=== PATIENT | female | born 1930 ===

== ENCOUNTER 2017-01-16 19:46 | Inpatient (IN) | payer MEDICARE, MEDICAID ==
[2017-01-16 19:54] VITALS: BMI 27.4
[2017-01-16] MEDS ORDERED: Albuterol-Ipratrop 3 mg / 0.5 (3 ml) UD IH STA (20:04)
--- NOTE | 2017-01-16 20:12 | ED PDOC ---
Arrival/HPI - General Chief Complaint: Shortness Of Breath Time Seen by Provider: 01/16/17 19:48 Historian: Patient - Critical Care Critical Care Minutes: 30 minutes - History of Present Illness Narrative History of Present Illness (Text): 01/16/17 20:08 A 86 year old female, whose past medical history includes CAD, renal insufficiency, CHF, hypertension, dementia, presents to the emergency department complaining of shortness of breath for past couple of days. Patient also experiences dyspnea on exertion and orthopnea. Has no history of fever, chills, cough, chest pain, nausea, vomiting, diarrhea, or any other complaints. PMD: Dr. Otero Time/Duration: > week (couple days) Symptom Onset: Sudden Symptom Course: Unchanged Past Medical History - Provider Review Nursing Documentation Reviewed: Yes - Infectious Disease Hx of Infectious Diseases: None - Tetanus Immunization Tetanus Immunization: Unknown - Cardiac Hx Cardiac Disorders: Yes (CAD) Hx Hypertension: Yes - Pulmonary Hx Respiratory Disorders: No - Neurological Hx Neurological Disorder: Yes Hx Paralysis: No - HEENT Hx HEENT Disorder: No - Renal Hx Renal Disorder: No - Endocrine/Metabolic Hx Endocrine Disorders: No - Hematological/Oncological Hx Blood Disorders: Yes Hx Blood Transfusions: Yes Hx Blood Transfusion Reaction: No - Integumentary Hx Dermatological Disorder: No - Musculoskeletal/Rheumatological Hx Musculoskeletal Disorders: No - Gastrointestinal Hx Gastrointestinal Disorders: Yes (Gastritis) - Genitourinary/Gynecological Hx Genitourinary Disorders: No - Psychiatric Hx Psychophysiologic Disorder: No Hx Emotional Abuse: No Hx Physical Abuse: No Hx Substance Use: No - Past Surgical History Past Surgical History: Non-Contributing - Surgical History Hx Cardiac Catheterization: Yes (february) - Anesthesia Hx Anesthesia Reactions: No Hx Malignant Hyperthermia: No - Suicidal Assessment Feels Threatened In Home Enviroment: No Family/Social History - Physician Review Nursing Documentation Reviewed: Yes Family/Social History: No Known Family HX Smoking Status: Never Smoked Hx Alcohol Use: No Hx Substance Use: No Hx Substance Use Treatment: No Allergies/Home Meds Allergies/Adverse Reactions: Allergies No Known Allergies Allergy (Verified 01/16/17 19:53) Home Medications: Home Meds Medication Instructions Recorded Confirmed Omeprazole 20 mg PO BID 04/18/16 01/16/17 Aspirin [Adult Low Dose Aspirin EC] 81 mg PO DAILY 04/29/16 01/16/17 Acetaminophen [Acetaminophen Extra 1,000 mg PO BID 01/16/17 01/16/17 Strength] Furosemide [Lasix] 40 mg PO DAILY 01/16/17 01/16/17 Losartan/Hydrochlorothiazide 1 tab PO DAILY 01/16/17 01/16/17 [Losartan-Hctz 50-12.5 mg Tab] Review of Systems - Physician Review All systems were reviewed & negative as marked: Yes - Review of Systems Constitutional: absent: Fevers Respiratory: SOB. absent: Cough Cardiovascular: CASTILLO, Orthopnea. absent: Chest Pain Gastrointestinal: absent: Diarrhea, Nausea, Vomiting Physical Exam Vital Signs Reviewed: Yes Vital Signs Temp Pulse Resp BP Pulse Ox 01/16/17 22:51 67 22 125/54 L 95 01/16/17 22:33 77 24 152/57 H 96 01/16/17 21:54 143/75 01/16/17 21:51 74 22 143/75 99 01/16/17 21:40 97.9 F 01/16/17 20:34 94 F L 01/16/17 20:07 62 16 159/63 H 100 01/16/17 20:05 26 H 100 Blood Pressure: Normal Pulse: Regular Respiratory Rate: Normal Appearance: Positive for: Well-Appearing, Non-Toxic, Comfortable Pain Distress: None Mental Status: Positive for: Alert and Oriented X 3 - Systems Exam Head: Present: Atraumatic, Normocephalic Pupils: Present: PERRL Extroacular Muscles: Present: EOMI Conjunctiva: Present: Normal Mouth: Present: Moist Mucous Membranes Neck: Present: Normal Range of Motion Respiratory/Chest: Present: Rales (rales at base of lungs) Cardiovascular: Present: Regular Rate and Rhythm, Normal S1, S2. No: Murmurs Abdomen: Present: Normal Bowel Sounds. No: Tenderness, Distention, Peritoneal Signs Back: Present: Normal Inspection Upper Extremity: Present: Normal Inspection. No: Cyanosis, Edema Lower Extremity: Present: Edema (+1 edema) Neurological: Present: GCS=15, CN II-XII Intact, Speech Normal Skin: Present: Warm, Dry, Normal Color. No: Rashes Psychiatric: Present: Alert, Oriented x 3, Normal Insight, Normal Concentration Medical Decision Making ED Course and Treatment: 01/16/17 20:11 Impression: 86 year old female with shortness of breath. Physical exam shows rales at base of lungs; +1 edema to lower extremity. Plan: -- EKG -- Chest X-ray -- Labs -- Duoneb -- Reassess and disposition Prior Visits: Notes and results from previous visits were reviewed. Patient was last seen in the emergency department on 06/15/2016 for AMS. Patient was admitted. Progress Notes: EKG: Ordered, reviewed, and independently interpreted the EKG. Rate : 66 BPM Rhythm : NSR Interpretation : Non-IDCD, nonspecific T-wave changes. Comparison : No previous EKG for comparison. Chest X-ray: Dictator : Peter Cesar MD Report Date : 01/16/2017 22:10:00 IMPRESSION: 1. Findings compatible with [id number]-komodhsh pulmonary edema. 2. Bibasilar atelectasis and/or pneumonia. 3. Incidental/non-acute findings are described above. 01/17/17 00:45 Case was d/w .Accepts to her service.Consult /. 01/17/17 00:59 Pt. with transient period of some worsening sob,relieved post nebulizer.Pt. also feels better when placed on 100% NR.Case was d/w payroll auditor who will assess pt. prior to final disposition. - Lab Interpretations Microbiology Results: Microbiology Results 01/16/17 20:20 Blood Blood Culture - Preliminary NO GROWTH AFTER 24 HOURS 01/16/17 20:05 Blood Blood Culture - Preliminary NO GROWTH AFTER 24 HOURS Lab Results: 01/16/17 20:05 01/16/17 20:05 Lab Results 01/17/17 00:05: pO2 99 H, VBG pH 7.34, VBG pCO2 49.0, VBG HCO3 26.4, VBG Total CO2 27.9, VBG O2 Sat (Calc) 98.1 H, VBG Base Excess 0.0, VBG Potassium 3.7, Glucose 123 H, Lactate 1.3, FiO2 21.0, Sodium 143.0, Chloride 111.0 H, Venous Blood Potassium 3.7 01/16/17 22:50: pCO2 40, pO2 66.0 L, HCO3 25.4, ABG pH 7.41, ABG Total CO2 26.6 , ABG O2 Saturation 94.8 L, ABG O2 Content 12.5 L, ABG Base Excess 0.7, ABG Hemoglobin 9.6 L, ABG Carboxyhemoglobin 1.6 H, POC ABG HHb (Measured) 5.1 H, ABG Methemoglobin 1.0, ABG O2 Capacity 13.2 L, Hgb O2 Saturation 92.2 L, FiO2 40.0 01/16/17 20:38: pO2 33, VBG pH 7.34, VBG pCO2 52.0, VBG HCO3 28.1 H, VBG Total CO2 29.7 H, VBG O2 Sat (Calc) 61.4, VBG Base Excess 1.4, VBG Potassium 4.4, Glucose 129 H, Lactate 2.1, FiO2 21.0, Sodium 142.0, Chloride 110.0 H, Venous Blood Potassium 4.4 01/16/17 20:05: WBC 4.0 L D, RBC 3.51, Hgb 9.8 L, Hct 29.8 L, MCV 84.9, MCH 27.9 , MCHC 32.9, RDW 18.9 H, Plt Count 182, MPV 11.2 H 01/16/17 20:05: Sodium 144, Potassium 4.3, Chloride 105, Carbon Dioxide 26, Anion Gap 17, BUN 23 H, Creatinine 1.0, Est GFR ( Amer) > 60, Est GFR ( Non-Af Amer) 53, Random Glucose 123 H, Calcium 10.3, Total Bilirubin 0.9, AST 43 H, ALT 48, Alkaline Phosphatase 158 H, Lactate Dehydrogenase 437, Total Creatine Kinase 41, Troponin I < 0.01, NT-Pro-B Natriuret Pep 1430 H, Total Protein 8.1, Albumin 4.2, Globulin 3.9, Albumin/Globulin Ratio 1.1 01/16/17 20:05: PT 10.7, INR 0.99, APTT 28.6 - RAD Interpretation Radiology Orders: 01/16/17 20:04 CHEST PORTABLE [RAD] Stat - Medication Orders Current Medication Orders: Acetaminophen (Tylenol 325mg Tab) 650 mg PO Q6H PRN PRN Reason: Fever >100.4 F Albuterol/Ipratropium (Duoneb 3 Mg/0.5 Mg (3 Ml) Ud) 3 ml IH Q4H PRN PRN Reason: Shortness of Breath Albuterol/Ipratropium (Duoneb 3 Mg/0.5 Mg (3 Ml) Ud) 3 ml IH [id number] [facility] Last Admin: 01/17/17 20:06 Dose: 3 ml Albuterol/Ipratropium (Duoneb 3 Mg/0.5 Mg (3 Ml) Ud) 3 ml IH Q2H PRN PRN Reason: Shortness of Breath Aspirin (Ecotrin) 81 mg PO DAILY [facility] Last Admin: 01/17/17 12:36 Dose: 81 mg Furosemide (Lasix) 40 mg IVP DAILY [facility] Last Admin: 01/17/17 10:53 Dose: 40 mg MAR Blood Pressure Document 01/17/17 10:53 NAILA (Rec: 01/17/17 10:53 NAILA [place] [id number]) Blood Pressure Blood Pressure (100/60-150/90) 122/70 IVP Administration Document 01/17/17 10:53 NAILA (Rec: 01/17/17 10:53 NAILA [place] [id number]) Charges for Administration # of IVP Administrations 1 Guaifenesin/Dextromethorphan (Robitussin Dm) 10 ml PO Q8H PRN PRN Reason: Cough Azithromycin (Zithromax 500mg In Ns) 500 mg in 250 mls @ 167 mls/hr IVPB DAILY [facility] PRN Reason: Protocol Ceftriaxone Sodium (Rocephin 1 Gram Ivpb) 1 gm in 100 mls @ 100 mls/hr IVPB DAILY [facility] PRN Reason: Protocol Methylprednisolone (Solu-Medrol) 30 mg IV Q12 [facility] Last Admin: 01/17/17 21:20 Dose: 30 mg eMAR Start Stop Document 01/17/17 21:20 KOPPS (Rec: 01/17/17 21:20 KOPPS [place] [id number]) Intravenous Solution Start Date 01/17/17 Start Time 21:20 End Date 01/17/17 End time 21:21 Total Infusion Time 1 Ondansetron HCl (Zofran Inj) 4 mg IVP Q6H PRN PRN Reason: Nausea/Vomiting Pantoprazole Sodium (Protonix Inj) 40 mg IVP DAILY [facility] Last Admin: 01/17/17 12:36 Dose: 40 mg IVP Administration Document 01/17/17 12:36 ANNEL (Rec: 01/17/17 12:36 ANENL [place] [id number]) Charges for Administration # of IVP Administrations 1 Discontinued Medications Acetaminophen (Tylenol 325mg Tab) 975 mg PO BID [facility] Last Admin: 01/17/17 12:36 Dose: 975 mg Comments: slight discomfort MAR Pain/Vitals Document 01/17/17 12:36 ANNEL (Rec: 01/17/17 12:36 ANNEL [id number]) Pain Reassessment Is This A Pain ReAssessment? Yes Sleep Is patient sleeping during reassessment? No Presence of Pain Presence of Pain No Albuterol/Ipratropium (Duoneb 3 Mg/0.5 Mg (3 Ml) Ud) 3 ml IH ONCE STA Stop: 01/16/17 20:05 Last Admin: 01/16/17 20:22 Dose: 3 ml Albuterol/Ipratropium (Duoneb 3 Mg/0.5 Mg (3 Ml) Ud) 3 ml IH ONCE STA Stop: 01/17/17 00:04 Last Admin: 01/17/17 00:18 Dose: 3 ml Furosemide (Lasix) 60 mg IVP ONCE ONE Stop: 01/16/17 21:37 Last Admin: 01/16/17 21:54 Dose: 60 mg MAR Blood Pressure Document 01/16/17 21:54 RD (Rec: 01/16/17 21:54 RD [id number]) Blood Pressure Blood Pressure (100/60-150/90) 143/75 IVP Administration Document 01/16/17 21:54 RD (Rec: 01/16/17 21:54 RD [id number]) Charges for Administration # of IVP Administrations 1 Furosemide (Lasix) 40 mg IVP DAILY [facility] Last Admin: 01/17/17 12:21 Dose: Ceftriaxone Sodium (Rocephin 1 Gram Ivpb) 1 gm in 100 mls @ 200 mls/hr IV ONCE STA PRN Reason: Protocol Stop: 01/16/17 22:06 Last Admin: 01/16/17 21:54 Dose: 200 mls/hr eMAR Start Stop Document 01/16/17 21:54 RD (Rec: 01/16/17 21:54 RD [id number]) Intravenous Solution Start Date 01/16/17 Start Time 21:54 End Date 01/16/17 End time 23:24 Total Infusion Time 90 Azithromycin (Zithromax 500mg In Ns) 500 mg in 250 mls @ 166.667 mls/hr IV STAT STA PRN Reason: Protocol Stop: 01/16/17 23:06 Last Admin: 01/16/17 22:44 Dose: 166.667 mls/hr eMAR Start Stop Document 01/16/17 22:44 RD (Rec: 01/16/17 22:44 RD [id number]) Intravenous Solution Start Date 01/16/17 Start Time 22:44 End Date 01/17/17 End time 00:14 Total Infusion Time 90 Methylprednisolone (Solu-Medrol) 40 mg IVP ONCE ONE Stop: 01/17/17 00:28 Last Admin: 01/17/17 00:37 Dose: 40 mg IVP Administration Document 01/17/17 00:37 RD (Rec: 01/17/17 00:37 RD [id number]) Charges for Administration # of IVP Administrations 1 - Scribe Statement The provider has reviewed the documentation as recorded by the Camden Ríos Provider Scribe Attestation: All medical record entries made by the Camden were at my direction and personally dictated by me. I have reviewed the chart and agree that the record accurately reflects my personal performance of the history, physical exam, medical decision making, and the department course for this patient. I have also personally directed, reviewed, and agree with the discharge instructions and disposition. Disposition/Present on Arrival - Present on Arrival Any Indicators Present on Arrival: No History of DVT/PE: No History of Uncontrolled Diabetes: No Urinary Catheter: No History of Decub. Ulcer: No History Surgical Site Infection Following: None - Disposition Have Diagnosis and Disposition been Completed?: Yes Diagnosis: CHF (congestive heart failure), Pneumonia Disposition: HOSPITALIZED Disposition Time: 00:03 Patient Plan: Admission Patient Problems: Current Active Problems Problem Status Onset CHF (congestive heart failure) Acute Pneumonia Acute Condition: STABLE
[2017-01-16 20:35] LABS: HEMATOCRIT 29.8 % (36.0-48.0); MEAN CELL VOLUME 84.9 fl (80.0-105.0); MEAN CORPUSCULAR HEMOGLOBIN 27.9 pg (25.0-35.0); MEAN CORPUSCULAR HGB CONC 32.9 g/dl (31.0-37.0); MEAN PLATELET VOLUME 11.2 fl (7.0-11.0); RED CELL DISTRIBUTION WIDTH 18.9 % (11.5-14.5)
[2017-01-16 20:42] LABS: ALB/GLOB RATIO 1.1 (1.1-1.8); ALKALINE PHOSPHATASE 158 U/L (38-126); ALT/SGPT 48 U/L (7-56); AST/SGOT 43 U/L (14-36); BILIRUBIN,TOTAL 0.9 mg/dL (0.2-1.3); BLOOD UREA NITROGEN 23 mg/dL (7-21); CALCIUM 10.3 mg/dL (8.4-10.5); CARBON DIOXIDE 26 mmol/L (21-33); CHLORIDE 105 mmol/L (98-107); GFR AFRICAN-AMERICAN > 60; GLUCOSE,RANDOM 123 mg/dL (70-110); POTASSIUM 4.3 mmol/L (3.6-5.0); SODIUM 144 mmol/L (132-148); TOTAL PROTEIN 8.1 g/dL (5.8-8.3)
[2017-01-16 20:43] LABS: INR 0.99 (0.93-1.08); PARTIAL THROMBOPLASTIN TIME 28.6 Seconds (23.7-30.8)
[2017-01-16 20:44] LABS: VENOUS BLOOD GAS BASE EXCESS 1.4 mmol/L (0.0-2.0); VENOUS BLOOD PH 7.34 (7.32-7.43)
[2017-01-16 20:55] LABS: TROPONIN I < 0.01 ng/mL
[2017-01-16] MEDS ORDERED: cefTRIAXone 1 gm 1 GM/100 ML BAG IV STA (21:37)
[2017-01-16] MEDS ORDERED: Azithromycin 500MG/NS 250ml 500 MG/250 ML BAG IV STA (21:37)
--- NOTE | 2017-01-16 22:11 | RAD ---
EXAM: XR Chest, 1 View CLINICAL HISTORY: 86 years old, female; Signs and symptoms; Shortness of breath; Additional info: SOB TECHNIQUE: Frontal view of the chest. COMPARISON: DX - CHEST PORTABLE 06/22/2016 2:23:07 PM FINDINGS: Limitations: Radiographic technique - mild. Lungs: Diffuse hazy interstitial opacities. Increased density within lung bases. Pleural space: Moderate bilateral pleural effusions, RIGHT greater than LEFT. No pneumothorax. Heart: Moderate cardiomegaly. Mediastinum: Prominence of central pulmonary vasculature. Bones/joints: No acute fracture. Tubes, lines and devices: Leads overlying chest. IMPRESSION: 1. Findings compatible with [id number]-lraaerjc pulmonary edema. 2. Bibasilar atelectasis and/or pneumonia. 3. Incidental/non-acute findings are described above.
[2017-01-16 22:53] LABS: ARTERIAL BLOOD GAS HCO3 25.4 mmol/L (21-28); ARTERIAL BLOOD GAS O2 CAPACITY 13.2 mL/dl (16-24); ARTERIAL BLOOD GAS O2 CONTENT 12.5 ML/dl (15-23); ARTERIAL BLOOD GAS PH 7.41 (7.35-7.45); ARTERIAL BLOOD HGB O2 SAT 92.2 % (95.0-98.0); CARBOXYHEMOGLOBIN 1.6 % (0.5-1.5); HHB 5.1 % (0-5)
[2017-01-17] MEDS ORDERED: Albuterol-Ipratrop 3 mg / 0.5 (3 ml) UD IH STA (00:03)
[2017-01-17 00:24] LABS: VENOUS BLOOD PH 7.34 (7.32-7.43)
[2017-01-17] MEDS ORDERED: MethylPREDNISolone 40 mg Vial IVP ONE (00:27)
[2017-01-17] MEDS ORDERED: Albuterol-Ipratrop 3 mg / 0.5 (3 ml) UD IH PRN ×2 (01:02→11:25)
[2017-01-17] MEDS ORDERED: Iohexol 350 MG/100 ML VIAL ONE (01:32)
--- NOTE | 2017-01-17 03:02 | CT ---
EXAM: CT Angiography Chest With Intravenous Contrast CLINICAL HISTORY: 86 years old, female; Signs and symptoms; Shortness of breath; Additional info: Shortness of breath, rle swelling, R/O pe TECHNIQUE: Axial computed tomographic angiography images of the chest with intravenous contrast using pulmonary embolism protocol. All CT scans at this facility use one or more dose reduction techniques, viz.: automated exposure control; ma/kV adjustment per patient size (including targeted exams where dose is matched to indication; i.e. head); or iterative reconstruction technique. MIP reconstructed images were created and reviewed. Coronal and sagittal reformatted images were created and reviewed. CONTRAST: 100 mL of omni 350 administered intravenously. COMPARISON: DX - CHEST PORTABLE 01/16/2017 8:40:30 PM FINDINGS: Limitations: Motion artifact - moderate. Pulmonary arteries: No definite pulmonary embolism. Aorta: Moderate atherosclerotic disease. No aneurysm. Lungs: Peripheral consolidation with associated volume loss within RIGHT middle, RIGHT lower, LEFT lower lobes. Patchy groundglass and air space opacities throughout lungs, most pronounced LEFT upper lobe. Mild interlobular septal thickening. Pleural space: Moderate RIGHT pleural effusion. [id number] LEFT pleural effusion. No pneumothorax. Heart: Mild cardiomegaly. No significant pericardial effusion. Bones/joints: Degenerative changes of spine. No acute fracture. Soft tissues: Unremarkable. Lymph nodes: No pathologically enlarged lymph nodes. Gallbladder and bile ducts: Calcified gallstones. Kidneys and ureters: Few renal cysts. Moderate to severe pelvocaliectasis of LEFT kidney. Few subcentimeter hyperdense lesions within LEFT kidney, likely hemorrhagic/proteinaceous cysts. Stomach and bowel: Scattered diverticula. Ventral hernia containing loop of bowel, incompletely imaged. IMPRESSION: 1. No definite CT evidence of pulmonary embolism. 2. Probable interstitial edema. 3. Patchy groundglass and airspace opacities. DDX: Pulmonary edema, pneumonia. 4. Bilateral pleural effusions with bibasilar atelectasis. Superimposed pneumonia not excluded. 5. Incidental/non-acute findings are described above.
--- NOTE | 2017-01-17 03:52 | CP.PCM.CON ---
<Loki Hernandez - Last Filed: 01/17/17 03:38> History of Present Illness - History of Present Illness History of Present Illness: ICU Consult Note for Dr. Jones CC: Shortness of breath improved with non-rebreather 100% O2 and nebulizers This is a bengali-speaking 86 yo F with PMH of CAD, renal insufficiency, CHF, hypertension, and dementia who presents to [facility] with complaint of shortness of breath progressively worsening x2-3 days. As per patient, the shortness of breath was mild, has progressed to the point that she felt the need to come to the hospital, and is present constantly, even at rest. She denies any inciting incident with the initial onset several days prior. Denies hx of smoking, sick contacts, hx of DVT/PE, chest pain, pain with respiration, syncope/near-syncope , nausea/emesis, diarrhea/constipation, or focal weakness. Admits to difficultly breathing, but is improved with use of the non-rebreather mask. All other ROS in 12-point system review were negative. In the ED, CXR was obtained which was suspicious for PNA and mild-mod pulm edema. PMH: as above PSH: Cardiac cath FHx: denies SHx: denies tobacco/alcohol/illicits PMD: Dr. Otero Review of Systems - Review of Systems All systems: reviewed and no additional remarkable complaints except (as per HPI ) Past Patient History - Infectious Disease Hx of Infectious Diseases: None - Tetanus Immunizations Tetanus Immunization: Unknown - Past Medical History & Family History Past Medical History?: Yes - Past Social History Smoking Status: Never Smoked - CARDIAC Hx Cardiac Disorders: Yes (CAD) Hx Hypertension: Yes - PULMONARY Hx Respiratory Disorders: No - NEUROLOGICAL Hx Neurological Disorder: Yes Hx Paralysis: No - HEENT Hx HEENT Problems: No - RENAL Hx Chronic Kidney Disease: No - ENDOCRINE/METABOLIC Hx Endocrine Disorders: No - HEMATOLOGICAL/ONCOLOGICAL Hx Blood Disorders: Yes Hx Blood Transfusions: Yes Hx Blood Transfusion Reaction: No - INTEGUMENTARY Hx Dermatological Problems: No - MUSCULOSKELETAL/RHEUMATOLOGICAL Hx Musculoskeletal Disorders: No - GASTROINTESTINAL Hx Gastrointestinal Disorders: Yes (Gastritis) - GENITOURINARY/GYNECOLOGICAL Hx Genitourinary Disorders: No - PSYCHIATRIC Hx Psychophysiologic Disorder: No Hx Emotional Abuse: No Hx Physical Abuse: No Hx Substance Use: No - SURGICAL HISTORY Hx Cardiac Catheterization: Yes (february) - ANESTHESIA Hx Anesthesia Reactions: No Hx Malignant Hyperthermia: No Meds Allergies/Adverse Reactions: Allergies Allergy/AdvReac Type Severity Reaction Status Date / Time No Known Allergies Allergy Verified 01/16/17 19:53 - Medications Medications: Current Medications Albuterol/Ipratropium (Duoneb 3 Mg/0.5 Mg (3 Ml) Ud) 3 ml IH Q4H PRN PRN Reason: Shortness of Breath Physical Exam - Constitutional Appears: Non-toxic, No Acute Distress - Head Exam Head Exam: ATRAUMATIC, NORMAL INSPECTION, NORMOCEPHALIC - Eye Exam Eye Exam: EOMI, Normal appearance. absent: Conjunctival injection, Scleral icterus Pupil Exam: absent: Irregular, Unequal - ENT Exam ENT Exam: Mucous Membranes Moist Additional comments: wearing Non-rebreather mask - Neck Exam Neck exam: Positive for: Full Rom. Negative for: Lymphadenopathy, Thyromegaly - Respiratory Exam Respiratory Exam: Decreased Breath Sounds (moderately decreased breath sounds in all [place]), Rales (faint bibasilar rales), NORMAL BREATHING PATTERN (short of breath with exertion in bed, but no ty tachypnea or cyanosis). absent: Accessory Muscle Use, Chest Wall Tenderness, Clear to Auscultation Bilateral, Rhonchi, Wheezes - Cardiovascular Exam Cardiovascular Exam: REGULAR RHYTHM, RRR, +S1, +S2. absent: Bradycardia, Tachycardia, Irregular Rhythm, JVD, +S4 - GI/Abdominal Exam GI & Abdominal Exam: Normal Bowel Sounds, Soft. absent: Diminished Bowel Sounds , Firm, Hyperactive Bowel Sounds, Hypoactive Bowel Sounds, Rigid, Tenderness - Extremities Exam Extremities exam: Positive for: full ROM, pedal edema (+2-3 pitting edema in the RLE from foot to knee, LLE without pitting edema), tenderness (mild tenderness to palpation at R calf), pedal pulses present (+2 radials bilaterally , +1 dorsalis pedis bilaterally). Negative for: calf tenderness, normal inspection - Neurological Exam Neurological exam: Alert, CN II-XII Intact, Oriented x3 - Psychiatric Exam Psychiatric exam: Anxious, Normal Affect - Skin Skin Exam: Dry, Intact, Normal Color, Warm Results - Vital Signs Recent Vital Signs: Last Vital Signs Temp 97.9 F 01/16/17 21:40 Pulse 67 01/16/17 22:51 Resp 20 01/17/17 03:00 BP 125/54 L 01/16/17 22:51 Pulse Ox 95 01/16/17 22:51 - Labs Result Diagrams: 01/16/17 20:05 01/16/17 20:05 Assessment & Plan - Assessment and Plan (Free Text) Assessment: This is a bengali-speaking 86 yo F with PMH of CAD, renal insufficiency, CHF, hypertension, and dementia who presents to [facility] with complaint of shortness of breath progressively worsening x2-3 days. Her CXR in the ED was suggestive for likely PNA with mild-moderate pleural effusions. Given asymmetrically swollen RLE as compared to LLE, and persistence of SOB, will obtain LE Duplex and CTA chest to rule out DVT and PE. Plan: At this time, patient does not require ICU level of care. Patient would most benefit from an admission to the telemetry floor, oxygenation support with a high-flow nasal canula, and IV antibiotics and diuretics for suspected PNA with mild-moderate pleural effusions. Her ABG is notable for normal range pCO2 and improved oxygenation, so she does not appear to be at risk for pending respiratory failure. CTA was negative for PE, pending LE duplex to rule out DVT. If the patient experiences an acute change in condition, please feel free to reconsult us. Thank you for this interesting consult. Patient seen, reviewed, and discussed with attending, Dr. Jones. <Jacinto oJnes - Last Filed: 01/17/17 06:17> Meds - Medications Medications: Current Medications Albuterol/Ipratropium (Duoneb 3 Mg/0.5 Mg (3 Ml) Ud) 3 ml IH Q4H PRN PRN Reason: Shortness of Breath Results - Vital Signs Recent Vital Signs: Last Vital Signs Temp 98.5 F 01/17/17 03:43 Pulse 66 01/17/17 03:43 Resp 20 01/17/17 03:43 BP 126/54 L 01/17/17 03:43 Pulse Ox 95 01/16/17 22:51 - Labs Result Diagrams: 01/16/17 20:05 01/16/17 20:05 Attending/Attestation - Attestation I have personally seen and examined this patient.: Yes I have fully participated in the care of the patient.: Yes I have reviewed all pertinent clinical information: Yes Notes (Text): 01/17/17 06:15 I agree with the above mentioned note and exam by the resident with the addition of the followin86 y/o female presented to the ED and found to be in mild hypoxemic respiratory failure. ED nursing staff noted patient to be tachypnic when off of nasal cannula so she was placed on a 100% NRM with improvement of her oxygenation. CTA chest was done and ruled out PE; likely secondary to acute decompensated heart failure with an elevated bnp. She will benefit from diuresis and afterload reduction; consider obtaining a cardiology evaluation.
[2017-01-17 12:04] LABS: CHOLESTEROL 191 mg/dL (130-200)
[2017-01-17 12:18] LABS: TROPONIN I < 0.01 ng/mL
--- NOTE | 2017-01-17 12:22 | HP ---
HISTORY OF PRESENT ILLNESS: The patient is an 86 years old known to me from multiple previous admission. She was seen in office week and a half ago for general checkup. She did not have any significant complain at that point, but according to daughter, she has been getting weaker and weaker and getting increasingly short of breath and she had extreme shortness of breath last night. Denies any fever or chills; compliant of decreased appetite, some epigastric discomfort, suprapubic discomfort, but no fever or chills at home either and no history of hemoptysis, no hematemesis. She does admit to having black stool, but she is not sure why. She did not have any episode of runny or stuffy nose or upper respiratory discomfort. Because of her increasing shortness of breath, she came to emergency room. No chest pain, has epigastric and suprapubic discomfort. PAST MEDICAL HISTORY: Significant for: 1. CA colon, status post partial colectomy. 2. History of hypertension. 3. Renal insufficiency. 4. Hyperlipidemia. 5. Coronary artery disease. 6. Mild dementia. SURGICAL HISTORY: Significant for partial colectomy. SOCIAL HISTORY: She is single, lives with her daughter. Denies smoking or drinking or alcohol use. ALLERGIES: THERE IS NO KNOWN DRUG ALLERGY. MEDICATIONS AT HOME: She takes aspirin 81 daily, omeprazole 20 mg twice a day, losartan 50/12.5 daily, Lasix 40 daily. REVIEW OF SYSTEMS: Significant for shortness of breath, but she states she feel better now; complaint of generalized weakness; complaint of decreased appetite. PHYSICAL EXAMINATION: GENERAL: She is lying in bed, seems to be comfortable. VITAL SIGNS: She is afebrile, pulse 62, respiration 20 and blood pressure 122/70. LUNGS: Bilateral fair airflow. Few soft crackles at bases. HEART: S1 and S2 audible. ABDOMEN: Soft. Slight epigastric discomfort. NEUROLOGIC: She is awake and alert; communicative. Bilateral leg no edema. LABORATORY DATA: WBC is 4.0, hemoglobin 9.8, hematocrit 29.8, and platelet of 182. PT 10.7, INR 0.99, Chemistry; sodium 144, potassium 4.3, chloride 105, CO2 of 26, BUN 23, creatinine 1.0, blood sugar of 123, calcium 10.3, AST 43, ALT 48, alk phos is 158. BNP is 1430. She had CT scan of the chest done that shows no definite CT evidence of pulmonary embolism, probably interstitial edema, patchy ground glass and air space opacity consistent with pulmonary edema, bilateral pleural effusion with bibasilar atelectasis. ASSESSMENT: 1. Pulmonary edema. 2. Pleural effusion. 3. Pneumonia. 4. Gastritis. 5. History of coronary artery disease. PLAN: We will start the patient on IV antibiotic. I will give her small dose of steroid. Continue on diuretics. Start her on PPI. I will request for echocardiogram and we will reevaluate the patient. Rk Otero MD
[2017-01-17] MEDS: Albuterol-Ipratrop 3 mg / 0.5 (3 ml) UD IH SCH ×2 (13:43→20:06)
--- NOTE | 2017-01-17 15:42 | US ---
HISTORY: Leg pain and swelling. Evaluate for DVT PHYSICIAN(S): Duane Loo MD. TECHNIQUE: Duplex sonography and color-flow Doppler with graded compression were used to evaluate the deep venous systems of both lower extremities. FINDINGS: The visualized deep venous systems of both lower extremities are sonographically normal and compressible. Normal wave forms and augmentation are seen. There is no sonographic evidence for deep venous thrombosis in the visualized segments of both lower extremities. IMPRESSION: No sonographic evidence for deep venous thrombosis in the visualized segments of both lower extremities.
[2017-01-17] MEDS: MethylPREDNISolone 40 mg Vial IV SCH (21:20)
[2017-01-17] MEDS ORDERED: guaiFENesin DM 200 mg-20 mg/10 ml UD PO PRN (21:52)
[2017-01-18] MEDS: Albuterol-Ipratrop 3 mg / 0.5 (3 ml) UD IH SCH ×4 (01:35→20:09)
[2017-01-18 06:42] LABS: MAGNESIUM 1.6 mg/dL (1.7-2.2); PHOSPHOROUS 4.8 mg/dL (2.5-4.5)
[2017-01-18 06:57] LABS: FREE T4 1.53 ng/dL (0.78-2.19)
[2017-01-18 07:11] LABS: THYROID STIMULATING HORMONE 0.46 mIU/mL (0.46-4.68)
[2017-01-18 07:54] LABS: GRAN # 7.55 (1.4-6.5); GRAN % 92.5 % (50.0-68.0); HEMATOCRIT 24.1 % (36.0-48.0); LYMPH # 0.5 (1.2-3.4); LYMPH % 5.5 % (22.0-35.0); MEAN CELL VOLUME 84.3 fl (80.0-105.0); MEAN CORPUSCULAR HEMOGLOBIN 27.6 pg (25.0-35.0); MEAN CORPUSCULAR HGB CONC 32.8 g/dl (31.0-37.0); MONO # 0.2 (0.1-0.6); PLATELET COUNT 140 10^3/uL (120.0-450.0); RED CELL DISTRIBUTION WIDTH 18.8 % (11.5-14.5); WHITE BLOOD COUNT 8.2 10^3/ul (4.5-11.0)
--- NOTE | 2017-01-18 08:22 | CARD ---
APPROVED REPORT EKG Measurement Heart [id number] CO [id number] [id number] <Conclusion> Normal sinus rhythm with 1st degree AVB. Nonspecific intraventricular conduction delay LAD PRWP STTW changes c/w ischemia No change
[2017-01-18 09:13] LABS: NEUTROPHIL 93 % (50.0-70.0); PLATELET ESTIMATE NORMAL (NORMAL)
[2017-01-18] MEDS: MethylPREDNISolone 40 mg Vial IV SCH ×2 (09:32→21:38)
[2017-01-18] MEDS: cefTRIAXone 1 gm 1 GM/100 ML BAG IVPB SCH (09:33)
[2017-01-18] MEDS ORDERED: cefTRIAXone 1 gm 100 ML IVPB SCH (10:00)
[2017-01-18] MEDS ORDERED: Azithromycin 500MG/NS 250ml 250 ML IVPB SCH (10:00)
[2017-01-18 10:27] LABS: HEMATOCRIT 24.2 % (36.0-48.0)
[2017-01-18] MEDS: Azithromycin 500MG/NS 250ml 500 MG/250 ML BAG IVPB SCH (11:45)
[2017-01-19] MEDS: Albuterol-Ipratrop 3 mg / 0.5 (3 ml) UD IH SCH ×4 (02:40→22:21)
[2017-01-19] MEDS: Pantoprazole 40 mg EC Tab PO SCH (06:00)
--- NOTE | 2017-01-19 08:33 | CONS ---
HISTORY OF PRESENT ILLNESS: Ms. Downs is an 86-year-old female admitted to the hospital with progressive weakness as per the daughter. She denies any fever, chills, or rigors. She has gastritis, emphysematous type. GI following. She has complaints of abdominal pain on admission, pain has resolved. She has history of colon cancer status post resection. She has leukopenia and severe anemia on admission. She also has history of coronary artery disease and congestive cardiac failure. Denies any problems today. Abdominal pain resolved. She is accepting orally. Hemoglobin declined to 7.8 gram/dL. PAST MEDICAL HISTORY: 1. Colon cancer status post partial colectomy. 2. Hypertension. 3. Renal insufficiency. 4. Hyperlipidemia. 5. Coronary artery disease. 6. Dementia. PAST SURGICAL HISTORY: Colectomy. SOCIAL HISTORY: Single, lives with the daughter. PERSONAL HISTORY: Denies any smoking. No history of alcohol abuse. ALLERGIES: NO KNOWN DRUG ALLERGIES. HOME MEDICATIONS: Omeprazole 20 mg daily, aspirin 81 mg daily, losartan 50 12.5 mg daily, Lasix 40 mg IV daily. REVIEW OF SYSTEMS: As per HPI, positive for shortness of breath, fatigue, and weakness. Rest of 12-point review of systems reviewed negative. PHYSICAL EXAMINATION: GENERAL: Comfortable in bed, in no acute distress. VITAL SIGNS: Temperature 98.7, heart rate 80 per minute, blood pressure 130/80. HEENT: Pallor positive. NECK: No lymphadenopathy. CHEST: Air entry present and equal bilateral. No added sounds. CARDIOVASCULAR: S1 and S2 normal. No murmur and no gallop. ABDOMEN: Soft and nontender. No hepatosplenomegaly. EXTREMITIES: No edema. SLASHER: Alert and oriented x3. Communicator. Bilateral leg, no edema. SPINE: Nontender. SKIN: No petechia and no rash. LABORATORY DATA: White count 4, improved to 8.2, hemoglobin 7.8, hematocrit 24.2, platelet count 140. Sodium 144, potassium 4.3, BUN 23, creatinine 1, bilirubin 0.9. AST 43, ALT 48, alkaline phosphatase 151. BNP 1430. Magnesium 1.6. CURRENT MEDICATIONS: DuoNeb p.r.n., aspirin 81 mg daily, Zithromax, ceftriaxone, Lasix 40 mg daily, Solu-Medrol 30 mg q.12h., Zofran q.6h., Protonix 40 mg daily. ASSESSMENT AND PLAN: 1. Severe anemia. Anemia of multifactorial. Workup, iron studies, B12, folate with the a.m. labs. A 1 unit of PRBC ordered for today. Lasix 20 mg IV before the transfusion. 2. Leukopenia. White count 4000 on admission, recovered now to 8000. We will continue to follow. 3. Gastritis, GI following. She is on IV Protonix. She had multiple EGDs in the past. 4. Colon cancer status post resection, colectomy. No evidence of recurrence. 5. Severe anemia and blood loss, she need further evaluation for recurrence of colon cancer. 6. Coronary artery disease and congestive heart failure. Treatment as per primary team. 7. Chronic obstructive pulmonary disease. She is currently on Solu-Medrol and bronchodilators. 8. Internal condition improved. Request by the daughter at beside. Discussed with Dr. Kang. Mirtha Malagon MD
[2017-01-19 09:35] LABS: GRAN # 7.25 (1.4-6.5); GRAN % 89.6 % (50.0-68.0); LYMPH # 0.6 (1.2-3.4); LYMPH % 7.7 % (22.0-35.0); MEAN CELL VOLUME 84.7 fl (80.0-105.0); MEAN CORPUSCULAR HEMOGLOBIN 27.7 pg (25.0-35.0); MEAN CORPUSCULAR HGB CONC 32.7 g/dl (31.0-37.0); MEAN PLATELET VOLUME 12.4 fl (7.0-11.0); MONO # 0.2 (0.1-0.6); MONO % 2.7 % (1.0-6.0); RED CELL DISTRIBUTION WIDTH 18.1 % (11.5-14.5); WHITE BLOOD COUNT 8.1 10^3/ul (4.5-11.0)
[2017-01-19] MEDS: MethylPREDNISolone 40 mg Vial IV SCH (10:20)
[2017-01-19] MEDS: cefTRIAXone 1 gm 1 GM/100 ML BAG IVPB SCH (10:20)
[2017-01-19] MEDS: Azithromycin 500MG/NS 250ml 500 MG/250 ML BAG IVPB SCH (11:50)
[2017-01-19] MEDS ORDERED: Magnesium Sulfate 1 gm in D5W 1 GM/100 ML BAG IV ONE (12:34)
--- NOTE | 2017-01-19 13:00 | PN ---
SUBJECTIVE: The patient is 86 years old, seen and examined, sitting in chair, states she feels little better, less shortness of breath, complained of increased frequency of urination and suprapubic discomfort, complained of generalized weakness. PHYSICAL EXAMINATION: VITAL SIGNS: She is afebrile, pulse 70, respiration 19 and blood pressure 120/61. LUNGS: Bilateral fair airflow, decreased at bases. HEART: S1 and S2 audible. ABDOMEN: Soft, nontender. No rebound. No guarding. NEUROLOGICALLY: The patient is awake and alert; communicative. EXTREMITIES: Bilateral leg no edema. LABORATORY EXAM: Her WBC is 8.1, hemoglobin 9.8, hematocrit 30, platelets of 163. Chemistries: Sodium 144, potassium 4.3, chloride 105, CO2 of 26, BUN 23, creatinine 1.0, blood sugar of 123. Magnesium 1.6. Phosphorus 4.8. CT scan of the chest shows bilateral pleural effusion. ASSESSMENT: 1. History of carcinoma of colon, status post hemicolectomy. 2. Interstitial pulmonary edema. 3. Bilateral pleural effusion with bibasilar atelectasis. 4. Acute on chronic anemia, status post blood transfusion. 5. History of gastritis. 6. Dysuria, rule out urinary tract infection. PLAN: I will send urine for culture. Start her on Pyridium. Discussed with Dr. Kang. Plan is for endoscopy tomorrow. The patient is hemodynamically stable. I will discontinue her telemetry and cut down her steroids. Continue Rocephin and Zithromax. She is currently on PPI. Follow up her CBC and CMP in a.m. Rk Otero MD
[2017-01-19 14:03] LABS: URINE APPEARANCE CLEAR (CLEAR); URINE BILIRUBIN NEGATIVE (NEGATIVE); URINE BLOOD NEGATIVE (NEGATIVE); URINE COLOR YELLOW (YELLOW); URINE GLUCOSE (UA) NEGATIVE (NEGATIVE); URINE KETONE NEGATIVE (NEGATIVE); URINE LEUKOCYTE ESTERASE NEGATIVE Leu/uL (NEGATIVE); URINE PROTEIN NEGATIVE mg/dL (<30 mg/dL); URINE UROBILINOGEN 0.2 E.U./dL (<1 E.U./dL)
--- NOTE | 2017-01-19 21:09 | CON ---
REASON FOR CONSULTATION: Cardiac evaluation with history of coronary artery disease, admitted with possible pneumonia. BRIEF CLINICAL HISTORY: This is an 86-year-old female with past medical history significant for hypertension, GI bleed, hyperlipidemia, coronary artery disease status post multiple stents in the past admitted with shortness of breath, possibly pneumonia, now complaining of nose bleed. Denies any chest pain. Denies any shortness of breath now. PAST MEDICAL HISTORY: Significant for coronary artery disease status post multiple stents, history of Mobitz type 2 block, Holter was done and suggested that it does not need pacemaker on last admission. History of GI bleed, history of DVT, history of PE. PREVIOUS CARDIAC WORKUP: The patient had a stress test on 02/28/2014 which was negative, ejection fraction 55%. The patient's echocardiogram on 02/17/2014, was negative, ejection fraction 45%, mild to moderate mitral regurgitation and mild to moderate tricuspid regurgitation. Also, carotid ultrasound shows 60% to 79% right ICA and 49% left ICA stenosis where MRA showed 55% right ICA and 30% left ICA. No medical treatment recommended. History of coronary artery disease, history of multiple stents in the past. The patient had a repeat echocardiography done on 06/20/2016 that showed ejection fraction 55% to 60%, moderate aortic regurgitation, mild aortic stenosis, moderate mitral regurgitation, mild to moderate tricuspid regurgitation, no pericardial effusion, no vegetation noted, history of CAD, history of stent in the past. current medications: The patient is taking at home aspirin, omeprazole, losartan and furosemide. REVIEW OF SYSTEMS: As per HPI. PHYSICAL EXAMINATION VITAL SIGNS: Temperature afebrile, heart rate 70 and blood pressure 120/61.. HEENT: PERRLA. Extraocular muscles intact.. NECK: Supple. No carotid bruit. No thyromegaly. CHEST: Clear to auscultation. HEART: S1 and S2 regular. ABDOMEN: Soft. EXTREMITIES: Clubbing and cyanosis negative. LABORATORY DATA: Blood workup as follows: WBC 8.1, hemoglobin 9.8, hematocrit 30.0 and platelet count 163. Chemistry shows sodium 144, potassium 4.0, chloride 105, carbon dioxide 26, anion gap of 17, BUN 23 and creatinine 1.0. Troponin 0.01, negative. TSH 0.46. Total triglyceride 57, cholesterol 191, LDL 100, HDL 53. Chest x-ray shows bibasilar atelectasis and/or pneumonia. CAT scan of the chest was done suggested probable pneumonia versus pulmonary edema. IMPRESSION: Mild decompensated congestive heart failure, pneumonia, coronary artery disease, mitral regurgitation, tricuspid regurgitation, aortic regurgitation, mild aortic stenosis, history of deep venous thrombosis, history of pulmonary embolism, history of gastrointestinal bleed, history of arrhythmia in the past, has not needed any pacemaker by Holter.. RECOMMENDATION: We will get echo to assess LV function. Continue gentle diuretics. Repeat chest x-ray PA and lateral. We will follow with you. Thank you doctor for providing the opportunity to take care of the patient. Heather Ac MD
[2017-01-20] MEDS: Albuterol-Ipratrop 3 mg / 0.5 (3 ml) UD IH SCH ×4 (02:50→19:45)
[2017-01-20] MEDS: Pantoprazole 40 mg EC Tab PO SCH (06:02)
[2017-01-20 06:50] LABS: GRAN # 6.89 (1.4-6.5); HEMATOCRIT 32.8 % (36.0-48.0); LYMPH # 1.3 (1.2-3.4); LYMPH % 14.6 % (22.0-35.0); MEAN CELL VOLUME 85.4 fl (80.0-105.0); MEAN CORPUSCULAR HEMOGLOBIN 28.1 pg (25.0-35.0); MEAN CORPUSCULAR HGB CONC 32.9 g/dl (31.0-37.0); MONO # 0.7 (0.1-0.6); MONO % 7.4 % (1.0-6.0); PLATELET COUNT 179 10^3/uL (120.0-450.0); RED CELL DISTRIBUTION WIDTH 18.7 % (11.5-14.5); WHITE BLOOD COUNT 8.8 10^3/ul (4.5-11.0)
[2017-01-20 07:54] LABS: ALB/GLOB RATIO 1.1 (1.1-1.8); BILIRUBIN,TOTAL 0.7 mg/dL (0.2-1.3); CALCIUM 10.4 mg/dL (8.4-10.5); MAGNESIUM 2.2 mg/dL (1.7-2.2); PHOSPHOROUS 3.8 mg/dL (2.5-4.5); POTASSIUM 3.6 mmol/L (3.6-5.0); TOTAL PROTEIN 8.2 g/dL (5.8-8.3)
--- NOTE | 2017-01-20 08:22 | RAD ---
HISTORY: F/U pneumonia and compare COMPARISON: 01/16/2017 TECHNIQUE: Chest PA and lateral FINDINGS: LUNGS: There is a right lower lobe infiltrate. No significant change. PLEURA: Small bilateral pleural effusions CARDIOVASCULAR: Moderate cardiomegaly OSSEOUS STRUCTURES: No significant abnormalities. VISUALIZED UPPER ABDOMEN: Normal. OTHER FINDINGS: None. IMPRESSION: No change in right lower lobe infiltrate
[2017-01-20] MEDS: cefTRIAXone 1 gm 1 GM/100 ML BAG IVPB SCH (10:39)
[2017-01-20] MEDS: MethylPREDNISolone 40 mg Vial IV SCH (10:45)
[2017-01-20] MEDS: Azithromycin 500MG/NS 250ml 500 MG/250 ML BAG IVPB SCH (11:31)
[2017-01-20] MEDS ORDERED: Potassium Chloride 20 mEq ER Tab PO ONE (11:37)
--- NOTE | 2017-01-20 12:54 | PN ---
DATE: 01/20/2017 REASON FOR CONSULTATION: For cardiac evaluation, history of coronary artery disease, admitted with pneumonia and nosebleed. SUBJECTIVE: Denies any chest pain or shortness of breath, but complaining of nosebleed and the patient put the tissue paper, showed me that the patient has been having nosebleed. PHYSICAL EXAMINATION: GENERAL: Lying flat on the bed, not in apparent distress. VITAL SIGNS: Temperature afebrile, heart rate 67, blood pressure 128/62. HEENT: PERRLA. Extraocular muscles intact. NECK: Supple. No carotid bruit or thyromegaly. CHEST: Clear to auscultation. HEART: S1 and S2, regular. ABDOMEN: Soft. EXTREMITIES: Clubbing and cyanosis negative. LABORATORY DATA: Blood workup as follows: WBC 8.8, hemoglobin 10.8, hematocrit 32.8 and platelet count 179. Chemistries showed sodium 147, potassium 3.6, chloride , anion gap of 18, BUN 41, creatinine 1.2. Magnesium 2.2. Phosphorus 3.8. IMPRESSION: An 86-year-old female with past medical history significant for coronary artery disease in the past, admitted with pneumonia, nosebleed. Last echo on 06/20/2016 showed ejection fraction , moderate aortic regurgitation, mild aortic stenosis, moderate mitral regurgitation, [id number] tricuspid regurgitation, history of deep venous thrombosis, history of pulmonary embolism, history of gastrointestinal bleed in the past, history of arrhythmia, multiple Holter done, did not require pacemaker. Right lower lobe pneumonia, mild congestion. RECOMMENDATION: We will get echo to assess LV function. Continue gentle diuretics. Continue aspirin, wide DVT prophylaxis because of the nosebleed. For now continue broad-spectrum antibiotics. Though very trivial bleed, but monitor H and H. We will follow with you. Follow up the lab. Supplement potassium. Repeat the labs in the morning. Thank you Dr. Otero for providing me the opportunity in taking care of the patient. Heather Ac MD
--- NOTE | 2017-01-20 15:05 | CT ---
PROCEDURE: CT Chest without contrast HISTORY: rll pneumonia/pleuraleffusion COMPARISON: CT of the chest 01/17/2017 TECHNIQUE: Contiguous axial images were obtained through the chest without intravenous contrast enhancement. Sagittal and coronal reconstructions were performed. Radiation dose (DLP): 245 mGy-cm. This CT exam was performed using one or more of the following dose reduction techniques: Automated exposure control, adjustment of the mA and/or kV according to patient size, and/or use of iterative reconstruction technique. FINDINGS: LUNGS: There is an increasing infiltrate in the left upper lobe. There is bibasilar consolidation adjacent to moderate size pleural effusions. This finding has shown slight improvement MEDIASTINUM: Unremarkable thoracic aorta. No aneurysm. Normal sized heart. Main pulmonary artery unremarkable. No vascular congestion. No lymphadenopathy. PLEURA: No pleural fluid. No pneumothorax. BONES: No fracture. No destructive lesion. UPPER ABDOMEN: Grossly unremarkable. OTHER FINDINGS: None. IMPRESSION: Increasing left upper lobe infiltrate consistent with pneumonia. There is bibasilar consolidation adjacent to moderate size pleural effusions. This finding has shown slight improvement
--- NOTE | 2017-01-20 16:04 | PN ---
DATE: 01/20/2017 SUBJECTIVE: The patient is an 86 years old who was admitted with increasing shortness of breath. She was found to have pleural effusion, pulmonary edema, and right lower lobe infiltrate. The patient has been on IV antibiotic. She has been on diuretic. Echocardiogram was done yesterday that is pending. The patient feels short of breath when walking. X-ray showed persistent right lower lobe pneumonia. She had CT angiogram done on 01/17/2017 that was negative for pulmonary embolism. PHYSICAL EXAMINATION: GENERAL: On examination today, she seems to be comfortable. Appetite is not that great. Mild shortness of breath when walking. VITAL SIGNS: She is afebrile, pulse 67, respirations 20, and blood pressure . LUNGS: Bilateral fair airflow. She has a few soft crackles at bases, right more than the left. HEART: S1 and S2 audible. ABDOMEN: Soft and nontender. No rebound. No guarding. NEUROLOGIC: She is awake and alert, able to communicate. LABORATORY DATA: WBC is 8.8, hemoglobin 10.8, hematocrit 32.8, and platelets 176. Chemistry: Sodium 147, potassium 3.6, chloride 101, CO2 of 32, BUN 31, creatinine 1.2, and blood sugar of . Her x-ray shows persistent right lower lobe pneumonia. ASSESSMENT: 1. Shortness of breath, multifactorial including pulmonary edema, pleural effusion, and right lower lobe infiltrate. 2. History of gastritis. 3. Acute on chronic anemia, status post blood transfusion. 4. Mild renal insufficiency. 5. Dysuria, but urine cultures are negative. PLAN: I will repeat CT scan of the chest, add Pyridium. Spoke to the patient and she is willing to have endoscopy done, probably that can be done as outpatient once she recovers from acute episode of pneumonia. Encourage ambulation. Monitor pulse ox while ambulating. If she is not hypoxic, we can discharge her in a.m. The patient was offered to go to TCU, but she rather wants to go home. Rk Otero MD
--- NOTE | 2017-01-20 18:44 | CP.PCM.PN ---
<Teetee Palomares - Last Filed: 01/20/17 18:44> Subjective - Date & Time of Evaluation Date of Evaluation: 01/20/17 Time of Evaluation: 10:20 - Subjective Subjective: Seen and examined at the bedside earlier today, the chart was reviewed. No acute overnight events reported. Patient denies nausea, vomiting or abdominal pain. No reports of overt GI bleed, denies S OB or chest pain. Objective - Vital Signs/Intake and Output Vital Signs (last 24 hours): Temp Pulse Resp BP Pulse Ox 97.4 F L 67 20 128/62 94 L 01/20/17 06:00 01/20/17 06:00 01/20/17 06:00 01/20/17 10:46 01/20/17 06:00 Intake and Output: 01/20/17 01/20/17 06:59 18:59 Intake Total 620 Balance 620 - Medications Medications: Current Medications Acetaminophen (Tylenol 325mg Tab) 650 mg PO Q6H PRN PRN Reason: Fever >100.4 F Albuterol/Ipratropium (Duoneb 3 Mg/0.5 Mg (3 Ml) Ud) 3 ml [facility] [id number] [facility] Last Admin: 01/20/17 13:36 Dose: 3 ml Albuterol/Ipratropium (Duoneb 3 Mg/0.5 Mg (3 Ml) Ud) 3 ml IH Q2H PRN PRN Reason: Shortness of Breath Aspirin (Ecotrin) 81 mg PO DAILY [facility] Last Admin: 01/20/17 10:39 Dose: 81 mg Furosemide (Lasix) 40 mg IVP DAILY [facility] Last Admin: 01/20/17 10:46 Dose: 40 mg Guaifenesin/Dextromethorphan (Robitussin Dm) 10 ml PO Q8H PRN PRN Reason: Cough Last Admin: 01/18/17 01:54 Dose: 10 ml Azithromycin (Zithromax 500mg In Ns) 500 mg in 250 mls @ 167 mls/hr IVPB DAILY [facility] PRN Reason: Protocol Last Admin: 01/20/17 11:31 Dose: 167 mls/hr Ceftriaxone Sodium (Rocephin 1 Gram Ivpb) 1 gm in 100 mls @ 100 mls/hr IVPB DAILY [facility] PRN Reason: Protocol Last Admin: 01/20/17 10:39 Dose: 100 mls/hr Methylprednisolone (Solu-Medrol) 40 mg IV DAILY [facility] Last Admin: 01/20/17 10:45 Dose: 40 mg Ondansetron HCl (Zofran Inj) 4 mg IVP Q6H PRN PRN Reason: Nausea/Vomiting Pantoprazole Sodium (Protonix Ec Tab) 40 mg PO 0600 [facility] Last Admin: 01/20/17 06:02 Dose: 40 mg Phenazopyridine HCl (Pyridium) 100 mg PO BID [facility] Potassium Chloride (K-Dur 20 Meq Er Tab) 20 meq PO BRK [facility] - Labs Labs: 01/20/17 06:30 01/20/17 06:30 PT 10.7 Seconds (9.9-11.8) 01/16/17 20:05 INR 0.99 (0.93-1.08) 01/16/17 20:05 APTT 28.6 Seconds (23.7-30.8) 01/16/17 20:05 - Constitutional Appears: No Acute Distress - Head Exam Head Exam: NORMOCEPHALIC - Eye Exam Eye Exam: Normal appearance. absent: Scleral icterus - ENT Exam ENT Exam: Mucous Membranes Moist - Neck Exam Neck Exam: Normal Inspection - Respiratory Exam Respiratory Exam: Clear to Ausculation Bilateral, NORMAL BREATHING PATTERN. absent: Respiratory Distress - Cardiovascular Exam Cardiovascular Exam: +S1, +S2 - GI/Abdominal Exam GI & Abdominal Exam: Distended, Soft, Normal Bowel Sounds. absent: Guarding, Tenderness, Rebound - Extremities Exam Extremities Exam: Normal Capillary Refill. absent: Calf Tenderness, Pedal Edema - Neurological Exam Neurological Exam: Alert, Awake, Oriented x3 (confused at times), Reflexes Normal - Skin Skin Exam: Dry, Warm Assessment and Plan - Assessment and Plan (Free Text) Assessment: Assessment: History of colon cancer status post hemicolectomy History of emphesematic gastritis Acute on chronic anemia status post blood transfusion Bilateral pleural effusion Pulmonary edema Plan: Continue PPI Continue IV antibioticson Zithromax and ceftriaxone continue heart healthy diet Follow-up CT scan of the chest Monitor H&H On Solu-Medrol Elective outpt EGD when optimal Seen and discussed with Dr. Kang. <Alayna Kang V - Last Filed: 01/20/17 21:56> Objective - Vital Signs/Intake and Output Vital Signs (last 24 hours): Temp Pulse Resp BP Pulse Ox 98.4 F 62 18 124/47 L 96 01/20/17 17:11 01/20/17 17:11 01/20/17 17:11 01/20/17 17:11 01/20/17 17:11 Intake and Output: 01/20/17 01/21/17 18:59 06:59 Intake Total 360 Balance 360 - Medications Medications: Current Medications Acetaminophen (Tylenol 325mg Tab) 650 mg PO Q6H PRN PRN Reason: Fever >100.4 F Albuterol/Ipratropium (Duoneb 3 Mg/0.5 Mg (3 Ml) Ud) 3 ml [facility] [id number] [facility] Last Admin: 01/20/17 19:45 Dose: 3 ml Albuterol/Ipratropium (Duoneb 3 Mg/0.5 Mg (3 Ml) Ud) 3 ml IH Q2H PRN PRN Reason: Shortness of Breath Aspirin (Ecotrin) 81 mg PO DAILY [facility] Last Admin: 01/20/17 10:39 Dose: 81 mg Furosemide (Lasix) 40 mg IVP DAILY [facility] Last Admin: 01/20/17 10:46 Dose: 40 mg Guaifenesin/Dextromethorphan (Robitussin Dm) 10 ml PO Q8H PRN PRN Reason: Cough Last Admin: 01/18/17 01:54 Dose: 10 ml Azithromycin (Zithromax 500mg In Ns) 500 mg in 250 mls @ 167 mls/hr IVPB DAILY [facility] PRN Reason: Protocol Last Admin: 01/20/17 11:31 Dose: 167 mls/hr Ceftriaxone Sodium (Rocephin 1 Gram Ivpb) 1 gm in 100 mls @ 100 mls/hr IVPB DAILY [facility] PRN Reason: Protocol Last Admin: 01/20/17 10:39 Dose: 100 mls/hr Methylprednisolone (Solu-Medrol) 40 mg IV DAILY [facility] Last Admin: 01/20/17 10:45 Dose: 40 mg Ondansetron HCl (Zofran Inj) 4 mg IVP Q6H PRN PRN Reason: Nausea/Vomiting Pantoprazole Sodium (Protonix Ec Tab) 40 mg PO 0600 [facility] Last Admin: 01/20/17 06:02 Dose: 40 mg Phenazopyridine HCl (Pyridium) 100 mg PO BID [facility] Last Admin: 01/20/17 18:25 Dose: 100 mg Potassium Chloride (K-Dur 20 Meq Er Tab) 20 meq PO BRK [facility] - Labs Labs: 01/20/17 06:30 01/20/17 06:30 PT 10.7 Seconds (9.9-11.8) 01/16/17 20:05 INR 0.99 (0.93-1.08) 01/16/17 20:05 APTT 28.6 Seconds (23.7-30.8) 01/16/17 20:05 Attending/Attestation - Attestation I have personally seen and examined this patient.: Yes I have fully participated in the care of the patient.: Yes I have reviewed all pertinent clinical information, including history, physical exam and plan: Yes Notes (Text): This is an addendum to GI progress report dictated by Teetee Palomares APN.The patient was seen and examined earlier. Medical records, lab studies, imagings were reviewed. Last 24 hours events reviewed. Agreed with the above treatment plan as outlined in Teetee Palomares APN's notes the with the addition of the following feels better On examination abdomen soft no tenderness History of emphysematous gastritis, endoscopy revealed a extensive ulceration of the stomach. Etiology is unclear Patient is been doing well since her last discharge. Patient is on steroid in addition. Recent CT showed worsening of the pneumonia basal consolidation Degroot Continue PPI would avoid doing endoscopy at this present time. we will for further optimization of the patient's condition 01/20/17 21:41
[2017-01-21] MEDS: Albuterol-Ipratrop 3 mg / 0.5 (3 ml) UD IH SCH ×5 (01:12→20:21)
[2017-01-21] MEDS: Pantoprazole 40 mg EC Tab PO SCH (05:47)
[2017-01-21 06:40] LABS: GRAN # 4.04 (1.4-6.5); HEMATOCRIT 28.7 % (36.0-48.0); LYMPH # 1.1 (1.2-3.4); LYMPH % 19.9 % (22.0-35.0); MEAN CELL VOLUME 85.2 fl (80.0-105.0); MEAN CORPUSCULAR HEMOGLOBIN 27.9 pg (25.0-35.0); MEAN CORPUSCULAR HGB CONC 32.8 g/dl (31.0-37.0); MONO # 0.5 (0.1-0.6); MONO % 9.1 % (1.0-6.0); PLATELET COUNT 148 10^3/uL (120.0-450.0); RED CELL DISTRIBUTION WIDTH 18.4 % (11.5-14.5); WHITE BLOOD COUNT 5.7 10^3/ul (4.5-11.0)
[2017-01-21 07:27] LABS: ALB/GLOB RATIO 1.1 (1.1-1.8); BILIRUBIN,TOTAL 0.6 mg/dL (0.2-1.3); CALCIUM 9.5 mg/dL (8.4-10.5); POTASSIUM 4.4 mmol/L (3.6-5.0); TOTAL PROTEIN 6.7 g/dL (5.8-8.3)
[2017-01-21] MEDS: MethylPREDNISolone 40 mg Vial IV SCH (09:41)
[2017-01-21] MEDS: cefTRIAXone 1 gm 1 GM/100 ML BAG IVPB SCH (09:42)
[2017-01-21] MEDS: Potassium Chloride 20 mEq ER Tab PO SCH (09:42)
[2017-01-21] MEDS: Azithromycin 500MG/NS 250ml 500 MG/250 ML BAG IVPB SCH (09:44)
--- NOTE | 2017-01-21 10:59 | CP.PCM.PN ---
<Teetee Palomares - Last Filed: 01/21/17 10:58> Subjective - Date & Time of Evaluation Date of Evaluation: 01/21/17 Time of Evaluation: 09:10 - Subjective Subjective: seen and examined at the bedside earlier today, the chart was reviewed. Patient denies nausea, vomiting, or abdominal pain. Report BM yesterday no reports of acute overnight events. Patient had CT scan of the chest and found to have left upper lobe infiltrate distant with pneumonia. Patient denies shortness of breath or chest pain. Objective - Vital Signs/Intake and Output Vital Signs (last 24 hours): Temp Pulse Resp BP Pulse Ox 97.4 F L 65 20 140/60 95 01/21/17 06:00 01/21/17 06:00 01/21/17 06:00 01/21/17 09:40 01/21/17 06:00 Intake and Output: 01/21/17 01/21/17 06:59 18:59 Intake Total 600 Balance 600 - Medications Medications: Current Medications Acetaminophen (Tylenol 325mg Tab) 650 mg PO Q6H PRN PRN Reason: Fever >100.4 F Albuterol/Ipratropium (Duoneb 3 Mg/0.5 Mg (3 Ml) Ud) 3 ml IH [id number] [facility] Last Admin: 01/21/17 07:55 Dose: 3 ml Albuterol/Ipratropium (Duoneb 3 Mg/0.5 Mg (3 Ml) Ud) 3 ml IH Q2H PRN PRN Reason: Shortness of Breath Aspirin (Ecotrin) 81 mg PO DAILY [facility] Last Admin: 01/21/17 09:42 Dose: 81 mg Furosemide (Lasix) 40 mg IVP DAILY [facility] Last Admin: 01/21/17 09:40 Dose: 40 mg Guaifenesin/Dextromethorphan (Robitussin Dm) 10 ml PO Q8H PRN PRN Reason: Cough Last Admin: 01/18/17 01:54 Dose: 10 ml Azithromycin (Zithromax 500mg In Ns) 500 mg in 250 mls @ 167 mls/hr IVPB DAILY [facility] PRN Reason: Protocol Last Admin: 01/21/17 09:44 Dose: 167 mls/hr Ceftriaxone Sodium (Rocephin 1 Gram Ivpb) 1 gm in 100 mls @ 100 mls/hr IVPB DAILY [facility] PRN Reason: Protocol Last Admin: 01/21/17 09:42 Dose: 100 mls/hr Methylprednisolone (Solu-Medrol) 40 mg IV DAILY [facility] Last Admin: 01/21/17 09:41 Dose: 40 mg Ondansetron HCl (Zofran Inj) 4 mg IVP Q6H PRN PRN Reason: Nausea/Vomiting Pantoprazole Sodium (Protonix Ec Tab) 40 mg PO 0600 [facility] Last Admin: 01/21/17 05:47 Dose: 40 mg Phenazopyridine HCl (Pyridium) 100 mg PO BID [facility] Last Admin: 01/21/17 09:42 Dose: 100 mg Potassium Chloride (K-Dur 20 Meq Er Tab) 20 meq PO BRK [facility] Last Admin: 01/21/17 09:42 Dose: 20 meq - Labs Labs: 01/21/17 06:23 01/21/17 06:23 PT 10.7 Seconds (9.9-11.8) 01/16/17 20:05 INR 0.99 (0.93-1.08) 01/16/17 20:05 APTT 28.6 Seconds (23.7-30.8) 01/16/17 20:05 - Constitutional Appears: No Acute Distress - Head Exam Head Exam: NORMOCEPHALIC - Eye Exam Eye Exam: Normal appearance. absent: Scleral icterus - ENT Exam ENT Exam: Mucous Membranes Moist - Neck Exam Neck Exam: Normal Inspection - Respiratory Exam Respiratory Exam: Decreased Breath Sounds, NORMAL BREATHING PATTERN. absent: Rales, Wheezes, Respiratory Distress - Cardiovascular Exam Cardiovascular Exam: +S1, +S2 - GI/Abdominal Exam GI & Abdominal Exam: Soft, Normal Bowel Sounds. absent: Guarding, Tenderness, Rebound - Extremities Exam Extremities Exam: Normal Capillary Refill. absent: Calf Tenderness, Pedal Edema - Neurological Exam Neurological Exam: Alert, Awake, Oriented x3 - Skin Skin Exam: Dry, Warm Assessment and Plan - Assessment and Plan (Free Text) Assessment: Assessment: Pneumonia History of colon cancer status post hemicolectomy History of emphesematic gastritis Acute on chronic anemia status post blood transfusion Plan: Continue PPI Continue IV antibioticson Zithromax and ceftriaxone continue heart healthy diet Monitor H&H On Solu-Medrol Elective outpt EGD when optimal Seen and discussed with Dr. Kang. <Pearl,Kovil V - Last Filed: 01/21/17 21:05> Objective - Vital Signs/Intake and Output Vital Signs (last 24 hours): Temp Pulse Resp BP Pulse Ox 98.4 F 60 18 153/42 H 96 01/21/17 17:22 01/21/17 17:22 01/21/17 17:22 01/21/17 17:22 01/21/17 17:22 - Medications Medications: Current Medications Acetaminophen (Tylenol 325mg Tab) 650 mg PO Q6H PRN PRN Reason: Fever >100.4 F Albuterol/Ipratropium (Duoneb 3 Mg/0.5 Mg (3 Ml) Ud) 3 ml IH [id number] [facility] Last Admin: 01/21/17 20:21 Dose: 3 ml Albuterol/Ipratropium (Duoneb 3 Mg/0.5 Mg (3 Ml) Ud) 3 ml IH Q2H PRN PRN Reason: Shortness of Breath Aspirin (Ecotrin) 81 mg PO DAILY [facility] Last Admin: 01/21/17 09:42 Dose: 81 mg Furosemide (Lasix) 40 mg IVP DAILY [facility] Last Admin: 01/21/17 09:40 Dose: 40 mg Guaifenesin/Dextromethorphan (Robitussin Dm) 10 ml PO Q8H PRN PRN Reason: Cough Last Admin: 01/18/17 01:54 Dose: 10 ml Azithromycin (Zithromax 500mg In Ns) 500 mg in 250 mls @ 167 mls/hr IVPB DAILY [facility] PRN Reason: Protocol Last Admin: 01/21/17 09:44 Dose: 167 mls/hr Cefepime HCl (Maxipime 1gm) 1 gm in 100 mls @ 100 mls/hr IVPB Q12 [facility] PRN Reason: Protocol Methylprednisolone (Solu-Medrol) 30 mg IV DAILY [facility] Ondansetron HCl (Zofran Inj) 4 mg IVP Q6H PRN PRN Reason: Nausea/Vomiting Pantoprazole Sodium (Protonix Ec Tab) 40 mg PO 0600 [facility] Last Admin: 01/21/17 05:47 Dose: 40 mg Phenazopyridine HCl (Pyridium) 100 mg PO BID [facility] Last Admin: 01/21/17 17:48 Dose: 100 mg Potassium Chloride (K-Dur 20 Meq Er Tab) 20 meq PO BRK [facility] Last Admin: 01/21/17 09:42 Dose: 20 meq - Labs Labs: 01/21/17 06:23 01/21/17 06:23 PT 10.7 Seconds (9.9-11.8) 01/16/17 20:05 INR 0.99 (0.93-1.08) 01/16/17 20:05 APTT 28.6 Seconds (23.7-30.8) 01/16/17 20:05 Attending/Attestation - Attestation I have personally seen and examined this patient.: Yes I have fully participated in the care of the patient.: Yes I have reviewed all pertinent clinical information, including history, physical exam and plan: Yes Notes (Text): This is an addendum to GI progress report dictated by Teetee Palomares APN.The patient was seen and examined earlier. Medical records, lab studies, imagings were reviewed. Last 24 hours events reviewed. Agreed with the above treatment plan as outlined in Teetee Palomares APN's notes the with the addition of the following on examination abdomen soft no tenderness Discussed with Dr. Otero at length yesterday CT of the chest was also reviewed. The plan is to avoid M endoscopy evaluation at the present time in view of the pulmonary status Would consider elective endoscopy based on clinical course 01/21/17 21:04 01/21/17 21:05
--- NOTE | 2017-01-21 14:13 | PN ---
DATE: 01/21/2017 LOCATION: The patient is in room 372, bed 2. REASON FOR CONSULTATION AND FOLLOWUP: History of coronary artery disease, admitted with pneumonia and nosebleed. SUBJECTIVE: The patient is sitting in bed at this time without any cardiac symptoms like chest pain, shortness of breath, or palpitation. PHYSICAL EXAMINATION: VITAL SIGNS: Blood pressure 140/60, respirations 20, pulse 65, and temperature 97.4. HEENT: Head is normocephalic. Eyes: Pupils normal. Conjunctivae slightly pale. NECK: JVP low. Carotids are equal. THORAX: AP diameter is normal. LUNGS: No significant rales. CARDIOVASCULAR: S1 and S2. ABDOMEN: Soft and nontender. No organomegaly. EXTREMITIES: No clubbing. No cyanosis. LABORATORY DATA: WBC 5.7, hemoglobin 9.4, hematocrit 28.7, and platelet 148. Sodium 144, potassium 4.4, BUN 45, and creatinine 1.1. Random glucose 108. AST and ALT normal. Total protein and albumin normal. Chest x-ray, 01/19/2017 showed right lower lobe infiltrate. CT scan of chest done on 01/20/2017 showed an increasing left upper lobe infiltrate consistent with pneumonia and there is bibasilar consolidation adjacent to moderate size pleural effusion, this finding has shown slight improvement. DIAGNOSES: Coronary artery disease and pneumonia. Last echo 06/19/2016 which showed normal ejection fraction with 55% to 60%, moderate aortic regurgitation, aortic sclerosis versus mild aortic stenosis, moderate mitral regurgitation, [id number] tricuspid regurgitation with right ventricular systolic pressure 44 mmHg, history of deep venous thrombosis, pulmonary embolism, gastrointestinal bleeding in the past, history of cardiac arrhythmia, multiple Holter did not show any indication for pacemaker, pneumonia, pleural effusion. PLAN: Repeat echo has been already requested. We will follow the echo. In the meantime, we will continue DuoNeb hand nebulizer therapy, aspirin 81 mg daily, Lasix 40 IV daily, Protonix 40 p.o. daily, Rocephin 1 g IV daily, Solu-Medrol 40 mg IV daily, and erythromycin 500 mg IV daily. I will follow up with you. Heather Frank MD
--- NOTE | 2017-01-21 17:56 | CARD ---
APPROVED REPORT EXAM: Two-dimensional and M-mode echocardiogram with Doppler and color Doppler. INDICATION Congestive Heart Failure 2D DIMENSIONS Left Atrium (2D)4.7 (1.6-4.0cm)IVSd1.2 (0.7-1.1cm) LVDd5.7 (3.9-5.9cm)PWd1.3 (0.7-1.1cm) LVDs4.7 (2.5-4.0cm)FS (%) 17.1 % LVEF (%)35.4 (>50%) M-Mode DIMENSIONS Aortic Root2.90 (2.2-3.7cm)Aortic Cusp Exc.0.80 (1.5-2.0cm) Aortic Valve AoV Peak Iektxiaa520.0cm/Lisa Peak GR.16mmHg Mitral Valve MV E Hnjzlrhs188.0cm/sMV A Tlvyalfe698.0cm/sE/A ratio1.3 TDI E/Lateral E'0.0E/Medial E'0.0 Tricuspid Valve TR Peak Aifpxmau109oj/sRAP [id number] Peak Gr.36mmHg [id number] LEFT VENTRICLE The Left Ventricle is borderline dilated. There is mild concentric left ventricular hypertrophy. The systolic function is moderately impaired.EF-35% There is mild to moderate hypokinesis in the mid-anteroseptal wall. Transmitral Doppler flow pattern is Grade II-pseudonormal filling dynamics. No left ventricle thrombus noted on this study. There is no ventricular septal defect visualized. There is no left ventricular aneurysm. There is no mass noted in the left ventricle. RIGHT VENTRICLE The right ventricle is normal size. There is normal right ventricular wall thickness. The right ventricular systolic function is normal. ATRIA The left atrium is mildly dilated. The right atrium size is normal. The interatrial septum is intact with no evidence for an atrial septal defect. AORTIC VALVE The aortic valve is calcified and displays decreased opening. There is moderate aortic regurgitation. Aortic sclerosis Vs Mild There is no aortic valvular vegetation. MITRAL VALVE The mitral valve is thickened but opens well. Mitral regurgitation is moderate. There is no mitral valve stenosis. There is no evidence of mitral valve prolapse. TRICUSPID VALVE The tricuspid valve leaflets are thickened , but open well. There is mild to moderate tricuspid regurgitation.RVSP-46 mmof hg. There is no tricuspid valve stenosis. There is no tricuspid valve prolapse or vegetation. PULMONIC VALVE The pulmonic valve is not well visualized. GREAT VESSELS The aortic root is normal in size. The ascending aorta is normal in size. The pulmonary artery is normal. The IVC is normal in size and collapses >50% with inspiration. PERICARDIAL EFFUSION There is no pleural effusion. There is no pericardial effusion. <Conclusion> The Left Ventricle is borderline dilated. There is mild concentric left ventricular hypertrophy. The systolic function is moderately impaired.EF-35% The Left Ventricle is borderline dilated. There is mild concentric left ventricular hypertrophy. The systolic function is moderately impaired.EF-35% There is moderate aortic regurgitation. Mitral regurgitation is moderate. There is mild to moderate tricuspid regurgitation.RVSP-46 mmof hg. The IVC is normal in size and collapses >50% with inspiration. There is no pericardial effusion.
--- NOTE | 2017-01-21 20:54 | PN ---
SUBJECTIVE: The patient is 86 years old seen and examined, still has shortness of breath, not eating that well. She thinks that her food is being poisoned. She would prefer food from home___019__ or she was willing to eat only the packed food. Otherwise, she is doing better. PHYSICAL EXAMINATION: GENERAL: Sitting in chair, looks pale. VITAL SIGNS: She is afebrile, pulse 60, respiration 18 and blood pressure 153/42. LUNGS: Bilateral soft crackles at bases, left more than the right. HEART: S1 and S2 audible. ABDOMEN: Soft and nontender. No rebound. No guarding. NEUROLOGICALLY: The patient is awake, alert; oriented and is communicative. Does complain of generalized weakness and gets short of breath on walking small distance. LABORATORY DATA: Her WBC is 5.7, hemoglobin 9.4, hematocrit 28.7, platelets of 148. Chemistries: Sodium 144, potassium 4.4, chloride 102, CO2 of 33, BUN 45, creatinine 1.1, blood sugar of 108, procalcitonin is 0.01. She had CT scan of the chest done yesterday that showed increasing left upper lobe infiltrate consistent with pneumonia. There is bibasilar consolidation, moderate size pleural effusion. ASSESSMENT: 1. Exertional dyspnea probably secondary to pulmonary edema that is resolving and also left upper lobe infiltrate. 2. History of gastritis. 3. Anemia. 4. Pulmonary edema. 5. Mild renal insufficiency. 6. Dysuria, but urine cultures are negative. PLAN: Currently, the patient is on Zithromax and Rocephin, I will change it to Maxipime. We will get ID input, although her procalcitonin is negative; however, her CT scan is positive for worsening infiltrate. Request for TCU evaluation. If she is accepted she can be transferred to TCU to complete her course of antibiotics. Rk Otero MD
[2017-01-21] MEDS: Cefepime 1gm in NS 100ml 1 GM/100 ML BAG IVPB SCH (21:24)
[2017-01-22] MEDS: Albuterol-Ipratrop 3 mg / 0.5 (3 ml) UD IH SCH ×2 (01:11→07:31)
[2017-01-22] MEDS: Pantoprazole 40 mg EC Tab PO SCH (05:18)
[2017-01-22 09:15] VITALS: BP 133/47; PULSE 69; RESP 20; TEMP 97.8; O2SAT 98
[2017-01-22] MEDS: Cefepime 1gm in NS 100ml 1 GM/100 ML BAG IVPB SCH (09:33)
[2017-01-22] MEDS: Azithromycin 500MG/NS 250ml 500 MG/250 ML BAG IVPB SCH (09:34)
[2017-01-22] MEDS: Potassium Chloride 20 mEq ER Tab PO SCH (09:35)
[2017-01-22] MEDS ORDERED: MethylPREDNISolone 40 mg Vial IV SCH (10:00)
--- NOTE | 2017-01-22 12:46 | DS ---
HISTORY OF PRESENT ILLNESS: The patient is an 86-year-old seen and examined, sitting in chair, seems to be comfortable, and minimal cough. No fever, no chills, no nausea, no vomiting, and no diarrhea. PHYSICAL EXAMINATION: VITAL SIGNS: She is afebrile, pulse 69, respirations 20, blood pressure 133/47. LUNGS: Bilateral fair air flow. No rhonchi or crackle. HEART: S1 and S2 audible. ABDOMEN: Soft and nontender. No rebound. No guarding. NEUROLOGIC: The patient is awake, alert, and communicative. Ambulatory with minimal assistance. LABORATORY DATA: WBC is 5.7, hemoglobin 9.4, hematocrit 28.7, platelet 148. Chemistry; sodium 144, potassium 4.4, chloride 102, CO2 33, BUN 45, creatinine 1.1, blood sugar of 108. ASSESSMENT: 1. Left upper lobe pneumonia. 2. Pulmonary edema. 3. History of gastritis. 4. Chronic anemia. 5. Mild renal insufficiency. 6. Dysuria, but urinalysis is negative. PLAN: Discussed with Dr. Riggs. The patient's procalcitonin is negative and since she is clinically stable we will make discharge plan. I will give her Levaquin 250 mg daily for five more days and will follow up in office next. Rk Otero MD
--- NOTE | 2017-01-22 13:06 | PN ---
DATE: 01/22/2017 LOCATION: The patient is in room #372, bed #2. REASON FOR CONSULTATION AND FOLLOWUP: History of coronary artery disease, admitted with pneumonia and nosebleed. SUBJECTIVE: The patient denies any chest pain or palpitations. She denies also shortness of breath. The patient is sitting in chair on bedside, comfortably at present. PHYSICAL EXAMINATION VITAL SIGNS: Blood pressure 133/47, respiratory rate 20, pulse 69, and temperature 97.8. HEENT: Head is normocephalic. Eyes: Pupils normal. Conjunctivae slightly pale. NECK: JVP low. Carotids are equal. THORAX: AP diameter is normal. LUNGS: No significant rales. CARDIOVASCULAR: S1 and S2. ABDOMEN: Soft and nontender. No organomegaly. Bowel sounds normal. EXTREMITIES: No clubbing. No cyanosis.. LABORATORY DATA: WBC 5.7, hemoglobin 9.4, hematocrit 28.7, and platelet 148. Sodium 144, potassium 4.4, BUN 45, and creatinine 1.1. AST and ALT normal. CAT scan on 01/20/2017 showed an increasing left upper lobe infiltrate consistent with pneumonia and there is also bibasilar consolidation adjacent to moderate size pleural effusion, this finding has shown slight improvement. DIAGNOSES: Pneumonia, [id number] pleural effusion, echo on 06/19/2016 showed ejection fraction 55% to 60%, moderate aortic regurgitation, aortic sclerosis versus mild aortic stenosis, moderate mitral regurgitation, [id number]-[id number] tricuspid regurgitation, right ventricular systolic pressure 44 mmHg suggestive of mild pulmonary hypertension, history of deep venous thrombosis, pulmonary embolism, gastrointestinal bleeding in the past, history of cardiac arrhythmia, multiple Holter did not show any indication for pacemaker, pneumonia, pleural effusion. The patient has repeat echo on 01/19/2017 showed left ventricle borderline dilated, mild concentric left ventricular hypertrophy, systolic function is moderately impaired with the left ventricular ejection fraction of 35%, moderate aortic regurgitation, moderate mitral regurgitation, [id number]-[id number] tricuspid regurgitation with right ventricular systolic pressure 44 mmHg. PLAN: The patient is on Lasix 40 mg IV daily, we will continue that; potassium 20 mEq p.o. daily; aspirin 81 mg daily; methylprednisolone 30 mg IV daily. Since the patient's LV ejection fraction on echo 01/19/2017 is 37%, we will add Lopressor 25 b.i.d. and also lisinopril 2.5 mg daily to her present therapy. We will follow with you. Heather Frank MD
--- NOTE | 2017-01-22 13:19 | CP.PCM.PN ---
<Teetee Palomares - Last Filed: 01/22/17 13:19> Subjective - Date & Time of Evaluation Date of Evaluation: 01/22/17 Time of Evaluation: 10:10 - Subjective Subjective: S&E this am, chart reviewed, no acute overnight events reported. No SOB, CP, N/ V or abdominal pain. tolerating oral intake. Objective - Vital Signs/Intake and Output Vital Signs (last 24 hours): Temp Pulse Resp BP Pulse Ox 97.8 F 69 20 133/47 L 98 01/22/17 06:00 01/22/17 06:00 01/22/17 06:00 01/22/17 09:34 01/22/17 06:00 Intake and Output: 01/22/17 01/22/17 06:59 18:59 Intake Total 1230 Output Total 3 Balance 1227 - Medications Medications: Current Medications Acetaminophen (Tylenol 325mg Tab) 650 mg PO Q6H PRN PRN Reason: Fever >100.4 F Albuterol/Ipratropium (Duoneb 3 Mg/0.5 Mg (3 Ml) Ud) 3 ml IH [id number] [facility] Last Admin: 01/22/17 07:31 Dose: 3 ml Albuterol/Ipratropium (Duoneb 3 Mg/0.5 Mg (3 Ml) Ud) 3 ml IH Q2H PRN PRN Reason: Shortness of Breath Aspirin (Ecotrin) 81 mg PO DAILY [facility] Last Admin: 01/22/17 09:35 Dose: 81 mg Furosemide (Lasix) 40 mg IVP DAILY [facility] Last Admin: 01/22/17 09:34 Dose: 40 mg Guaifenesin/Dextromethorphan (Robitussin Dm) 10 ml PO Q8H PRN PRN Reason: Cough Last Admin: 01/18/17 01:54 Dose: 10 ml Cefepime HCl (Maxipime 1gm) 1 gm in 100 mls @ 100 mls/hr IVPB Q12 [facility] PRN Reason: Protocol Last Admin: 01/22/17 09:33 Dose: 100 mls/hr Lisinopril (Zestril) 2.5 mg PO DAILY [facility] Methylprednisolone (Solu-Medrol) 30 mg IV DAILY [facility] Last Admin: 01/22/17 09:35 Dose: 30 mg Metoprolol Tartrate (Lopressor) 25 mg PO Q12 [facility] Ondansetron HCl (Zofran Inj) 4 mg IVP Q6H PRN PRN Reason: Nausea/Vomiting Pantoprazole Sodium (Protonix Ec Tab) 40 mg PO 0600 [facility] Last Admin: 01/22/17 05:18 Dose: 40 mg Phenazopyridine HCl (Pyridium) 100 mg PO BID [facility] Last Admin: 01/22/17 09:35 Dose: 100 mg Potassium Chloride (K-Dur 20 Meq Er Tab) 20 meq PO BRK [facility] Last Admin: 01/22/17 09:35 Dose: 20 meq - Labs Labs: 01/21/17 06:23 01/21/17 06:23 PT 10.7 Seconds (9.9-11.8) 01/16/17 20:05 INR 0.99 (0.93-1.08) 01/16/17 20:05 APTT 28.6 Seconds (23.7-30.8) 01/16/17 20:05 - Constitutional Appears: No Acute Distress - Head Exam Head Exam: NORMOCEPHALIC - Eye Exam Eye Exam: Normal appearance. absent: Scleral icterus - ENT Exam ENT Exam: Mucous Membranes Moist - Neck Exam Neck Exam: Normal Inspection - Respiratory Exam Respiratory Exam: Decreased Breath Sounds, NORMAL BREATHING PATTERN. absent: Rales, Wheezes, Respiratory Distress - Cardiovascular Exam Cardiovascular Exam: +S1, +S2 - GI/Abdominal Exam GI & Abdominal Exam: Soft, Normal Bowel Sounds. absent: Guarding, Tenderness, Rebound - Extremities Exam Extremities Exam: Normal Capillary Refill. absent: Calf Tenderness, Pedal Edema - Neurological Exam Neurological Exam: Alert, Awake - Skin Skin Exam: Dry, Warm Assessment and Plan - Assessment and Plan (Free Text) Assessment: ASSESSMENT: Pneumonia History of colon cancer status post hemicolectomy History of emphesematic gastritis Acute on chronic anemia status post blood transfusion Plan: Continue PPI Continue IV antibiotics continue heart healthy diet Monitor H&H On Solu-Medrol Elective outpt EGD when optimal Seen and discussed with Dr. Kang. <Alayna Kang V - Last Filed: 01/22/17 22:43> Objective - Vital Signs/Intake and Output Vital Signs (last 24 hours): Temp Pulse Resp BP Pulse Ox 97.8 F 69 20 133/47 L 98 01/22/17 06:00 01/22/17 06:00 01/22/17 06:00 01/22/17 09:34 01/22/17 06:00 - Labs Labs: 01/21/17 06:23 01/21/17 06:23 PT 10.7 Seconds (9.9-11.8) 01/16/17 20:05 INR 0.99 (0.93-1.08) 01/16/17 20:05 APTT 28.6 Seconds (23.7-30.8) 01/16/17 20:05 Attending/Attestation - Attestation I have personally seen and examined this patient.: Yes I have fully participated in the care of the patient.: Yes I have reviewed all pertinent clinical information, including history, physical exam and plan: Yes Notes (Text): This is an addendum to GI progress report dictated by Teetee Palomares APN.The patient was seen and examined earlier. Medical records, lab studies, imagings were reviewed. Last 24 hours events reviewed. Agreed with the above treatment plan as outlined in Teetee Palomares APN's notes the with the addition of the following On examination abdomen soft, tenderness Clinically improving Pneumonia and antibiotics would avoid anesthesia at the present time Recommend elective endoscopy Discuss with Dr. Otero earlier 01/22/17 22:42
--- NOTE | 2017-01-22 21:29 | CON ---
LOCATION: The patient seen in bed, in no acute distress, nontoxic. CHIEF COMPLAINT: Weakness from several days. HISTORY OF PRESENT ILLNESS: This is an 86-year-old female with a history of small bowel obstruction, acute kidney injury, gastritis, congestive heart failure with 30% ejection fraction, hypertension, cerebrovascular accident, colon cancer, pulmonary hypertension, diabetes, colon resection, cardiac stents and who was admitted with a diagnosis of congestive heart failure and pneumonia. Infectious disease consultation requested. REVIEW OF SYSTEMS: Reveals the patient has no fevers, no chills. There is no shortness of breath or chest pain. No abdominal pain. PAST MEDICAL HISTORY: Significant for hypertension, cerebrovascular accident, colon cancer, pulmonary hypertension, aortic regurgitation, diabetes mellitus, acute kidney injury, and gastritis. PAST SURGICAL HISTORY: Significant for a colon resection, cardiac stents. ALLERGIES: THE PATIENT HAS NO KNOWN ALLERGIES. MEDICATIONS: Noted and reviewed. PHYSICAL EXAMINATION: VITAL SIGNS: Temperature is 98, blood pressure is 130/40, respiratory rate of 20, and heart rate of 69. HEENT: Unremarkable. NECK: Supple. LUNGS: Decreased breath sounds. HEART: Normal S1 and S2. ABDOMEN: Soft and nontender. LABORATORY EXAMINATION: Reveals a white count is 5.7, hemoglobin of 9, platelets of 148. Chemistries reveal a BUN of 45, creatinine of 1.1, procalcitonin is 0.05. Urinalysis is noted. Microbiology is no growth. Blood cultures, no growth. Sputum is normal sputum. ASSESSMENT AND PLAN: This is an 86-year-old female with small bowel obstruction, cticq-uke-tcuc amputation, gastritis, congestive heart failure, hypertension, colon cancer, pulmonary hypertension, aortic regurgitation, diabetes mellitus with a chest x-ray positive left upper lobe bibasilar infiltrate with a normal procalcitonin with negative almaguer cultures; acute systolic congestive heart failure on top of chronic congestive failure with possible community-acquired pneumonia has been treated. Radiologically, he lags behind and I would followup with radiology as an outpatient and complete with p.o. antibiotics as discussed with Dr. Otero. Reynaldo Riggs MD
== END 2017-01-22 13:33 | disposition home or self-care (01) | DRG 291 ==
LOC: ED 19:46 → ERH 01-17 00:23 → 2RNO 01-17 01:26 → 3RSO 01-19 16:02
PROVIDERS: ADMIT Internal Medicine; ATTEND Internal Medicine
PROC: 3E0F7GC Introduction of Other Therapeutic Substance into Respiratory Tract, Via Natural or Artificial Opening (ICD-10-PCS; 2017-01-17)
PROC: 30233N1 Transfusion of Nonautologous Red Blood Cells into Peripheral Vein, Percutaneous Approach (ICD-10-PCS; principal; 2017-01-18)
DX: I11.0 Hypertensive heart disease with heart failure (principal); I50.23 Acute on chronic systolic (congestive) heart failure; J18.9 Pneumonia, unspecified organism; J96.91 Respiratory failure, unspecified with hypoxia; F03.90 Unspecified dementia, unspecified severity, without behavioral disturbance, psychotic disturbance, mood disturbance, and anxiety; E11.9 Type 2 diabetes mellitus without complications; D64.9 Anemia, unspecified; I25.10 Atherosclerotic heart disease of native coronary artery without angina pectoris; E78.5 Hyperlipidemia, unspecified; I65.23 Occlusion and stenosis of bilateral carotid arteries; I27.20 Pulmonary hypertension, unspecified; N28.9 Disorder of kidney and ureter, unspecified; I08.3 Combined rheumatic disorders of mitral, aortic and tricuspid valves; K29.70 Gastritis, unspecified, without bleeding; R30.0 Dysuria; Z85.038 Personal history of other malignant neoplasm of large intestine; Z79.82 Long term (current) use of aspirin; Z86.73 Personal history of transient ischemic attack (TIA), and cerebral infarction without residual deficits; Z86.711 Personal history of pulmonary embolism; Z86.718 Personal history of other venous thrombosis and embolism; Z95.5 Presence of coronary angioplasty implant and graft; Z90.49 Acquired absence of other specified parts of digestive tract

== ENCOUNTER 2017-03-27 11:23 | Inpatient (IN) | payer MEDICARE, MEDICAID ==
--- NOTE | 2017-03-27 11:44 | ED PDOC ---
Arrival/HPI - General Time Seen by Provider: 03/27/17 11:36 Historian: Patient - History of Present Illness Narrative History of Present Illness (Text): 03/27/17 11:30 Fabian Downs is an 86 year old female, whose past medical history include hypertension and colon cancer, who presents to the emergency department for chest discomfort and shortness of breath. Patient also reports feeling pressure in her abdomen since yesterday. Patient denies other complaints. PMD: Dr. Otero Time/Duration: 24 hours Symptom Onset: Sudden Symptom Course: Unchanged Quality: Pressure Past Medical History - Provider Review Nursing Documentation Reviewed: Yes - Infectious Disease Hx of Infectious Diseases: None - Tetanus Immunization Tetanus Immunization: Unknown - Cardiac Hx Cardiac Disorders: Yes (CAD) Hx Hypertension: Yes - Pulmonary Hx Respiratory Disorders: No - Neurological Hx Neurological Disorder: Yes Hx Paralysis: No - HEENT Hx HEENT Disorder: No - Renal Hx Renal Disorder: No - Endocrine/Metabolic Hx Endocrine Disorders: No - Hematological/Oncological Hx Blood Disorders: Yes Hx Blood Transfusions: Yes Hx Blood Transfusion Reaction: No - Integumentary Hx Dermatological Disorder: No - Musculoskeletal/Rheumatological Hx Musculoskeletal Disorders: No - Gastrointestinal Hx Gastrointestinal Disorders: Yes (Gastritis) - Genitourinary/Gynecological Hx Genitourinary Disorders: No - Psychiatric Hx Psychophysiologic Disorder: No Hx Emotional Abuse: No Hx Physical Abuse: No Hx Substance Use: No - Past Surgical History Past Surgical History: Non-Contributing - Surgical History Hx Cardiac Catheterization: Yes (february) - Anesthesia Hx Anesthesia Reactions: No Hx Malignant Hyperthermia: No - Suicidal Assessment Feels Threatened In Home Enviroment: No Family/Social History - Physician Review Nursing Documentation Reviewed: Yes Family/Social History: Unknown Family HX Smoking Status: Never Smoked Hx Alcohol Use: No Hx Substance Use: No Hx Substance Use Treatment: No Allergies/Home Meds Allergies/Adverse Reactions: Allergies No Known Allergies Allergy (Verified 03/27/17 11:47) Home Medications: Home Meds Medication Instructions Recorded Confirmed Omeprazole 20 mg PO DAILY 04/18/16 03/27/17 amLODIPine [Norvasc] 5 mg PO DAILY 03/27/17 03/27/17 Review of Systems - Review of Systems Constitutional: absent: Fevers Eyes: absent: Vision Changes Respiratory: SOB. absent: Cough Cardiovascular: Chest Pain (discomfort ) Gastrointestinal: Abdominal Pain (pressure). absent: Diarrhea, Nausea, Vomiting Genitourinary Female: absent: Dysuria, Frequency Musculoskeletal: absent: Back Pain Skin: absent: Rash Neurological: absent: Headache, Dizziness Endocrine: absent: Polyuria Hemo/Lymphatic: absent: Easy Bleeding Physical Exam Vital Signs Reviewed: Yes Vital Signs Temp Pulse Resp BP Pulse Ox 03/27/17 12:58 91.8 F L 78 27 H 100/59 L 96 03/27/17 12:39 75 27 H 95/57 L 96 03/27/17 12:21 85 21 101/59 L 95 03/27/17 11:46 24 90 L 03/27/17 11:45 90.6 F L 72 24 125/59 L 90 L Temperature: Hypothermic Blood Pressure: Hypotensive Pulse: Regular Respiratory Rate: Apneic Appearance: Positive for: Well-Appearing, Non-Toxic, Uncomfortable Pain Distress: Mild Mental Status: Positive for: Alert and Oriented X 3 - Systems Exam Head: Present: Atraumatic, Normocephalic Pupils: Present: PERRL Extroacular Muscles: Present: EOMI Conjunctiva: Present: Normal Respiratory/Chest: Present: Rales (rales at bases ). No: Clear to Auscultation , Good Air Exchange, Respiratory Distress, Accessory Muscle Use Cardiovascular: Present: Regular Rate and Rhythm, Normal S1, S2. No: Murmurs Abdomen: Present: Tenderness (epigastric tenderness), Normal Bowel Sounds. No: Distention, Peritoneal Signs Neurological: Present: GCS=15, CN II-XII Intact, Speech Normal Skin: Present: Warm, Dry, Normal Color. No: Rashes Psychiatric: Present: Alert, Oriented x 3, Normal Insight, Normal Concentration Medical Decision Making ED Course and Treatment: 03/27/17 Impression: 86 year old female with rales at bases and in mild distress. Plan: -- EKG -- Chest X-ray -- Labs -- Urinalysis -- Progress Notes: 03/27/17 CODE SEPSIS: 12:36 03/27/17 12:40 Chest X-ray: Creator : Shiv Valadez MD COMPARISON: 01/19/2017 FINDINGS: LUNGS: There is a right-sided perihilar infiltrate in bibasilar infiltrates. Findings suspicious for pneumonia. There may be a component of CHF PLEURA: No significant pleural effusion identified, no pneumothorax apparent. CARDIOVASCULAR: Normal. OSSEOUS STRUCTURES: No significant abnormalities. VISUALIZED UPPER ABDOMEN: Normal. OTHER FINDINGS: None. IMPRESSION: There is a right-sided perihilar infiltrate in bibasilar infiltrates. Findings suspicious for pneumonia. There may be a component of CHF 03/27/17 13:22 On re-evaluation because of patient's heart failure, patient will not receive sepsis protocol. IV fluids will be administered to patient. 03/27/17 14:05 Case discussed with ICU doctor who is aware of plan and is currently at bedside with patient. - Lab Interpretations Lab Results: 03/27/17 12:00 03/27/17 12:00 Lab Results 03/27/17 13:37: Urine Color Yellow, Urine Appearance Sl cloudy, Urine pH 5.5, Ur Specific [place] 1.025, Urine Protein 100 H, Urine Glucose (UA) Negative, Urine Ketones Negative, Urine Blood Negative, Urine Nitrate Negative, Urine Bilirubin Negative, Urine Urobilinogen 0.2, Ur Leukocyte Esterase Negative, Urine RBC 0 - 2, Urine WBC Negative, Ur Epithelial Cells 0 - 2, Urine Bacteria Trace, Hyaline Casts 0 - 2 03/27/17 12:28: pO2 64 H, VBG pH 7.41, VBG pCO2 41.0, VBG HCO3 26.0, VBG Total CO2 27.3, VBG O2 Sat (Calc) 94.1 H, VBG Base Excess 1.2, VBG Potassium 3.7, Glucose 171 H, Lactate 3.6 H, FiO2 21.0, Sodium 142.0, Chloride 106.0, Venous Blood Potassium 3.7 03/27/17 12:17: pCO2 34 L, pO2 52.0 L, HCO3 23.6, ABG pH 7.45, ABG Total CO2 24.6, ABG O2 Saturation 91.5 L, ABG Base Excess 0.1, ABG Potassium 3.6, Glucose 165 H, Lactate 3.4 H, FiO2 36.0, Sodium 142.0, Chloride 107.0, Arterial Blood Potassium 3.6 03/27/17 12:00: Sodium 141, Potassium 3.7, Chloride 104, Carbon Dioxide 25, Anion Gap 17, BUN 35 H, Creatinine 1.3 H, Est GFR ( Amer) 47, Est GFR ( Non-Af Amer) 39, Random Glucose 168 H, Calcium 10.4, Phosphorus 3.5, Magnesium 2.2, Total Bilirubin 1.1, AST 39 H, ALT 27, Alkaline Phosphatase 133 H D, Troponin I < 0.01, NT-Pro-B Natriuret Pep 1880 H, Total Protein 7.5, Albumin 3.8 , Globulin 3.7, Albumin/Globulin Ratio 1.0 L 03/27/17 12:00: PT 11.4, INR 1.04, APTT 31.1, D-Dimer, Quantitative 318 H 03/27/17 12:00: WBC 4.2 L D, RBC 2.87 L, Hgb 7.9 L, Hct 25.1 L, MCV 87.5, MCH 27.5, MCHC 31.5, RDW 21.5 H, Plt Count 173, MPV 11.6 H, Gran % 81.3 H, Lymph % ( Auto) 16.1 L, Yates % (Auto) 2.4, Eos % (Auto) 0.0 L, Baso % (Auto) 0.2, Gran # 3.38, Lymph # 0.7 L, Yates # 0.1, Eos # 0.0, Baso # 0.01 I have reviewed the lab results: Yes - RAD Interpretation Radiology Orders: 03/27/17 11:46 CHEST PORTABLE [RAD] Stat Polygraph Technician: Radiologist - EKG Interpretation Interpreted by ED Physician: Yes Type: 12 lead EKG - Medication Orders Current Medication Orders: Azithromycin (Zithromax 500mg In Ns) 500 mg in 250 mls @ 167 mls/hr IVPB STAT STA PRN Reason: Protocol Stop: 03/27/17 14:14 Last Admin: 03/27/17 13:56 Dose: 167 mls/hr eMAR Start Stop Document 03/27/17 13:56 MR (Rec: 03/27/17 13:56 MR [id number]) Intravenous Solution Start Date 03/27/17 Start Time 13:56 End Date 03/27/17 End time 15:26 Total Infusion Time 90 Vancomycin HCl (Vancomycin 1gm) 1 gm in 250 mls @ 167 mls/hr IVPB Q12H JAIME PRN Reason: Protocol Sodium Chloride (Sodium Chloride 0.9%) 1,000 mls @ 666.667 mls/hr IV .Q1H30M STA Stop: 03/27/17 14:41 Last Admin: 03/27/17 13:30 Dose: 666.667 mls/hr eMAR Start Stop Document 03/27/17 13:30 MR (Rec: 03/27/17 13:31 [id number]) Intravenous Solution Start Date 03/27/17 Start Time 12:30 End Date 03/27/17 End time 14:00 Total Infusion Time 90 Sodium Chloride (Sodium Chloride 0.9%) 500 mls @ 0 mls/hr IV .Q0M JAIME PRN Reason: Per Protocol Dobutamine HCl/Dextrose (Dobutamine/Dextrose 5% 500mg/250ml) 500 mg in 250 mls @ 4.423 mls/hr IV .Q24H PRN; Protocol; 2.5 MCG/KG/MIN PRN Reason: TITRATE PER PROTOCOL Discontinued Medications Atropine Sulfate (Atropine) 0.5 mg IVP STAT STA Stop: 03/27/17 12:22 Last Admin: 03/27/17 12:21 Dose: 0.5 mg IVP Administration Document 03/27/17 12:21 MR (Rec: 03/27/17 12:53 [id number]) Charges for Administration # of IVP Administrations 1 Hydrocortisone Sodium Succinate (Solu-Cortef) 100 mg IVP STAT STA Stop: 03/27/17 13:49 Cefepime HCl (Maxipime 2gm) 2 gm in 100 mls @ 100 mls/hr IVPB STAT STA PRN Reason: Protocol Stop: 03/27/17 13:43 Last Admin: 03/27/17 13:27 Dose: 100 mls/hr eMAR Start Stop Document 03/27/17 13:27 MR (Rec: 03/27/17 13:28 [id number]) Intravenous Solution Start Date 03/27/17 Start Time 13:15 End Date 03/27/17 End time 14:15 Total Infusion Time 60 Levothyroxine Sodium (Synthroid) 100 mcg IVP ONCE STA Stop: 03/27/17 13:48 - Scribe Statement The provider has reviewed the documentation as recorded by the Camden Matthews Provider Scribe Attestation: All medical record entries made by the Scribe were at my direction and personally dictated by me. I have reviewed the chart and agree that the record accurately reflects my personal performance of the history, physical exam, medical decision making, and the department course for this patient. I have also personally directed, reviewed, and agree with the discharge instructions and disposition. Disposition/Present on Arrival - Present on Arrival History of DVT/PE: No History of Uncontrolled Diabetes: No Urinary Catheter: No History Surgical Site Infection Following: None - Disposition
[2017-03-27 12:20] LABS: ARTERIAL BLOOD GAS HCO3 23.6 mmol/L (21-28); ARTERIAL BLOOD GAS PH 7.45 (7.35-7.45)
[2017-03-27 12:33] LABS: VENOUS BLOOD GAS BASE EXCESS 1.2 mmol/L (0.0-2.0); VENOUS BLOOD PH 7.41 (7.32-7.43)
[2017-03-27 12:34] LABS: BASO # 0.01 K/mm3 (0.0-2.0); BASO % 0.2 % (0.0-3.0); GRAN # 3.38 (1.4-6.5); GRAN % 81.3 % (50.0-68.0); HEMATOCRIT 25.1 % (36.0-48.0); LYMPH # 0.7 (1.2-3.4); LYMPH % 16.1 % (22.0-35.0); MEAN CELL VOLUME 87.5 fl (80.0-105.0); MEAN CORPUSCULAR HEMOGLOBIN 27.5 pg (25.0-35.0); MEAN CORPUSCULAR HGB CONC 31.5 g/dl (31.0-37.0); MEAN PLATELET VOLUME 11.6 fl (7.0-11.0); MONO # 0.1 (0.1-0.6); MONO % 2.4 % (1.0-6.0); RED CELL DISTRIBUTION WIDTH 21.5 % (11.5-14.5); WHITE BLOOD COUNT 4.2 10^3/ul (4.5-11.0)
--- NOTE | 2017-03-27 12:38 | RAD ---
HISTORY: Sepsis Patient COMPARISON: 01/19/2017 FINDINGS: LUNGS: There is a right-sided perihilar infiltrate in bibasilar infiltrates. Findings suspicious for pneumonia. There may be a component of CHF PLEURA: No significant pleural effusion identified, no pneumothorax apparent. CARDIOVASCULAR: Normal. OSSEOUS STRUCTURES: No significant abnormalities. VISUALIZED UPPER ABDOMEN: Normal. OTHER FINDINGS: None. IMPRESSION: There is a right-sided perihilar infiltrate in bibasilar infiltrates. Findings suspicious for pneumonia. There may be a component of CHF
[2017-03-27] MEDS ORDERED: Cefepime IV 2 gm in NS 2 GM/100 ML BAG IVPB STA (12:44)
[2017-03-27 12:45] LABS: INR 1.04 (0.93-1.08); PARTIAL THROMBOPLASTIN TIME 31.1 Seconds (25.1-36.5)
[2017-03-27] MEDS ORDERED: Azithromycin 500MG/NS 250ml 500 MG/250 ML BAG IVPB STA (12:45)
[2017-03-27 12:49] LABS: ALKALINE PHOSPHATASE 133 U/L (38-126); ALT/SGPT 27 U/L (7-56); AST/SGOT 39 U/L (14-36); BILIRUBIN,TOTAL 1.1 mg/dL (0.2-1.3); BLOOD UREA NITROGEN 35 mg/dL (7-21); CALCIUM 10.4 mg/dL (8.4-10.5); CARBON DIOXIDE 25 mmol/L (21-33); CHLORIDE 104 mmol/L (98-107); GFR AFRICAN-AMERICAN 47; GLUCOSE,RANDOM 168 mg/dL (70-110); MAGNESIUM 2.2 mg/dL (1.7-2.2); PHOSPHOROUS 3.5 mg/dL (2.5-4.5); POTASSIUM 3.7 mmol/L (3.6-5.0); SODIUM 141 mmol/L (132-148); TOTAL PROTEIN 7.5 g/dL (5.8-8.3)
[2017-03-27 13:02] LABS: TROPONIN I < 0.01 ng/mL
[2017-03-27] MEDS ORDERED: Sodium Chloride 0.9% 1,000 ML IV STA ×2 (13:12→14:22)
[2017-03-27] MEDS ORDERED: Sodium Chloride 0.9% 500 ML IV SCH (13:15)
[2017-03-27] MEDS ORDERED: Levothyroxine 100 mcg (0.1 mg) Inj IVP STA (13:47)
[2017-03-27 13:48] LABS: PH,URINE 5.5 (4.7-8.0); URINE APPEARANCE SL CLOUDY (CLEAR); URINE BILIRUBIN NEGATIVE (NEGATIVE); URINE BLOOD NEGATIVE (NEGATIVE); URINE COLOR YELLOW (YELLOW); URINE GLUCOSE (UA) NEGATIVE (NEGATIVE); URINE KETONE NEGATIVE (NEGATIVE); URINE LEUKOCYTE ESTERASE NEGATIVE Leu/uL (NEGATIVE); URINE PROTEIN 100 mg/dL (<30 mg/dL); URINE UROBILINOGEN 0.2 E.U./dL (<1 E.U./dL)
[2017-03-27] MEDS ORDERED: DOBUTamine 500mg/250ml D5W 500 MG/250 ML BAG IV PRN (13:48)
[2017-03-27 14:02] LABS: URINE BACTERIA TRACE (NEG); URINE EPITHELIAL CELLS 0 - 2 /hpf (0-5); URINE RBC 0 - 2 /hpf (0-2); URINE WBC NEGATIVE /hpf (0-6)
[2017-03-27] MEDS: Vancomycin 1gm in NS 250ml 1 GM/250 ML BAG IVPB SCH ×2 (14:40→17:58)
--- NOTE | 2017-03-27 16:15 | CARD ---
APPROVED REPORT EKG Measurement Heart [id number] <Conclusion> Atrial fibrillation with premature ventricular or aberrantly conducted complexes Left ventricular hypertrophy with QRS widening Nonspecific ST and T wave abnormality, probably digitalis effect Prolonged QT Abnormal ECG
[2017-03-27 17:18] LABS: VENOUS BLOOD GAS BASE EXCESS -0.6 mmol/L (0.0-2.0); VENOUS BLOOD PH 7.43 (7.32-7.43)
[2017-03-27 17:49] LABS: T4 12.8 ug/dL (5.5-11.0)
[2017-03-27 17:56] VITALS: BMI 24.3
[2017-03-27] MEDS ORDERED: Pneumococcal 23-Valent Vaccine IM ONE (17:57)
[2017-03-27] MEDS ORDERED: Influenza Vaccine 60 mcg/0.5 mL SYR (4YR UP) IM ONE (17:57)
[2017-03-27] MEDS: Meropenem IV 1 gm in NS 50 ML IVPB SCH (22:44)
[2017-03-28] MEDS: Vancomycin 1gm in NS 250ml 1 GM/250 ML BAG IVPB SCH (00:24)
--- NOTE | 2017-03-28 00:34 | CON ---
DATE: 03/27/2017 CONSULT SERVICE: Cardiology. CONSULTING PHYSICIAN: Dr. Heather Ac. REASON FOR CONSULTATION: Followup hypotension, hypoglycemia, lethargy, AFib, elevated BNP, hypotension. BRIEF CLINICAL HISTORY: This is an 86-year-old female with a past medical history significant hypertension, GI bleed, hyperlipidemia, coronary artery disease status post multiple stents in the past, came in with abdominal pain, 3 daughters at the bedside. Denies any chest pain. Denies any shortness of breath on admission, but complain of the stomach pain feeling very week, lethargic for 2 days. PAST MEDICAL HISTORY: Significant for coronary artery disease status post multiple stents, history of Mobitz type II was done suggest that the patient does not need to pacemaker on previous study, history of GI bleed, history of colon CA status post partial colectomy, history of hypertension, renal insufficiency, history of CAD as above. PAST SURGICAL HISTORY: History significant for partial resection of the colon, history of CA colon. PREVIOUS CARDIAC WORKUP: The patient has stress test on 02/28/2014 with a negative ejection fraction of 55%. The patient had echocardiography done on last admission 01/19/2017, that showed ejection fracture of 35%, moderate mitral regurg, [id number] tricuspid regurgitation, RV systolic pressure of 46%. Previous EKG was reported to be normal sinus. Bilateral carotid Duplex scan shows 60%-79% right ICA stenosis, 49% left ICA stenosis with MRA showed 55% right ICA stenosis, 30% ICA stenosis. Medical treatment recommended. History of coronary artery disease, multiple stents in the past. The patient had a previous echo shows LV function 55% to 60%. History of coronary artery disease, history of multiple stents as mentioned. CURRENT MEDICATIONS: The patient is taking amlodipine, omeprazole. REVIEW OF SYSTEMS: As per HPI. PHYSICAL EXAMINATION: As follows. VITAL SIGNS: Heart rate 100, atrial fibrillation and blood pressure 104/51. HEENT: PERRLA. Intact. NECK: Supple. No carotid bruit or thyromegaly. CHEST: Clear to auscultation. HEART: S1, S2, regular. ABDOMEN: Soft. EXTREMITIES: Clubbing, cyanosis negative. Mild discomfort on palpation in the epigastric region noted. LABORATORY DATA: EKG showed AFib with a rate of 76 per minute. Blood workup shows WBC 4.2, hemoglobin 7.7, hematocrit 25.1, platelet count 173. Chemistries showed sodium 141, potassium 3.7, chloride 104, carbon dioxide 25, anion gap of 17, BUN 35, creatinine 1.3. BNP 1880. Chest x-ray consistent with possible CHF, cannot rule out pneumonia as well. On admission, the patient with hypothermic, bradycardiac, hypoxemic, and hypotension in the ER. IMPRESSION: An 86-year-old female with past medical history significant for coronary artery disease status post multiple stent in the past, history of cancer of colon status post colectomy, diabetes, hypertension, hyperlipidemia, recently discharged, readmitted with complaining of abdominal pain, weak, lethargic, hypothermic and the patient bradycardiac, hypoxemic, and hypotension, 2 liters of fluid was given. Now, the patient is some basal crackles, on oxygen saturation of 6 liters, 80%. History of last echo shows ejection fracture 35% dated 01/19/2017. Ejection fraction 35% [id number] tricuspid regurgitation, rule out sepsis anemia, atrial fibrillation. RECOMMENDATIONS: The patient started on IV Dobutrex. We will give gentle diuretics to increase oxygen saturation. The patient has basal crackles and baseline before the fluid chest x-ray consistent with mild with right lower lobe pneumonia, covered broad-spectrum antibiotic. Continue Dobutrex. Continue DVT prophylaxis. Question of hydration. We will follow with you. Thank you Dr. Otero for providing the opportunity in taking care of your patient, Fabian Downs. We will follow with you. Heather Ac MD
--- NOTE | 2017-03-28 00:37 | CON ---
DATE: ENDOCRINOLOGY CONSULT LOCATION: ICU 128, room #1. HISTORY OF PRESENT ILLNESS: This is an 86-year-old female with progressive shortness of breath and associated precordial chest pain admitted for further cardiac workup and management because of significant underlying coronary artery disease and hypertension as noted. She is being referred now for evaluation of abnormal thyroid function studies. PAST MEDICAL HISTORY: As mentioned above, history of coronary artery disease and hypertensive cardiovascular disease with underlying dyslipidemia, history of prior colon cancer and surgical resection thereof. FAMILY HISTORY: Positive for hypertension and heart disease. SOCIAL HISTORY: The patient has a supportive family. No known substance use. REVIEW OF SYSTEMS: As mentioned above. Admits to generalized body weakness with easy fatigability and tiredness and suboptimal energy level. Also, admits to episodic bouts of dizziness and lightheadedness, worse on the day of admission, admits to precordial chest pain with progressive shortness of breath, initially on exertion and then at rest with paroxysmal nocturnal dyspnea. Her oral intake is very poor and suboptimal with nausea, dyspepsia and habitual constipation. PHYSICAL EXAMINATION: GENERAL: This is an average-built female in no apparent distress. VITAL SIGNS: With a blood pressure of 110/60, pulse of 70 beats per minute regular, temperature initially was 91 and repeat was 96 with pulse of 60 beats per minute, regular, respirations 20, height is 5 feet 3 inches, weight is 136 pounds. HEENT: Head is normocephalic. Eyes anicteric with pink conjunctivae. Funduscopy not possible at this time. Ears, nose and throat otherwise normal. NECK: Supple. Thyroid gland is normal size. No carotid bruits or any cervical adenopathy. CARDIOPULMONARY: Some adynamic precordium. S1, S2 is rapid and regular. LUNGS: Show scattered rhonchi and bibasal rales. ABDOMEN: Flat, soft with positive bowel sounds. EXTREMITIES: No peripheral edema. Pulses are +2 bilaterally. LABORATORY DATA: Chemistry showed a BUN of 35, sodium 141, potassium 3.7, chloride 104, CO2 25, glucose 168 and creatinine 1.3. ProBNP is 1880 with slightly elevated liver transaminases, the total T4 is 12.8 with a TSH of 1.00. ASSESSMENT: This is an 86-year-old female with congestive heart failure and concomitant right-sided pneumonia and presenting here with precordial chest pain and progressive shortness of breath and also has been evaluated to have abnormal thyroid function studies. She remains clinically euthyroid and biochemically has evidence of the so-called euthyroid hyperthyroxinemia. The most likely etiology would be the so called acute sick euthyroid syndrome, although we have to exclude any underlying thyroxine-binding globulin or TBG abnormalities causing a falsely elevated total T4 with a normal TSH level as noted. It is quite unlikely at an advanced age to find TBG abnormalities causing the elevated thyroxine level. She most likely has the so called acute sick euthyroid syndrome, causing a transient elevation of the total T4 level as noted. PLAN OF MANAGEMENT: We will obtain a comprehensive thyroid hormonal profile with a total and free T4 and TSH to be done tomorrow morning. We will also add a thyroid peroxidase antibodies to confirm and/or indicate the presence of underlying thyroid autoimmunity. Hemoglobin A1c will be done to confirm prior glycemic control and baseline serum cortisol level will be obtained. We will hold off oral hypoglycemic therapy and observe her glycemic fluctuations and if hyperglycemic levels supervene because of the intercurrent IV steroids is given, then we will start her on a basal and bolus insulin regimen just for inpatient diabetic management. We will follow with you. Faye Manjarrez MD
--- NOTE | 2017-03-28 01:57 | CON ---
DATE: 03/27/2017 HISTORY: This is an 86-year-old lady with history of hypertension who presented with increment in shortness of breath, some abdominal pain without nausea, vomiting, diarrhea, or constipation, hypothermia and bradycardia. The patient had similar presentation about a month ago when she was admitted to [facility]; however, a thorough workup did not reveal any particular etiology. This time, the patient was presented to [facility] ER with above complaints. She was found to be anemic, borderline hypoxemic, and hypothermic. External warming started in emergency room. The patient received 2 liters of normal saline. Empiric antibiotics were started. Septic workup initiated. Bedside echocardiogram revealed at least moderate left ventricular systolic dysfunction which appears to be worse than 35% ejection fraction. IVC was more than 2 cm without respiratory variations. No fever, no chills, no sweats. No nausea, no vomiting, no diarrhea, no constipation. PAST MEDICAL HISTORY: Hypertension. FAMILY HISTORY: Noncontributory. ALLERGIES: NKDA. SOCIAL HISTORY: No alcohol or illicit drug abuse. No tobacco smoking. MEDICATIONS AT HOME: Norvasc and omeprazole. REVIEW OF SYSTEMS: Review of 12-organ system other than mentioned in history of present illness is negative. PHYSICAL EXAMINATION: VITAL SIGNS: Blood pressure 96/53, heart rate varies between 53 and 63, oxygen saturation on nasal cannula is 90% to 92%. HEENT/NECK: Head and neck atraumatic. LUNGS: Decreased breath sounds bilaterally. HEART: Regular rate and rhythm. S1 and S2 distant. ABDOMEN: Soft, nontender, and nondistended. MUSCULOSKELETAL: 1 to 2+ bilateral pedal and ankle edema. NEURO: The patient moves all extremities spontaneously. SKIN: Moist. PSYCH: Patient somewhat somnolent but easily awakable and responds to verbal stimuli. LABORATORY DATA: WBC 4.2, hemoglobin 7.9, platelet count 173. Sodium 141, potassium 3.7. BUN 35 and creatinine 1.3, up from 1.2. Glucose 168. AST 39, ALT 27, total bilirubin 1.1, alkaline phosphatase 133. ProBNP 1880. Troponin less than 0.01. Albumin 3.8, potassium 3.6. INR 1.04. Lactic acid 3.6. ABG showed pH 7.45, pO2 of 52 on 36% FiO2, and pCO2 of 34. Urine negative for wbc, for leukocyte esterase or urine nitrites. Chest x-ray showed bilateral pleural effusions, right-sided perihilar infiltrate, and bibasilar infiltrates. Bedside echocardiogram revealed it was moderate but possibly more severe left ventricular systolic dysfunction, moderate bilateral pleural effusions, air bronchograms in the right lung. IVC more than 2 cm without change in diameter on inspiration. EKG with nonspecific ST and T changes. ASSESSMENT AND PLAN: This is an 86-year-old lady with constellation of symptoms that put forth differential diagnosis which includes hypothyroidism including myxedema coma, adrenal insufficiency, sepsis, exacerbation of congestive heart failure. At present time, the patient receives 2 liters of normal saline as a fluid resuscitation, external warming started. Septic workup initiated and the patient received broad-spectrum antibiotics. I will order hydrocortisone stress dose as well as Synthroid 100 mcg IV. I will start the patient on dobutamine. We will give a call to cardiology service to follow up on that. Previous workup during previous admissions did not reveal neither adrenal insufficiency nor signs of hypothyroidism. I will discuss that with primary medical doctor. TSH, T4, and T3 were ordered. Infectious disease service will be contacted as well. Procalcitonin and lactic acid level will be trended. The patient will be admitted to intensive care unit. As per daughter's request and patient confirmation, patient is DNI. Detailed explanation of risk, benefits and definition of what it means were provided to the patient and the patient's daughter at bedside in the presence of registered nurse. We will continue to target euvolemia, euglycemia, normothermia, and oxygen saturation more than 90%. We will continue with deep venous thrombosis and gastrointestinal prophylaxis. ccm time 40 min Everette Abraham MD JERRELL
--- NOTE | 2017-03-28 03:22 | HP ---
HISTORY OF PRESENT ILLNESS: The patient is an 86-year-old known to me from multiple previous admissions who brought to emergency room because of not feeling well. She was short of breath, difficulty breathing, cough, and congestion. According to the family member whose daughter was to care for the patient. She said that she was having some chest discomfort along with shortness of breath going on for few days. She also epigastric discomfort since yesterday. Complain of increasing weakness and numbness. PAST MEDICAL HISTORY: 1. Significant for hypertension, history of gastritis, and history of CA colon, status post partial resection. 2. Renal insufficiency. 3. Chronic anemia. 4. Coronary artery disease. ALLERGIES: SHE IS NOT ALLERGIC TO ANY MEDICATIONS. MEDICATIONS AT HOME: She is on aspirin 81 daily, omeprazole 20 mg , losartan 50 mg daily, and Lasix 40 mg as needed. Amlodipine 5 mg daily. PAST SURGICAL HISTORY: Significant for partial colectomy. SOCIAL HISTORY: She is single and lives with her daughter. History of smoking, drinking, and alcohol use. REVIEW OF SYSTEMS: Generalized weakness, cough, congestion, shortness of breath, and increasing weakness. PHYSICAL EXAMINATION: VITAL SIGNS: The patient is hypothermic with temperature of 91.8 rectally, pulse 78, respirations 18, and blood pressure 100/59. LUNGS: Bilateral fair airflow. Decreased breath sounds at bases. HEART: S1 and S2 audible. ABDOMEN: Soft and nontender. No rebound. No guarding. NEUROLOGIC: The patient is awake, alert and oriented. Able to communicate. LABORATORY DATA: WBC is 4.2, hemoglobin 7.9, hematocrit 25, and platelet 173. PT 11.4. INR 1.04. Chemistry: Sodium 141, potassium 3.7, chloride 104, CO2 of 25, BUN 35, creatinine 1.3, blood sugar of 168, and alk phos 133. BNP 1880. Urinalysis is unremarkable. X-ray of chest shows right-sided perihilar infiltrate and bibasilar infiltrate and slight component of congestive heart failure. ASSESSMENT: 1. Sepsis and hypothermia. 2. Right lower lobe infiltrate. 3. Congestive heart failure. 4. Gastritis. 5. History of colon cancer, status post partial colectomy. PLAN: Currently, the patient is on dobutamine. She was given dose of Lasix and cefepime. Currently, she is on meropenem and give her Protonix. She is on levothyroxine 100 mcg daily. She is on vancomycin 1 g q.12 hours and Zithromax. We will follow up her CBC and CMP in a.m. Rk Otero MD
[2017-03-28 06:02] LABS: BASO # 0.01 K/mm3 (0.0-2.0); BASO % 0.2 % (0.0-3.0); GRAN # 4.13 (1.4-6.5); GRAN % 73.4 % (50.0-68.0); LYMPH % 17.3 % (22.0-35.0); MEAN CELL VOLUME 87.8 fl (80.0-105.0); MEAN CORPUSCULAR HEMOGLOBIN 27.6 pg (25.0-35.0); MEAN CORPUSCULAR HGB CONC 31.5 g/dl (31.0-37.0); MEAN PLATELET VOLUME 11.6 fl (7.0-11.0); MONO # 0.5 (0.1-0.6); MONO % 9.1 % (1.0-6.0); RED CELL DISTRIBUTION WIDTH 21.7 % (11.5-14.5); WHITE BLOOD COUNT 5.6 10^3/ul (4.5-11.0)
[2017-03-28 06:09] LABS: HEMATOCRIT 21.6 % (36.0-48.0)
[2017-03-28 06:11] LABS: CALCIUM 9.7 mg/dL (8.4-10.5); MAGNESIUM 1.9 mg/dL (1.7-2.2); PHOSPHOROUS 4.9 mg/dL (2.5-4.5); POTASSIUM 3.2 mmol/L (3.6-5.0); TOTAL PROTEIN 6.2 g/dL (5.8-8.3)
[2017-03-28 06:51] LABS: FREE T4 1.89 ng/dL (0.78-2.19); T4 12.9 ug/dL (5.5-11.0)
[2017-03-28 07:04] LABS: THYROID STIMULATING HORMONE 0.55 mIU/mL (0.46-4.68)
[2017-03-28] MEDS ORDERED: Potassium Chloride 20 mEq/15 ml LIQ UD PO STA (09:11)
[2017-03-28] MEDS: Meropenem IV 1 gm in NS 50 ML IVPB SCH ×2 (09:38→22:03)
--- NOTE | 2017-03-28 10:59 | RAD ---
HISTORY: SOB COMPARISON: No prior. FINDINGS: LUNGS: Pulmonary vascular congestive changes with bilateral lower lobe alveolar-type infiltrates and bilateral effusions. PLEURA: No significant pleural effusion identified, no pneumothorax apparent. CARDIOVASCULAR: Heart size is somewhat difficult to assess due to partial silhouetting though the heart does appear enlarged OSSEOUS STRUCTURES: No significant abnormalities. VISUALIZED UPPER ABDOMEN: Normal. OTHER FINDINGS: None. IMPRESSION: Pulmonary vascular congestive changes with bilateral lower lobe alveolar-type infiltrates and bilateral effusions. The
--- NOTE | 2017-03-28 11:20 | CP.PCM.PN ---
Subjective - Date & Time of Evaluation Date of Evaluation: 03/28/17 Time of Evaluation: 08:30 - Subjective Subjective: Pt seen and examined, was receiving 1u prbc, developed worsening SOB, given Lasix 40mg IV x 2, and placed on BIPAP, with improvement in SOB. Objective - Vital Signs/Intake and Output Vital Signs (last 24 hours): Temp Pulse Resp BP Pulse Ox 97.6 F 71 20 116/64 92 L 03/28/17 09:00 03/28/17 09:29 03/28/17 09:29 03/28/17 10:13 03/28/17 09:29 Intake and Output: 03/28/17 03/28/17 06:59 18:59 Intake Total 360 0 Output Total 1650 Balance -1290 0 - Medications Medications: Current Medications Furosemide (Lasix) 40 mg IV ONCE ONE Stop: 03/28/17 12:01 Heparin Sodium (Porcine) (Heparin) 5,000 units SC 0800,2000 JAIME PRN Reason: Protocol Last Admin: 03/28/17 08:00 Dose: 5,000 units Hydrocortisone Sodium Succinate (Solu-Cortef) 50 mg IVP Q6H JAIME Last Admin: 03/28/17 08:09 Dose: 50 mg Sodium Chloride (Sodium Chloride 0.9%) 500 mls @ 0 mls/hr IV .Q0M JAIME PRN Reason: Per Protocol Dobutamine HCl/Dextrose (Dobutamine/Dextrose 5% 500mg/250ml) 500 mg in 250 mls @ 4.423 mls/hr IV .Q24H PRN; Protocol; 2.5 MCG/KG/MIN PRN Reason: TITRATE PER PROTOCOL Last Admin: 03/27/17 14:39 Dose: 2.5 mcg/kg/min, 4.423 mls/hr Meropenem (Merrem Iv 1 Gm Premix) 50 mls @ 100 mls/hr IVPB Q12 JAIME PRN Reason: Protocol Last Admin: 03/28/17 09:38 Dose: 100 mls/hr Doxycycline Hyclate 100 mg/ (Sodium Chloride) 100 mls @ 100 mls/hr IVPB Q12 JAIME PRN Reason: Protocol Last Admin: 03/28/17 10:36 Dose: 100 mls/hr Pantoprazole Sodium (Protonix Inj) 40 mg IVP DAILY JAIME Last Admin: 03/28/17 09:36 Dose: 40 mg Potassium Chloride (Potassium Chloride Oral Soln) 40 meq PO ONCE ONE Stop: 03/28/17 12:01 - Labs Labs: 03/28/17 05:30 03/28/17 05:30 PT 11.4 SECONDS (9.4-12.5) 03/27/17 12:00 INR 1.04 (0.93-1.08) 03/27/17 12:00 APTT 31.1 Seconds (25.1-36.5) 03/27/17 12:00 - Constitutional Appears: Well, Non-toxic, No Acute Distress - Head Exam Head Exam: NORMAL INSPECTION - Eye Exam Eye Exam: Normal appearance - ENT Exam ENT Exam: Mucous Membranes Moist - Respiratory Exam Respiratory Exam: NORMAL BREATHING PATTERN Additional comments: bibasilar crackles, decreased breath sounds at bases - Cardiovascular Exam Cardiovascular Exam: REGULAR RHYTHM, +S1, +S2 - GI/Abdominal Exam GI & Abdominal Exam: Soft, Normal Bowel Sounds - Extremities Exam Extremities Exam: Pedal Edema - Neurological Exam Neurological Exam: Alert, Awake, Oriented x3 Assessment and Plan - Assessment and Plan (Free Text) Assessment: 86yo female a.w anemia, SOB, PNA PNA Acute Systolic CHF decompesanted Anemia rule out T.A.C.O. Sick Euthyroid syndrome - currently afebrile, HD stable, comfortable on BIPAP 12/5/60%, given Lasix 40mg IV x 2, with good UOP - likely developed transufsion related volume overload, given EF 35% - Dobutamine 5mcg/kg/min - on antibiotics for PNA Recommend: - cont with BIPAP as needed, 12/5/60%, titrate down FiO2 - Antibiotics, broad spectrum - IV Steroids SolueCortef - repeat HH - transfuse 1u PRBC - Lasix IV - Duoneb PRN - follow up cardiology - check iron studies, FOBT - PPI drip - clear liquid diet - DVT ppx, SCDs - DC HSQ - monitor in MICU critical care time 40 minutes
[2017-03-28] MEDS ORDERED: Potassium Chloride 20 mEq/15 ml LIQ UD PO ONE ×2 (12:00→17:45)
[2017-03-28] MEDS ORDERED: DOBUTamine 500mg/250ml D5W 500 MG/250 ML BAG IV PRN (12:33)
--- NOTE | 2017-03-28 14:02 | PN ---
DATE: 03/28/2017 ENDOCRINE FOLLOWUP NOTE LOCATION: ICU 128, room 1. SUBJECTIVE: This is an 86-year-old female with recent admission for congestive heart failure and concomitant pneumonitis, currently being followed closely for hemodynamic management and is also being referred for evaluation of abnormal thyroid function studies. She remains clinically euthyroid at this time and the repeat thyroid studies today showed a T4 or thyroxine level of 12.9 mcg/dL with a free T4 of 1.89. Her TSH is 0.55. The latest chemistry showed a BUN of 51, sodium 146, potassium 3.2, chloride 110, CO2 of 24, glucose 112 and creatinine 1.3. ASSESSMENT: The patient remains clinically euthyroid and biochemically has evidence of the so-called acute sick euthyroid syndrome, which is very common in acute physical stress at this time. Although quite remote is a possibility of the so-called euthyroid hyperthyroxinemia, which is related to elevated thyroxine binding globulin levels. The patient remains biochemically and clinically euthyroid otherwise. The thyroid antibodies have been sent out, which will confirm and/or indicate the presence of underlying thyroid autoimmunity. No indication at this time for any kind of thyroid pharmacotherapy. We will follow and advise accordingly. Faye Manjarrez MD cc:
--- NOTE | 2017-03-28 14:14 | PN ---
DATE: 03/28/2017 REASON FOR CONSULTATION AND FOLLOWUP: Hypotension, hypoglycemia, lethargic, atrial fibrillation with rapid ventricular rate, elevated brain natriuretic peptide, and now the patient is converted to normal sinus. SUBJECTIVE: The patient is lying in the bed. She denies any chest pain, shortness of breath, or any palpitations. PHYSICAL EXAMINATION: As follows: VITAL SIGNS: Temperature is afebrile, heart rate is 82, and blood pressure is 113/49. HEENT: PERRLA intact. NECK: Supple. No carotid bruits or thyromegaly. CHEST: Clear to auscultation. HEART: S1 and S2 regular. ABDOMEN: Soft. EXTREMITIES: Clubbing and cyanosis negative. LABORATORY DATA: WBC of 5.6, hemoglobin of 6.8, hematocrit of 21.6, and platelets of 144. Chemistry shows sodium of 140, potassium of 3.2, chloride of 110, carbon dioxide of 24, anion gap of 15, BUN of 30, and creatinine of 1.3. IMPRESSION: Shortness of breath, hypoglycemia, hypotension, shock, anemia, rule out gastrointestinal bleed, weak, lethargic, history of coronary artery disease, status post multiple stent, history of colon cancer status post resection and cardiomyopathy. Recent echocardiography dated 01/19/2017, ejection fraction of 35%, moderate mitral regurgitation, mild to moderate tricuspid regurgitation, and systolic pressure of 46 mmHg. RECOMMENDATIONS: We will give 2 units of packed RBC's, supplement electrolytes, potassium, low dose beta-david to prevent going back into atrial fibrillation. We will follow. Continue broad spectrum antibiotic. We will follow with you. We will discontinue Dobutrex, if the patient goes into atrial fibrillation for now leave it and continue p.r.n. Lasix. We will give post transfusion Lasix. We will follow with you. We will give 40 of Lasix in between 2 packed RBC's. We will give 40 mEq of KCl Elixir now and 40 of KCl at 1:00 p.m. Follow up labs in the morning. Thank you Dr. Otero for providing us the opportunity in taking care of the patient, Fabian Downs. Heather Ac MD
--- NOTE | 2017-03-28 17:24 | CT ---
PROCEDURE: CT HEAD WITHOUT CONTRAST. HISTORY: visual impairment COMPARISON: Comparison made with CT scan brain dated 06/15/2016. TECHNIQUE: Axial computed tomography images were obtained through the head/brain without intravenous contrast. Radiation dose: Total exam DLP = 1550.02 mGy-cm. This CT exam was performed using one or more of the following dose reduction techniques: Automated exposure control, adjustment of the mA and/or kV according to patient size, and/or use of iterative reconstruction technique. FINDINGS: HEMORRHAGE: No acute parenchymal, subarachnoid or extra-axial hemorrhage. BRAIN: Suspect minor chronic periventricular white matter ischemic. There may also be a few tiny chronic lacunar type infarcts. No evidence of large acute infarct identified. Small amount of fat seen within the right parasagittal posterior aspect of the interhemispheric fissure unchanged. No obvious parenchymal nor extra-axial masses or collections. Mild generalized volume loss with more localized bifrontal cortical atrophic changes at the vertex. Minor vascular calcifications both carotid siphons and vertebral arteries. . VENTRICLES: No obstructive hydrocephalus. . CALVARIUM: No acute calvarial fractures. PARANASAL SINUSES: U minimal mucosal thickening seen within a few ethmoid air cells. MASTOID AIR CELLS: Unremarkable as visualized. No inflammatory changes. OTHER FINDINGS: Changes of bilateral cataract surgery again noted. IMPRESSION: No acute intracranial hemorrhage. Suspect minor chronic periventricular white matter ischemic changes with a few scattered chronic. Tiny lacunar type infarcts. Mild generalized volume loss.
--- NOTE | 2017-03-28 21:22 | CT ---
EXAM: CT Abdomen and Pelvis Without Intravenous Contrast EXAM DATE/TIME: 03/28/2017 7:30 PM CLINICAL HISTORY: 86 years old, female; Signs and symptoms; Other: Anemia TECHNIQUE: Axial computed tomography images of the abdomen and pelvis without intravenous contrast. All CT scans at this facility use one or more dose reduction techniques, viz.: automated exposure control; ma/kV adjustment per patient size (including targeted exams where dose is matched to indication; i.e. head); or iterative reconstruction technique. Coronal and sagittal reformatted images were created and reviewed. COMPARISON: Prior CT abdomen and pelvis of 2016-06-15 FINDINGS: LIMITATIONS: Mild streak/motion artifact. LOWER THORAX: Moderate to large bilateral pleural effusions, a new finding. Bilateral pulmonary consolidation, a new finding, greater on the right, mainly groundglass consolidation. This is suspicious for mild alveolar pulmonary edema, less likely bilateral pneumonia. Heart appears mildly enlarged. Coronary artery calcification. ABDOMEN: LIVER: No acute abnormality of the liver identified. GALLBLADDER AND BILE DUCTS: Tiny gallstones. No CT evidence of acute cholecystitis. PANCREAS: No CT evidence of acute pancreatitis. SPLEEN: No acute abnormality of the spleen identified. ADRENALS: No acute abnormality of the adrenal glands identified. KIDNEYS AND URETERS: Left hydronephrosis, moderate to severe in degree, similar in appearance to the prior exam. No evidence of left hydroureter. No causative obstructing stones seen. Findings could be due to a chronic left UPJ obstruction. Multiple small hyperdense lesions in the left kidney. These could represent hyperdense cysts, but cannot entirely rule out solid lesions. Recommend further evaluation with renal ultrasound or renal protocol CT or MRI, on a nonemergent basis. STOMACH AND BOWEL: Extensive colonic diverticulosis, without evidence of acute diverticulitis. Patient appears to be post ileocecal resection. There is an enterocolic anastomosis in the right lower quadrant. Otherwise, no significant abnormality of the bowel is identified. No evidence of bowel obstruction. APPENDIX: Appendix has been surgically removed. PELVIS: BLADDER: Catheter noted within the bladder lumen. REPRODUCTIVE:No acute abnormality of the reproductive organs is seen. No acute abnormality of the uterus identified. No evidence of large adnexal masses. ABDOMEN and PELVIS: INTRAPERITONEAL SPACE: Small amount of free fluid in the cul-de-sac, an abnormal finding in a postmenopausal patient. No evidence of free air. BONES/JOINTS: No acute fractures or other acute bony abnormality noted. SOFT TISSUES: Multiple ventral hernias, in the anterior abdominal wall, containing loops of colon. No evidence of associated bowel obstruction. No CT findings to suggest hernia incarceration, although clinical exam is more sensitive for detection of hernia incarceration. VASCULATURE: No evidence of abdominal aortic aneurysm. No evidence of periaortic hemorrhage. LYMPH NODES: No evidence of diffuse lymphadenopathy. TUBES, LINES AND DEVICES: Rectal tube is in place. IMPRESSION: - Moderate to large bilateral pleural effusions and bilateral pulmonary consolidation, new findings compared to a prior CT. The pulmonary consolidation is suspicious for mild alveolar pulmonary edema (versus bilateral pneumonia). Recommend clinical correlation. - Small amount of pelvic free fluid. - Otherwise, no evidence of significant acute process. - Moderate to severe left hydronephrosis, without hydroureter, stable from a prior exam, may be secondary to a chronic left UPJ obstruction. - Incidental indeterminate hyperdense renal lesions. See above. - See above for remaining findings.
--- NOTE | 2017-03-28 23:25 | PN ---
DATE: SUBJECTIVE: The patient is an 86-year-old, seen and examined, lying in bed, on BiPAP. She was given blood transfusions, went into respiratory distress, she was given 80 mg of Lasix with significant improvement. PHYSICAL EXAMINATION: GENERAL: She is awake and alert. VITAL SIGNS: She is afebrile, pulse 76, respiration 22, blood pressure 116/42, and pulse ox 93%. LUNGS: Bilateral few expiratory rhonchi. HEART: S1 and S2 audible. ABDOMEN: Soft and nontender. No rebound. No guarding. NEUROLOGICALLY: She is awake and alert. Able to follow simple commands. EXTREMITIES: Bilateral leg, no edema. LABORATORY EXAM: WBC is 5.6, hemoglobin 6.8, hematocrit 21.6, platelets 144. Chemistries: Sodium 146, potassium 3.2, chloride 110, CO2 of 24, BUN 31, creatinine 1.3, and blood sugar of 144. AST 69, ALT 63, and alkaline phosphatase 160. Thyroxine is 12.8. TSH is 1.00. CT scan of the head shows no acute intracranial hemorrhages except for minor chronic periventricular white matter disease. ASSESSMENT: 1. Right perihilar and basilar infiltrate. 2. Status post hypothermia. 3. Anemia. 4. Status post blood transfusion. 5. Fluid overload. 6. Hypoxia. PLAN: Currently, the patient is on dobutamine. She is on doxycycline. She was given Maxipime currently. She is on meropenem. Potassium is being supplemented. I will follow up her CBC and CMP in a.m. We will get stool for Hemoccult. Request for Dr. Kang to put her on Protonix. I will get CBC and CMP in a.m. Rk Otero MD
[2017-03-29 05:43] LABS: CALCIUM 10.2 mg/dL (8.4-10.5); POTASSIUM 3.3 mmol/L (3.6-5.0)
[2017-03-29 05:58] LABS: GRAN # 5.33 (1.4-6.5); HEMATOCRIT 25.5 % (36.0-48.0); LYMPH # 0.6 (1.2-3.4); LYMPH % 9.1 % (22.0-35.0); MEAN CORPUSCULAR HGB CONC 32.2 g/dl (31.0-37.0); MEAN PLATELET VOLUME 12.1 fl (7.0-11.0); MONO # 0.2 (0.1-0.6); MONO % 3.9 % (1.0-6.0); RED CELL DISTRIBUTION WIDTH 20.2 % (11.5-14.5); WHITE BLOOD COUNT 6.1 10^3/ul (4.5-11.0)
--- NOTE | 2017-03-29 07:17 | CP.PCM.CON ---
History of Present Illness - History of Present Illness History of Present Illness: 86 year old female with PMH of hypertension, cerebrovascular accident, pulmonary hypertension, aortic regurgitation, diabetes, coronary artery disease with chronic CHF with LVEF 30%, history of colon cancer, history of partial small-bowel obstruction with emphysematous gastritis [place] [facility] [place] shortness of breath and chest discomfort. She also has dyspnea on exertion but denies fever or chills, no headache or dizziness, no abdominal pain , no diarrhea, no dysuria, has dry cough, no nausea or vomiting. In the ED, CXR was done which showed bilateral lower lobe infiltrates and right perihilar infiltrate. Infectious diseases consult is requested to further evaluate and manage. Review of Systems - Review of Systems All systems: reviewed and no additional remarkable complaints except (as per HPI ) Past Patient History - Infectious Disease Hx of Infectious Diseases: None - Tetanus Immunizations Tetanus Immunization: Unknown - Past Medical History & Family History Past Medical History?: Yes - Past Social History Smoking Status: Never Smoked - CARDIAC Hx Cardiac Disorders: Yes (CAD) Hx Hypertension: Yes - PULMONARY Hx Respiratory Disorders: No - NEUROLOGICAL Hx Neurological Disorder: Yes Hx Paralysis: No - HEENT Hx HEENT Problems: No - RENAL Hx Chronic Kidney Disease: No - ENDOCRINE/METABOLIC Hx Endocrine Disorders: No - HEMATOLOGICAL/ONCOLOGICAL Hx Blood Disorders: Yes Hx Blood Transfusions: Yes Hx Blood Transfusion Reaction: No - INTEGUMENTARY Hx Dermatological Problems: No - MUSCULOSKELETAL/RHEUMATOLOGICAL Hx Musculoskeletal Disorders: No - GASTROINTESTINAL Hx Gastrointestinal Disorders: Yes (Gastritis) - GENITOURINARY/GYNECOLOGICAL Hx Genitourinary Disorders: No - PSYCHIATRIC Hx Psychophysiologic Disorder: No Hx Emotional Abuse: No Hx Physical Abuse: No Hx Substance Use: No - SURGICAL HISTORY Hx Cardiac Catheterization: Yes (february) - ANESTHESIA Hx Anesthesia Reactions: No Hx Malignant Hyperthermia: No Meds Allergies/Adverse Reactions: Allergies Allergy/AdvReac Type Severity Reaction Status Date / Time No Known Allergies Allergy Verified 03/27/17 16:35 - Medications Medications: Current Medications Heparin Sodium (Porcine) (Heparin) 5,000 units SC Q12H JAIME PRN Reason: Protocol Hydrocortisone Sodium Succinate (Solu-Cortef) 50 mg IVP Q6H JAIME Vancomycin HCl (Vancomycin 1gm) 1 gm in 250 mls @ 167 mls/hr IVPB Q12H JAIME PRN Reason: Protocol Sodium Chloride (Sodium Chloride 0.9%) 500 mls @ 0 mls/hr IV .Q0M JAIME PRN Reason: Per Protocol Dobutamine HCl/Dextrose (Dobutamine/Dextrose 5% 500mg/250ml) 500 mg in 250 mls @ 4.423 mls/hr IV .Q24H PRN; Protocol; 2.5 MCG/KG/MIN PRN Reason: TITRATE PER PROTOCOL Last Admin: 03/27/17 14:39 Dose: 2.5 mcg/kg/min, 4.423 mls/hr Meropenem (Merrem Iv 1 Gm Premix) 50 mls @ 100 mls/hr IVPB Q12 JAIME PRN Reason: Protocol Pantoprazole Sodium (Protonix Inj) 40 mg IVP DAILY JAIME Physical Exam - Constitutional Appears: Chronically Ill Additional comments: on biPAP - Head Exam Head Exam: NORMAL INSPECTION - ENT Exam ENT Exam: Mucous Membranes Moist - Neck Exam Neck exam: Negative for: Lymphadenopathy, Meningismus - Respiratory Exam Respiratory Exam: Decreased Breath Sounds, Rales (scattered) - Cardiovascular Exam Cardiovascular Exam: +S1, +S2 - GI/Abdominal Exam GI & Abdominal Exam: Soft. absent: Tenderness Results - Vital Signs Recent Vital Signs: Last Vital Signs Temp 93.0 F L 03/27/17 14:24 Pulse 83 03/27/17 14:39 Resp 27 H 03/27/17 14:39 BP 104/51 L 03/27/17 14:39 Pulse Ox 94 L 03/27/17 14:39 - Labs Result Diagrams: 03/28/17 05:30 03/28/17 05:30 Assessment & Plan - Assessment and Plan (Free Text) Plan: Assessment consider severe sepsis with acute renal failure due to bilateral lower lobe healthcare-associated pneumonia history of sepsis secondary to healthcare-associated pneumonia history of left sided hydronephrosis with UPJ obstruction history of small-bowel obstruction and acute kidney injury with emphysematous gastritis congestive heart failure with LVEF 30% acute on chronic renal failure hypertension cerebrovascular accident pulmonary hypertension aortic regurgitation diabetes coronary artery disease colon cancer Plan gave a dose of IV Vancomycin and started meropenem and Doxycycline pending blood , urine cx, urine Legionella Ag, blood and sputum cx, PCT will monitor clinically overall prognosis is poor
[2017-03-29] MEDS ORDERED: Potassium Chloride 40 mEq/30 ml LIQ UD PO ONE (08:31)
--- NOTE | 2017-03-29 09:00 | CP.PCM.PN ---
Subjective - Date & Time of Evaluation Date of Evaluation: 03/29/17 Time of Evaluation: 08:00 - Subjective Subjective: Pt seen and examined, remains off BIPAP since this morning, reports to be doing well, denies fever, chills, cough, CP, SOB, blurry vision. Objective - Vital Signs/Intake and Output Vital Signs (last 24 hours): Temp Pulse Resp BP Pulse Ox 97.3 F L 91 H 23 125/49 L 98 03/29/17 04:10 03/29/17 06:00 03/28/17 11:00 03/29/17 04:00 03/29/17 04:10 Intake and Output: 03/29/17 03/29/17 06:59 18:59 Intake Total 265 Output Total 2600 Balance -2335 - Medications Medications: Current Medications Heparin Sodium (Porcine) (Heparin) 5,000 units SC 0800,1999 [facility] PRN Reason: Protocol Last Admin: 03/28/17 08:00 Dose: 5,000 units Hydrocortisone Sodium Succinate (Solu-Cortef) 50 mg IVP Q6H [facility] Last Admin: 03/29/17 06:37 Dose: 50 mg Sodium Chloride (Sodium Chloride 0.9%) 500 mls @ 0 mls/hr IV .Q0M [facility] PRN Reason: Per Protocol Meropenem (Merrem Iv 1 Gm Premix) 50 mls @ 100 mls/hr IVPB Q12 [facility] PRN Reason: Protocol Last Admin: 03/28/17 22:03 Dose: 100 mls/hr Doxycycline Hyclate 100 mg/ (Sodium Chloride) 100 mls @ 100 mls/hr IVPB Q12 [facility] PRN Reason: Protocol Last Admin: 03/28/17 21:59 Dose: 100 mls/hr Dobutamine HCl/Dextrose (Dobutamine/Dextrose 5% 500mg/250ml) 500 mg in 250 mls @ 8.845 mls/hr IV .Q24H PRN; Protocol; 5 MCG/KG/MIN PRN Reason: TITRATE PER PROTOCOL Last Admin: 03/29/17 03:29 Dose: 5 mcg/kg/min, 8.845 mls/hr Pantoprazole Sodium (Protonix Inj) 40 mg IVP DAILY [facility] Last Admin: 03/28/17 09:36 Dose: 40 mg - Labs Labs: 03/29/17 05:10 03/29/17 05:10 PT 11.4 SECONDS (9.4-12.5) 03/27/17 12:00 INR 1.04 (0.93-1.08) 03/27/17 12:00 APTT 31.1 Seconds (25.1-36.5) 03/27/17 12:00 - Constitutional Appears: Well, Non-toxic, No Acute Distress - Head Exam Head Exam: NORMAL INSPECTION - ENT Exam ENT Exam: Mucous Membranes Moist - Respiratory Exam Respiratory Exam: Clear to Ausculation Bilateral, NORMAL BREATHING PATTERN - Cardiovascular Exam Cardiovascular Exam: REGULAR RHYTHM, +S1, +S2 - GI/Abdominal Exam GI & Abdominal Exam: Soft, Normal Bowel Sounds - Extremities Exam Extremities Exam: Full ROM, Normal Inspection - Neurological Exam Neurological Exam: Alert, Awake, Oriented x3 Neuro motor strength exam: Left Upper Extremity: 5, Right Upper Extremity: 5, Left Lower Extremity: 5, Right Lower Extremity: 5 Assessment and Plan - Assessment and Plan (Free Text) Assessment: 86yo female a.w anemia, SOB, PNA PNA Acute Systolic CHF decompesanted Anemia Sick Euthyroid syndrome - currently afebrile, HD stable, comfortable on 2LNC, sat 96% - denies visual field impairment - given Lasix 80mg IV x 2 yesterday, with good UOP, net negative Recommend: - supp o2 as needed, BIPAP PRN - Antibiotics, broad spectrum, follow up ID - IV Steroids SolueCortef, taper to 50mg IV q8hr, follow up endocrine - titrate down Dobutamine - switch to PO Lasix - Duoneb PRN - follow up cardiology - check iron studies, FOBT - DVT ppx, SCDs - monitor HH - if stable throughout the day, can be transferred to telemetry
[2017-03-29] MEDS: Meropenem IV 1 gm in NS 50 ML IVPB SCH ×2 (09:36→21:37)
--- NOTE | 2017-03-29 10:41 | RAD ---
HISTORY: f/u; CHF COMPARISON: Comparison chest 03/28/2017. FINDINGS: LUNGS: Pulmonary vascular congestive changes with bilateral alveolar-type infiltrates and bilateral effusions. Concomitant pneumonia not excluded. PLEURA: As above. No pneumothorax apparent. CARDIOVASCULAR: Cardiomegaly. OSSEOUS STRUCTURES: No significant abnormalities. VISUALIZED UPPER ABDOMEN: Normal. OTHER FINDINGS: None. IMPRESSION: Pulmonary vascular congestive changes with bilateral alveolar-type infiltrates and bilateral effusions. Concomitant pneumonia not excluded.
--- NOTE | 2017-03-29 10:42 | CP.PCM.PN ---
Subjective - Date & Time of Evaluation Date of Evaluation: 03/29/17 Time of Evaluation: 10:00 - Subjective Subjective: Comfortable on a chair, no fevers overnight, not in distress. Objective - Vital Signs/Intake and Output Vital Signs (last 24 hours): Temp Pulse Resp BP Pulse Ox 97.3 F L 83 23 125/49 L 98 03/29/17 04:10 03/29/17 04:10 03/28/17 11:00 03/29/17 04:00 03/29/17 04:10 - Medications Medications: Current Medications Heparin Sodium (Porcine) (Heparin) 5,000 units SC 0800,1999 [facility] PRN Reason: Protocol Last Admin: 03/28/17 08:00 Dose: 5,000 units Hydrocortisone Sodium Succinate (Solu-Cortef) 50 mg IVP Q6H [facility] Last Admin: 03/29/17 06:37 Dose: 50 mg Sodium Chloride (Sodium Chloride 0.9%) 500 mls @ 0 mls/hr IV .Q0M [facility] PRN Reason: Per Protocol Meropenem (Merrem Iv 1 Gm Premix) 50 mls @ 100 mls/hr IVPB Q12 [facility] PRN Reason: Protocol Last Admin: 03/28/17 22:03 Dose: 100 mls/hr Doxycycline Hyclate 100 mg/ (Sodium Chloride) 100 mls @ 100 mls/hr IVPB Q12 [facility] PRN Reason: Protocol Last Admin: 03/28/17 21:59 Dose: 100 mls/hr Dobutamine HCl/Dextrose (Dobutamine/Dextrose 5% 500mg/250ml) 500 mg in 250 mls @ 8.845 mls/hr IV .Q24H PRN; Protocol; 5 MCG/KG/MIN PRN Reason: TITRATE PER PROTOCOL Last Admin: 03/29/17 03:29 Dose: 5 mcg/kg/min, 8.845 mls/hr Pantoprazole Sodium (Protonix Inj) 40 mg IVP DAILY [facility] Last Admin: 03/28/17 09:36 Dose: 40 mg - Labs Labs: 03/29/17 05:10 03/29/17 05:10 PT 11.4 SECONDS (9.4-12.5) 03/27/17 12:00 INR 1.04 (0.93-1.08) 03/27/17 12:00 APTT 31.1 Seconds (25.1-36.5) 03/27/17 12:00 - Constitutional Appears: Non-toxic, Chronically Ill - Head Exam Head Exam: NORMAL INSPECTION - ENT Exam ENT Exam: Mucous Membranes Moist - Neck Exam Neck Exam: absent: Lymphadenopathy, Meningismus - Respiratory Exam Respiratory Exam: Decreased Breath Sounds - Cardiovascular Exam Cardiovascular Exam: +S1, +S2 - GI/Abdominal Exam GI & Abdominal Exam: Soft. absent: Tenderness Assessment and Plan - Assessment and Plan (Free Text) Plan: Assessment systemic inflammatory response syndrome, consider due acute pulmonary edema R/O severe sepsis with acute renal failure due to bilateral lower lobe healthcare- associated pneumonia history of sepsis secondary to healthcare-associated pneumonia history of left sided hydronephrosis with UPJ obstruction history of small-bowel obstruction and acute kidney injury with emphysematous gastritis congestive heart failure with LVEF 30% acute on chronic renal failure hypertension cerebrovascular accident pulmonary hypertension aortic regurgitation diabetes coronary artery disease colon cancer Plan gave a dose of IV Vancomycin and continue meropenem and Doxycycline day 2 for now; blood, urine cx are negative, follow up urine Legionella Ag; PCT is <0.05 - reviewed CT A/P which showed chronic UPJ obstruction - if cultures continue to be negative, will d/c Merrem will continue to monitor clinically overall prognosis is poor
--- NOTE | 2017-03-29 11:55 | PN ---
DATE: 03/29/2017 REASON FOR CONSULTATION AND FOLLOWUP: Hypotension, hypoglycemia, lethargic, atrial fibrillation with rapid ventricular rate, elevated BNP, and now the patient converted to normal sinus. SUBJECTIVE: The patient denies any chest pain, shortness of breath or any palpitations. On Dobutrex 5 mcg. Even at the last night noted, the patient got short of breath, given the Lasix and Dobutrex increased to 5 mcg and the patient is stable OBJECTIVE: GENERAL: Not in apparent distress. VITAL SIGNS: As follows; temperature afebrile, heart rate 91, and blood pressure 125/49. HEENT: PERRLA. Extraocular muscles intact. NECK: Supple. No carotid bruits or thyromegaly. CHEST: Clear to auscultation. HEART: S1 and S2 regular. ABDOMEN: Soft. EXTREMITIES: Clubbing and cyanosis negative. LABORATORY DATA: Blood workup as follows. WBC 6.1, hemoglobin 8.2, hematocrit 25.5, and platelet count 155. Chemistry shows sodium 145, potassium 3.3, chloride 105, carbon dioxide of 31, anion gap of 14, BUN of 33, and creatinine of 1.6. INR is 1.01. IMPRESSION: Severe anemia, status post 2 units of packed RBC transfused yesterday; acute kidney injury possibly secondary to Lasix, shortness of breath with hypoglycemia, hypotension, shock, anemia, rule out gastrointestinal bleed; weak, lethargic, history of coronary artery disease status post multiple stents, history of colon cancer status post chronic resection, cardiomyopathy, recent echo shows dilated cardiomyopathy with ejection fraction of 35% dated 01/19/2017, moderate mitral regurgitation, [id number] tricuspid regurgitation, and right ventricular systolic pressure of 46 mmHg, history of coronary artery disease, history of multiple stents, ischemic cardiomyopathy, no evidence of acute myocardial infarction, so far troponin remains negative. RECOMMENDATIONS: We will start p.o. Lasix to keep negative balance. Continue 5 mcg of Dobutrex, we will change to 2. Continue DVT prophylaxis and supplement potassium aggressively. We will keep the unit for 24 hours. If bed needed, she can be transferred out later in the evening. Discussed with . We will follow with you. We will hold ZULY inhibitors now, once renal function improves, we will put back on ZULY inhibitors. For now, we will put low dose of Coreg. Thank you Dr. Otero for providing us the opportunity in taking care of the patient, Fabian Downs. Repeat the blood workup in the morning. Hypothyroidism, on supplement thyroxine. Heather Ac MD
--- NOTE | 2017-03-29 13:11 | PN ---
DATE: ENDO FOLLOWUP NOTE LOCATION: ICU 128, room 1. SUBJECTIVE: This is an 86-year-old female who is presenting here with congestive heart failure and acute pneumonitis and is now being followed closely for hemodynamic and cardiac management and is also being followed closely for metabolic evaluation and workup. She remains clinically euthyroid, but biochemically has evidence of the so-called euthyroid, hyperthyroxinemia. The latest thyroid studies showed T4 of 12.9 with free T4 of 1.89, and TSH of 0.55 as noted. Her latest chemistries showed BUN of 33, sodium 147, potassium of 3.3, chloride 105, CO2 31, glucose 128, and creatinine 1.6. So at this time, we will continue the present medical management as given. No indication at this time for any kind of thyroid pharmacotherapy as the patient is actually clinically euthyroid and her biochemical indices are indicative of the so-called acute sick euthyroid syndrome. We would highly doubt the remote possibility of a thyroxine binding globulin abnormality or a TBG abnormality causing the falsely elevated total T4 level as noted. We will obtain serial chemistries and supplement accordingly as needed. We will follow. Faye Manjarrez MD
--- NOTE | 2017-03-30 03:41 | CON ---
DATE: 03/29/2017 REASON FOR CONSULTATION: Anemia and history of gastric ulcer. HISTORY OF PRESENT ILLNESS: This 86-year-old patient with past medical history of emphysematous gastritis with history of extensive gastric ulceration, large ventral hernia, presented to the emergency room with shortness of breath,not feeling well, cough, and congestion. The patient was found to be septic, hypothermic, and was found to have right lower lobe pneumonia and congestive heart failure. This patient has history of colon cancer, had a colectomy done in the past. The patient did have an endoscopy done on 04/29/2016, for extensively ulceration and the patient was also advised to take pureed diet, which is noncompliant, she does not want to tolerate the pureed diet. She was advised at that time to take soft diet and maintained her longer term PPI. The patient refused to have an endoscopy and followup stent. The patient on admission, her hemoglobin on admission 7.9, it dropped down to 6.8. No obvious bleeding per rectum. No vomiting blood. No melena. PAST MEDICAL HISTORY: Her other past medical history is significant for hypothermia, significant coronary artery disease. Other past medical history significant for CVA, aortic stenosis, pulmonary hypertension, and dyslipidemia. PAST SURGICAL HISTORY: Significant for partial colectomy and angioplasty. FAMILY HISTORY: Noncontributory. SOCIAL HISTORY: Denies smoking or alcohol. ALLERGIES: NO KNOWN DRUG ALLERGIES. REVIEW OF SYSTEM: Positive as above. All other systems are reviewed. PHYSICAL EXAMINATION GENERAL: The patient is lying on the bed, not in acute distress. VITAL SIGNS: Pulse is 92, blood pressure is 124/57, O2 saturation is 93%, and temperature is now improved to 96.4. HEENT: Atraumatic. Anicteric. NECK: Supple. HEART: S1 and S2 heard. LUNGS: Bilateral air entry slightly reduced at the bases. ABDOMEN: Soft. LABORATORY DATA: Hemoglobin was 6.8 yesterday and now it is 8.2, status post transfusion. WBC is 6.1; platelets are 155. Chemistries: Creatinine is 1.6, BUN is 33, and alkaline phosphatase is 160. DIAGNOSTIC DATA: The patient did have a CT scan of the abdomen and pelvis done, which was reviewed. They have showed bilateral pleural effusion and bilateral pulmonary consolidation and small pelvic fluid. [id number]-dy-odnusw left hydronephrosis without hydroureter suggestive of left UPJ obstruction. IMPRESSION: This 86-year-old patient was admitted with sepsis, pneumonia, history of chronic obstructive pulmonary disease, congestive heart failure, pulmonary hypertension, and found to have anemia with a drop in blood count. The patient has a history of emphysematous gastritis improved with the conservative management, followup endoscopy showed extensive ulceration. The patient did not follow through with the endoscopies. The patient has history of colon cancer, status post colon resection, no recent colonoscopy, family declined and the patient was on comfort measure, the patient improved. RECOMMENDATIONS: 1. We would recommend at this point close followup of the hemoglobin and hematocrit. 2. CAT scan did not show any emphysematous gastritis . The patient has ventral hernia reducible. 3. Will continue the antibiotics and continue the Protonix. Will continue to closely follow up her blood count, hemoglobin, hematocrit and suggest further management based on the clinical course. 4. The patient was recommended to take pureed diet in view of this extensive ulceration and possible gastroparesis. Also the patient is very noncompliant with pureed diet and that I would recommend the diet to be changed to soft diet. Thank you very much. Alayna Kang MD
[2017-03-30 05:47] LABS: GRAN # 11.97 (1.4-6.5); GRAN % 89.1 % (50.0-68.0); HEMATOCRIT 28.7 % (36.0-48.0); LYMPH # 0.7 (1.2-3.4); LYMPH % 5.4 % (22.0-35.0); MEAN CELL VOLUME 88.3 fl (80.0-105.0); MEAN CORPUSCULAR HEMOGLOBIN 27.7 pg (25.0-35.0); MEAN CORPUSCULAR HGB CONC 31.4 g/dl (31.0-37.0); MONO # 0.7 (0.1-0.6); MONO % 5.5 % (1.0-6.0); PLATELET COUNT 169 10^3/uL (120.0-450.0); RED CELL DISTRIBUTION WIDTH 20.3 % (11.5-14.5); WHITE BLOOD COUNT 13.4 10^3/ul (4.5-11.0)
[2017-03-30 07:07] LABS: CALCIUM 10.3 mg/dL (8.4-10.5); POTASSIUM 3.4 mmol/L (3.6-5.0)
[2017-03-30] MEDS ORDERED: Potassium Chloride 20 mEq ER Tab PO ONE ×2 (08:33→17:00)
--- NOTE | 2017-03-30 09:16 | PN ---
DATE: 03/29/2017 SUBJECTIVE: The patient is an 86-year-old, seen and examined, sitting in chair, seems to be very comfortable. No nausea or vomiting, no diarrhea. She is off of BiPAP, eating well. PHYSICAL EXAMINATION: VITAL SIGNS: She is afebrile, pulse 82, respirations 18, and blood pressure 132/59. LUNGS: Bilateral good airflow. No rhonchi or crackle. HEART: S1 and S2 audible. ABDOMEN: Soft and nontender. No rebound. No guarding. NEUROLOGIC: The patient is awake, alert, and oriented. Able to communicate. LABORATORY DATA: WBC 6.1, hemoglobin 8.2, hematocrit 25, and platelets of 155. Chemistry; sodium 147, potassium 3.3, chloride 105, CO2 31, BUN 33, creatinine 1.6, and blood sugar of 128. Her blood cultures and urine cultures are negative. Her CT scan of the abdomen and pelvis, x-ray of chest, pulmonary vascular congestion with bilateral alveolar type infiltrate. PLAN: We will supplement potassium, continue her on current antibiotic, continue nebulizer treatment. She should be stable enough to be transferred to telemetry by tomorrow. Rk Otero MD
[2017-03-30] MEDS: Meropenem IV 1 gm in NS 50 ML IVPB SCH (09:35)
--- NOTE | 2017-03-30 10:16 | CP.PCM.PN ---
Subjective - Date & Time of Evaluation Date of Evaluation: 03/30/17 Time of Evaluation: 09:40 - Subjective Subjective: Patient was noted to be agitated, no fevers overnight, a little better now that the patient was changed to a room with a window. Objective - Vital Signs/Intake and Output Vital Signs (last 24 hours): Temp Pulse Resp BP Pulse Ox 97.5 F L 77 23 136/62 93 L 03/30/17 04:00 03/30/17 04:30 03/28/17 11:00 03/30/17 04:00 03/30/17 04:30 - Medications Medications: Current Medications Carvedilol (Coreg) 3.125 mg PO BID [facility] Last Admin: 03/29/17 18:37 Dose: 3.125 mg Furosemide (Lasix) 40 mg PO DAILY [facility] Last Admin: 03/29/17 11:36 Dose: 40 mg Heparin Sodium (Porcine) (Heparin) 5,000 units SC 0800,2000 [facility] PRN Reason: Protocol Last Admin: 03/28/17 08:00 Dose: 5,000 units Hydrocortisone Sodium Succinate (Solu-Cortef) 50 mg IVP Q6H [facility] Last Admin: 03/30/17 06:25 Dose: 50 mg Sodium Chloride (Sodium Chloride 0.9%) 500 mls @ 0 mls/hr IV .Q0M [facility] PRN Reason: Per Protocol Meropenem (Merrem Iv 1 Gm Premix) 50 mls @ 100 mls/hr IVPB Q12 [facility] PRN Reason: Protocol Last Admin: 03/29/17 21:37 Dose: 100 mls/hr Doxycycline Hyclate 100 mg/ (Sodium Chloride) 100 mls @ 100 mls/hr IVPB Q12 [facility] PRN Reason: Protocol Last Admin: 03/29/17 21:39 Dose: 100 mls/hr Dobutamine HCl/Dextrose (Dobutamine/Dextrose 5% 500mg/250ml) 500 mg in 250 mls @ 8.845 mls/hr IV .Q24H PRN; Protocol; 5 MCG/KG/MIN PRN Reason: TITRATE PER PROTOCOL Last Admin: 03/29/17 03:29 Dose: 5 mcg/kg/min, 8.845 mls/hr Pantoprazole Sodium (Protonix Inj) 40 mg IVP DAILY [facility] Last Admin: 03/29/17 09:37 Dose: 40 mg - Labs Labs: 03/30/17 05:10 03/29/17 05:10 PT 11.4 SECONDS (9.4-12.5) 03/27/17 12:00 INR 1.04 (0.93-1.08) 03/27/17 12:00 APTT 31.1 Seconds (25.1-36.5) 03/27/17 12:00 - Constitutional Appears: Chronically Ill - Head Exam Head Exam: NORMAL INSPECTION - ENT Exam ENT Exam: Mucous Membranes Moist - Neck Exam Neck Exam: absent: Meningismus - Respiratory Exam Respiratory Exam: Decreased Breath Sounds - Cardiovascular Exam Cardiovascular Exam: +S1, +S2 - GI/Abdominal Exam GI & Abdominal Exam: Soft. absent: Tenderness Assessment and Plan - Assessment and Plan (Free Text) Plan: Assessment systemic inflammatory response syndrome, consider due acute pulmonary edema R/O severe sepsis with acute renal failure due to bilateral lower lobe healthcare- associated pneumonia history of sepsis secondary to healthcare-associated pneumonia history of left sided hydronephrosis with UPJ obstruction history of small-bowel obstruction and acute kidney injury with emphysematous gastritis congestive heart failure with LVEF 30% acute on chronic renal failure hypertension cerebrovascular accident pulmonary hypertension aortic regurgitation diabetes coronary artery disease colon cancer Plan on meropenem and Doxycycline day 3 blood, urine cx are negative, urine Legionella Ag is negative; PCT is <0.05 - reviewed CT A/P which showed chronic UPJ obstruction -will d/c Merrem and continue Doxycycline will continue to monitor clinically overall prognosis is poor
--- NOTE | 2017-03-30 12:23 | RAD ---
HISTORY: decreased SaO2 COMPARISON: 03/29/2017 FINDINGS: LUNGS: Increasing bilateral infiltrates are seen with more focal consolidation in the left apex and mid left upper lobe. Findings could represent pulmonary edema or pneumonia. PLEURA: No significant pleural effusion identified, no pneumothorax apparent. CARDIOVASCULAR: Moderate cardiomegaly OSSEOUS STRUCTURES: No significant abnormalities. VISUALIZED UPPER ABDOMEN: Normal. OTHER FINDINGS: None. IMPRESSION: Increasing bilateral infiltrates are seen with more focal consolidation in the left apex and mid left upper lobe. Findings could represent pulmonary edema or pneumonia.
--- NOTE | 2017-03-30 18:06 | PN ---
DATE: ENDOCRINOLOGY FOLLOWUP NOTE In ICU 128, room 2. SUBJECTIVE: This is an 86-year-old female presenting here with sudden onset of progressive shortness of breath and evaluated to be in congestive heart failure with supervening hypotension and hypoxemia and also a brief bout of bradycardia and hypothermia as mentioned and is now being followed closely for hemodynamic monitoring in the ICU as noted. Her latest chemistry showed a BUN of 40, sodium 146, potassium 3.4, chloride 102, CO2 of 33, glucose 116 and creatinine 1.4. The repeat thyroid study showed a T4 of 12.9 mcg/dL with a free T4 of 1.89 and a TSH of 0.55. So at this time, we are actually dealing with the so called acute sick euthyroid syndrome with no need for any kind of thyroid pharmacotherapy. We will obtain serial thyroid studies and expect improvement biochemically as her clinical condition improves thereof. We will follow. Faye Manjarrez MD
--- NOTE | 2017-03-30 18:52 | PN ---
DATE: 03/30/2017 REASON FOR CONSULTATION AND FOLLOWUP: Hypotension, hypoglycemia, atrial fibrillation with rapid ventricular rate, elevated BNP, now the patient converted to normal sinus. SUBJECTIVE: Denies any chest pain, shortness of breath, or any palpitation. On Dobutrex, still some confused. PHYSICAL EXAMINATION: As follows; VITAL SIGNS: Temperature afebrile, heart rate 77, and blood pressure 137/76. HEENT: PERRLA intact. NECK: Supple. No carotid bruits or thyromegaly. CHEST: Clear to auscultation. HEART: S1 and S2 regular. ABDOMEN: Soft. EXTREMITIES: Clubbing and cyanosis negative. LABORATORY DATA: Blood workup as follows. WBC 13.4, hemoglobin 9, hematocrit 28.7, and platelet count 169. Chemistry shows sodium 136, potassium 3.4, chloride 102, carbon dioxide of 33, anion gap of 14, BUN of 40, and creatinine of 1.4. IMPRESSION: Severe anemia, status post packed red blood cells transfusion; acute kidney injury, possibly secondary to Lasix; shortness of breath; hypoglycemia; hypotension; shock; anemia, rule out gastrointestinal bleed; weak, lethargic; history of coronary artery disease; history of multiple stents; history of colon cancer, status post colonic resection; cardiomyopathy, last echocardiogram shows ejection fraction of 35% dated 01/19/2017, moderate mitral regurgitation, [id number] tricuspid regurgitation, right ventricular systolic pressure of 48; history of coronary artery disease as mentioned, history of multiple stents, ischemic cardiomyopathy, no evidence of acute ischemia or myocardial infarction this admission. RECOMMENDATIONS: Wean off Dobutrex, gentle diuretics p.o., supplement potassium as needed. Okay to transfer to telemetry. We will repeat lab in the morning. Chest x-ray consistent with rule out pneumonia. A repeat chest x-ray today showed more focal consolidation in the upper lobe. Findings will be pulmonary edema or pneumonia. We will follow and give 20 mg of Lasix at 4 p.m. with 40 of K-Dur. Thank you Dr. Otero for providing us the opportunity in taking care of the patient, Fbaian Downs. We will follow with you. Heather Ac MD
--- NOTE | 2017-03-30 23:10 | PN ---
DATE: SUBJECTIVE: The patient is an 86-year-old female, seen and examined, sitting in chair. She complained of loss of appetite. No desire to eat. No epigastric pain. No nausea or vomiting. PHYSICAL EXAMINATION: VITAL SIGNS: She is afebrile, pulse is 76, respirations are 16, and blood pressure is 140/55. LUNGS: Bilateral fair airflow. No rhonchi or crackle. HEART: S1 and S2 audible. ABDOMEN: Soft and nontender. No rebound. No guarding. NEUROLOGIC: The patient is awake, alert, and oriented. Able to communicate. Ambulatory. LABORATORY DATA: WBC of 13.4, hemoglobin of 9.0, hematocrit of 28.7, and platelets of 169. Chemistries: Sodium of 146, potassium of 3.4, chloride of 102, CO2 of 33, BUN of 40, creatinine of 1.4, and blood sugar of 116. ASSESSMENT AND PLAN: 1. Hypothermia. 2. Right lower lobe pneumonia. 3. Hypotension, now she is stable. 4. Gastritis. 5. Loss of appetite with weight loss. PLAN: Currently, the patient is on carvedilol. She is on doxycycline. She is on deep vein thrombosis prophylaxis. Potassium has been supplemented. She is on Protonix. I will start her on cyproheptadine and cut down her hydrocortisone from q. 8 hours. to q. 12 hours. Rk Otero MD
--- NOTE | 2017-03-31 00:25 | PN ---
DATE: 03/30/2017 SUBJECTIVE: This patient was seen and evaluated today. The patient has slightly reduced p.o. intake. PHYSICAL EXAMINATION: VITAL SIGNS: Afebrile. Temperature is 95.2 now, pulse 76, blood pressure 170/75, O2 saturation 95%, respirations 18. HEENT: Atraumatic, anicteric. NECK: Supple. HEART: S1 and S2 heard. LUNGS: Bilateral air entry present. ABDOMEN: Soft. LABORATORY DATA: Hemoglobin 9.0, hematocrit 28.7, WBC 13.4, platelets 169. Chemistries; potassium 3.4, sodium 146, creatinine 1.4 and BUN 5. IMPRESSION: This 86-year-old patient admitted with shortness of breath, weakness, found to have sepsis, pneumonia, hypothermia, the patient also found to have acute kidney injury, congestive heart failure. This patient has anemia, drop in blood count, status post transfusion of hemoglobin, stable now. History of emphysematous gastritis, improved with conservative management, had an excessive esophageal ulcerations. Refused any followup endoscopies in view of the multiple comorbidities. RECOMMENDATIONS: 1. Continue the antibiotics as per ID. The patient still has episodes of the hypothermia, etiology is unclear. 2. The patient's thyroid profiles reviewed. Endocrinology note appreciated. Sick euthyroid syndrome. 3. The patient has history of colon cancer, status post colon resection in the past. We would recommend one followup of the hemoglobin and, hematocrit. Continue the PPI prophylaxis. We would recommend the patient with a soft diet. The patient refused pureed diet. We will continue to closely followup care and suggest further management based on the clinical course. Alayna Kang MD
[2017-03-31 05:59] LABS: EOS % 0.1 % (1.5-5.0); GRAN # 7.12 (1.4-6.5); GRAN % 78.2 % (50.0-68.0); HEMATOCRIT 28.2 % (36.0-48.0); LYMPH # 1.3 (1.2-3.4); LYMPH % 14.3 % (22.0-35.0); MEAN CELL VOLUME 87.9 fl (80.0-105.0); MEAN CORPUSCULAR HGB CONC 31.9 g/dl (31.0-37.0); MEAN PLATELET VOLUME 12.1 fl (7.0-11.0); MONO # 0.7 (0.1-0.6); MONO % 7.4 % (1.0-6.0); RED CELL DISTRIBUTION WIDTH 19.9 % (11.5-14.5); WHITE BLOOD COUNT 9.1 10^3/ul (4.5-11.0)
[2017-03-31 06:36] LABS: FREE T4 2.04 ng/dL (0.78-2.19); T4 13.6 ug/dL (5.5-11.0)
[2017-03-31 06:49] LABS: THYROID STIMULATING HORMONE 1.27 mIU/mL (0.46-4.68)
[2017-03-31 06:59] LABS: CALCIUM 10.2 mg/dL (8.4-10.5); POTASSIUM 3.2 mmol/L (3.6-5.0)
[2017-03-31] MEDS ORDERED: Potassium Chloride 20 mEq ER Tab PO ONE (10:31)
--- NOTE | 2017-03-31 11:02 | CP.PCM.PN ---
<Teetee Palomares - Last Filed: 03/31/17 11:03> Subjective - Date & Time of Evaluation Date of Evaluation: 03/31/17 Time of Evaluation: 09:55 - Subjective Subjective: Seen and examined at the bedside earlier this morning, the chart was reviewed. No acute overnight events reported. Patient is awake and alert, denies shortness of breath chest pain or abdominal pain. No reports of overt GI bleed. Objective - Vital Signs/Intake and Output Vital Signs (last 24 hours): Temp Pulse Resp BP Pulse Ox 96.4 F L 74 92 H 112/50 L 99 03/31/17 04:00 03/31/17 10:11 03/31/17 05:08 03/31/17 10:11 03/30/17 21:40 Intake and Output: 03/31/17 03/31/17 06:59 18:59 Intake Total 80 Output Total 600 Balance -520 - Medications Medications: Current Medications Carvedilol (Coreg) 3.125 mg PO BID [facility] Last Admin: 03/31/17 10:11 Dose: 3.125 mg Cyproheptadine HCl (Periactin) 4 mg PO BID [facility] Last Admin: 03/31/17 10:02 Dose: 4 mg Doxycycline Hyclate (Doryx) 100 mg PO Q12 [facility] PRN Reason: Protocol Last Admin: 03/31/17 10:11 Dose: 100 mg Furosemide (Lasix) 40 mg PO DAILY [facility] Last Admin: 03/31/17 10:02 Dose: 40 mg Heparin Sodium (Porcine) (Heparin) 5,000 units SC 0800,2000 [facility] PRN Reason: Protocol Last Admin: 03/28/17 08:00 Dose: 5,000 units Hydrocortisone Sodium Succinate (Solu-Cortef) 50 mg IVP Q12H [facility] Last Admin: 03/31/17 10:07 Dose: 50 mg Sodium Chloride (Sodium Chloride 0.9%) 500 mls @ 0 mls/hr IV .Q0M [facility] PRN Reason: Per Protocol Lisinopril (Zestril) 2.5 mg PO DAILY [facility] Pantoprazole Sodium (Protonix Inj) 40 mg IVP DAILY [facility] Last Admin: 03/31/17 10:03 Dose: 40 mg - Labs Labs: 03/31/17 05:00 03/31/17 05:00 PT 11.4 SECONDS (9.4-12.5) 03/27/17 12:00 INR 1.04 (0.93-1.08) 03/27/17 12:00 APTT 31.1 Seconds (25.1-36.5) 03/27/17 12:00 - Constitutional Appears: No Acute Distress - Head Exam Head Exam: NORMOCEPHALIC - Eye Exam Eye Exam: Normal appearance. absent: Scleral icterus - ENT Exam ENT Exam: Mucous Membranes Moist - Respiratory Exam Respiratory Exam: Decreased Breath Sounds, NORMAL BREATHING PATTERN. absent: Respiratory Distress - Cardiovascular Exam Cardiovascular Exam: +S1, +S2 - GI/Abdominal Exam GI & Abdominal Exam: Soft, Hernia (nontender), Normal Bowel Sounds. absent: Guarding, Tenderness, Rebound - Extremities Exam Extremities Exam: absent: Calf Tenderness - Neurological Exam Neurological Exam: Alert, Awake, Oriented x3 (at confused) - Skin Skin Exam: Dry, Warm Assessment and Plan - Assessment and Plan (Free Text) Assessment: Assessment: Hypothermia Right lower lobe pneumonia Status post hypotension emphysematous gastritis Anemia, status postblood transfusion Plan: Continue puree diet Continue Periactin Continue PPI On Solu-Cortef On oral antibiotics Heparin is on hold Seen and discussed with Dr. Mejia. <Alayna Kang V - Last Filed: 03/31/17 20:00> Objective - Vital Signs/Intake and Output Vital Signs (last 24 hours): Temp Pulse Resp BP Pulse Ox 96.4 F L 47 L 92 H 112/50 L 99 03/31/17 04:00 03/31/17 18:00 03/31/17 05:08 03/31/17 10:11 03/30/17 21:40 Intake and Output: 03/31/17 04/01/17 18:59 06:59 Intake Total 300 Output Total 350 Balance -50 - Medications Medications: Current Medications Carvedilol (Coreg) 3.125 mg PO BID [facility] Last Admin: 03/31/17 18:39 Dose: 3.125 mg Cyproheptadine HCl (Periactin) 4 mg PO BID [facility] Last Admin: 03/31/17 18:39 Dose: 4 mg Doxycycline Hyclate (Doryx) 100 mg PO Q12 [facility] PRN Reason: Protocol Last Admin: 03/31/17 10:11 Dose: 100 mg Furosemide (Lasix) 40 mg PO DAILY [facility] Last Admin: 12/12/17 10:02 Dose: 40 mg Heparin Sodium (Porcine) (Heparin) 5,000 units SC 0800,1999 [facility] PRN Reason: Protocol Last Admin: 03/28/17 08:00 Dose: 5,000 units Hydrocortisone Sodium Succinate (Solu-Cortef) 50 mg IVP DAILY [facility] Sodium Chloride (Sodium Chloride 0.9%) 500 mls @ 0 mls/hr IV .Q0M [facility] PRN Reason: Per Protocol Lisinopril (Zestril) 2.5 mg PO DAILY [facility] Last Admin: 03/31/17 18:39 Dose: 2.5 mg Pantoprazole Sodium (Protonix Ec Tab) 40 mg PO DAILY [facility] - Labs Labs: 03/31/17 05:00 03/31/17 05:00 PT 11.4 SECONDS (9.4-12.5) 03/27/17 12:00 INR 1.04 (0.93-1.08) 03/27/17 12:00 APTT 31.1 Seconds (25.1-36.5) 03/27/17 12:00 Attending/Attestation - Attestation I have personally seen and examined this patient.: Yes I have fully participated in the care of the patient.: Yes I have reviewed all pertinent clinical information, including history, physical exam and plan: Yes Notes (Text): his is an addendum to GI progress report dictated by Teetee Palomares APN.The patient was seen and examined earlier. Medical records, lab studies, imagings were reviewed. Last 24 hours events reviewed. Agreed with the above treatment plan as outlined in Teetee Palomares APN's notes the with the addition of the following patient comfortable Abdomen soft no tenderness Hemoglobin stable Continue PPI X line recommend to continue pured diet patient is agreeable otherwise soft diet 03/31/17 19:57
--- NOTE | 2017-03-31 13:16 | PN ---
DATE: 03/31/2017 SUBJECTIVE: The patient is in bed, was seen earlier today in the ICU, bed number of 128, day #2. She is awake and alert. There has been no fevers reported. No chills. She has no pain. PHYSICAL EXAMINATION: VITAL SIGNS: Temperature is 98, blood pressure is 103/35, respiratory rate of 21, and heart rate of 80. HEENT: Unremarkable. NECK: Supple. LUNGS: Have decreased breath sounds. HEART: Normal S1 and S2. ABDOMEN: Soft. No rebound or guarding. No masses. LABORATORY DATA: Reveals white count of 9.1, hemoglobin of 9, and platelets of 180. Chemistries reveals BUN of 53 and creatinine of 1.3. Urinalysis is noted. Immunology is reviewed. Serology, urine for Legionella antigen is negative. D-Dimer is 318. Gases are reviewed. The patient's creatinine today is 1.3 with the procalcitonin less than 0.05. Urinalysis is unremarkable. Microbiology reveals the blood cultures are no growth. Urine cultures no growth, now MRSA is not detected. Review of orders reveals the patient to be on p.o. doxycycline and chest x-ray reveals increasing bilateral infiltrates with more focal consolidation, pulmonary edema or pneumonia. ASSESSMENT AND PLAN: This is an 86-year-old female seen early this morning in 128, bed 2, with systemic inflammatory response syndrome with acute pulmonary edema, acute renal failure due to bilateral lower lobe healthcare-associated pneumonia with normal procalcitonin, day #4 of doxycycline with negative urine culture, negative blood cultures, urine Legionella antigen is negative and will complete a short course of doxycycline. Reynaldo Riggs MD
--- NOTE | 2017-03-31 14:29 | PN ---
DATE: 03/31/2017 REASON FOR CONSULTATION: Followup hypotension, hypoglycemia, atrial fibrillation with rapid ventricular rate, elevated BNP, now the patient converted to normal sinus. SUBJECTIVE: Denies any chest pain, shortness of breath, or any palpitation. Off Dobutrex. Still confused off and on and is still in the ICU 128, bed 2. OBJECTIVE: GENERAL: Not in apparent distress, having a breakfast. VITAL SIGNS: As follows, temperature afebrile, heart rate 74, and blood pressure 112/50. HEENT: PERRLA. Extraocular muscles intact. NECK: Supple. No carotid bruits. No thyromegaly. CHEST: Clear to auscultation. HEART: S1, S2 regular. ABDOMEN: Soft. EXTREMITIES: Clubbing and cyanosis negative. LABORATORY DATA: Blood workup as follows: WBC 9.1, hemoglobin 9, hematocrit 28.2, and platelet count 180. Chemistry shows sodium 144, potassium 3.2, chloride 99, carbon dioxide 34, anion gap of 15, BUN 53, creatinine 1.3. TSH 1.27. IMPRESSION: Decompensated congestive heart failure. No evidence of acute myocardial infarction, coronary artery disease, status post multiple stent, cardiomyopathy, ischemic hypokalemia, anemia, fever, status post 2 packed RBC transfusion, acute congestive heart failure, acute on chronic secondary to systolic dysfunction, congestive heart failure episode is multifactorial secondary to atrial fibrillation with rapid rate, severe anemia and underlying cardiomyopathy, ischemic. Last echo, the patient had on 01/19/2017 shows moderate mitral regurgitation, [id number] tricuspid regurgitation, right ventricular systolic pressure of 48 mmHg. The initial admission hypoglycemia, hypertension, altered mental status. In general, weak and lethargic as per family through the historic interpreter. RECOMMENDATIONS: Wean off Dobutrex. Continue Coreg 3.125 b.i.d. Continue aggressive supplement potassium. Continue Lasix. Monitor renal function. We will give potassium. We will give him K-Dur now. Continue gentle diuretics as tolerated. We will start low-dose lisinopril and monitor renal function. If the patient can tolerate, we will give some ZULY inhibitors in addition to Coreg for heart failure therapy. Okay to transfer out to [facility]. Last echo shows ejection fraction of 35%. Thank you Dr. Otero for providing us the opportunity in taking care of the patient, Fabian Downs. Heather Ac MD [facility] # [id number]
--- NOTE | 2017-03-31 19:29 | PN ---
DATE: 03/31/2017 LOCATION: ICU 128, room 2. SUBJECTIVE: This is an 86-year-old female presenting here with congestive heart failure and marked hypotension and bradycardia with concomitant hypothermia and hypoxemia and since have improved clinically and metabolically as noted thereof. Her glycemic levels are fluctuated, but improved. Her latest chemistry showed a BUN of 53, sodium 144, potassium 3.2, chloride 99, CO2 of 34, glucose 111, and creatinine 1.3. So at this time, the thyroid studies with T4 of 13.6 with a free T4 of 2.44 and a TSH of 1.27, indicative of the so-called euthyroid hyperthyroxinemia, most likely related to underlying acute sick euthyroid syndrome, which is the most likely possibility, considering the physical stressors at this time. It is quite rare to see a TBG or thyroxine-binding globulin abnormality . We will follow and obtain serial chemistries and supplement accordingly as needed. We will follow with you. Faye Manjarrez MD
--- NOTE | 2017-04-01 00:25 | PN ---
SUBJECTIVE: The patient is an 86-year-old, seen and examined, sitting in chair, complaining of loss of appetite. Does not have any desire to eat, took a few spoons of her oatmeal and a little soup. Denies any nausea or vomiting. PHYSICAL EXAMINATION: VITAL SIGNS: She is afebrile, pulse is 74, respirations 18, blood pressure 112/50. LUNGS: Bilateral fair airflow. No rhonchi or crackles. HEART: S1 and S2 audible. ABDOMEN: Soft and nontender. No rebound. No guarding. NEUROLOGIC: The patient is awake, alert, and oriented. Somewhat confused. LABORATORY DATA: WBC is 9.1, hemoglobin 9.0, hematocrit 28.2, and platelets 180. Chemistries: Sodium of 144, potassium 3.2, chloride 99, CO2 of 34, BUN 43, creatinine 1.3, and blood sugar of 111. Her thyroxine level is 13.6; however, TSH is normal. Blood cultures and urine cultures are negative. ASSESSMENT AND PLAN: 1. Community-acquired pneumonia. 2. History of peptic ulcer disease. 3. Symptomatic anemia, status post blood transfusion, giving rise to pulmonary edema, status post diuresis. 4. Renal insufficiency. 5. Bilateral lower lobe infiltrates. 6. Deconditioning and difficulty walking. 7. Loss of appetite. PLAN: Currently, the patient is on Coreg, doxycycline 100 b.i.d. She is on DVT prophylaxis. We will supplement her potassium. Continue diuresis. I will taper down her steroid. The patient can be transferred to Med/Surg in front of nursing station. Rk Otero MD
--- NOTE | 2017-04-01 10:36 | RAD ---
PROCEDURE: Left Hip and pelvis X-ray Radiographs. HISTORY: hip pain COMPARISON: None. FINDINGS: BONES: Normal. No fracture. JOINTS: Normal. SOFT TISSUES: Normal. OTHER FINDINGS: None. IMPRESSION: Negative study
--- NOTE | 2017-04-01 10:44 | RAD ---
HISTORY: R/O pneumonia Vs CHF COMPARISON: 03/30/2017 FINDINGS: LUNGS: Bilateral pulmonary infiltrates are seen which show significant improvement. PLEURA: Small bilateral pleural effusions CARDIOVASCULAR: Moderate cardiomegaly OSSEOUS STRUCTURES: No significant abnormalities. VISUALIZED UPPER ABDOMEN: Normal. OTHER FINDINGS: None. IMPRESSION: Improvement in bilateral pulmonary infiltrates
--- NOTE | 2017-04-01 10:58 | CP.PCM.PN ---
<Teetee Palomares - Last Filed: 04/01/17 10:57> Subjective - Date & Time of Evaluation Date of Evaluation: 04/01/17 Time of Evaluation: 10:20 - Subjective Subjective: Seen and examined at the bedside earlier this morning, the chart was reviewed. Patient is complaining of hip pain and leg pain. Patient went for hip x-ray and Doppler of lower extremity. No nausea vomiting or abdominal pain. Patient has no bowel movement yesterday or as of yet this morning. Patient reported to have poor appetite but slightly better this morning, noted to have eaten bowel of [place]. Rest of the tray untouched. Waiting for medical bed. Objective - Vital Signs/Intake and Output Vital Signs (last 24 hours): Temp Pulse Resp BP Pulse Ox 97.2 F L 69 22 104/42 L 96 04/01/17 04:00 04/01/17 04:00 04/01/17 04:00 04/01/17 04:00 04/01/17 00:00 Intake and Output: 04/01/17 04/01/17 06:59 18:59 Intake Total 200 Output Total 500 Balance -300 - Medications Medications: Current Medications Carvedilol (Coreg) 3.125 mg PO BID [facility] Last Admin: 03/31/17 18:39 Dose: 3.125 mg Cyproheptadine HCl (Periactin) 4 mg PO BID [facility] Last Admin: 03/31/17 18:39 Dose: 4 mg Doxycycline Hyclate (Doryx) 100 mg PO Q12 [facility] PRN Reason: Protocol Last Admin: 03/31/17 21:22 Dose: 100 mg Furosemide (Lasix) 40 mg PO DAILY [facility] Last Admin: 03/31/17 10:02 Dose: 40 mg Heparin Sodium (Porcine) (Heparin) 5,000 units SC 0800,2000 [facility] PRN Reason: Protocol Last Admin: 03/28/17 08:00 Dose: 5,000 units Hydrocortisone Sodium Succinate (Solu-Cortef) 50 mg IVP DAILY [facility] Sodium Chloride (Sodium Chloride 0.9%) 500 mls @ 0 mls/hr IV .Q0M [facility] PRN Reason: Per Protocol Lisinopril (Zestril) 2.5 mg PO DAILY [facility] Last Admin: 03/31/17 18:39 Dose: 2.5 mg Pantoprazole Sodium (Protonix Ec Tab) 40 mg PO DAILY [facility] - Labs Labs: 03/31/17 05:00 03/31/17 05:00 PT 11.4 SECONDS (9.4-12.5) 03/27/17 12:00 INR 1.04 (0.93-1.08) 03/27/17 12:00 APTT 31.1 Seconds (25.1-36.5) 03/27/17 12:00 - Constitutional Appears: No Acute Distress - Head Exam Head Exam: NORMOCEPHALIC - Eye Exam Eye Exam: Normal appearance. absent: Scleral icterus - ENT Exam ENT Exam: Mucous Membranes Moist - Neck Exam Neck Exam: Normal Inspection - Respiratory Exam Respiratory Exam: Decreased Breath Sounds, NORMAL BREATHING PATTERN. absent: Respiratory Distress - Cardiovascular Exam Cardiovascular Exam: +S1, +S2 - GI/Abdominal Exam GI & Abdominal Exam: Soft, Normal Bowel Sounds. absent: Guarding, Tenderness, Rebound - Extremities Exam Extremities Exam: absent: Calf Tenderness, Pedal Edema - Neurological Exam Neurological Exam: Alert, Awake, Oriented x3 (periods of confusion) - Skin Skin Exam: Dry, Warm Assessment and Plan - Assessment and Plan (Free Text) Assessment: Assessment: Hypothermia Left hip pain/Lower extremity pain Right lower lobe pneumonia Status post hypotension emphysematous gastritis Anemia, status postblood transfusion Plan: Continue puree diet Continue Periactin Continue PPI On Solu-Cortef, weaning as per medicine Follow-up hip and lower extremity Doppler studies On oral antibiotics Heparin is on hold Seen and discussed with Dr. Kang. <Alayna Kang V - Last Filed: 04/01/17 23:05> Objective - Vital Signs/Intake and Output Vital Signs (last 24 hours): Temp Pulse Resp BP Pulse Ox 97.2 F L 62 20 125/63 95 04/01/17 16:00 04/01/17 17:54 04/01/17 16:00 04/01/17 17:54 04/01/17 16:00 Intake and Output: 04/01/17 04/02/17 18:59 06:59 Intake Total 560 0 Output Total 150 Balance 410 0 - Medications Medications: Current Medications Acetaminophen (Tylenol 325mg Tab) 650 mg PO Q6H PRN PRN Reason: Fever >100.4 F Carvedilol (Coreg) 3.125 mg PO BID [facility] Last Admin: 04/01/17 17:54 Dose: 3.125 mg Cyproheptadine HCl (Periactin) 4 mg PO BID [facility] Last Admin: 04/01/17 17:54 Dose: 4 mg Doxycycline Hyclate (Doryx) 100 mg PO Q12 [facility] PRN Reason: Protocol Last Admin: 04/01/17 21:55 Dose: 100 mg Furosemide (Lasix) 40 mg PO DAILY [facility] Last Admin: 04/01/17 11:13 Dose: 40 mg Heparin Sodium (Porcine) (Heparin) 5,000 units SC 0800,2000 [facility] PRN Reason: Protocol Last Admin: 03/28/17 08:00 Dose: 5,000 units Sodium Chloride (Sodium Chloride 0.9%) 500 mls @ 0 mls/hr IV .Q0M [facility] PRN Reason: Per Protocol Lidocaine (Lidoderm) 1 ea TD DAILY [facility] Last Admin: 04/01/17 12:37 Dose: 1 ea Lisinopril (Zestril) 2.5 mg PO DAILY [facility] Last Admin: 04/01/17 11:17 Dose: 2.5 mg Pantoprazole Sodium (Protonix Ec Tab) 40 mg PO DAILY [facility] Last Admin: 04/01/17 11:13 Dose: 40 mg Tramadol/Acetaminophen (Ultracet 37.5/325 Mg) 1 tab PO Q6H PRN PRN Reason: Pain, Mild (1-3) Last Admin: 04/01/17 17:54 Dose: 1 tab - Labs Labs: 03/31/17 05:00 03/31/17 05:00 PT 11.4 SECONDS (9.4-12.5) 03/27/17 12:00 INR 1.04 (0.93-1.08) 03/27/17 12:00 APTT 31.1 Seconds (25.1-36.5) 03/27/17 12:00 Attending/Attestation - Attestation I have personally seen and examined this patient.: Yes I have fully participated in the care of the patient.: Yes I have reviewed all pertinent clinical information, including history, physical exam and plan: Yes Notes (Text): This is an addendum to GI progress report dictated by Teetee Palomares APN.The patient was seen and examined earlier. Medical records, lab studies, imagings were reviewed. Last 24 hours events reviewed. Agreed with the above treatment plan as outlined in Teetee Palomares APN's notes the with the addition of the following tolerating the diet Follow up of the hemoglobin hematocrit continue PPI Ventral hernia reduced continue the present treatment 04/01/17 23:04
[2017-04-01] MEDS: Pantoprazole 40 mg EC Tab PO SCH (11:13)
--- NOTE | 2017-04-01 12:16 | PN ---
DATE: 04/01/2017 SUBJECTIVE: The patient is in bed, in no acute distress. She was seen earlier in room number 128, bed 2. She is complaining of generalized aches and pains. PHYSICAL EXAMINATION: VITAL SIGNS: Temperature is 97, blood pressure is 104/40, respiratory rate of 22, and heart rate of 69. HEENT: Examination of HEENT is unremarkable. NECK: Supple. LUNGS: Have decreased breath sounds. HEART: Normal S1 and S2. GASTROINTESTINAL: Abdominal examination is soft and nontender. LABORATORY DATA: Laboratory examination reveals a white count of 9.1, hemoglobin of 9, and platelets of 180. Chemistries reveals a BUN of 53 and creatinine of 1.3. Urinalysis is noted and serology reveals the urine Legionella antigen is negative. Microbiology reveals the blood cultures are negative. Urine cultures are negative. are not detected. ASSESSMENT AND PLAN: This is a an 86-year-old female who was seen early this morning, the patient was in the Intensive Care Unit 128, bed 2 with systemic inflammatory response syndrome, acute pulmonary edema, acute renal failure due to bilateral lower lobe healthcare-associated pneumonia, and normal procalcitonin. Today is day number 5 of p.o. doxycycline, would complete 7 days. The urine for Legionella antigen is negative. Reynaldo Riggs MD
[2017-04-01] MEDS: Lidocaine 5% Patch TD SCH (12:37)
--- NOTE | 2017-04-01 13:16 | PN ---
DATE: 04/01/2017 SUBJECTIVE: The patient is lying flat in the bed. Denies any chest pain, but complaining of left hip pain. Off Dobutrex. PHYSICAL EXAMINATION: As follows: VITAL SIGNS: Temperature afebrile, heart rate , and blood pressure 104/42. HEENT: PERRLA. Extraocular muscles intact. NECK: Supple. No carotid bruits or thyromegaly. CHEST: Clear to auscultation. HEART: S1 and S2 regular. ABDOMEN: Soft. EXTREMITIES: Clubbing and cyanosis negative. LABORATORY DATA: Blood workup as follows. WBC 9.1, hemoglobin 9, hematocrit 28.2, and platelet count 180. Chemistry shows sodium 144, potassium 3.2, chloride 99, carbon dioxide 34, anion gap of 15, BUN of 53, and creatinine 1.3. IMPRESSION: Hypokalemia, cardiomyopathy, acute decompensated congestive heart failure, sepsis, hypoglycemia, hypothermia, tachycardia, blood culture remains negative, history of multiple stents in the past. Recent echo showed ejection fraction 35% dated 01/19/2017, admitted atrial fibrillation with a rapid ventricular rate, now the patient converted to normal sinus, history of [id number] tricuspid regurgitation, moderate mitral regurgitation. Last echo dated 01/19/2017, ejection fraction 35%, history of coronary artery disease, right ventricular systolic pressure 46. No evidence of acute myocardial infarction at this time and possible pneumonia bilateral. RECOMMENDATIONS: Continue broad spectrum antibiotic as per ID. Continue gentle diuretics. Continue DVT prophylaxis. Continue Coreg. Continue Lasix p.o. Continue lisinopril. Repeat chest x-ray PA and lateral. The patient went for hip x-ray because complaining of hip pain. We will follow with you. I will repeat the chest x-ray this morning. I will repeat the blood workup tomorrow. Thank you Dr. Otero for providing us the opportunity in taking care of the patient, Fabian Downs. Heather Ac MD
--- NOTE | 2017-04-01 15:04 | PN ---
DATE: 04/01/2017 SUBJECTIVE: The patient is an 86-year-old female examined, complaining of left thigh pain since last night. According to nurse, has been crying. Had x-ray and Doppler done, unremarkable. PHYSICAL EXAMINATION: VITAL SIGNS: The patient is afebrile. Pulse 63, respirations 22, blood pressure 121/52. LUNGS: Bilateral fair airflow. No rhonchi or crackles. HEART: S1 and S2 audible. ABDOMEN: Soft and nontender. No rebound. No guarding. NEUROLOGIC: She is awake and alert, but somewhat confused and disoriented. LABORATORY EXAM: WBC 9.1, hemoglobin 9.0, hematocrit 28.2, platelets of 180. Chemistries: There is no new lab available today. ASSESSMENT AND PLAN: 1. Bilateral lower lobe infiltrate. 2. Mild dementia. 3. Left thigh muscular pain. 4. Anemia, status post blood transfusion. PLAN: I will put for 5% Lidoderm patch to the spot. We will continue on carvedilol and doxycycline. Follow up her CBC and CMP in the a.m. I will discontinue her hydrocortisone. The patient will be transferred to Med/Surg today. Rk Otero MD
[2017-04-01] MEDS: TraMADol/Apap 37.5/325 mg Tab PO PRN (17:54)
[2017-04-02] MEDS: TraMADol/Apap 37.5/325 mg Tab PO PRN (01:46)
--- NOTE | 2017-04-02 03:17 | PN ---
DATE: ENDOCRINOLOGY FOLLOWUP NOTE LOCATION: Room 362. SUBJECTIVE: This is an 86-year-old female presenting here with congestive heart failure and supervening abnormal thyroid studies and has improved clinically and hemodynamically with ICU management and has to be transferred now to the telemetry floor as noted. She has to remain clinically and biochemically euthyroid at this time despite elevated thyroxine level, which slightly suppressed TSH levels that have improved accordingly since admission as noted. Her latest chemistry showed BUN of 53, sodium 144, potassium 3.2, chloride 99, CO2 of 34, glucose 111 and creatinine 1.3. Her latest thyroid studies with a T4 of 13.6 with a TSH of 1.27, and free T4 of 2.04. This is indicative of the so called acute sick euthyroid syndrome and always a remote possibility of a thyroxine binding globulin abnormality considering a grossly elevated thyroxine level with normal free T4 and TSH values accordingly. After the clinical condition improved, we will expect near normalization of her thyroid indices as indicated. No indications for now for any kind of thyroid pharmacotherapy therapy. We will follow with you. Faye Manjarrez MD
[2017-04-02 06:24] LABS: EOS # 0.1 (0.0-0.7); EOS % 1.2 % (1.5-5.0); GRAN # 5.43 (1.4-6.5); GRAN % 70.7 % (50.0-68.0); LYMPH # 1.5 (1.2-3.4); LYMPH % 19.4 % (22.0-35.0); MEAN CELL VOLUME 88.2 fl (80.0-105.0); MEAN CORPUSCULAR HEMOGLOBIN 27.5 pg (25.0-35.0); MEAN CORPUSCULAR HGB CONC 31.1 g/dl (31.0-37.0); MEAN PLATELET VOLUME 12.1 fl (7.0-11.0); MONO # 0.7 (0.1-0.6); MONO % 8.7 % (1.0-6.0); RED CELL DISTRIBUTION WIDTH 19.9 % (11.5-14.5); WHITE BLOOD COUNT 7.7 10^3/ul (4.5-11.0)
[2017-04-02 06:48] LABS: ALB/GLOB RATIO 1.1 (1.1-1.8); BILIRUBIN,TOTAL 1.3 mg/dL (0.2-1.3); CALCIUM 9.8 mg/dL (8.4-10.5); MAGNESIUM 1.8 mg/dL (1.7-2.2); PHOSPHOROUS 3.3 mg/dL (2.5-4.5); TOTAL PROTEIN 6.3 g/dL (5.8-8.3)
[2017-04-02] MEDS: Lidocaine 5% Patch TD SCH (09:44)
[2017-04-02] MEDS: Pantoprazole 40 mg EC Tab PO SCH (09:45)
--- NOTE | 2017-04-02 15:04 | PN ---
DATE: ENDO FOLLOWUP NOTE LOCATION: Room 362. SUBJECTIVE: This is an 86-year-old female with recent admission for congestive heart failure and this seemed to have improved clinically and hemodynamically as noted thereof. Her abnormal thyroid study is indicative of the so called acute sick euthyroid syndrome with possibility of remote thyroxine binding globulin abnormality as noted. She remains clinically euthyroid and biochemically, the latest thyroid study showed T4 of 13.6 with free T4 of 2.04 and TSH of 1.27. No indication at this time for any kind of thyroid pharmacotherapy and she would expect biochemical improvement with improvement of the clinical status accordingly. We will obtain serial chemistries and supplement accordingly as needed. We will follow with you. Faye Manjarrez MD
--- NOTE | 2017-04-02 16:54 | CP.PCM.PN ---
Subjective - Date & Time of Evaluation Date of Evaluation: 04/02/17 Time of Evaluation: 10:10 - Subjective Subjective: S&E at bedside, daughters at bedside, pt complain ot left thigh pain, had xray and dopplers yesterday, no acute findings. Patient started on Lidoderm patch. No N/V or abdominal pain. Appetite with mild improvement.. No overt IG bleed. Objective - Vital Signs/Intake and Output Vital Signs (last 24 hours): Temp Pulse Resp BP Pulse Ox 97.0 F L 68 21 118/62 93 L 04/02/17 06:00 04/02/17 09:46 04/02/17 06:00 04/02/17 09:46 04/02/17 06:00 Intake and Output: 04/02/17 04/02/17 06:59 18:59 Intake Total 240 300 Balance 240 300 - Medications Medications: Current Medications Acetaminophen (Tylenol 325mg Tab) 650 mg PO Q6H PRN PRN Reason: Fever >100.4 F Carvedilol (Coreg) 3.125 mg PO BID [facility] Last Admin: 04/02/17 09:41 Dose: 3.125 mg Cyproheptadine HCl (Periactin) 4 mg PO BID [facility] Last Admin: 04/02/17 09:45 Dose: 4 mg Doxycycline Hyclate (Doryx) 100 mg PO Q12 [facility] PRN Reason: Protocol Last Admin: 04/02/17 09:44 Dose: 100 mg Furosemide (Lasix) 40 mg PO DAILY [facility] Last Admin: 04/02/17 09:44 Dose: 40 mg Heparin Sodium (Porcine) (Heparin) 5,000 units SC 0800,2000 [facility] PRN Reason: Protocol Last Admin: 03/28/17 08:00 Dose: 5,000 units Sodium Chloride (Sodium Chloride 0.9%) 500 mls @ 0 mls/hr IV .Q0M [facility] PRN Reason: Per Protocol Lidocaine (Lidoderm) 1 ea TD DAILY [facility] Last Admin: 04/02/17 09:44 Dose: 1 ea Lisinopril (Zestril) 2.5 mg PO DAILY [facility] Last Admin: 04/02/17 09:46 Dose: 2.5 mg Pantoprazole Sodium (Protonix Ec Tab) 40 mg PO DAILY [facility] Last Admin: 04/02/17 09:45 Dose: 40 mg Tramadol/Acetaminophen (Ultracet 37.5/325 Mg) 1 tab PO Q6H PRN PRN Reason: Pain, Mild (1-3) Last Admin: 04/02/17 01:46 Dose: 1 tab - Labs Labs: 04/02/17 05:30 04/02/17 05:30 PT 11.4 SECONDS (9.4-12.5) 03/27/17 12:00 INR 1.04 (0.93-1.08) 03/27/17 12:00 APTT 31.1 Seconds (25.1-36.5) 03/27/17 12:00 - Constitutional Appears: No Acute Distress - Eye Exam Eye Exam: Normal appearance. absent: Scleral icterus - ENT Exam ENT Exam: Mucous Membranes Moist - Respiratory Exam Respiratory Exam: NORMAL BREATHING PATTERN. absent: Respiratory Distress - Cardiovascular Exam Cardiovascular Exam: +S1, +S2 - GI/Abdominal Exam GI & Abdominal Exam: Soft, Hernia (reducible, nontender), Normal Bowel Sounds. absent: Guarding, Tenderness, Rebound - Extremities Exam Extremities Exam: absent: Pedal Edema - Neurological Exam Neurological Exam: Alert, Altered (confused), Awake - Skin Skin Exam: Dry, Warm Assessment and Plan - Assessment and Plan (Free Text) Assessment: Assessment: Hypothermia Left hip pain/Lower extremity pain Right lower lobe pneumonia, repeat CXR show improvement of infiltrates Status post hypotension emphysematous gastritis Anemia, status postblood transfusion Plan: Continue puree diet Continue Periactin Continue PPI On Solu-Cortef, weaning as per medicine On oral antibiotics Heparin is on hold on lidoderm patch on discharge family request hospice evaluationas Seen and discussed with Dr. Kang.
[2017-04-02 17:33] VITALS: BP 120/80; PULSE 72
[2017-04-02 19:04] VITALS: RESP 18; TEMP 97.4; O2SAT 98
--- NOTE | 2017-04-02 19:32 | PN ---
DATE: 04/02/2017 REASON FOR CONSULTATION AND FOLLOWUP: Cardiac evaluation, paroxysmal atrial fibrillation, cardiomyopathy, congestive heart failure. SUBJECTIVE: The patient denies any chest pain, lying flat in the bed, was complaining of left hip pain, feeling little better. PHYSICAL EXAMINATION GENERAL: Not in apparent distress. Family is at the bedside. VITAL SIGNS: Temperature afebrile, heart rate 63, and blood pressure 118/63. HEENT: PERRLA intact. NECK: Supple. No carotid bruits or thyromegaly. CHEST: Clear to auscultation. HEART: S1 and S2, regular. ABDOMEN: Soft. EXTREMITIES: Clubbing and cyanosis negative. LABORATORY DATA: WBC 7.7, hemoglobin 8.4, hematocrit 27.0, and platelet count 202. Chemistry shows sodium 145, potassium 4, chloride 101, carbon dioxide 38, anion gap of , creatinine 1.5. Last echo dated 01/19/2017 showed ejection fraction 35%, right ventricular systolic pressure of 45. IMPRESSION: 1. Paroxysmal atrial fibrillation, converted to normal sinus cardiomyopathy. No evidence of acute CT on this admission. 2. Gastrointestinal bleed, status post packed RBC transfusion. 3. Bilateral pneumonia, lower lobe infiltrate. 4. History of coronary artery disease, status post multiple stent. 5. Ischemic cardiomyopathy. 6. Mild dementia. 7. Left thigh pain, musculoskeletal. X-ray, no bony abnormality noted. 8. Anemia, status post packed RBC transfusion. RECOMMENDATIONS: Continue broad-spectrum antibiotics as per ID. Continue gentle diuretics. Continue DVT. Continue Coreg, gentle Lasix p.o. Continue lisinopril. Monitor H and H. Monitor renal function. If kidney function start deteriorating again on ZULY inhibitors, we can hold it. We will repeat the blood work in the morning. Further decision made tomorrow. Thank you Dr. Otero for providing us the opportunity in taking care of the patient, Fabian Downs. We will follow with you. Heather Ac MD
--- NOTE | 2017-04-02 20:35 | PN ---
DATE: 04/02/2017 SUBJECTIVE: The patient is in bed, in no acute distress. Nontoxic. She was seen earlier this morning in room 362, bed 2. PHYSICAL EXAMINATION: VITAL SIGNS: Temperature is 97, blood pressure is 115/70, respiratory rate of 18. HEENT: Unremarkable. NECK: Supple. LUNGS: Have decreased breath sounds. HEART: Normal S1 and S2. ABDOMEN: Soft and nontender. LABORATORY DATA: Reveals a white count of 7.7, hemoglobin of 8, and platelets of 202. BUN of 82 and creatinine of 1.5. Urinalysis is noted and immunology is noted. Serology; urine Legionella antigen is negative. Microbiology reveals the blood cultures are negative. Urine cultures no growth. MRSA is not detected. Review of orders reveals the patient to be off of antibiotics, IV. The patient is only p.o. doxycycline. ASSESSMENT AND PLAN: This is a an 86-year-old female who was seen early this morning with systemic inflammatory response syndrome, acute pulmonary edema, acute renal failure due to bilateral lower lobe healthcare-associated pneumonia, and normal procalcitonin, #6 of doxycycline, would complete 7 days. We will discontinue doxycycline after tomorrow's last dose. Reynaldo Riggs MD
--- NOTE | 2017-04-03 03:21 | DS ---
HISTORY OF PRESENT ILLNESS: The patient is an 86-year-old, seen and examined, seems to be confused, and complaining of pain in the left upper leg. No nausea or vomiting. No diarrhea. PHYSICAL EXAMINATION: VITAL SIGNS: She is afebrile, pulse 68, respirations 21, and blood pressure 118/62. LUNGS: Bilateral fair airflow. No rhonchi or crackle. HEART: S1 and S2 audible. ABDOMEN: Soft and nontender. No rebound. No guarding. NEUROLOGIC: The patient is awake and alert, but confused and disoriented. LABORATORY DATA: WBC 7.7, hemoglobin 8.4, hematocrit 27, and platelet of 202. Chemistry: Sodium 142, potassium 4.0, chloride 101, CO2 of 32, BUN 82, creatinine 1.5, and blood sugar of 86. Bilateral basal infiltrate. ASSESSMENT: 1. Altered mental status secondary to underlying infection. 2. Peptic ulcer disease. 3. Dementia. 4. Acute on chronic anemia, status post two blood transfusions. PLAN: The patient is being discharged home today. We will discharge her on doxycycline 100 mg twice a day for a week. She will be discharged to compassionate care later on today. Rk Otero MD
== END 2017-04-02 21:12 | disposition home or self-care (01) | DRG 871 ==
LOC: ED 11:23 → ERH 13:41 → ICU 15:15 → 3RNO 04-01 11:52
PROVIDERS: ADMIT Internal Medicine; ATTEND Internal Medicine
PROC: 5A09457 Assistance with Respiratory Ventilation, 24-96 Consecutive Hours, Continuous Positive Airway Pressure (ICD-10-PCS; principal; 2017-03-28)
PROC: 30233N1 Transfusion of Nonautologous Red Blood Cells into Peripheral Vein, Percutaneous Approach (ICD-10-PCS; 2017-03-28)
DX: A41.9 Sepsis, unspecified organism (principal); J18.9 Pneumonia, unspecified organism; I50.23 Acute on chronic systolic (congestive) heart failure; N17.9 Acute kidney failure, unspecified; E11.22 Type 2 diabetes mellitus with diabetic chronic kidney disease; I27.20 Pulmonary hypertension, unspecified; I13.0 Hypertensive heart and chronic kidney disease with heart failure and stage 1 through stage 4 chronic kidney disease, or unspecified chronic kidney disease; J44.0 Chronic obstructive pulmonary disease with (acute) lower respiratory infection; I42.0 Dilated cardiomyopathy; D64.9 Anemia, unspecified; I65.23 Occlusion and stenosis of bilateral carotid arteries; K29.70 Gastritis, unspecified, without bleeding; I25.10 Atherosclerotic heart disease of native coronary artery without angina pectoris; E78.5 Hyperlipidemia, unspecified; R09.02 Hypoxemia; N18.9 Chronic kidney disease, unspecified; E07.81 Sick-euthyroid syndrome; I08.3 Combined rheumatic disorders of mitral, aortic and tricuspid valves; I25.5 Ischemic cardiomyopathy; E87.6 Hypokalemia; I48.0 Paroxysmal atrial fibrillation; F03.90 Unspecified dementia, unspecified severity, without behavioral disturbance, psychotic disturbance, mood disturbance, and anxiety; Y95 Nosocomial condition; K43.9 Ventral hernia without obstruction or gangrene; K27.9 Peptic ulcer, site unspecified, unspecified as acute or chronic, without hemorrhage or perforation; R26.2 Difficulty in walking, not elsewhere classified; Z85.038 Personal history of other malignant neoplasm of large intestine; Z86.73 Personal history of transient ischemic attack (TIA), and cerebral infarction without residual deficits; Z90.49 Acquired absence of other specified parts of digestive tract; Z95.5 Presence of coronary angioplasty implant and graft

== ENCOUNTER 2017-05-12 17:29 | Inpatient (IN) | payer MEDICARE, MEDICAID ==
[2017-05-12 17:30] VITALS: BMI 24.3
--- NOTE | 2017-05-12 18:46 | ED PDOC ---
Arrival/HPI - General Chief Complaint: Shortness Of Breath Time Seen by Provider: 05/12/17 18:20 Historian: Family ([id number]) - History of Present Illness Narrative History of Present Illness (Text): 05/12/17 18:35 A 86 year old female, whose past medical history includes hypertension, CHF, CAD , renal insufficiency, anemia, bowel obstruction, and colon cancer, brought into the emergency department by [id number] for altered mental status. [id number], Caryn Camejo, reports patient has been more confused over the past 2 days. She notes dark urine but denies any fever, vomiting, diarrhea, cough or any other complaints. Patient is on 3L of O2 at home. She reports patient has appeared more short of breath. She reports patient has been in hospice. She reports patients daughter no longer wants her on hospice care. HPI and ROS limited. PMD: Dr. Otero. Business Representative: Dr. Ac 05/14/17 16:57 Time/Duration: Other (2 days) Context: Home Past Medical History - Provider Review Nursing Documentation Reviewed: Yes - Infectious Disease Hx of Infectious Diseases: None - Tetanus Immunization Tetanus Immunization: Unknown - Cardiac Hx Cardiac Disorders: Yes (CAD) Hx Hypertension: Yes - Pulmonary Hx Respiratory Disorders: No - Neurological Hx Neurological Disorder: Yes Hx Paralysis: No - HEENT Hx HEENT Disorder: No - Renal Hx Renal Disorder: No - Endocrine/Metabolic Hx Endocrine Disorders: No - Hematological/Oncological Hx Blood Disorders: Yes Hx Blood Transfusions: Yes Hx Blood Transfusion Reaction: No - Integumentary Hx Dermatological Disorder: No - Musculoskeletal/Rheumatological Hx Musculoskeletal Disorders: No - Gastrointestinal Hx Gastrointestinal Disorders: Yes (Gastritis) - Genitourinary/Gynecological Hx Genitourinary Disorders: No - Psychiatric Hx Psychophysiologic Disorder: No Hx Emotional Abuse: No Hx Physical Abuse: No Hx Substance Use: No - Past Surgical History Past Surgical History: Non-Contributing - Surgical History Hx Cardiac Catheterization: Yes (february) - Anesthesia Hx Anesthesia: Yes Hx Anesthesia Reactions: No Hx Malignant Hyperthermia: No - Suicidal Assessment Feels Threatened In Home Enviroment: No Family/Social History - Physician Review Nursing Documentation Reviewed: Yes Family/Social History: No Known Family HX Smoking Status: Never Smoked Hx Alcohol Use: No Hx Substance Use: No Hx Substance Use Treatment: No Allergies/Home Meds Allergies/Adverse Reactions: Allergies No Known Allergies Allergy (Verified 05/13/17 03:18) Home Medications: Home Meds Medication Instructions Recorded Confirmed Omeprazole 20 mg PO DAILY 04/18/16 03/27/17 amLODIPine [Norvasc] 5 mg PO DAILY 03/27/17 03/27/17 Review of Systems - Review of Systems Systems not reviewed;Unavailable: Altered Mental Status Respiratory: SOB Physical Exam - Physical Exam Narrative Physical Exam (Text): Head: Atraumatic. Normocephalic. Eyes: PERRL. EOMI. Conjunctivae are pale. ENT: Mucous membranes are dry. Oropharynx is clear and symmetric. Neck: Supple. Full ROM. Positive JVD. No lymphadenopathy. Cardiovascular: Regular rate. Regular rhythm. Systolic murmur. Pulmonary/Chest: Tachypneic. Rhonchi and rales bilaterally. Abdominal: Soft and mildly distended. There is no tenderness. No rebound, guarding, or rigidity. No organomegaly. Good bowel sounds. Rectal: no gross bleeding, no melena Back: No midline deformity. Extremities: Edema, nonpitting. No cyanosis. No clubbing. Full range of motion in all extremities. No calf tenderness. Skin: Skin is pale. Neurological: Awake, will not follow commands or answer questions. Will move all four extremities. Psychiatric: Poor eye contact. Vital Signs Reviewed: Yes Vital Signs Temp Pulse Resp BP Pulse Ox 05/13/17 17:57 66 119/66 05/13/17 13:06 74 18 115/59 L 95 05/13/17 11:00 67 117/55 L 05/13/17 10:19 77 130/69 05/13/17 10:00 77 05/13/17 09:59 67 130/69 05/13/17 06:56 97.9 F 70 18 125/64 05/13/17 06:00 97.9 F 60 18 125/64 98 05/13/17 04:54 98.0 F 64 18 129/60 05/13/17 04:53 98.0 F 64 18 129/60 05/13/17 04:20 20 05/13/17 04:09 97.6 F 78 18 133/45 L 05/13/17 03:51 97.6 F 77 20 114/55 L 05/13/17 00:00 98.1 F 79 18 134/64 96 05/12/17 21:36 118/78 05/12/17 21:26 96.5 F L 05/12/17 20:10 20 05/12/17 19:54 95.6 F L 72 18 118/56 L 98 05/12/17 19:06 63 18 114/58 L 96 05/12/17 17:54 95.2 F L 68 18 112/52 L 95 Temperature: Hypothermic Blood Pressure: Hypotensive Pulse: Regular Respiratory Rate: Tachypneic Appearance: Positive for: Non-Toxic, Uncomfortable Pain Distress: Mild Mental Status: Positive for: Confused Medical Decision Making ED Course and Treatment: 05/12/17 18:34 Impression: A 86 year old female brought in for altered mental status. Daughter in law at bedside. Daughter in law notes dark urine. Daughter in law states she has been more confused and short of breath for past several days. Nauruan translation by kayla. She states specifically "we don't want hospice." On exam she is tachypneic. Plan: -- Chest xray -- EKG -- Labs -- Blood and Urine culture -- Urinalysis -- Reassess and disposition Progress Notes: 05/12/17 20:50 Patients daughter, Arabella, present at bedside. I had a thorough discussion with daughter Arabella and daughter in law Caryn concerning hospice. [employer] was present. Both daughter and daughter in law express they do not wish to continue with hospice and want any necessary treatment to be done. Also discussed the patients DNR/DNI status. They state this topic has not been discussed prior and do not have a definite decision at this time. Abnormal cxr noted consistent with CHF ? bilateral infiltrates. Rectal with no melena or active bleeding. She is anemic. Troponin elevated. Suspect nonstemi, she is not communicating chest discomfort. Case d/w Dr. Otero, accepts patient to her service. Regulatory Scientist has evaluated patient, at this time states admission to tele acceptable. Dr. Jones has communicated with power of claim attorney and reports that patient is DNR/DNI. Hypothermia persistent but improved. Cannot exclude sepsis will initiate iv antibiotics although given likely chf will hold over hydration at this time. 05/14/17 17:14 - Critical Care Critical Care Minutes: 45 minutes - Lab Interpretations Microbiology Results: Microbiology Results 05/12/17 19:38 Blood Blood Culture - Preliminary NO GROWTH AFTER 24 HOURS 05/12/17 19:08 Blood Blood Culture - Preliminary NO GROWTH AFTER 24 HOURS Lab Results: 05/12/17 19:38 05/12/17 19:38 Lab Results 05/12/17 21:25: Urine Color Yellow, Urine Appearance Clear, Urine pH 6.0, Ur Specific [place] 1.015, Urine Protein 30 H, Urine Glucose (UA) Negative, Urine Ketones Negative, Urine Blood Negative, Urine Nitrate Negative, Urine Bilirubin Negative, Urine Urobilinogen 0.2, Ur Leukocyte Esterase Negative, Urine RBC 0 - 2, Urine WBC 0 - 2, Ur Epithelial Cells 3 - 4, Amorphous Sediment Few, Urine Bacteria Mod 05/12/17 20:41: pCO2 44, pO2 70.0 L, HCO3 29.2 H, ABG pH 7.43, ABG Total CO2 30.6 H, ABG O2 Saturation 98.0, ABG Base Excess 4.2 H, ABG Potassium 3.8, Glucose 102, Lactate 0.9, FiO2 34.0, Sodium 138.0, Chloride 102.0, Arterial Blood Potassium 3.8 05/12/17 19:38: Sodium 137, Potassium 4.2, Chloride 98, Carbon Dioxide 28, Anion Gap 15, BUN 77 H, Creatinine 1.8 H, Est GFR ( Amer) 32, Est GFR ( Non-Af Amer) 27, Random Glucose 111 H, Calcium 9.8, Total Bilirubin 1.3, AST 410 H D, ALT 426 H, Alkaline Phosphatase 156 H D, Lactate Dehydrogenase 908 H, Total Creatine Kinase 25 L, Troponin I 0.18 H* D, NT-Pro-B Natriuret Pep 96579 H , Total Protein 6.8, Albumin 3.4, Globulin 3.3, Albumin/Globulin Ratio 1.0 L 05/12/17 19:38: PT 13.6 H, INR 1.19 H, APTT 27.4 05/12/17 19:38: WBC 9.4 D, RBC 2.77 L, Hgb 7.5 L, Hct 22.8 L, MCV 82.3 D, MCH 27.1, MCHC 32.9, RDW 18.7 H, Plt Count 160, MPV 11.0, Gran % 77.3 H, Lymph % ( Auto) 11.3 L, [place] % (Auto) 11.3 H, Eos % (Auto) 0.1 L, Baso % (Auto) 0.0, Gran # 7.27 H, Lymph # 1.1 L, [place] # 1.1 H, Eos # 0.0, Baso # 0.00 05/12/17 19:15: POC Glucose (mg/dL) 121 H I have reviewed the lab results: Yes - RAD Interpretation Radiology Orders: 05/12/17 18:53 CHEST PORTABLE [RAD] Stat - EKG Interpretation EKG Interpretation (Text): 05/12/17 23:40 EKG at 17:51 normal sinus rhythm rate of 68 with nonspecific intraventricular conduction delay, no acute st elevations Interpreted by ED Physician: Yes Type: 12 lead EKG - Medication Orders Current Medication Orders: Acetaminophen (Tylenol 325mg Tab) 650 mg PO Q6H PRN PRN Reason: Fever >100.4 F Albuterol/Ipratropium (Duoneb 3 Mg/0.5 Mg (3 Ml) Ud) 3 ml IH Q2H PRN PRN Reason: Shortness of Breath Last Admin: 05/13/17 23:43 Dose: 3 ml Albuterol/Ipratropium (Duoneb 3 Mg/0.5 Mg (3 Ml) Ud) 3 ml IH [id number] [facility] Last Admin: 05/14/17 13:58 Dose: 3 ml Amlodipine Besylate (Norvasc) 5 mg PO DAILY [facility] Last Admin: 05/14/17 09:45 Dose: 5 mg MAR Pulse and Blood Pressure Document 05/14/17 09:45 HORTENCIA (Rec: 05/14/17 09:45 HORTENCIA [facility] [id number]) Pulse Pulse Rate (60-90) 76 Blood Pressure Blood Pressure (100/60-150/90) 135/67 Aspirin (Ecotrin) 81 mg PO DAILY [facility] Last Admin: 05/14/17 09:45 Dose: 81 mg Furosemide (Lasix) 40 mg IVP DAILY [facility] Last Admin: 05/14/17 09:44 Dose: 40 mg MAR Blood Pressure Document 05/14/17 09:44 JA (Rec: 05/14/17 09:44 HORTENCIA [facility] [id number]) Blood Pressure Blood Pressure (100/60-150/90) 135/67 IVP Administration Document 05/14/17 09:44 HORTENCIA (Rec: 05/14/17 09:44 [id number]) Charges for Administration # of IVP Administrations 1 Isosorbide Mononitrate (Imdur Er) 30 mg PO DAILY [facility] Last Admin: 05/14/17 09:44 Dose: 30 mg Metoprolol Tartrate (Lopressor) 25 mg PO BID [facility] Last Admin: 05/14/17 09:44 Dose: 25 mg MAR Pulse and Blood Pressure Document 05/14/17 09:44 HORTENCIA (Rec: 05/14/17 09:44 [id number]) Pulse Pulse Rate (60-90) 79 Blood Pressure Blood Pressure (100/60-150/90) 135/67 Ondansetron HCl (Zofran Inj) 4 mg IVP Q6H PRN PRN Reason: Nausea/Vomiting Pantoprazole Sodium (Protonix Ec Tab) 40 mg PO 0630 [facility] Last Admin: 05/14/17 06:52 Dose: 40 mg Potassium Chloride (K-Dur 20 Meq Er Tab) 20 meq PO BRK [facility] Last Admin: 05/14/17 08:59 Dose: 20 meq Discontinued Medications Furosemide (Lasix) 40 mg IVP ONCE ONE Stop: 05/12/17 20:24 Last Admin: 05/12/17 21:36 Dose: 40 mg MAR Blood Pressure Document 05/12/17 21:36 NM (Rec: 05/12/17 21:36 [id number]) Blood Pressure Blood Pressure (100/60-150/90) 118/78 IVP Administration Document 05/12/17 21:36 NM (Rec: 05/12/17 21:36 [id number]) Charges for Administration # of IVP Administrations 1 Furosemide (Lasix) 40 mg IVP DAILY [facility] Furosemide (Lasix) 40 mg IVP BID [facility] Last Admin: 05/13/17 19:04 Dose: Not Given Non-Admin Reason: BP Parameters Not Met MAR Blood Pressure Document 05/13/17 19:04 LMN (Rec: 05/13/17 19:04 LMN [id number]) Blood Pressure Blood Pressure (100/60-150/90) 124/51 Cefepime HCl (Maxipime 2gm) 2 gm in 100 mls @ 100 mls/hr IVPB STAT STA PRN Reason: Protocol Stop: 05/12/17 21:29 Last Admin: 05/12/17 21:32 Dose: 100 mls/hr eMAR Start Stop Document 05/12/17 21:32 HI (Rec: 05/12/17 21:32 HI [facility] [id number]) Intravenous Solution Start Date 05/12/17 Start Time 21:32 Potassium Chloride (Potassium Chloride 10 Meq/100 Ml) 10 meq in 100 mls @ 50 mls/hr IVPB ONCE ONE Stop: 05/14/17 12:46 Last Admin: 05/14/17 12:20 Dose: 50 mls/hr eMAR Start Stop Document 05/14/17 12:20 JA (Rec: 05/14/17 12:20 JA [facility] [id number]) Intravenous Solution Start Date 05/14/17 Start Time 12:20 Potassium Chloride (Potassium Chloride 10 Meq/100 Ml) 10 meq in 100 mls @ 50 mls/hr IVPB ONCE ONE Stop: 05/14/17 13:22 - Scribe Statement The provider has reviewed the documentation as recorded by the Kayla Gonzalez Provider Scribe Attestation: All medical record entries made by the Scribe were at my direction and personally dictated by me. I have reviewed the chart and agree that the record accurately reflects my personal performance of the history, physical exam, medical decision making, and the department course for this patient. I have also personally directed, reviewed, and agree with the discharge instructions and disposition. Disposition/Present on Arrival - Present on Arrival Any Indicators Present on Arrival: No History of DVT/PE: No History of Uncontrolled Diabetes: No Urinary Catheter: No History of Decub. Ulcer: No History Surgical Site Infection Following: None - Disposition Have Diagnosis and Disposition been Completed?: Yes Diagnosis: CHF (congestive heart failure), Hypothermia, Anemia, Elevated troponin, Altered mental status, UTI (urinary tract infection), Elevated liver enzymes Disposition: HOSPITALIZED Disposition Time: 20:00 Patient Plan: Admission, Telemetry Patient Problems: Current Active Problems Problem Status Onset Altered mental status Acute Anemia Acute CHF (congestive heart failure) Acute Elevated liver enzymes Acute Elevated troponin Acute Hypothermia Acute UTI (urinary tract infection) Acute Condition: SERIOUS
[2017-05-12] MEDS ORDERED: Sodium Chloride 0.9% 1,000 ML IV SCH (19:15)
[2017-05-12 19:52] LABS: EOS % 0.1 % (1.5-5.0); GRAN # 7.27 (1.4-6.5); GRAN % 77.3 % (50.0-68.0); LYMPH # 1.1 (1.2-3.4); LYMPH % 11.3 % (22.0-35.0); MEAN CELL VOLUME 82.3 fl (80.0-105.0); MEAN CORPUSCULAR HEMOGLOBIN 27.1 pg (25.0-35.0); MEAN CORPUSCULAR HGB CONC 32.9 g/dl (31.0-37.0); MONO # 1.1 (0.1-0.6); MONO % 11.3 % (1.0-6.0); RBC 2.77 10^6/uL (3.5-6.1); RED CELL DISTRIBUTION WIDTH 18.7 % (11.5-14.5); WHITE BLOOD COUNT 9.4 10^3/ul (4.5-11.0)
[2017-05-12 19:54] LABS: HEMOGLOBIN 7.5 g/dL (12.0-16.0)
[2017-05-12 20:03] LABS: ALBUMIN 3.4 g/dL (3.0-4.8); CALCIUM 9.8 mg/dL (8.4-10.5)
[2017-05-12 20:14] LABS: TROPONIN I 0.18 ng/mL
[2017-05-12 20:16] LABS: INR 1.19 (0.93-1.08); PARTIAL THROMBOPLASTIN TIME 27.4 Seconds (25.1-36.5); PROTHROMBIN TIME 13.6 SECONDS (9.4-12.5)
[2017-05-12] MEDS ORDERED: cefTRIAXone 1 gm 1 GM/100 ML BAG IVPB STA (20:26)
[2017-05-12] MEDS ORDERED: Cefepime IV 2 gm in NS 2 GM/100 ML BAG IVPB STA (20:30)
[2017-05-12 20:44] LABS: ARTERIAL BLOOD GAS HCO3 29.2 mmol/L (21-28); ARTERIAL BLOOD GAS PCO2 44 mm/Hg (35-45); ARTERIAL BLOOD GAS PH 7.43 (7.35-7.45); ARTERIAL BLOOD GAS TCO2 30.6 mmol.L (22-28)
[2017-05-12 21:47] LABS: URINE APPEARANCE CLEAR (CLEAR); URINE BILIRUBIN NEGATIVE (NEGATIVE); URINE BLOOD NEGATIVE (NEGATIVE); URINE COLOR YELLOW (YELLOW); URINE GLUCOSE (UA) NEGATIVE (NEGATIVE); URINE LEUKOCYTE ESTERASE NEGATIVE Leu/uL (NEGATIVE); URINE NITRATE NEGATIVE (NEGATIVE); URINE PROTEIN 30 mg/dL (<30 mg/dL); URINE UROBILINOGEN 0.2 E.U./dL (<1 E.U./dL)
[2017-05-12 21:52] LABS: URINE BACTERIA MOD (NEG); URINE RBC 0 - 2 /hpf (0-2); URINE WBC 0 - 2 /hpf (0-6)
[2017-05-12 21:53] LABS: URINE AMORPHOUS SEDIMENT FEW
--- NOTE | 2017-05-12 22:22 | CP.PCM.CON ---
<Blake Berry - Last Filed: 05/12/17 22:57> History of Present Illness - History of Present Illness History of Present Illness: Subjective: CC: SOB and Generalized Weakness HPI: Patient is a 86 year old female with past medical history of CAD, renal insufficiency, CHF, hypertension, and dementia who presents to the ED for evaluation and treatment of SOB and generalized weakness which began 2 weeks ago without a specific provoking event. Family is present at bedside who provide the history. They state the patient's symptoms have been progressively worse since onset. Deny any exacerbating or remitting factors. Denies sick contacts and recent travel. Patient is awake, alert, orientated to name and place, responds to verbal stimuli, and answers questions appropriately. Denies fever, chills, chest pain, SOB, abdominal pain, N/V, diarrhea, constipation, and urinary symptoms. 12 point review of systems negative except as indicated in the HPI. PMHX:CAD, renal insufficiency, CHF, hypertension, and dementia PSHx: colectomy Allergies: NKDA Social Hx: denies ETOH use, denies tobacco use, denies illicit drug use Family Hx: denies Medications: please see MAR PMD: Dr. Otero Educational Paraprofessional: Dr. Ac GI: Dr. Kang Medical POA: Daughter Gage- Central line is ok as per medical POA. DNR/DNI as per medical POA Physical Examination: - Constitutional Appears: Non-toxic, No Acute Distress - Head Exam Head Exam: atraumatic, normocephalic - Eye Exam Eye Exam: Normal appearance, PERRL. absent: Scleral icterus - ENT Exam ENT Exam: Mucous Membranes Moist - Neck Exam Neck exam: Normal Inspection - Respiratory Exam Respiratory Exam: Normal Breathing Pattern; Diminished breath sounds bilateral lower lobes - Cardiovascular Exam Cardiovascular Exam: +S1, +S2. absent: Gallop, JVD - GI/Abdominal Exam GI & Abdominal Exam: Normal Bowel Sounds, absent: Distended, Guarding, Pulsatile Mass, Rebound, Rigid - Extremities Exam Extremities exam: +2 pitting edema bilateral lower extremities Negative for: calf tenderness - Neurological Exam Neurological exam: Patient is awake, alert, responds to verbal stimuli, answers questions appropriately, and follows commands - Psychiatric Exam Psychiatric exam: Normal Affect, Normal Mood - Skin Skin Exam: warm and dry Assessment and Plan: Patient is a 86 year old female with past medical history of CAD, renal insufficiency, CHF, hypertension, and dementia who was admitted for evaluation of SOB and generalized weakness. Patient was given a IVF bolus, lasix , cefepime, and placed on supplmental oxygen in the emergency department. Patient's EKGs were reviewed and appreciated. Found to have NSR, HR 68, QTc [address]- T wave changes. With the use of physical examination, labs, and imaging it is determined that the patient does not require ICU level of care. We believe the patient is having acute on chronic CHF exacerbation with associated hepatic congestion. At this time the troponin elevation can be attributed to demand ischemia vs acs. We recommend admission to the telemetry floor, anticogualtion, oxygenation support, trending cardiac enzymes, providing blood transfusion with pRBCs followed by diuretics. Critical care team will sign off at this time. Thank you for the opportunity to participate in the care of this patient. Further management as per primary. Patient seen, case discussed with, and plan approved by attending physician. Past Patient History - Infectious Disease Hx of Infectious Diseases: None - Tetanus Immunizations Tetanus Immunization: Unknown - Past Medical History & Family History Past Medical History?: Yes - Past Social History Smoking Status: Never Smoked - CARDIAC Hx Cardiac Disorders: Yes (CAD) Hx Hypertension: Yes - PULMONARY Hx Respiratory Disorders: No - NEUROLOGICAL Hx Neurological Disorder: Yes Hx Paralysis: No - HEENT Hx HEENT Problems: No - RENAL Hx Chronic Kidney Disease: No - ENDOCRINE/METABOLIC Hx Endocrine Disorders: No - HEMATOLOGICAL/ONCOLOGICAL Hx Blood Disorders: Yes Hx Blood Transfusions: Yes Hx Blood Transfusion Reaction: No - INTEGUMENTARY Hx Dermatological Problems: No - MUSCULOSKELETAL/RHEUMATOLOGICAL Hx Musculoskeletal Disorders: No - GASTROINTESTINAL Hx Gastrointestinal Disorders: Yes (Gastritis) - GENITOURINARY/GYNECOLOGICAL Hx Genitourinary Disorders: No - PSYCHIATRIC Hx Psychophysiologic Disorder: No Hx Emotional Abuse: No Hx Physical Abuse: No Hx Substance Use: No - SURGICAL HISTORY Hx Cardiac Catheterization: Yes (february) - ANESTHESIA Hx Anesthesia: Yes Hx Anesthesia Reactions: No Hx Malignant Hyperthermia: No Meds Allergies/Adverse Reactions: Allergies Allergy/AdvReac Type Severity Reaction Status Date / Time No Known Allergies Allergy Verified 03/27/17 16:35 - Medications Medications: Current Medications Sodium Chloride (Sodium Chloride 0.9%) 1,000 mls @ 100 mls/hr IV .Q10H JAIME Results - Vital Signs Recent Vital Signs: Last Vital Signs Temp 96.5 F L 05/12/17 21:26 Pulse 72 05/12/17 19:54 Resp 20 05/12/17 20:10 BP 118/78 05/12/17 21:36 Pulse Ox 98 05/12/17 19:54 - Labs Result Diagrams: 05/12/17 19:38 05/12/17 19:38 Labs: Laboratory Results - last 24 hr 05/12/17 05/12/17 05/12/17 19:15 19:38 19:38 WBC 9.4 D RBC 2.77 L Hgb 7.5 L Hct 22.8 L MCV 82.3 D MCH 27.1 MCHC 32.9 RDW 18.7 H Plt Count 160 MPV 11.0 Gran % 77.3 H Lymph % (Auto) 11.3 L Cataño % (Auto) 11.3 H Eos % (Auto) 0.1 L Baso % (Auto) 0.0 Gran # 7.27 H Lymph # 1.1 L Cataño # 1.1 H Eos # 0.0 Baso # 0.00 PT 13.6 H INR 1.19 H APTT 27.4 pCO2 pO2 HCO3 ABG pH ABG Total CO2 ABG O2 Saturation ABG Base Excess ABG Potassium Glucose Lactate FiO2 Sodium Potassium Chloride Carbon Dioxide Anion Gap BUN Creatinine Est GFR ( Amer) Est GFR (Non-Af Amer) POC Glucose (mg/dL) 121 H Random Glucose Calcium Total Bilirubin AST ALT Alkaline Phosphatase Lactate Dehydrogenase Total Creatine Kinase Troponin I NT-Pro-B Natriuret Pep Total Protein Albumin Globulin Albumin/Globulin Ratio Arterial Blood Potassium Urine Color Urine Appearance Urine pH Ur Specific Herscher Urine Protein Urine Glucose (UA) Urine Ketones Urine Blood Urine Nitrate Urine Bilirubin Urine Urobilinogen Ur Leukocyte Esterase Urine RBC Urine WBC Ur Epithelial Cells Amorphous Sediment Urine Bacteria 05/12/17 05/12/17 05/12/17 19:38 20:41 21:25 WBC RBC Hgb Hct MCV MCH MCHC RDW Plt Count MPV Gran % Lymph % (Auto) Cataño % (Auto) Eos % (Auto) Baso % (Auto) Gran # Lymph # Cataño # Eos # Baso # PT INR APTT pCO2 44 pO2 70.0 L HCO3 29.2 H ABG pH 7.43 ABG Total CO2 30.6 H ABG O2 Saturation 98.0 ABG Base Excess 4.2 H ABG Potassium 3.8 Glucose 102 Lactate 0.9 FiO2 34.0 Sodium 137 138.0 Potassium 4.2 Chloride 98 102.0 Carbon Dioxide 28 Anion Gap 15 BUN 77 H Creatinine 1.8 H Est GFR ( Amer) 32 Est GFR (Non-Af Amer) 27 POC Glucose (mg/dL) Random Glucose 111 H Calcium 9.8 Total Bilirubin 1.3 AST 410 H D ALT 426 H Alkaline Phosphatase 156 H D Lactate Dehydrogenase 908 H Total Creatine Kinase 25 L Troponin I 0.18 H* D NT-Pro-B Natriuret Pep 52832 H Total Protein 6.8 Albumin 3.4 Globulin 3.3 Albumin/Globulin Ratio 1.0 L Arterial Blood Potassium 3.8 Urine Color Yellow Urine Appearance Clear Urine pH 6.0 Ur Specific Herscher 1.015 Urine Protein 30 H Urine Glucose (UA) Negative Urine Ketones Negative Urine Blood Negative Urine Nitrate Negative Urine Bilirubin Negative Urine Urobilinogen 0.2 Ur Leukocyte Esterase Negative Urine RBC 0 - 2 Urine WBC 0 - 2 Ur Epithelial Cells 3 - 4 Amorphous Sediment Few Urine Bacteria Mod <Jacinto Jones Q - Last Filed: 05/12/17 23:50> Meds - Medications Medications: Current Medications Acetaminophen (Tylenol 325mg Tab) 650 mg PO Q6H PRN PRN Reason: Fever >100.4 F Albuterol/Ipratropium (Duoneb 3 Mg/0.5 Mg (3 Ml) Ud) 3 ml IH Q2H PRN PRN Reason: Shortness of Breath Albuterol/Ipratropium (Duoneb 3 Mg/0.5 Mg (3 Ml) Ud) 3 ml IH [id number] [facility] Amlodipine Besylate (Norvasc) 5 mg PO DAILY [facility] Furosemide (Lasix) 40 mg IVP BID [facility] Ondansetron HCl (Zofran Inj) 4 mg IVP Q6H PRN PRN Reason: Nausea/Vomiting Pantoprazole Sodium (Protonix Ec Tab) 40 mg PO 0630 [facility] Results - Vital Signs Recent Vital Signs: Last Vital Signs Temp 96.5 F L 05/12/17 21:26 Pulse 72 05/12/17 19:54 Resp 20 05/12/17 20:10 BP 118/78 05/12/17 21:36 Pulse Ox 98 05/12/17 19:54 - Labs Result Diagrams: 05/12/17 19:38 05/12/17 19:38 Attending/Attestation - Attestation I have personally seen and examined this patient.: Yes I have fully participated in the care of the patient.: Yes I have reviewed all pertinent clinical information: Yes Notes (Text): 05/12/17 23:26 Reason for ICU Consult: Hypothermia with possible sepsis I agree with the above mentioned note and exam as listed by the resident with the addition/exception of the followin86 y/o female with a PMhx CAD s/p PCI, HFrEF 35%, ?COPD on home oxygen @ 3L, h/ o GIB, CKD who was brought to the ED by her daughter and daughter in law for a 2 week history of progressive shortness of breath. Patient's family states that she has had generalized weakness and has not been her usual self for the past 2 weeks when compared to prior. They also report she was on home hospice receiving morphine and xanax for periods of respiratory distress. Discussion was held with both daughters as well as with the POA over the phone in the presence of nursing staff to clarify her current code status. The patient is to remain a DNR/DNI, however the family is ok with vasopressor support via CVC if required. Upon presentation to the ED the patient was noted to have labored breathing and hypoxia requiring increased oxygen via NC. She has been diuresed with IV lasix and shown improvement thus far. During the time of my examination the patient is AAOx2, in no respiratory distress and able to speak in full sentences. Acute systolic heart failure hypothermia - resolving with warming blanket; temp last measured at 97.5 LARON on CKD elevated cardiac marker secondary to NSTEMI vs type 2 demand ischemia in the setting of systolic heart failure, TAC until ACS is ruled out or seen by Cardiology Transaminitis possibly secondary to heart failure; needs further workup anemia in the setting of CAD, should ideally be transfused at least 1 unit PRBC followed by IV diuretics to avoid fluid overload indwelling patricia catheter for strict I's and IO's + daily weights Patient may be admitted to the telemetry floor for further care and management as per the primary attending Thank you for this consultation
--- NOTE | 2017-05-13 02:24 | HP ---
HISTORY OF PRESENT ILLNESS: The patient is an 86-year-old who was recently placed in hospice care, but I had a call yesterday that patient is having wheezing, shortness of breath, being lethargic, not eating that well and the patient wanted to get hospice care. So advised them to bring her to Emergency Room for further evaluation. According to her [id number]-lze who speaks well, better Guamanian said that she has not been eating well. She has been progressively getting worse over the last 1 week. Denies any nausea or vomiting. No active bleeding. Does have scanty cough. PAST MEDICAL HISTORY: 1. Significant for coronary artery disease. 2. History of renal insufficiency. 3. Congestive heart failure. 4. Hypertension. 5. Dementia. 6. Gastritis. PAST SURGICAL HISTORY: Significant for partial colectomy. ALLERGIES: SHE IS NOT ALLERGIC TO ANY MEDICATIONS. MEDICATIONS: At home; she is on omeprazole and she has been recently started on Remeron. SOCIAL HISTORY: She is single, lives with her daughters. No history of smoking or drinking. REVIEW OF SYSTEMS: Generalized weakness, lethargy, increasing shortness of breath. PHYSICAL EXAMINATION: GENERAL: The patient is sleepy, but arousable, awake and alert, answers simple questions, but somewhat confused to the time and place. VITAL SIGNS: She has temperature of 96.5 rectally, pulse 72, respirations 20, blood pressure 118/70. LUNGS: Bilateral soft crackles at bases. HEART: S1 and S2 audible. ABDOMEN: Soft, nontender. No rebound. No guarding. NEUROLOGIC: She is awake and alert, but confused, disoriented. LABORATORY DATA: WBC is 9.4, hemoglobin 7.5, hematocrit 22.8, platelets 160. PT 13.6, INR 1.19. Chemistry: Sodium 137, potassium 4.2, chloride 98, CO2 28, BUN 77, creatinine 1.8, blood sugar of 111. AST 410, ALT 426, alk phos 156. LDH is 9.8, troponin is 0.18. Urinalysis is unremarkable. X-ray of chest has venous congestion. ASSESSMENT: 1. Congestive heart failure. 2. Non-ST elevation myocardial infarction. 3. Right heart failure with passive hepatic congestion, leading to abnormal LFTs. 4. Symptomatic anemia. 5. Hypothermia. PLAN: The patient was evaluated by ICU, but declined since she is relatively stable now. So, we will start her on nebulizer treatment. Start her on Lasix, transfuse on packed RBCs. Followup her cardiac enzymes. Cardiology consult Dr. Ac and we will start her on diuretics. Follow up her CBC and CMP in a.m. Rk Otero MD
[2017-05-13] MEDS: Pantoprazole 40 mg EC Tab PO SCH (06:20)
[2017-05-13 08:04] LABS: BASO # 0.01 K/mm3 (0.0-2.0); BASO % 0.1 % (0.0-3.0); GRAN # 5.56 (1.4-6.5); GRAN % 68.6 % (50.0-68.0); LYMPH # 1.3 (1.2-3.4); LYMPH % 15.8 % (22.0-35.0); MEAN CELL VOLUME 84.5 fl (80.0-105.0); MEAN CORPUSCULAR HEMOGLOBIN 27.7 pg (25.0-35.0); MEAN CORPUSCULAR HGB CONC 32.8 g/dl (31.0-37.0); MEAN PLATELET VOLUME 11.8 fl (7.0-11.0); MONO # 1.3 (0.1-0.6); MONO % 15.5 % (1.0-6.0); RBC 2.96 10^6/uL (3.5-6.1); RED CELL DISTRIBUTION WIDTH 17.9 % (11.5-14.5); WHITE BLOOD COUNT 8.1 10^3/ul (4.5-11.0)
[2017-05-13 08:06] LABS: HEMOGLOBIN 8.2 g/dL (12.0-16.0)
[2017-05-13 08:23] LABS: ALB/GLOB RATIO 0.9 (1.1-1.8); ALBUMIN 3.2 g/dL (3.0-4.8); CALCIUM 9.9 mg/dL (8.4-10.5)
--- NOTE | 2017-05-13 09:00 | RAD ---
HISTORY: SOB COMPARISON: Comparison chest 04/01/2017 FINDINGS: LUNGS: There are diffuse bilateral opacities right larger than left likely representing some combination of atelectasis/ infiltrate and bilateral effusions right larger than left. PLEURA: As above. No pneumothorax apparent however note that both lung apices are partially obscured by overlying facial soft tissue and mandible artifact. CARDIOVASCULAR: The heart size cannot be adequately evaluated due to silhouetting both cardiac borders OSSEOUS STRUCTURES: No significant abnormalities. VISUALIZED UPPER ABDOMEN: Normal. OTHER FINDINGS: None. IMPRESSION: Diffuse bilateral opacities right larger than left likely representing some combination of atelectasis/ infiltrate and bilateral effusions right larger than left.
--- NOTE | 2017-05-13 15:58 | CARD ---
APPROVED REPORT EKG Measurement Heart [id number] <Conclusion> Normal sinus rhythm Nonspecific intraventricular conduction delay Borderline ECG
[2017-05-13] MEDS: Potassium Chloride 20 mEq ER Tab PO SCH (19:02)
[2017-05-13] MEDS: Albuterol-Ipratrop 3 mg / 0.5 (3 ml) UD IH SCH (19:51)
[2017-05-13] MEDS: Albuterol-Ipratrop 3 mg / 0.5 (3 ml) UD IH PRN (23:43)
[2017-05-14] MEDS: Albuterol-Ipratrop 3 mg / 0.5 (3 ml) UD IH SCH ×4 (01:24→20:42)
--- NOTE | 2017-05-14 01:28 | PN ---
DATE: SUBJECTIVE: The patient is an 86-year-old, seen and examined, lying in bed,seems to be comfortable. No more nausea and no vomiting. PHYSICAL EXAMINATION GENERAL: She is more alert, although she is confused and disoriented. No respiratory distress. VITAL SIGNS: She is afebrile. Pulse 66, respirations 18, blood pressure 124/50, pulse oximetry 95%. LUNGS: Bilateral free air flow. No rhonchi or crackles. HEART: S1, S2 audible. ABDOMEN: Soft. No rebound. No guarding. NEUROLOGICAL: She is awake and alert and confused, disoriented. EXTREMITIES: Bilateral leg, no edema. LABORATORY DATA: WBC is 8.1, hemoglobin 8.2, hematocrit 25, and platelets 150. Chemistry; sodium 141, potassium 3.4, chloride 100, CO2 of 30, BUN 69, and creatinine 1.7. Blood sugar of 100. Total bilirubin 1.5. AST 310, ALT 384, alkaline phosphatase is 141. Troponin 0.19. Blood cultures are negative. ASSESSMENT: 1. Congestive heart failure. 2. Passive hepatic congestion secondary to heart failure. 3. Peptic ulcer disease. 4. Pulmonary edema. PLAN: The patient's respiratory status has improved. We will downgrade from telemetry to Med/Surg close to the nursing station. We will continue to diurese the patient. Cut down her Lasix to daily. We will monitor her electrolytes. Advance her diet. Continue nebulizer treatment. Continue Protonix. We will follow up electrolytes in a.m. and we will follow up the patient. Rk Otero MD
--- NOTE | 2017-05-14 04:21 | CON ---
DATE: 05/13/2017 The patient is in Emergency Room 600, bed 9. REASON FOR CONSULTATION: Shortness of breath, CHF, pleural effusion, coronary artery disease, dementia, hypertension and renal insufficiency. HISTORY OF PRESENT ILLNESS: This is an 86-year-old patient who was placed by family in hospice and now family decided to cancel the hospice and they said the patient _has shortness of breath from last several days. She has been also getting more confused. She has been having weakness, and shortness of breath at rest so family brought to the Emergency Room, I spoke to the [id number] who speaks Mauritian. PAST MEDICAL HISTORY: Significant for coronary artery disease, history of stent insertion, history of renal insufficiency, congestive heart failure, hypertension, dementia and gastritis. PAST SURGICAL HISTORY: The patient had partial colectomy for colon cancer. ALLERGIES: THE PATIENT DENIES ANY ALLERGIES. MEDICATIONS ON HOME: The patient was taking omeprazole and Remeron. PERSONAL HISTORY: No history of smoking or drinking. REVIEW OF SYSTEMS: All the system reviewed positive mentioned history, otherwise negative. PHYSICAL EXAMINATION VITAL SIGNS: Blood pressure 115/59, respirations 18, and pulse 74. Temperature on admission 95.6, respirations 20, pulse 79. HEENT: Head is normocephalic. Eyes; pupils normal. Conjunctivae pale. NECK: JVP elevated. LUNGS: Diminished breath sounds on the lower half of the lung. Upper half is clear. CARDIOVASCULAR: S1 and S2. ABDOMEN: Soft. Bowel sounds normal. EXTREMITIES: No clubbing, no cyanosis. According to [id number] when patient admitted last night she had swelling of legs. Right now I do not see any swelling of legs. LABORATORY DATA: WBC 8.1, hemoglobin 8.2, hematocrit 25.0 and platelets 150. Sodium 141, potassium 3.4, BUN 69, creatinine 1.7, total bilirubin 1.5, AST 310, ALT 384 and alkaline phosphatase 141. Troponin first one 0.18, second one 0.19. Total protein 6.6 and albumin 3.2. Chest x-ray; diffuse bilateral opacities right larger than the left, likely representing combination of atelectasis, infiltrate and bilateral effusion, right larger than left. EKG showed normal sinus rhythm, nonspecific conduction delay. DIAGNOSES: Bilateral pleural effusion, congestive heart failure, [id number] myocardial infarction, abnormal liver function tests probably related to passive hepatic congestion, anemia, hypothermia, hypokalemia, dementia, history of hypertension, renal dysfunction. PLAN: The patient on DuoNeb hand nebulizer therapy, furosemide 40 mg IV b.i.d., cefepime 2 g IV was given as a stat dose in Emergency Room, Protonix 40 mg p.o. daily, amlodipine 5 mg daily. We will start beta-david 25 b.i.d. Add Imdur 30mg Daily. We will give extra potassium therapy. We will repeat labs in the morning. Troponin elevation is suggestive of [id number]-[id number] myocardial infarction in setting of anemia, but the patient is not a candidate for any cardiac catheterization. The patient also has anemia, anticoagulation also is risky at this moment, so we will we will put Ecotrin 81 mg daily and furosemide 25 b.i.d. BUN elevated, we will hold off ZULY inhibitors. We will follow repeat labs in the morning. We will follow with you Heather Frank MD MTDSydni
[2017-05-14] MEDS: Pantoprazole 40 mg EC Tab PO SCH (06:52)
[2017-05-14 07:24] LABS: BASO # 0.01 K/mm3 (0.0-2.0); BASO % 0.1 % (0.0-3.0); EOS % 0.1 % (1.5-5.0); GRAN # 5.52 (1.4-6.5); GRAN % 68.2 % (50.0-68.0); HEMOGLOBIN 8.6 g/dL (12.0-16.0); LYMPH # 1.3 (1.2-3.4); LYMPH % 16.1 % (22.0-35.0); MEAN CELL VOLUME 86.9 fl (80.0-105.0); MEAN CORPUSCULAR HEMOGLOBIN 27.4 pg (25.0-35.0); MEAN CORPUSCULAR HGB CONC 31.5 g/dl (31.0-37.0); MEAN PLATELET VOLUME 11.5 fl (7.0-11.0); MONO # 1.3 (0.1-0.6); MONO % 15.5 % (1.0-6.0); RBC 3.14 10^6/uL (3.5-6.1); WHITE BLOOD COUNT 8.1 10^3/ul (4.5-11.0)
[2017-05-14 07:51] LABS: MAGNESIUM 2.6 mg/dL (1.7-2.2)
[2017-05-14] MEDS: Potassium Chloride 20 mEq ER Tab PO SCH (08:59)
--- NOTE | 2017-05-14 13:26 | PN ---
DATE: 05/14/2017 LOCATION: The patient is room 517, bed 1. REASON FOR CONSULTATION: Shortness of breath, CHF, pleural effusion, coronary artery disease, dementia, hypertension, renal insufficiency, and anemia. SUBJECTIVE: The patient clinically looks better as compared to yesterday. Yesterday, she was very short of breath. Today, she is lying comfortably on bed without any respiratory distress. No history of chest pain or palpitations. PHYSICAL EXAMINATION: VITAL SIGNS: Blood pressure 135/67, respirations 20, pulse 79, and temperature 97.6. HEENT: Head is normocephalic. Eyes, pupils normal. Conjunctivae slightly pale. NECK: JVP low. Carotids equal. THORAX: AP diameter normal. LUNGS: Diminished breath sounds in both lungs lower part. CARDIOVASCULAR: S1 and S2. ABDOMEN: Soft and nontender. No organomegaly. EXTREMITIES: edema on the legs had also improved. LABORATORY DATA: WBC 8.1, hemoglobin 8.6, hematocrit 27.3, and platelets 141. Sodium 144, potassium 3.4, BUN 66, creatinine 1.4, and glucose 103. Calcium 10.0, magnesium 2.6, AST 310, and ALT 384. Total protein and albumin are normal. DIAGNOSES: Bilateral pleural effusion, congestive heart failure, left ventricular systolic dysfunction, non-ST elevation myocardial infarction, abnormal liver function test probably related to hepatic congestion, anemia, hypothermia, which has improved, hypokalemia, dementia, history of hypertension, and renal dysfunction. PLAN: The patient at home was on hospice, but later on, when the patient was short of breath, the family canceled the hospice and brought her to the hospital. The patient's troponin is slightly elevated that is suggestive of non-ST elevation myocardial infarction, but the patient is not a candidate for any intervention like cardiac catheterization, so we are treating it medically. The patient is on amlodipine 5 mg daily. Also, we started Lopressor 25 b.i.d., Imdur 30 mg daily, started baby aspirin one a day, about Plavix I am not sure if the patient has anemia, rather than the patient has any history of bleeding, so we will discuss with Dr. Otero. Due to elevated BUN, we will hold ZULY inhibitor. The patient is on aspirin 81 mg daily and isosorbide 30 daily. The patient is getting Lasix 40 IV daily, metoprolol 25 b.i.d., and amlodipine [address] Otero ordered 10 mEq of potassium IV one time. We will give another IV care rather and check SMA-7, magnesium, phosphorus, and CBC in the morning. We will follow with you. Heather Frank MD
--- NOTE | 2017-05-14 19:52 | PN ---
DATE: SUBJECTIVE: The patient is an 86-year-old, seen and examined, sitting in chair, seems to be much more awake, alert, oriented, comfortable . PHYSICAL EXAMINATION: VITAL SIGNS: She is afebrile, pulse 79, respirations 20 and blood pressure 135/67. LUNGS: Bilateral good airflow. No rhonchi or crackle. HEART: S1 and S2, audible. ABDOMEN: Soft and nontender. No rebound. No guarding. NEUROLOGIC: She is awake, alert, oriented. Able to communicate. EXTREMITIES: Bilateral leg edema. LABORATORY DATA: WBC is 8.1, hemoglobin 8.6, hematocrit 27.3 and platelet 141. Chemistry; sodium 144, potassium 3.4, chloride 102, CO2 of 32, BUN 66, creatinine 1.4, blood sugar of 103, magnesium 2.6, total bilirubin 1.5, AST has improved 310, ALT is 384 and blood cultures are negative. ASSESSMENT: 1. Pulmonary edema. 2. Cardiomyopathy with poor left ventricular function. 3. Bilateral pleural effusion. 4. Non-ST elevation myocardial infarction. 5. Abnormal liver function test secondary to hepatic congestion. 6. Anemia. 7. Hypothermia. PLAN: Cardiology input noted and appreciated. We will treat her conservatively diuresis. Monitor her electrolytes. Out of bed to chair. Family canceled her hospice care, but she still DNR. We will follow up her electrolyte in a.m. Rk Otero MD
[2017-05-15] MEDS: Albuterol-Ipratrop 3 mg / 0.5 (3 ml) UD IH SCH ×4 (01:15→20:21)
[2017-05-15] MEDS: Pantoprazole 40 mg EC Tab PO SCH (05:55)
[2017-05-15 07:26] LABS: BASO # 0.01 K/mm3 (0.0-2.0); BASO % 0.2 % (0.0-3.0); EOS % 0.5 % (1.5-5.0); GRAN # 4.63 (1.4-6.5); GRAN % 69.4 % (50.0-68.0); LYMPH # 1.2 (1.2-3.4); LYMPH % 17.7 % (22.0-35.0); MEAN CELL VOLUME 87.2 fl (80.0-105.0); MEAN PLATELET VOLUME 12.3 fl (7.0-11.0); MONO # 0.8 (0.1-0.6); MONO % 12.2 % (1.0-6.0); RBC 2.96 10^6/uL (3.5-6.1); RED CELL DISTRIBUTION WIDTH 18.3 % (11.5-14.5); WHITE BLOOD COUNT 6.7 10^3/ul (4.5-11.0)
[2017-05-15 08:00] LABS: CALCIUM 9.9 mg/dL (8.4-10.5); MAGNESIUM 2.4 mg/dL (1.7-2.2)
[2017-05-15] MEDS: Potassium Chloride 20 mEq ER Tab PO SCH (08:21)
--- NOTE | 2017-05-15 19:20 | PN ---
DATE: 05/15/2017 LOCATION: The patient is in room 562, bed 2. REASON FOR CONSULTATION AND FOLLOWUP: Shortness of breath, CHF, pleurisy, coronary artery disease, dementia, hypertension, renal insufficiency, anemia. SUBJECTIVE: The patient is lying in bed; compared to before, her breathing is better. Family present and questioning to them. The patient denies chest pain or palpitations. PHYSICAL EXAMINATION: VITAL SIGNS: Blood pressure 129/61, respirations 22, pulse 77, and temperature 97.6. HEENT: Head is normocephalic. Eyes, pupils are normal. Conjunctivae are slightly pale. NECK: JVP low. Carotids are equal. THORAX: AP diameter normal. LUNGS: Diminished breath sounds in the lower part of the lung, upper lungs are clear. CARDIOVASCULAR: S1 and S2. ABDOMEN: Soft, nontender. No organomegaly. EXTREMITIES: No clubbing. No cyanosis. Edema of the legs have significantly decreased. LABS: WBC 6.7, hemoglobin 8.0, hematocrit 25.8, platelets 153. Sodium 144, potassium 3.4, BUN 55, creatinine 1.3, calcium 9.9, phosphorus 2.7, and magnesium 2.4. DIAGNOSES: Bilateral pleural effusion, congestive heart failure, left ventricular systolic dysfunction, non-ST elevation myocardial infarction, abnormal liver function tests probably related to passive hepatic congestion, anemia, hypothermia on admission which has improved, hypokalemia, dementia, history of hypertension, and renal dysfunction. PLAN: We will give extra potassium to the patient. Repeat labs in the morning. The patient is getting 20 mEq of potassium daily, isosorbide mononitrate 30 daily, aspirin 81 daily, amlodipine 5 daily. The patient already received potassium IV [address] Otero. We will give another 10 mEq of IV today, Protonix 40 mg daily, Lasix 40 mg IV daily. We will follow with you. Heather Frank MD
--- NOTE | 2017-05-15 20:38 | PN ---
DATE: SUBJECTIVE: The patient is an 86-year-old, seen and examined, and as per her [id number]-ajf who is by the bedside, she is not eating that well. Does not have appetite. Does not like food. No nausea or vomiting. PHYSICAL EXAMINATION: VITAL SIGNS: She is afebrile, pulse 77, respirations 22, and blood pressure 129/51. LUNGS: Bilateral fair airflow. Few soft crackle at bases. HEART: S1 and S2 audible. ABDOMEN: Soft and nontender. No rebound. No guarding. Some epigastric discomfort. NEUROLOGIC: She is awake, alert, and able to communicate. LABORATORY DATA: WBC 6.7, hemoglobin 8.0, hematocrit 25.8, and platelet 153. Chemistry; sodium , potassium 3.4, chloride 104, CO2 of 31, BUN 55, creatinine 1.3, and blood sugar of 109. Blood cultures and urine cultures are negative. ASSESSMENT: 1. Hypothermia. 2. Congestive heart failure. 3. Cardiomyopathy. 4. Peptic ulcer disease. 5. Abnormal liver function test secondary to passive hepatic congestion. 6. Non-ST elevation myocardial infarction. PLAN: Continue the patient on nebulizer treatment. She is on metoprolol, we will continue that and started on Protonix. We will consult Dr. Kang for poor oral intake. Rk Otero MD
[2017-05-16] MEDS: Albuterol-Ipratrop 3 mg / 0.5 (3 ml) UD IH SCH ×5 (01:44→20:05)
[2017-05-16 07:02] LABS: BASO # 0.01 K/mm3 (0.0-2.0); BASO % 0.1 % (0.0-3.0); EOS % 0.3 % (1.5-5.0); GRAN # 5.18 (1.4-6.5); GRAN % 66.6 % (50.0-68.0); LYMPH # 1.6 (1.2-3.4); LYMPH % 19.9 % (22.0-35.0); MEAN CELL VOLUME 86.4 fl (80.0-105.0); MEAN CORPUSCULAR HEMOGLOBIN 26.6 pg (25.0-35.0); MEAN CORPUSCULAR HGB CONC 30.8 g/dl (31.0-37.0); MEAN PLATELET VOLUME 11.9 fl (7.0-11.0); MONO % 13.1 % (1.0-6.0); RBC 3.38 10^6/uL (3.5-6.1); RED CELL DISTRIBUTION WIDTH 18.7 % (11.5-14.5); WHITE BLOOD COUNT 7.8 10^3/ul (4.5-11.0)
[2017-05-16 07:30] LABS: CALCIUM 10.3 mg/dL (8.4-10.5); MAGNESIUM 2.2 mg/dL (1.7-2.2)
[2017-05-16] MEDS: Potassium Chloride 20 mEq ER Tab PO SCH (10:59)
--- NOTE | 2017-05-16 21:01 | PN ---
DATE: SUBJECTIVE: The patient is 86 years old, seen and examined. According to [id number]-dwf who is sitting by the bedside, she has not been eating well. Does not have appetite. Seems to be anxious. Not sleeping well. PHYSICAL EXAMINATION: VITAL SIGNS: She is afebrile, pulse 76, respirations 20, and blood pressure 113/58. LUNGS: Bilateral fair airflow. No rhonchi or crackle. HEART: S1, S2 audible. ABDOMEN: Soft. Mild epigastric discomfort. NEUROLOGIC: She is awake and alert but not communicative. EXTREMITIES: Bilateral leg, no edema. LABORATORY DATA: WBC 7.8, hemoglobin 9.0, hematocrit 29.2, platelet of 185. Chemistries, sodium 145, potassium 4.2, chloride 106, CO2 of 29, BUN 40, creatinine 1.1, blood sugar of 131. ASSESSMENT: 1. Status post hypothermia. 2. Poor oral intake. 3. Dehydration. 4. Nonischemic dilated cardiomyopathy. 5. Congestive heart failure improvement. PLAN: I will decrease her Lasix to 20 daily. Potassium has been supplemented. Continue on Protonix. We will follow up her electrolyte and general behavior. Discussed with patient's hvuoejlb-cr-rys that much in favor of tube feeding; however, they will make decision later on if the condition did not improve. Rk Otero MD
[2017-05-17] MEDS: Albuterol-Ipratrop 3 mg / 0.5 (3 ml) UD IH SCH ×4 (01:02→19:19)
--- NOTE | 2017-05-17 01:13 | PN ---
DATE: 05/16/2017 SUBJECTIVE: This patient was seen and evaluated earlier today. The patient is comfortable. Discussed with the nursing staff. The p.o. intake remains poor. PHYSICAL EXAMINATION: VITAL SIGNS: Temperature is 97.7, pulse is 76, blood pressure is 113/58, respirations 20, and O2 saturations 94%. HEENT: Atraumatic. Anicteric. NECK: Supple. HEART: S1 and S2 heard. LUNGS: Bilateral air entry present, slightly reduced at the base. ABDOMEN: Soft. Ventral hernia present. EXTREMITIES: No cyanosis and no clubbing. LABORATORY DATA: Hemoglobin 9.0, hematocrit 29.2, WBC 7.8, and platelets 185. Chemistry is essentially unremarkable except BUN of 40, it is coming down. The patient was transfused 1 unit of packed RBC. IMPRESSION: This 86-year-old patient admitted with reduced p.o. intake, weakness, and shortness of breath. 1. 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 2. Congestive heart failure. 3. The patient has history of emphysematous gastritis. Follow up endoscopy showed still significant ulcerations of the entire stomach. One of the possible explantation for that emphysematous gastritis in the patient is probably herniation of the stomach into the ventral hernia and causing some ischemia which improved after reduction of the hernia. The patient had one followup endoscopy showed persistent ulcerations, but much improved. The patient refused to have any further endoscopies. The patient had a multiple other comorbidities. Recommended at that time with the family that need to be on a long-term pureed diet with the PPI. Other comorbidities include non-ST segment myocardial infarction, abnormal liver function tests probably secondary to hepatic congestion. RECOMMENDATIONS: Would recommend: 1. Continue the Protonix. 2. Change the diet to pureed diet and feeding only with the assistance. 3. The patient is not a candidate for a PEG tube placement in view of this h/o emphysematous gastritis and ulcerations and also a ventral hernia. In addition, the patient also is at high risk for any anaesthetic proceduredue to multiple comorbidities. I did discuss with the patient's hpdoborh-tq-nhb who was at beside here yesterday. Thank you very much for allowing us to participate in the care of the patient. Alayna Kang MD [facility] # [id number] JERRELL
[2017-05-17 08:00] LABS: BASO # 0.01 K/mm3 (0.0-2.0); BASO % 0.1 % (0.0-3.0); EOS % 0.2 % (1.5-5.0); GRAN # 7.01 (1.4-6.5); GRAN % 74.4 % (50.0-68.0); HEMOGLOBIN 8.8 g/dL (12.0-16.0); LYMPH # 1.4 (1.2-3.4); LYMPH % 14.3 % (22.0-35.0); MEAN CELL VOLUME 87.7 fl (80.0-105.0); MEAN CORPUSCULAR HEMOGLOBIN 26.3 pg (25.0-35.0); MEAN PLATELET VOLUME 12.4 fl (7.0-11.0); RBC 3.34 10^6/uL (3.5-6.1); RED CELL DISTRIBUTION WIDTH 19.1 % (11.5-14.5); WHITE BLOOD COUNT 9.4 10^3/ul (4.5-11.0)
[2017-05-17 08:28] LABS: ALB/GLOB RATIO 0.9 (1.1-1.8); ALBUMIN 3.3 g/dL (3.0-4.8); ALT/SGPT 155 U/L (7-56); AST/SGOT 65 U/L (14-36); BLOOD UREA NITROGEN 35 mg/dL (7-21); CALCIUM 10.2 mg/dL (8.4-10.5); GFR AFRICAN-AMERICAN > 60; GFR NON-AFRICAN AMERICAN 53
[2017-05-17] MEDS: Potassium Chloride 20 mEq ER Tab PO SCH (10:02)
[2017-05-17] MEDS: Megestrol Acetate 40 mg/ml Cup PO SCH (17:55)
--- NOTE | 2017-05-17 21:26 | PN ---
DATE: 05/17/2017 SUBJECTIVE: This patient was seen and evaluated earlier today. Discussed with the patient's family who was at bedside. PHYSICAL EXAMINATION: GENERAL: The patient is comfortable, not in any acute distress. VITAL SIGNS: Temperature is 97.9. blood pressure 131/69, O2 saturations 93%, respirations is 24. HEENT: Atraumatic. Anicteric. NECK: Supple. HEART: S1 and S2 heard. LUNGS: Bilateral air entry present, slightly reduced at the base. ABDOMEN: Soft. There was ventral hernia present. No tenderness. EXTREMITIES: No cyanosis, no clubbing. NEUROLOGIC: Alert. Moves all the extremities. LABORATORY DATA: Hemoglobin 8.8, hematocrit 29.3, WBC 9.4, and platelets 206. AST has come done to 65. ALT 155, and alkaline phosphatase 134. IMPRESSION: This 86-year-old patient with multiple medical comorbidities with history of emphysematous gastritis, probably large ventral hernia, extensive gastric ulceration, admitted with shortness of breath, anemia, slow drop in hemoglobin. The patient did have a unit of blood transfusion, p.o. intake remains poor. The patient does have an elevated LFTs, probably secondary to hepatic congestion, history of congestive heart failure. bilateral plural effusion, non ST segment myocardial infarction. The patient before was in hospice care, which was taken out as per the family request again. RECOMMENDATIONS: Would recommend; 1. Change the diet to pureed diet. 2. Continue the high dose PPI. 3. Would not recommend PEG tube in this patient in view of the history of extensive gastric ulceration with history of emphysematous gastritis and high risk status post endoscopic procedure. We will discuss with Dr. Otero again, discuss with the family today. Thank you very much for allowing us to participate in the care of the patient. Alayna Kang MD
--- NOTE | 2017-05-17 21:57 | PN ---
DATE: SUBJECTIVE: The patient is 86 years old, seen and examined, lying in bed, seems very comfortable. According to the [id number]-fr-[id number] who is by the bedside, she is not eating at all, had 2 spoons of food but states she has no diet. Does complain of shortness of breath. PHYSICAL EXAMINATION: VITAL SIGNS: She is afebrile, pulse 80, respirations 20, blood pressure 131/69, pulse ox 93%. LUNGS: Bilateral fair airflow. No rhonchi or crackles. HEART: S1 and S2 audible. ABDOMEN: Soft. Nontender. Slight epigastric discomfort HEART: S1 and S2 audible. NEUROLOGIC: The patient is awake and alert, able to communicate but there is a language barrier; however through the roto mixer operator, she states, she does not feel well. LABORATORY DATA: WBC 9.4, hemoglobin 8.8, hematocrit 29.3, and platelet of 206. Chemistry; sodium 148, potassium 3.8, chloride 104, CO2 of 33, BUN 35, creatinine 1.0, and blood sugar of 212. AST 65, ALT 155. Blood cultures and urine cultures are negative. ASSESSMENT: 1. Hypothermia. 2. Poor oral intake. 3. Malnutrition. 4. Congestive heart failure. PLAN: I will add small dose of Megace. Encourage p.o. intake. Patient was constipated; however, she had big bowel movement, seems to be doing well from that point of view. Continue her nebulizer treatment. We will follow up this patient. Rk Otero MD
[2017-05-17] MEDS: Albuterol-Ipratrop 3 mg / 0.5 (3 ml) UD IH PRN (23:15)
[2017-05-18] MEDS: Albuterol-Ipratrop 3 mg / 0.5 (3 ml) UD IH SCH ×4 (02:20→20:08)
[2017-05-18] MEDS: Potassium Chloride 20 mEq ER Tab PO SCH (08:13)
--- NOTE | 2017-05-18 08:55 | CON ---
DATE: 05/15/2017 REASON FOR CONSULTATION: Poor p.o. intake, weakness. HISTORY OF PRESENT ILLNESS: This 86-year-old patient with a past medical history of coronary artery disease, renal insufficiency, hypertension, episodes of hypothermia, CHF. The patient has emphysematous gastritis with extensive ulcerations in the past, was in the hospice care, multiple hospital admissions before. The patient was also on hospice care and was brought to the emergency room by the patient's egxzzqqj-uc-zim who mentioned that he has canceled the hospice care and wanted aggressive management for medical condition. The patient also is complaining of progressive weakness and shortness of breath. GI consult was requested because of the poor p.o. intake. PAST MEDICAL HISTORY: Other past medical history is significant as above. History of colon surgeries in the past. SOCIAL HISTORY: Denies alcohol or smoking. REVIEW OF SYSTEMS: Limited as per the patient's chart and also per the patient and the patient's wysfpgeb-ba-mam who was at bedside at the time of examination. PHYSICAL EXAMINATION: GENERAL: The patient is lying on the bed, not in acute distress. VITAL SIGNS: Temperature is 98.4, pulse is 97, blood pressure is 110/52, respirations 18, and O2 saturation 97%. HEENT: Atraumatic, anicteric. NECK: Supple. HEART: S1 and S2 heard. LUNGS: Bilateral air entry present, slightly reduced at the base. ABDOMEN: Soft. There was mild tenderness in the epigastric area, otherwise unremarkable. There is a ventral hernia present. EXTREMITIES: No cyanosis, no clubbing. NEUROLOGIC: Alert, oriented. LABORATORY DATA: Hemoglobin 8.0, hematocrit 25.8, WBC 6.7, and platelets 153. Chemistry shows BUN 55, creatinine 1.3. The patient's troponin elevated. The patient had a CT scan of the abdomen and pelvis done in about a month ago, which was reviewed. The patient has a history of left hydronephrosis. The patient's last endoscopy was in April close to a year ago, has multiple ulcerations in the stomach, history of emphysematous gastritis. IMPRESSION: 1. This 86-year-old patient with multiple comorbidities, who was in a hospice care, who was brought to the hospital because of the shortness of breath, weakness, found to have poor p.o. intake. The patient has a non-ST segment myocardial infarction, congestive heart failure. The patient's p.o. intake is significantly low. The patient also has elevated LFTs probably secondary to the right-sided congestion. 2. Prerenal azotemia. 3. The patient has a significant emphysematous gastritis a year ago, which was managed conservatively, followup endoscopy showed extensive ulcerations of the stomach, probably recovering from an ischemic episode of the stomach. The patient has ventral hernia and part of the stomach appeared to be partially herniated to the ventral hernia at that time, it is reducible. 4. The part of the poor p.o. intake could be related to the ulcer disease, combination of the ventral hernia. RECOMMENDATIONS: 1. Encourage nutritional supplement Ensure. 2. Increase the Protonix to 40 mg IV. 3. We will also start the patient on Carafate for a short course. 4. The patient has refused endoscopic evaluation before. The patient is also high risk with multiple comorbidities, would initially try this conservative management. He may not be a candidate for the PEG tube placement in view of this large ventral hernia and history of emphysematous gastritis in the past. We will continue to closely follow up her care and suggest further management based on the clinical course. Alayna Kang MD
[2017-05-18] MEDS: Megestrol Acetate 40 mg/ml Cup PO SCH (11:00)
--- NOTE | 2017-05-18 14:02 | RAD ---
HISTORY: Compare to see improvement of CHF and Pl,Effusions COMPARISON: 05/12/2017 TECHNIQUE: Chest PA and lateral FINDINGS: LUNGS: There is improvement in the pattern of bilateral alveolar infiltrates and pleural effusions. The upper lobes are now well aerated PLEURA: No significant pleural effusion identified. No pneumothorax apparent. CARDIOVASCULAR: Normal. OSSEOUS STRUCTURES: No significant abnormalities. VISUALIZED UPPER ABDOMEN: Normal. OTHER FINDINGS: None. IMPRESSION: There is improvement in the pattern of bilateral alveolar infiltrates and pleural effusions. The upper lobes are now well aerated
--- NOTE | 2017-05-18 14:06 | PN ---
DATE: 05/18/2017 LOCATION: The patient is in room 562, bed 2. REASON FOR CONSULTATION AND FOLLOWUP: Shortness of breath, CHF, pleural effusion, coronary artery disease, dementia, hypertension, renal insufficiency, and anemia. SUBJECTIVE: The patient is breathing much better. Denies chest pain or palpitation. Breathing has improved. Swelling of legs has improved. PHYSICAL EXAMINATION: VITAL SIGNS: Blood pressure 117/61, respirations 19, pulse 83, and temperature afebrile. HEENT: Head is normocephalic. Eyes: Pupils are normal. Conjunctivae are pale. NECK: JVP low. Carotids are equal. THORAX: AP diameter normal. LUNGS: Diminished breath sounds in the lung bases. CARDIOVASCULAR: S1 and S2. ABDOMEN: Soft. No tenderness. No organomegaly. EXTREMITIES: No clubbing. No cyanosis. LABORATORY DATA: WBC 9.4, hemoglobin 8.8, hematocrit 29.3, platelets 206. Sodium 148, potassium 3.8, BUN 35, creatinine 1.0. AST 65, ALT 155. Total protein and albumin normal. DIAGNOSES: Bilateral pleural effusion; congestive heart failure; left ventricular systolic dysfunction; non-ST elevation myocardial infarction; abnormal liver function test, probably related to passive hepatic congestion; anemia; hypothermia on admission which has improved; dementia; history of hypertension; renal dysfunction; history of coronary artery disease; history of stent insertion in the past. PLAN: We will repeat chest x-ray today to see the improvement of pleural effusion and congestive heart failure. The patient is getting aspirin 81 mg daily, isosorbide mononitrate 30 daily, potassium 20 daily, furosemide 20 IV daily, metoprolol 25 b.i.d., Megace 400 mg p.o. daily, amlodipine 5 mg daily, Protonix 40 daily. The patient is not a candidate for any invasive therapy at this moment like cardiac catheterization because of other comorbidities with anemia, renal dysfunction, dementia, and the patient does not have complaint of any chest pain. We will continue medical therapy and we will follow. Heather Frank MD
--- NOTE | 2017-05-18 21:37 | PN ---
DATE: SUBJECTIVE: The patient is 86-year-old seen and examined, seems to be doing little better. Temperature has improved. She ate somewhat better according to daughter, who is by the bedside. PHYSICAL EXAMINATION: VITAL SIGNS: She is afebrile, pulse 63, respirations 20 and blood pressure 100/40. LUNGS: Bilateral fair airflow. No rhonchi or crackles. Soft crackle at bases only. HEART: S1 and S2 audible. ABDOMEN: Soft. Nontender. No rebound. No guarding. NEUROLOGIC: She is awake, alert, oriented and communicative. LABORATORY DATA: Blood sugar is 212. She had a x-ray of the chest done yesterday that shows improvement in the pattern of bilateral alveolar infiltrate and pleural effusion. Upper lobes are . ASSESSMENT: 1. Bilateral pneumonia. 2. Congestive heart failure. 3. Poor oral intake. 4. Peptic ulcer disease. 5. Hypothermia. 6. Hypertension. PLAN: We will request for TCU evaluation, if she is accepted can be transferred to TCU for rehab and . Rk Otero MD
[2017-05-19] MEDS: Albuterol-Ipratrop 3 mg / 0.5 (3 ml) UD IH SCH ×4 (02:14→21:10)
[2017-05-19] MEDS: Potassium Chloride 20 mEq ER Tab PO SCH (08:43)
[2017-05-19] MEDS: Megestrol Acetate 40 mg/ml Cup PO SCH (09:23)
--- NOTE | 2017-05-19 12:35 | CP.PCM.PN ---
<Teetee Palomares - Last Filed: 05/19/17 12:31> Subjective - Date & Time of Evaluation Date of Evaluation: 05/19/17 Time of Evaluation: 10:20 - Subjective Subjective: S&E at bedside chart reviewed, no acute overnight events, reported. Daughters/ family at bedside, patient denies, N/V or abdominal pain, as per daughter, appetite fluctuates, some meals she eat more or less. No diarrhea or bleeding reported. Objective - Vital Signs/Intake and Output Vital Signs (last 24 hours): Temp Pulse Resp BP Pulse Ox 98.0 F 83 18 126/63 92 L 05/19/17 07:30 05/19/17 09:23 05/19/17 07:30 05/19/17 09:23 05/19/17 07:30 Intake and Output: 05/19/17 05/19/17 06:59 18:59 Intake Total 120 Balance 120 - Medications Medications: Current Medications Acetaminophen (Tylenol 325mg Tab) 650 mg PO Q6H PRN PRN Reason: Fever >100.4 F Albuterol/Ipratropium (Duoneb 3 Mg/0.5 Mg (3 Ml) Ud) 3 ml IH Q2H PRN PRN Reason: Shortness of Breath Last Admin: 05/17/17 23:15 Dose: 3 ml Albuterol/Ipratropium (Duoneb 3 Mg/0.5 Mg (3 Ml) Ud) 3 ml IH [id number] [facility] Last Admin: 05/19/17 07:40 Dose: 3 ml Amlodipine Besylate (Norvasc) 5 mg PO DAILY [facility] Last Admin: 05/19/17 09:23 Dose: 5 mg Aspirin (Ecotrin) 81 mg PO DAILY [facility] Last Admin: 05/19/17 09:22 Dose: 81 mg Furosemide (Lasix) 20 mg IVP DAILY [facility] Last Admin: 05/19/17 09:23 Dose: 20 mg Isosorbide Mononitrate (Imdur Er) 30 mg PO DAILY [facility] Last Admin: 05/19/17 09:24 Dose: 30 mg Megestrol Acetate (Megace) 400 mg PO DAILY [facility] Last Admin: 05/19/17 09:23 Dose: 400 mg Metoprolol Tartrate (Lopressor) 25 mg PO BID [facility] Last Admin: 05/19/17 09:22 Dose: 25 mg Ondansetron HCl (Zofran Inj) 4 mg IVP Q6H PRN PRN Reason: Nausea/Vomiting Pantoprazole Sodium (Protonix Inj) 40 mg IVP DAILY [facility] Last Admin: 05/19/17 09:23 Dose: 40 mg Potassium Chloride (K-Dur 20 Meq Er Tab) 20 meq PO BRK [facility] Last Admin: 05/19/17 08:43 Dose: 20 meq - Labs Labs: 05/17/17 07:00 05/17/17 07:00 PT 13.6 SECONDS (9.4-12.5) H 05/12/17 19:38 INR 1.19 (0.93-1.08) H 05/12/17 19:38 APTT 27.4 Seconds (25.1-36.5) 05/12/17 19:38 - Constitutional Appears: No Acute Distress - Eye Exam Eye Exam: Normal appearance. absent: Scleral icterus - ENT Exam ENT Exam: Mucous Membranes Moist - Respiratory Exam Respiratory Exam: NORMAL BREATHING PATTERN. absent: Respiratory Distress - Cardiovascular Exam Cardiovascular Exam: +S1, +S2 - GI/Abdominal Exam GI & Abdominal Exam: Soft, Normal Bowel Sounds. absent: Guarding, Tenderness, Organomegaly, Rebound - Extremities Exam Extremities Exam: absent: Calf Tenderness, Pedal Edema - Neurological Exam Neurological Exam: Alert, Awake, Oriented x3 - Skin Skin Exam: Dry, Warm Assessment and Plan - Assessment and Plan (Free Text) Assessment: ASSESSMENT: CHF Pneumonia Hypothermia H/O Emphysematous gastritis Large vental hernia Anemia Poor appetitite H/O Bilateral Pleural Effusion PLAN: continue Puree diet monitor H/H, overt GI bleeding continue PPI on Megace DVT prophylaxsis on IV antibiotics not a candidate for endoscopic PEG, secondary emphysematic gastritis/gastric ulcer Seen and discussed w/ Dr. Kang <Alayna Kang V - Last Filed: 05/19/17 23:51> Objective - Vital Signs/Intake and Output Vital Signs (last 24 hours): Temp Pulse Resp BP Pulse Ox 98 F 78 18 120/80 98 05/19/17 16:00 05/19/17 17:26 05/19/17 16:00 05/19/17 17:26 05/19/17 16:00 Intake and Output: 05/19/17 05/20/17 18:59 06:59 Intake Total 480 360 Balance 480 360 - Medications Medications: Current Medications Acetaminophen (Tylenol 325mg Tab) 650 mg PO Q6H PRN PRN Reason: Fever >100.4 F Albuterol/Ipratropium (Duoneb 3 Mg/0.5 Mg (3 Ml) Ud) 3 ml IH Q2H PRN PRN Reason: Shortness of Breath Last Admin: 05/17/17 23:15 Dose: 3 ml Albuterol/Ipratropium (Duoneb 3 Mg/0.5 Mg (3 Ml) Ud) 3 ml IH [id number] [facility] Last Admin: 05/19/17 21:10 Dose: 3 ml Amlodipine Besylate (Norvasc) 5 mg PO DAILY [facility] Last Admin: 05/19/17 09:23 Dose: 5 mg Aspirin (Ecotrin) 81 mg PO DAILY [facility] Last Admin: 05/19/17 09:22 Dose: 81 mg Furosemide (Lasix) 20 mg IVP DAILY [facility] Last Admin: 05/19/17 09:23 Dose: 20 mg Isosorbide Mononitrate (Imdur Er) 30 mg PO DAILY [facility] Last Admin: 05/19/17 09:24 Dose: 30 mg Megestrol Acetate (Megace) 400 mg PO DAILY [facility] Last Admin: 05/19/17 09:23 Dose: 400 mg Metoprolol Tartrate (Lopressor) 25 mg PO BID [facility] Last Admin: 05/19/17 17:26 Dose: 25 mg Ondansetron HCl (Zofran Inj) 4 mg IVP Q6H PRN PRN Reason: Nausea/Vomiting Pantoprazole Sodium (Protonix Inj) 40 mg IVP DAILY [facility] Last Admin: 05/19/17 09:23 Dose: 40 mg Potassium Chloride (K-Dur 20 Meq Er Tab) 20 meq PO BRK [facility] Last Admin: 05/19/17 08:43 Dose: 20 meq - Labs Labs: 05/17/17 07:00 05/17/17 07:00 PT 13.6 SECONDS (9.4-12.5) H 05/12/17 19:38 INR 1.19 (0.93-1.08) H 05/12/17 19:38 APTT 27.4 Seconds (25.1-36.5) 05/12/17 19:38 Attending/Attestation - Attestation I have personally seen and examined this patient.: Yes I have fully participated in the care of the patient.: Yes I have reviewed all pertinent clinical information, including history, physical exam and plan: Yes Notes (Text): This is an addendum to GI progress report dictated by Teetee Palomares APN.The patient was seen and examined earlier. Medical records, lab studies, imagings were reviewed. Last 24 hours events reviewed. Agreed with the above treatment plan as outlined in Teetee Palomares APN's notes the with the addition of the following 05/19/17 23:51
--- NOTE | 2017-05-19 13:12 | PN ---
DATE: 05/19/2017 REASON FOR CONSULTATION AND FOLLOWUP: Shortness of breath, CHF, pleural effusion, coronary artery disease, dementia, hypertension, renal insufficiency, anemia. SUBJECTIVE: Patient denies any chest pain. Complained of shortness of breath, but she has improved, much better leg swelling, also feels better. OBJECTIVE: GENERAL: Not in apparent distress, sitting at the bedside. Having the breakfast. VITAL SIGNS: Temperature afebrile, heart rate 80 and blood pressure 126/60. HEENT: PERRLA. Extraocular muscles intact. NECK: Supple. No carotid bruits or thyromegaly. CHEST: Clear to auscultation. HEART: S1 and S2, regular. ABDOMEN: Soft. EXTREMITIES: Clubbing, cyanosis negative. LABORATORY DATA: Blood workup as follows, WBC 9.5, hemoglobin 8.8, hematocrit 29.3, platelet count 206. Chemistry shows sodium 140, potassium 3.8, chloride of 104, carbon dioxide 33, anion gap of 15, BUN 35, creatinine 1.0. Total protein 7.1, albumin 3.3 and albumin/globulin ratio of 0.9. IMPRESSION: Bilateral pleural effusion, congestive heart failure, left ventricular systolic dysfunction. Abnormal liver function test secondary to passive congestion, anemia, hypothermia, failure to thrive dementia, hypertension, history of coronary artery disease, history of stent in the past. Positive troponin on admission with creatinine clearance 20 mL, not sure is true myocardial infarction versus secondary to renal insufficiency. RECOMMENDATION: Continue medical treatment. No anginal symptoms. Continue Imdur. Continue aspirin. Continue gentle diuretics. Monitor electrolytes. Continue beta-david. Avoid nephrotoxic medication. We will follow with you. Repeat the lab in the morning. Thank you Dr. Otero for providing me the opportunity in taking care of the patient, Fabian Downs. Heather Ac MD
--- NOTE | 2017-05-19 15:25 | PN ---
DATE: SUBJECTIVE: The patient is 86 years old, seen and examined. Sitting in chair. Seems to be much more comfortable, ate better, talking to her family member. Denies any abdominal pain. No nausea or vomiting. Mild shortness of breath. PHYSICAL EXAMINATION: VITAL SIGNS: The patient is afebrile. Pulse 83, respirations 18, and blood pressure . LUNGS: Bilateral fair airflow. Few soft crackles at bases. HEART: S1 and S2 audible. ABDOMEN: Soft and nontender. No rebound. No guarding. NEUROLOGIC: The patient is awake, alert, oriented, and communicative. LABORATORY DATA: X-ray chest shows improvement in pattern of bilateral alveolar infiltrate. ASSESSMENT: 1. Resolving bilateral pneumonia. 2. Congestive heart failure, improving. 3. Peptic ulcer disease. 4. Poor oral intake. 5. Deconditioning and difficulty walking. PLAN: The patient is not a candidate for TCU insurance reason, she will be referred to [facility] and if acceptable, will be transferred to [facility]. Follow up the patient in a.m. Rk Otero MD
[2017-05-20] MEDS: Albuterol-Ipratrop 3 mg / 0.5 (3 ml) UD IH SCH ×4 (03:05→21:10)
[2017-05-20 07:12] LABS: BASO # 0.01 K/mm3 (0.0-2.0); BASO % 0.2 % (0.0-3.0); EOS % 0.5 % (1.5-5.0); GRAN % 75.1 % (50.0-68.0); HEMOGLOBIN 8.2 g/dL (12.0-16.0); LYMPH # 1.1 (1.2-3.4); LYMPH % 16.7 % (22.0-35.0); MEAN CORPUSCULAR HGB CONC 30.3 g/dl (31.0-37.0); MEAN PLATELET VOLUME 11.6 fl (7.0-11.0); MONO # 0.5 (0.1-0.6); MONO % 7.5 % (1.0-6.0); RBC 3.15 10^6/uL (3.5-6.1); RED CELL DISTRIBUTION WIDTH 19.3 % (11.5-14.5); WHITE BLOOD COUNT 6.7 10^3/ul (4.5-11.0)
[2017-05-20 07:47] LABS: ALB/GLOB RATIO 0.9 (1.1-1.8); ALBUMIN 2.9 g/dL (3.0-4.8); ALT/SGPT 108 U/L (7-56); AST/SGOT 58 U/L (14-36); BLOOD UREA NITROGEN 25 mg/dL (7-21); CALCIUM 9.7 mg/dL (8.4-10.5); GFR AFRICAN-AMERICAN > 60; GFR NON-AFRICAN AMERICAN 59; MAGNESIUM 1.9 mg/dL (1.7-2.2)
[2017-05-20] MEDS: Albuterol-Ipratrop 3 mg / 0.5 (3 ml) UD IH PRN (11:58)
[2017-05-20] MEDS: Potassium Chloride 20 mEq ER Tab PO SCH (12:01)
[2017-05-20] MEDS: Megestrol Acetate 40 mg/ml Cup PO SCH (12:02)
--- NOTE | 2017-05-20 12:51 | CP.PCM.PN ---
<Teetee Palomares - Last Filed: 05/20/17 13:56> Subjective - Date & Time of Evaluation Date of Evaluation: 05/20/17 Time of Evaluation: 12:46 - Subjective Subjective: S&E at bedside, chart reviewed, patient c/o SOB have facemask O2. Family at bedside, no N/V or abdominal pain. Patient complain of "hot" legs, as per family , cool compress applied with relief. No appetite today. Objective - Vital Signs/Intake and Output Vital Signs (last 24 hours): Temp Pulse Resp BP Pulse Ox 97.8 F 74 18 124/60 96 05/20/17 07:47 05/20/17 12:02 05/20/17 07:47 05/20/17 12:02 05/20/17 07:47 Intake and Output: 05/20/17 05/20/17 06:59 18:59 Intake Total 360 Balance 360 - Medications Medications: Current Medications Acetaminophen (Tylenol 325mg Tab) 650 mg PO Q6H PRN PRN Reason: Fever >100.4 F Albuterol/Ipratropium (Duoneb 3 Mg/0.5 Mg (3 Ml) Ud) 3 ml IH Q2H PRN PRN Reason: Shortness of Breath Last Admin: 05/20/17 11:58 Dose: 3 ml Albuterol/Ipratropium (Duoneb 3 Mg/0.5 Mg (3 Ml) Ud) 3 ml IH [id number] [facility] Last Admin: 05/20/17 07:48 Dose: 3 ml Amlodipine Besylate (Norvasc) 5 mg PO DAILY [facility] Last Admin: 05/20/17 12:01 Dose: 5 mg Aspirin (Ecotrin) 81 mg PO DAILY [facility] Last Admin: 05/20/17 12:02 Dose: 81 mg Furosemide (Lasix) 20 mg IVP DAILY [facility] Last Admin: 05/20/17 12:00 Dose: 20 mg Isosorbide Mononitrate (Imdur Er) 30 mg PO DAILY [facility] Last Admin: 05/20/17 12:01 Dose: 30 mg Megestrol Acetate (Megace) 400 mg PO DAILY [facility] Last Admin: 05/20/17 12:02 Dose: 400 mg Metoprolol Tartrate (Lopressor) 25 mg PO BID [facility] Last Admin: 05/20/17 12:02 Dose: 25 mg Ondansetron HCl (Zofran Inj) 4 mg IVP Q6H PRN PRN Reason: Nausea/Vomiting Pantoprazole Sodium (Protonix Ec Tab) 40 mg PO ACB [facility] Potassium Chloride (K-Dur 20 Meq Er Tab) 20 meq PO BRK [facility] Last Admin: 05/20/17 12:01 Dose: 20 meq - Labs Labs: 05/20/17 06:30 05/20/17 06:30 PT 13.6 SECONDS (9.4-12.5) H 05/12/17 19:38 INR 1.19 (0.93-1.08) H 05/12/17 19:38 APTT 27.4 Seconds (25.1-36.5) 05/12/17 19:38 - Constitutional Appears: No Acute Distress - Eye Exam Eye Exam: Normal appearance - ENT Exam ENT Exam: Mucous Membranes Moist - Respiratory Exam Respiratory Exam: Decreased Breath Sounds. absent: Respiratory Distress - Cardiovascular Exam Cardiovascular Exam: +S1, +S2 - GI/Abdominal Exam GI & Abdominal Exam: Soft, Normal Bowel Sounds. absent: Guarding, Tenderness, Rebound - Extremities Exam Extremities Exam: absent: Calf Tenderness - Neurological Exam Neurological Exam: Alert, Awake - Skin Skin Exam: Dry, Warm Assessment and Plan - Assessment and Plan (Free Text) Assessment: ASSESSMENT: CHF Pneumonia Hypothermia H/O Emphysematous gastritis Large vental hernia Anemia Poor appetitite H/O Bilateral Pleural Effusion PLAN: continue Puree diet monitor H/H, overt GI bleeding continue PPI on Megace DVT prophylaxsis on IV antibiotics lower ext doppler not a candidate for endoscopic PEG, secondary emphysematic gastritis/gastric ulcer Seen and discussed w/ Dr. Kang <Alayna Kang V - Last Filed: 05/20/17 23:39> Objective - Vital Signs/Intake and Output Vital Signs (last 24 hours): Temp Pulse Resp BP Pulse Ox 97.8 F 72 18 117/75 96 05/20/17 07:47 05/20/17 18:58 05/20/17 07:47 05/20/17 18:58 05/20/17 07:47 Intake and Output: 05/20/17 05/21/17 18:59 06:59 Intake Total 720 Balance 720 - Medications Medications: Current Medications Acetaminophen (Tylenol 325mg Tab) 650 mg PO Q6H PRN PRN Reason: Fever >100.4 F Albuterol/Ipratropium (Duoneb 3 Mg/0.5 Mg (3 Ml) Ud) 3 ml IH Q2H PRN PRN Reason: Shortness of Breath Last Admin: 05/20/17 11:58 Dose: 3 ml Albuterol/Ipratropium (Duoneb 3 Mg/0.5 Mg (3 Ml) Ud) 3 ml IH [id number] [facility] Last Admin: 05/20/17 21:10 Dose: 3 ml Amlodipine Besylate (Norvasc) 5 mg PO DAILY [facility] Last Admin: 05/20/17 12:01 Dose: 5 mg Aspirin (Ecotrin) 81 mg PO DAILY [facility] Last Admin: 05/20/17 12:02 Dose: 81 mg Furosemide (Lasix) 40 mg IVP DAILY [facility] Isosorbide Mononitrate (Imdur Er) 30 mg PO DAILY [facility] Last Admin: 05/20/17 12:01 Dose: 30 mg Megestrol Acetate (Megace) 400 mg PO DAILY [facility] Last Admin: 05/20/17 12:02 Dose: 400 mg Metoprolol Tartrate (Lopressor) 25 mg PO BID [facility] Last Admin: 05/20/17 18:58 Dose: 25 mg Ondansetron HCl (Zofran Inj) 4 mg IVP Q6H PRN PRN Reason: Nausea/Vomiting Pantoprazole Sodium (Protonix Ec Tab) 40 mg PO ACB [facility] Potassium Chloride (K-Dur 20 Meq Er Tab) 20 meq PO BRK [facility] Last Admin: 05/20/17 12:01 Dose: 20 meq - Labs Labs: 05/20/17 06:30 05/20/17 06:30 PT 13.6 SECONDS (9.4-12.5) H 05/12/17 19:38 INR 1.19 (0.93-1.08) H 05/12/17 19:38 APTT 27.4 Seconds (25.1-36.5) 05/12/17 19:38 Attending/Attestation - Attestation I have personally seen and examined this patient.: Yes I have fully participated in the care of the patient.: Yes I have reviewed all pertinent clinical information, including history, physical exam and plan: Yes Notes (Text): This is an addendum to GI progress report dictated by Teetee Palomares APN.The patient was seen and examined earlier. Medical records, lab studies, imagings were reviewed. Last 24 hours events reviewed. Agreed with the above treatment plan as outlined in Teetee Palmoares APN's notes the with the addition of the following 05/20/17 23:39
--- NOTE | 2017-05-20 14:55 | RAD ---
HISTORY: shortness of breath COMPARISON: 05/18/2017 FINDINGS: LUNGS: There is no significant interval change in confluent airspace disease in both lower lobes. There is mild pulmonary venous congestion. PLEURA: There are moderate pleural effusions, no pneumothorax apparent. CARDIOVASCULAR: Normal. OSSEOUS STRUCTURES: No significant abnormalities. VISUALIZED UPPER ABDOMEN: Normal. OTHER FINDINGS: None. IMPRESSION: Findings are most compatible with congestive heart failure. Airspace disease in the lower lobes could represent compressive atelectasis however superimposed pneumonia cannot be excluded. Follow-up is advised.
--- NOTE | 2017-05-21 00:01 | PN ---
DATE: 05/20/2017 LOCATION: Patient is in room 562, bed 2. REASON FOR CONSULTATION AND FOLLOWUP: Shortness of breath, CHF, pleural effusion, coronary artery disease, dementia, hypertension, renal insufficiency, anemia. SUBJECTIVE: Patient denies any chest pain, denies any palpitation. Shortness of breath and swelling of legs has improved, still at times complains some shortness of breath. PHYSICAL EXAMINATION: VITAL SIGNS: Blood pressure 124/60, respirations 18, pulse 74, and temperature 97.8. HEENT: Head is normocephalic. Eyes: Pupils are normal. Conjunctivae slightly pale. NECK: JVP low. Carotids are equal. THORAX: AP diameter normal. LUNGS: Diminished breath sounds in the lung bases. CARDIOVASCULAR: S1 and S2. ABDOMEN: Soft. No tenderness. No organomegaly. EXTREMITIES: Edema of legs has improved. No clubbing, no cyanosis. LABORATORY DATA: WBC 6.7, hemoglobin 8.2, hematocrit 27.1, platelets 160. Sodium 143, potassium 4.0, BUN 25, creatinine 0.9, calcium 9.7, phosphorous 3.0, magnesium 1.9. AST 58, ALT 108. DIAGNOSES: Bilateral ; congestive heart failure; left ventricular systolic dysfunction; abnormal liver function test, probably secondary to passive hepatic congestion; anemia; hypothermia on admission, which has improved; dementia; failure to thrive; hypertension; history of coronary artery disease; history of stent insertion in the past. Initial troponin positive on admission, which can be due to a non-ST elevation myocardial infarction or secondary to renal insufficiency as false elevation. PLAN: Patient on DuoNeb hand nebulizer therapy, aspirin 81 daily, isosorbide 30 daily, potassium 20 daily, furosemide 40 IV daily, metoprolol tartrate 25 b.i.d., magnesium oxide 400 mg p.o. daily, amlodipine 5 mg daily. We will follow with you. Heather Frank MD
--- NOTE | 2017-05-21 00:20 | PN ---
DATE: SUBJECTIVE: The patient is an 86-year-old, seen and examined, seem to be short of breath, looks pale, did not eat well, on 5 L Venti mask and saturating 95%. PHYSICAL EXAMINATION: VITAL SIGNS: She is afebrile, pulse 74, respirations 18, and blood pressure 124/60. LUNGS: Bilateral fair airflow. No rhonchi or crackle. She has decreased breath sounds on the bases, left more than the right. HEART: S1 and S2 audible. ABDOMEN: Soft and nontender. No rebound. No guarding. LABORATORY DATA: WBC 6.7, hemoglobin 8.2, hematocrit 27, and platelets of 160. Chemistry: Sodium 143, potassium 4.0, chloride 106, CO2 30, BUN 25, creatinine 0.9, and blood sugar of 59. AST 58 and ALT 108. She had x-ray of the chest done that shows congestive heart failure, air space disease in the lower lobes, could represent compressive atelectasis; however, superimposed pneumonia cannot be ruled out. Bilateral leg Doppler, no sonographic evidence of DVT. ASSESSMENT: 1. Bilateral pneumonia. 2. Congestive heart failure, [id number]. 3. Coronary artery disease. PLAN: We will put the patient on Lasix on a regular basis and monitor her electrolytes. Extra dose of Lasix has been given. Continue nebulizer treatment. We will reevaluate the patient in a.m. Rk Otero MD
[2017-05-21 06:58] LABS: BASO # 0.01 K/mm3 (0.0-2.0); BASO % 0.2 % (0.0-3.0); EOS % 0.7 % (1.5-5.0); GRAN # 4.06 (1.4-6.5); GRAN % 70.4 % (50.0-68.0); HEMOGLOBIN 9.2 g/dL (12.0-16.0); LYMPH # 1.3 (1.2-3.4); LYMPH % 22.6 % (22.0-35.0); MEAN CELL VOLUME 86.4 fl (80.0-105.0); MEAN CORPUSCULAR HGB CONC 30.1 g/dl (31.0-37.0); MEAN PLATELET VOLUME 11.5 fl (7.0-11.0); MONO # 0.4 (0.1-0.6); MONO % 6.1 % (1.0-6.0); RBC 3.54 10^6/uL (3.5-6.1); RED CELL DISTRIBUTION WIDTH 19.3 % (11.5-14.5); WHITE BLOOD COUNT 5.8 10^3/ul (4.5-11.0)
[2017-05-21] MEDS: Albuterol-Ipratrop 3 mg / 0.5 (3 ml) UD IH SCH ×3 (07:23→19:38)
[2017-05-21 07:31] LABS: ALB/GLOB RATIO 0.9 (1.1-1.8); ALBUMIN 3.3 g/dL (3.0-4.8); ALT/SGPT 109 U/L (7-56); AST/SGOT 59 U/L (14-36); BLOOD UREA NITROGEN 23 mg/dL (7-21); CALCIUM 10.1 mg/dL (8.4-10.5); GFR AFRICAN-AMERICAN > 60; GFR NON-AFRICAN AMERICAN 59
[2017-05-21] MEDS: Potassium Chloride 20 mEq ER Tab PO SCH (07:36)
[2017-05-21] MEDS: Pantoprazole 40 mg EC Tab PO SCH (07:36)
--- NOTE | 2017-05-21 08:41 | PN ---
DATE: 05/21/2017 LOCATION: The patient in room 562, bed 2. REASON FOR CONSULTATION AND FOLLOWUP: Shortness of breath, CHF, pleural effusion, coronary artery disease, history of stent insertion, dementia, hypertension, renal insufficiency, anemia. SUBJECTIVE: The patient is sitting in chair. Denies chest pain, denies palpitation. The patient's breathing is also much better as compared to before. Also, edema of legs has improved. PHYSICAL EXAMINATION: VITAL SIGNS: Blood pressure 118/68, respirations 18, pulse 62, temperature 97.8. HEENT: Head is normocephalic. Eyes: Pupils normal. Conjunctivae slightly pale. NECK: JVP low. Carotids equal. THORAX: AP diameter normal. LUNGS: The patient had diminished breath sounds in the bases before, but the lung sounds have improved in the lung bases. CARDIOVASCULAR: S1 and S2. ABDOMEN: Soft. No tenderness. No organomegaly. EXTREMITIES: No clubbing. No cyanosis. LABORATORY DATA: WBC 5.8, hemoglobin 9.2, hematocrit 30.6, platelets 197. Sodium 146, potassium 4.0, BUN 23, creatinine 0.9, AST 59, ALT 109. Total protein 7.0, albumin 3.3. DIAGNOSES: Bilateral pleural effusion; congestive heart failure; left ventricular systolic dysfunction; coronary artery disease; history of stent insertion; abnormal liver function, possibly secondary to passive hepatic congestion; anemia; hypothermia on admission, which had already improved; dementia; failure to thrive; hypertension; history of coronary artery disease; history of stent insertion in the past. Initial troponin positive. It can be [id number] myocardial infarction versus false elevation secondary to renal dysfunction. PLAN: The patient is not a candidate for cardiac catheterization, dementia, renal dysfunction or other comorbidities. The patient was on hospice at home and the family canceled the hospice and the patient was brought to hospital. Clinically, the patient has improved. Edema of legs has improved. Breath sounds on lung bases which were decreased before have also improved. So we will continue to treat the patient medically. The patient has no chest pain. The patient is getting DuoNeb hand nebulizer therapy, aspirin 81 mg daily, isosorbide mononitrate 30 daily, potassium 20 daily, furosemide 40 IV daily, metoprolol 25 b.i.d., Megace 400 mg daily, amlodipine 5 mg daily and we will follow. Heather Frank MD [facility] # [id number]
[2017-05-21] MEDS: Megestrol Acetate 40 mg/ml Cup PO SCH (10:18)
--- NOTE | 2017-05-21 18:06 | CP.PCM.PN ---
<Teetee Palomares - Last Filed: 05/21/17 18:07> Subjective - Date & Time of Evaluation Date of Evaluation: 05/21/17 Time of Evaluation: 10:25 - Subjective Subjective: Seen and examined at the bedside earlier today, chart reviewed. Patient is out of bed sitting in the chair communicating with family. The patient is smiling and no reports of shortness of breath, chest pain nausea, vomiting, or abdominal pain or lower extremity pain. The patient did have a Doppler yesterday and it was negative for DVT. No complaints this morning. Objective - Vital Signs/Intake and Output Vital Signs (last 24 hours): Temp Pulse Resp BP Pulse Ox 97.8 F 62 18 100/55 L 99 05/21/17 07:29 05/21/17 07:29 05/21/17 07:29 05/21/17 17:34 05/21/17 07:29 Intake and Output: 05/21/17 05/21/17 06:59 18:59 Intake Total 600 Balance 600 - Medications Medications: Current Medications Acetaminophen (Tylenol 325mg Tab) 650 mg PO Q6H PRN PRN Reason: Fever >100.4 F Albuterol/Ipratropium (Duoneb 3 Mg/0.5 Mg (3 Ml) Ud) 3 ml IH Q2H PRN PRN Reason: Shortness of Breath Last Admin: 05/20/17 11:58 Dose: 3 ml Albuterol/Ipratropium (Duoneb 3 Mg/0.5 Mg (3 Ml) Ud) 3 ml IH [id number] [facility] Last Admin: 05/21/17 13:18 Dose: 3 ml Amlodipine Besylate (Norvasc) 5 mg PO DAILY [facility] Last Admin: 05/21/17 10:19 Dose: 5 mg Aspirin (Ecotrin) 81 mg PO DAILY [facility] Last Admin: 05/21/17 10:18 Dose: 81 mg Furosemide (Lasix) 40 mg IVP DAILY [facility] Last Admin: 05/21/17 10:19 Dose: 40 mg Isosorbide Mononitrate (Imdur Er) 30 mg PO DAILY [facility] Last Admin: 05/21/17 10:18 Dose: 30 mg Megestrol Acetate (Megace) 400 mg PO DAILY [facility] Last Admin: 05/21/17 10:18 Dose: 400 mg Metoprolol Tartrate (Lopressor) 25 mg PO BID [facility] Last Admin: 05/21/17 17:34 Dose: Not Given Ondansetron HCl (Zofran Inj) 4 mg IVP Q6H PRN PRN Reason: Nausea/Vomiting Pantoprazole Sodium (Protonix Ec Tab) 40 mg PO ACB [facility] Last Admin: 05/21/17 07:36 Dose: 40 mg Potassium Chloride (K-Dur 20 Meq Er Tab) 20 meq PO BRK [facility] Last Admin: 05/21/17 07:36 Dose: 20 meq - Labs Labs: 05/21/17 06:20 05/21/17 06:20 PT 13.6 SECONDS (9.4-12.5) H 05/12/17 19:38 INR 1.19 (0.93-1.08) H 05/12/17 19:38 APTT 27.4 Seconds (25.1-36.5) 05/12/17 19:38 - Constitutional Appears: No Acute Distress - Eye Exam Eye Exam: Normal appearance. absent: Scleral icterus - ENT Exam ENT Exam: Mucous Membranes Moist - Neck Exam Neck Exam: Normal Inspection - Respiratory Exam Respiratory Exam: NORMAL BREATHING PATTERN. absent: Respiratory Distress - Cardiovascular Exam Cardiovascular Exam: +S1, +S2 - GI/Abdominal Exam GI & Abdominal Exam: Soft, Normal Bowel Sounds. absent: Guarding, Tenderness, Rebound - Extremities Exam Extremities Exam: absent: Calf Tenderness, Pedal Edema - Neurological Exam Neurological Exam: Alert, Awake, Oriented x3 - Skin Skin Exam: Dry, Warm Assessment and Plan - Assessment and Plan (Free Text) Assessment: ASSESSMENT: CHF Pneumonia Hypothermia H/O Emphysematous gastritis Large vental hernia Anemia Poor appetitite H/O Bilateral Pleural Effusion PLAN: continue Puree diet monitor H/H, overt GI bleeding continue PPI on Megace DVT prophylaxsis OFF antibiotics not a candidate for endoscopic PEG, secondary emphysematic gastritis/gastric ulcer Seen and discussed w/ Dr. Kang <Alayna Kang V - Last Filed: 05/22/17 00:15> Objective - Vital Signs/Intake and Output Vital Signs (last 24 hours): Temp Pulse Resp BP Pulse Ox 98.2 F 63 18 100/55 L 97 05/21/17 16:00 05/21/17 16:00 05/21/17 16:00 05/21/17 17:34 05/21/17 16:00 Intake and Output: 05/21/17 05/22/17 18:59 06:59 Intake Total 600 600 Balance 600 600 - Medications Medications: Current Medications Acetaminophen (Tylenol 325mg Tab) 650 mg PO Q6H PRN PRN Reason: Fever >100.4 F Albuterol/Ipratropium (Duoneb 3 Mg/0.5 Mg (3 Ml) Ud) 3 ml IH Q2H PRN PRN Reason: Shortness of Breath Last Admin: 05/20/17 11:58 Dose: 3 ml Albuterol/Ipratropium (Duoneb 3 Mg/0.5 Mg (3 Ml) Ud) 3 ml IH [id number] [facility] Last Admin: 05/21/17 19:38 Dose: 3 ml Amlodipine Besylate (Norvasc) 5 mg PO DAILY [facility] Last Admin: 05/21/17 10:19 Dose: 5 mg Aspirin (Ecotrin) 81 mg PO DAILY [facility] Last Admin: 05/21/17 10:18 Dose: 81 mg Furosemide (Lasix) 40 mg IVP DAILY [facility] Last Admin: 05/21/17 10:19 Dose: 40 mg Isosorbide Mononitrate (Imdur Er) 30 mg PO DAILY [facility] Last Admin: 05/21/17 10:18 Dose: 30 mg Megestrol Acetate (Megace) 400 mg PO DAILY [facility] Last Admin: 05/21/17 10:18 Dose: 400 mg Metoprolol Tartrate (Lopressor) 25 mg PO BID [facility] Last Admin: 05/21/17 17:34 Dose: Not Given Ondansetron HCl (Zofran Inj) 4 mg IVP Q6H PRN PRN Reason: Nausea/Vomiting Pantoprazole Sodium (Protonix Ec Tab) 40 mg PO ACB [facility] Last Admin: 05/21/17 07:36 Dose: 40 mg Potassium Chloride (K-Dur 20 Meq Er Tab) 20 meq PO BRK [facility] Last Admin: 05/21/17 07:36 Dose: 20 meq - Labs Labs: 05/21/17 06:20 05/21/17 06:20 PT 13.6 SECONDS (9.4-12.5) H 05/12/17 19:38 INR 1.19 (0.93-1.08) H 05/12/17 19:38 APTT 27.4 Seconds (25.1-36.5) 05/12/17 19:38 Attending/Attestation - Attestation I have personally seen and examined this patient.: Yes I have fully participated in the care of the patient.: Yes I have reviewed all pertinent clinical information, including history, physical exam and plan: Yes Notes (Text): This is an addendum to GI progress report dictated by Teetee Palomares APN.The patient was seen and examined earlier. Medical records, lab studies, imagings were reviewed. Last 24 hours events reviewed. Agreed with the above treatment plan as outlined in Teetee Palomares APN's notes the with the addition of the following 05/22/17 00:15
--- NOTE | 2017-05-21 21:19 | PN ---
DATE: SUBJECTIVE: The patient is 86-year- old, seen and examined. Sitting in chair, seems to be comfortable. Did eat better today. Not short of breath. PHYSICAL EXAMINATION: VITAL SIGNS: She is afebrile, pulse 62, respirations 18, blood pressure 105/55. LUNGS: Bilateral fair airflow. Diffusely decreased breath sounds at the bases. HEART: S1 and S2 audible. ABDOMEN: Soft and nontender. No rebound. No guarding. NEUROLOGICAL: She is awake, alert, oriented, able to communicate. EXTREMITIES: Bilateral leg, no edema. LABORATORY DATA: WBC 5.8, hemoglobin 9.2, hematocrit 30.6, platelet count 197. Chemistry: Sodium 146, potassium 4.0, chloride of 102, CO2 is 34, BUN 23, creatinine 0.9, and blood sugar of 113. AST 59, ALT 109. ASSESSMENT AND PLAN: 1. Status post congestive heart failure exacerbation. 2. Bilateral pneumonia. 3. Resolved hypothermia. 4. Cardiomyopathy. 5. History of coronary artery disease. 6. Left ventricular dysfunction. PLAN: We will continue patient on current medical treatment. If she remains stable, family wants her to be discharged home tomorrow. Rk Otero MD
[2017-05-22] MEDS: Albuterol-Ipratrop 3 mg / 0.5 (3 ml) UD IH SCH ×4 (01:27→20:00)
[2017-05-22 07:47] VITALS: O2SAT 93
[2017-05-22] MEDS: Potassium Chloride 20 mEq ER Tab PO SCH (08:16)
[2017-05-22] MEDS: Pantoprazole 40 mg EC Tab PO SCH (08:16)
[2017-05-22] MEDS: Megestrol Acetate 40 mg/ml Cup PO SCH (09:20)
--- NOTE | 2017-05-22 13:22 | PN ---
DATE: ADDENDUM SUBJECTIVE: The patient is 86 years old who was admitted with bilateral pneumoniae and congestive heart failure, has been on IV diuretic, seems to be doing well, but desaturates without oxygen. She desaturates below 90 without oxygen and she seems to be stable with 2 L oxygen and her pulse ox ranges from 92 to 95 and in my opinion, she will benefit from O2 therapy at home. We will maintain her on nebulizer treatment. She will be discharged home on doxycycline, Lasix and nebulizer treatment. Rk Otero MD
[2017-05-22 17:04] VITALS: RESP 20; TEMP 98.2
[2017-05-22 17:11] VITALS: BP 105/66; PULSE 70
--- NOTE | 2017-05-23 07:38 | DS ---
HISTORY OF PRESENT ILLNESS: Patient is an 86-year-old, seen and examined. She came in with hypothermia, shortness of breath. She was found to be in congestive heart failure. She has bilateral pneumonia, has been on IV antibiotics, doing well. Her Lasix was stopped but she became short of breath the next day. Patient seems to be comfortable today. PHYSICAL EXAMINATION: GENERAL: She is awake and alert, able to communicate. VITAL SIGNS: She is afebrile, pulse 58, respirations 18, blood pressure 105/58. LUNGS: Bilateral fair air flow. No rhonchi or crackles. HEART: S1 and S2 audible. ABDOMEN: Soft, nontender. No rebound, no guarding. NEUROLOGICAL: Patient is awake, alert, oriented, communicative, sitting in chair with oxygen on. LABORATORY DATA: There is no new lab available today. Her x-ray shows congestive heart failure and bilateral pneumonia. ASSESSMENT: 1. Resolving pneumonia. 2. Resolving congestive heart failure. 3. Peptic ulcer disease. 4. Generalized weakness. 5. Poor oral intake. PLAN: Patient is being discharged home on Lasix 40 daily, potassium 10 mEq daily and doxycycline 100 mg twice a day for a week, and she has nebulizer machine at home and oxygen being arranged to keep her oxygen above . Rk Otero MD
--- NOTE | 2017-05-25 08:40 | PN ---
DATE: 05/22/2017 REASON FOR CONSULTATION AND FOLLOWUP: Shortness of breath, CHF, pleural effusion, coronary artery disease, history of stent in the past, PTCA, dementia, hypertension, renal insufficiency, anemia. SUBJECTIVE: Patient denies any chest pain, shortness of breath, or any palpitation. OBJECTIVE: GENERAL: Not in apparent distress. VITAL SIGNS: Temperature afebrile, heart rate 50, and blood pressure 105/58. HEENT: PERRLA. Extraocular muscles intact. NECK: Supple. No carotid bruits or thyromegaly. CHEST: Clear to auscultation. HEART: S1 and S2, regular. ABDOMEN: Soft. EXTREMITIES: Clubbing and cyanosis, negative. LABORATORY DATA: Blood workup as follows: WBC 5.8, hemoglobin 9.2, hematocrit 30.6, platelet count 197. Chemistry shows sodium 143, potassium 4, chloride 102, carbon dioxide , anion gap of 14, BUN , creatinine 0.9. IMPRESSION: Bilateral pleural effusion, congestive heart failure, left ventricular systolic dysfunction, coronary artery disease, congestive heart failure secondary to systolic dysfunction, history of percutaneous transluminal coronary angioplasty, abnormal liver function tests probably secondary to passive liver congestion, hypothermia on admission, improved dementia, failure to thrive, hypertension, history of coronary artery disease. Patient's initial troponin positive, possibly secondary to renal insufficiency. 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 Also, BNP was elevated to . Patient is asymptomatic, we will treat her medically. Continue gentle diuretics, continue aspirin, continue isosorbide nitrate, continue metoprolol, amlodipine. We will sign off and glad to follow up p.r.n. Thank you, Dr. Otero, for providing me the opportunity in taking care of the patient, Fabian Downs. Heather Ac MD
== END 2017-05-22 21:20 | disposition home health service (06) | DRG 280 ==
LOC: ED 17:29 → ERH 22:53 → 5RSO 05-13 18:15 → 5RNO 05-14 21:25
PROVIDERS: ADMIT Internal Medicine; ATTEND Internal Medicine
PROC: 3E0F7GC Introduction of Other Therapeutic Substance into Respiratory Tract, Via Natural or Artificial Opening (ICD-10-PCS; principal; 2017-05-13)
DX: I21.4 Non-ST elevation (NSTEMI) myocardial infarction (principal); I50.23 Acute on chronic systolic (congestive) heart failure; J18.9 Pneumonia, unspecified organism; E46 Unspecified protein-calorie malnutrition; I13.0 Hypertensive heart and chronic kidney disease with heart failure and stage 1 through stage 4 chronic kidney disease, or unspecified chronic kidney disease; J44.0 Chronic obstructive pulmonary disease with (acute) lower respiratory infection; I42.0 Dilated cardiomyopathy; N18.3 Chronic kidney disease, stage 3 (moderate); K76.1 Chronic passive congestion of liver; E86.0 Dehydration; Z99.81 Dependence on supplemental oxygen; D64.9 Anemia, unspecified; F03.90 Unspecified dementia, unspecified severity, without behavioral disturbance, psychotic disturbance, mood disturbance, and anxiety; I25.10 Atherosclerotic heart disease of native coronary artery without angina pectoris; K29.70 Gastritis, unspecified, without bleeding; Z66 Do not resuscitate; E87.6 Hypokalemia; K43.9 Ventral hernia without obstruction or gangrene; R94.5 Abnormal results of liver function studies; R62.7 Adult failure to thrive; R26.2 Difficulty in walking, not elsewhere classified; K25.9 Gastric ulcer, unspecified as acute or chronic, without hemorrhage or perforation; R09.02 Hypoxemia; Z85.038 Personal history of other malignant neoplasm of large intestine; Z95.5 Presence of coronary angioplasty implant and graft; Z90.49 Acquired absence of other specified parts of digestive tract; Z68.20 Body mass index [BMI] 20.0-20.9, adult

== ENCOUNTER 2017-07-17 12:06 | Inpatient (IN) | payer MEDICAID, MEDICARE ==
[2017-07-17 12:37] VITALS: BMI 25.6
--- NOTE | 2017-07-17 12:45 | ED PDOC ---
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 greater than the left. As per the family and the patient, pt. has been taking off the "water pill" about 2 months now which she has been developing bilateral lower extremity swelling slowly each day with exertional shortness of breath. Pt. stated that the leg swelling been causing her to have bilateral knee pain which she no fall or trauma. Pt. has stockings at home which she doesn't like to put on. Pt. has no palpitation, no chest pain, no dizziness, no change in vision, no rash, no recent traveling, no other medical or psychological complaints. Past Medical History - Provider Review Nursing Documentation Reviewed: Yes - Infectious Disease Hx of Infectious Diseases: None - Tetanus Immunization Tetanus Immunization: Unknown - Cardiac Hx Cardiac Disorders: Yes (CAD) Hx Congestive Heart Failure: Yes Hx Hypertension: Yes - Pulmonary Hx Respiratory Disorders: No - Neurological Hx Neurological Disorder: Yes Hx Paralysis: No - HEENT Hx HEENT Disorder: No - Renal Hx Renal Disorder: No - Endocrine/Metabolic Hx Endocrine Disorders: No - Hematological/Oncological Hx Blood Disorders: Yes Hx Blood Transfusions: Yes Hx Blood Transfusion Reaction: No - Integumentary Hx Dermatological Disorder: No - Musculoskeletal/Rheumatological Hx Musculoskeletal Disorders: No - Gastrointestinal Hx Gastrointestinal Disorders: Yes (Gastritis) - Genitourinary/Gynecological Hx Genitourinary Disorders: No - Psychiatric Hx Psychophysiologic Disorder: No Hx Emotional Abuse: No Hx Physical Abuse: No Hx Substance Use: No - Past Surgical History Past Surgical History: Non-Contributing - Surgical History Hx Cardiac Catheterization: Yes (february) Other/Comment: tumor removal from abdomen - Anesthesia Hx Anesthesia: Yes Hx Anesthesia Reactions: No Hx Malignant Hyperthermia: No - Suicidal Assessment Feels Threatened In Home Enviroment: No Family/Social History - Physician Review Nursing Documentation Reviewed: Yes Family/Social History: Unknown Family HX Smoking Status: Never Smoked Hx Alcohol Use: No Hx Substance Use: No Hx Substance Use Treatment: No Allergies/Home Meds Allergies/Adverse Reactions: Allergies No Known Allergies Allergy (Verified 05/13/17 03:18) Home Medications: Home Meds Medication Instructions Recorded Confirmed Metoprolol Succinate [Toprol XL] 1 tab PO DAILY 07/17/17 07/17/17 Pantoprazole [Protonix EC Tab] 1 tab PO DAILY 07/17/17 07/17/17 amLODIPine [Norvasc] 1 tab PO DAILY 07/17/17 07/17/17 Review of Systems - Review of Systems Constitutional: absent: Fevers Eyes: absent: Vision Changes ENT: absent: Hearing Changes Respiratory: absent: SOB, Cough Cardiovascular: Edema. absent: Chest Pain Gastrointestinal: absent: Abdominal Pain, Nausea, Vomiting Musculoskeletal: Arthralgias. absent: Back Pain Skin: absent: Rash, Pruritis Neurological: absent: Headache, Dizziness Psychiatric: absent: Anxiety, Depression Physical Exam Vital Signs Reviewed: Yes Vital Signs Temp Pulse Resp BP Pulse Ox 07/17/17 12:42 93.5 F L 67 18 119/61 94 L Temperature: Afebrile Blood Pressure: Normal Pulse: Regular Respiratory Rate: Normal Appearance: Positive for: Well-Appearing, Non-Toxic, Comfortable Pain Distress: Mild Mental Status: Positive for: Alert and Oriented X 3 - Systems Exam Head: Present: Atraumatic, Normocephalic Pupils: Present: PERRL Extroacular Muscles: Present: EOMI Conjunctiva: Present: Normal Mouth: Present: Moist Mucous Membranes Neck: Present: Normal Range of Motion Respiratory/Chest: Present: Clear to Auscultation, Good Air Exchange. No: Respiratory Distress, Accessory Muscle Use, Wheezes, Decreased Breath Sounds, Rales, Retracting, Rhonchi, Tachypneic, Tender to Palpation Cardiovascular: Present: Regular Rate and Rhythm, Normal S1, S2, Other (RLE: 3+ pedal edema on the rt. lower extremity extending up to the knee region. LLE: 2 + pedal edema noted on the left lower extremity extending up to the lt. anterior proximal 1/3 biswas region, no cellulitis or streaking, no ulcers. ). No: Murmurs Abdomen: Present: Normal Bowel Sounds. No: Tenderness, Distention, Peritoneal Signs Back: Present: Normal Inspection Upper Extremity: Present: Normal Inspection. No: Cyanosis, Edema Lower Extremity: Present: Normal Inspection, Other (Bilateral knees: no tenderness or deformity, no erythematous, FROM without limitation, sensation intact, motor 5/5, +DPPT pulses, capillary refill< 2 seconds, neurovascular intact. ). No: Edema Neurological: Present: GCS=15, CN II-XII Intact, Speech Normal Skin: Present: Warm, Dry, Normal Color. No: Rashes Psychiatric: Present: Alert, Oriented x 3, Normal Insight, Normal Concentration Medical Decision Making ED Course and Treatment: 07/17/17 12:44 -labs/cardiac enzyme/bnp -Bilateral lower extremities venuous doppler -Chest xray -EKG -IV -Observe and reassess 07/17/17 14:47 -EKG: SR @ 63 BPM, PVC, LBBB with chronic T wave inversion on the I/II/V6, no ST elevation or depression -Chest xray show Bibasilar infiltrates and effusions are seen. Findings have decreased since the prior exam. -Bilateral lower extremities venuous doppler: as per preliminary report, no acute DVT -Labs are non-significant except hgn 8.6 (baseline, chronic), Mg 2.3 and BNP 9730 (IV lasix ordered). -UA is pending -Pt. is hypothermic, bear hugger ordered, clinical suspicious for the pneumonia with prolong QT ekg, IV rocephine ordered -Dr. Otero paged for admission CHF/hypothermia/pedal edema with possible questionable pneumonia 07/17/17 15:15 -I spoke to Dr. Otero, discussed about the labs/radiology result/vital signs, agreed to admit the patient to her service with Dr. Ac on the routine consult. -I discussed with Dr. Santana about the case and suggest to order 325mg aspirin which I added as well, he will put in the admission order. - Lab Interpretations Lab Results: 07/17/17 13:10 07/17/17 13:10 Lab Results 07/17/17 13:10: WBC 4.6 D, RBC 3.53, Hgb 8.6 L, Hct 27.2 L, MCV 77.1 L D, MCH 24.4 L, MCHC 31.6, RDW 18.7 H, Plt Count 126, Gran % 53.2, Lymph % (Auto) 35.4 H , [place] % (Auto) 9.9 H, Eos % (Auto) 1.3 L, Baso % (Auto) 0.2, Gran # 2.42, Lymph # (Auto) 1.6, [place] # (Auto) 0.5, Eos # (Auto) 0.1, Baso # (Auto) 0.01 07/17/17 13:10: Sodium 139, Potassium 4.0, Chloride 103, Carbon Dioxide 27, Anion Gap 13, BUN 22 H, Creatinine 0.8, Est GFR ( Amer) > 60, Est GFR ( Non-Af Amer) > 60, Random Glucose 98, Calcium 10.1, Magnesium 2.3 H, Total Bilirubin 0.9, AST 44 H D, ALT 77 H, Alkaline Phosphatase 218 H D, NT-Pro-B Natriuret Pep 9730 H, Total Protein 7.3, Albumin 3.2, Globulin 4.0, Albumin/ Globulin Ratio 0.8 L I have reviewed the lab results: Yes - RAD Interpretation Radiology Orders: 07/17/17 12:52 CHEST PORTABLE [RAD] Stat DUPLEX LOWER EXTRM VEIN BILAT [US] Stat HISTORY: medical clearance, chf COMPARISON: 05/20/2017 FINDINGS: LUNGS: No active pulmonary disease. PLEURA: Bibasilar infiltrates and effusions are seen. Findings have decreased since the prior exam CARDIOVASCULAR: Mild cardiomegaly OSSEOUS STRUCTURES: No significant abnormalities. VISUALIZED UPPER ABDOMEN: Normal. OTHER FINDINGS: None. IMPRESSION: Bibasilar infiltrates and effusions are seen. Findings have decreased since the prior exam Bilateral lower extremities venuous doppler: as per preliminary report, no acute DVT Auto Body Estimator: Radiologist - EKG Interpretation EKG Interpretation (Text): 07/17/17 15:02 -EKG: SR @ 63 BPM, PVC, LBBB with chronic T wave inversion on the I/II/V6, no ST elevation or depression Interpreted by ED Physician: Yes Type: 12 lead EKG Comparison: Com.w/previous EKG - Medication Orders Current Medication Orders: Discontinued Medications Furosemide (Lasix) 20 mg IVP STAT STA Stop: 07/17/17 14:15 - PA / PATROL JUDGE / Resident Statement MD/DO has reviewed & agrees with the documentation as recorded. Disposition/Present on Arrival - Present on Arrival Any Indicators Present on Arrival: No History of DVT/PE: No History of Uncontrolled Diabetes: No Urinary Catheter: No History of Decub. Ulcer: No History Surgical Site Infection Following: None - Disposition Have Diagnosis and Disposition been Completed?: Yes Diagnosis: Pedal edema, CHF (congestive heart failure), Hypothermia, Pneumonia Disposition: HOSPITALIZED Disposition Time: 15:00 Patient Plan: Admission, Telemetry Patient Problems: Current Active Problems Problem Status Onset CHF (congestive heart failure) Acute Hypothermia Acute Pedal edema Acute Pneumonia Acute Condition: STABLE Discharge Instructions (ExitCare): Heart Failure (ED) Referrals: Rk Otero MD [Primary Care Provider] - Follow up with primary Forms: [employer] (Latvian)
--- NOTE | 2017-07-17 13:30 | RAD ---
HISTORY: medical clearance, chf COMPARISON: 05/20/2017 FINDINGS: LUNGS: No active pulmonary disease. PLEURA: Bibasilar infiltrates and effusions are seen. Findings have decreased since the prior exam CARDIOVASCULAR: Mild cardiomegaly OSSEOUS STRUCTURES: No significant abnormalities. VISUALIZED UPPER ABDOMEN: Normal. OTHER FINDINGS: None. IMPRESSION: Bibasilar infiltrates and effusions are seen. Findings have decreased since the prior exam
[2017-07-17 13:32] LABS: BASO # 0.01 K/mm3 (0.0-2.0); BASO % 0.2 % (0.0-3.0); EOS # 0.1 (0.0-0.7); EOS % 1.3 % (1.5-5.0); GRAN # 2.42 (1.4-6.5); GRAN % 53.2 % (50.0-68.0); HEMOGLOBIN 8.6 g/dL (12.0-16.0); LYMPH # 1.6 (1.2-3.4); LYMPH % 35.4 % (22.0-35.0); MEAN CELL VOLUME 77.1 fl (80.0-105.0); MEAN CORPUSCULAR HEMOGLOBIN 24.4 pg (25.0-35.0); MEAN CORPUSCULAR HGB CONC 31.6 g/dl (31.0-37.0); MONO # 0.5 (0.1-0.6); MONO % 9.9 % (1.0-6.0); RBC 3.53 10^6/uL (3.5-6.1); RED CELL DISTRIBUTION WIDTH 18.7 % (11.5-14.5); WHITE BLOOD COUNT 4.6 10^3/ul (4.5-11.0)
[2017-07-17 13:40] LABS: ALB/GLOB RATIO 0.8 (1.1-1.8); ALBUMIN 3.2 g/dL (3.0-4.8); ALT/SGPT 77 U/L (7-56); AST/SGOT 44 U/L (14-36); BLOOD UREA NITROGEN 22 mg/dL (7-21); CALCIUM 10.1 mg/dL (8.4-10.5); GFR AFRICAN-AMERICAN > 60; GFR NON-AFRICAN AMERICAN > 60
[2017-07-17 13:47] LABS: B-TYPE NATRIURETIC PEPTIDE 9730 pg/mL (0-450)
[2017-07-17 14:47] LABS: PLATELET COUNT 126 10^3/uL (120.0-450.0)
[2017-07-17] MEDS ORDERED: cefTRIAXone 1 gm 1 GM/100 ML BAG IVPB STA (15:12)
[2017-07-17] MEDS: Metoprolol Succinate 25 mg XL Tab PO SCH (17:57)
[2017-07-17] MEDS: Pantoprazole 40 mg EC Tab PO SCH (18:16)
--- NOTE | 2017-07-17 20:19 | CARD ---
APPROVED REPORT EKG Measurement Heart [id number] <Conclusion> Sinus rhythm with occasional premature ventricular complexes Possible Left atrial enlargement Incomplete left bundle branch block Left ventricular hypertrophy T wave abnormality, consider lateral ischemia Prolonged QT Abnormal ECG
[2017-07-17] MEDS ORDERED: Dextrose 5%/0.45% NS 1,000 ML IV SCH (20:45)
--- NOTE | 2017-07-18 00:44 | CON ---
DATE: 07/17/2017LOCATION: The patient is in room 362, bed 2. REASON FOR CONSULTATION: CHF, pleural effusion, hypertension, dementia, coronary artery disease. HISTORY OF PRESENT ILLNESS: An 87-year-old female, brought to the hospital with shortness of breath and found to have congestive heart failure and bilateral pleural effusion. Denies chest pain or palpitation. Patient also noticed slight swelling on the legs. PAST MEDICAL HISTORY: Significant for coronary artery disease, history of stent insertion, history of renal insufficiency, congestive heart failure, pleural effusion, hypertension, dementia, gastritis. Also one time, patient's family had put the patient on hospice at home, but later on, they discontinued the hospice and decided to treat her aggressively. PAST SURGICAL HISTORY: Patient had partial colectomy for colon cancer. ALLERGIES: PATIENT DENIES ANY ALLERGIES. PERSONAL HISTORY: No smoking, no drinking. MEDICATIONS: Patient's home medications included amlodipine one tablet daily, metoprolol succinate, Toprol XL one tablet daily and Protonix one tablet p.o. daily, but patient was supposed to be on diuretics, apparently there is no diuretics on the list. So, there is a question whether the patient was taking proper medication at home. REVIEW OF SYSTEMS: All the systems reviewed, positive mentioned in the history, others were negative. PHYSICAL EXAMINATION: VITAL SIGNS: Blood pressure 101/51, respirations 19, pulse 67, temperature 94.1. HEENT: Head is normocephalic. Eyes, pupils normal. Conjunctivae pale. NECK: JVP low. Carotid equal. Thorax: AP diameter normal. LUNGS: Diminished breath sound in the lung bases. Bibasilar rales also present. CARDIOVASCULAR: S1, S2. No rub. ABDOMEN: Soft. No tenderness. No organomegaly. EXTREMITIES: The patient has mild edema on the lower legs. EKG shows sinus rhythm with occasional PVCs, possible left atrium enlargement, left bundle-branch block. Chest x-ray showed bibasilar infiltrates and effusion and cardiomegaly. Pleural effusions are less as compared to before. DIAGNOSES: Congestive heart failure; bilateral pleural effusions, infiltrates in the lung; coronary artery disease, history of stent insertion, anemia, history of renal dysfunction, history of dementia, history of gastritis and hypertension. The patient had an echocardiogram done on 01/19/2017, showed dilated left ventricle and left ventricular systolic function decrease with left ventricular ejection fraction of 35%, mild left ventricular hypertrophy, moderate aortic regurgitation, moderate mitral regurgitation, [id number] tricuspid regurgitation, right ventricular systolic pressure 46 mmHg suggestive of mild pulmonary hypertension. PLAN: The patient has started Lasix 40 mg IV daily, we will increase this to 40 IV b.i.d. Amlodipine 5 mg daily, Protonix 40 daily, ceftriaxone 1 g was given in the emergency room, metoprolol succinate 25 mg p.o. daily. We will also put lisinopril 2.5 mg p.o. daily. We will monitor intake, output and we will monitor electrolytes. We will follow with you. Heather Frank MD
[2017-07-18 06:36] LABS: BASO # 0.01 K/mm3 (0.0-2.0); BASO % 0.3 % (0.0-3.0); EOS # 0.1 (0.0-0.7); EOS % 1.6 % (1.5-5.0); GRAN # 1.78 (1.4-6.5); HEMOGLOBIN 7.9 g/dL (12.0-16.0); LYMPH # 1.4 (1.2-3.4); LYMPH % 37.7 % (22.0-35.0); MEAN CELL VOLUME 76.8 fl (80.0-105.0); MEAN CORPUSCULAR HEMOGLOBIN 23.8 pg (25.0-35.0); MONO # 0.5 (0.1-0.6); MONO % 12.4 % (1.0-6.0); PLATELET COUNT 128 10^3/uL (120.0-450.0); RBC 3.32 10^6/uL (3.5-6.1); RED CELL DISTRIBUTION WIDTH 18.7 % (11.5-14.5); WHITE BLOOD COUNT 3.7 10^3/ul (4.5-11.0)
[2017-07-18 07:16] LABS: ALB/GLOB RATIO 0.8 (1.1-1.8); ALT/SGPT 75 U/L (7-56); AST/SGOT 43 U/L (14-36); BLOOD UREA NITROGEN 22 mg/dL (7-21); CALCIUM 9.7 mg/dL (8.4-10.5); GFR AFRICAN-AMERICAN > 60; GFR NON-AFRICAN AMERICAN 52
[2017-07-18] MEDS: Levalbuterol 0.63 MG/3 ML Inhal Soln UD IH SCH ×3 (07:37→20:40)
[2017-07-18] MEDS: Metoprolol Succinate 25 mg XL Tab PO SCH (10:15)
[2017-07-18] MEDS: Pantoprazole 40 mg EC Tab PO SCH (10:15)
--- NOTE | 2017-07-18 15:06 | PN ---
DATE: SUBJECTIVE: The patient is 87-year-old, seen and examined, more awake and alert, less shortness of breath, refusing to have blanket on. PHYSICAL EXAMINATION: VITAL SIGNS: She has a temperature of 96.8, pulse 68, respirations 18, blood pressure 110/55. LUNGS: Bilateral good airflow. No rhonchi or crackle. HEART: S1 and S2 audible. ABDOMEN: Soft, nontender. No rebound, no guarding. NEUROLOGIC: She is awake and alert, able to communicate. LABORATORY DATA: WBC is 3.7, hemoglobin 7.9, hematocrit 25, platelet of 128. Chemistry: Sodium 142, potassium 4.2, chloride 105, CO2 of 29, BUN 22, creatinine 1, blood sugar of 99. LFT shows AST 43, ALT 75, alkaline phosphatase is 204. ASSESSMENT: 1. Congestive heart failure. 2. Hypothermia. 3. Symptomatic anemia. 4. Cardiomyopathy. 5. History of carcinoma of the colon, status post partial colectomy. 6. Renal insufficiency. 7. Mild dementia. 8. Gastritis. PLAN: We will advance diet, discontinue IV fluids, continue diuretics. We will transfuse 1 packed RBCs. Continue on Protonix. Out of bed to chair. Rk Otero MD
--- NOTE | 2017-07-18 16:13 | PN ---
DATE: 07/18/2017 REASON FOR CONSULTATION: CHF, pleurisy, hypertension, dementia, coronary artery disease, and hypothermia. SUBJECTIVE: Patient is lying flat in bed and her breathing is better as compared to before. Denies chest pain or palpitation. PHYSICAL EXAMINATION: VITAL SIGNS: Blood pressure 110/55, respirations 18, pulse 67, temperature is 96.8. HEENT: Head is normocephalic. Eyes: Pupils are normal. Conjunctivae pale. NECK: JVP low. Carotids are equal. THORAX: AP diameter normal. LUNGS: Diminished breath sounds in the lung bases with bilateral rales. CARDIOVASCULAR: S1 and S2. No rub. ABDOMEN: Soft and nontender. No organomegaly. EXTREMITIES: Mild edema on the lower legs. LABORATORY DATA: WBC 3.7, hemoglobin 7.9, hematocrit 25.5, platelets 128. Sodium 142, potassium 4.2. BUN 22, creatinine 1. Calcium, magnesium, phosphorus normal. AST 43, ALT 75, alkaline phosphatase 204. Total protein 6.7, albumin 3. DIAGNOSES: Congestive heart failure, bilateral pleural effusion, infiltrate in the lung, coronary artery disease, history of stent insertion, anemia, history of renal dysfunction, history of dementia, gastritis, and hypertension. Patient had an echo on 01/19/2017, showed dilated left ventricle, left ventricular systolic function decreased with left ventricular ejection fraction of 35%, mild left ventricular hypertrophy, moderate aortic regurgitation, moderate mitral regurgitation, [id number] tricuspid regurgitation, right ventricular systolic pressure 46 mmHg suggestive of mild pulmonary hypertension. Hypothermia, anemia. PLAN: Patient is getting Lasix 40 IV b.i.d., amlodipine 5 mg daily, Protonix 40 daily, metoprolol succinate 25 daily, lisinopril 2.5 daily. We will continue present therapy. We will repeat CBC, SMA-7 in a.m., patient may need blood transfusion. We will follow. Heather Frank MD
--- NOTE | 2017-07-19 00:21 | CON ---
DATE: ENDOCRINOLOGY CONSULTATION LOCATION: Room 362. HISTORY OF PRESENT ILLNESS: This is an 87-year-old female with progressive shortness of breath and lower extremity edema, and has been evaluated to be in congestive heart failure, and is being referred now for evaluation of persistent hypothermia as noted. PAST MEDICAL HISTORY As mentioned above, history of coronary artery disease with previous admissions for congestive heart failure and was apparently taken off diuretics therapy a few months ago. History of hypertensive cardiovascular disease and dyslipidemia, history of chronic obstructive lung disease and has been on oxygen therapy at home as noted. There is also history of senile dementia and lapses of confusion and disorientation, history of generalized osteoarthritis with polyarthralgia. FAMILY HISTORY: Positive for hypertension and heart disease. SOCIAL HISTORY: The patient has supportive family. No known substance use. REVIEW OF SYSTEMS: As per the family, she has been noted to have increasing hypersomnolence and lethargy and generalized body weakness with episodic dizziness and lightheadedness. She was also noted to have increasing shortness of breath, initially on exertion and then at rest, with paroxysmal nocturnal dyspnea. Her oral intake is variable with dyspepsia and habitual constipation. No recent alterations of bowel and urinary patterns. She was also noted to have increasing lower extremity swelling and edema from the feet up to the area of the knees as noted. PHYSICAL EXAMINATION: GENERAL: This is an average built female, in no apparent distress. VITAL SIGNS: Blood pressure of 130/80, pulse of 70 beats per minute and regular, temperature 93 to 94 degrees, respirations 20, height is 5 feet 2 inches, weight is 140 pounds. HEENT: Head normocephalic. Eyes anicteric, with pink conjunctivae. Funduscopy not possible at this time. Ears, nose and throat otherwise normal. NECK: Supple. Thyroid gland is normal in size. No carotid bruits or cervical adenopathy. CARDIOPULMONARY: Some adynamic precordium. S1 and S2 is slow and regular. LUNGS: Showed bibasilar rales and scattered rhonchi. ABDOMEN: Flat, soft with positive bowel sounds. EXTREMITIES: There is +2 bipedal edema. Pulses are +2 bilaterally. LABORATORY DATA: Hemoglobin is 7.9, hematocrit of 25, MCV 76, WBC is 3.7, platelets 128. The chemistry showed a BUN of 22, sodium 142, potassium 4.2, chloride 105, CO2 of 29, glucose 99, and creatinine 1. She also has elevated liver transaminases with alkaline phosphatase of 204, AST 43, ALT 75. ASSESSMENT: This is an 87-year-old female with significant cardiac vasculopathy, presenting here with congestive heart failure, noted both historically, clinically and biochemically as noted thereof with concomitant hypothermia and constitutional symptoms thereof. She also has marked anemia possibly of iron deficiency type as noted, with underlying leukopenia. Moreover, she has also elevated liver transaminases most likely related to passive congestion from the underlying congestive heart failure as noted. PLAN OF MANAGEMENT: We will concur with the present cardiac management and hemodynamic monitoring as given. We will also obtain a comprehensive thyroid hormonal profile with a total T4 and TSH, and free T4 level as ordered. We will also obtain a serum cortisol level as ordered. We will obtain serial chemistries and supplement accordingly as needed. It is quite common that with the cardiac compromise and reduced and impaired circulation with concomitant marked anemia, some patients present with moderate hypothermia from very near circulatory collapse and this is really an adaptive mechanism of the thyroid hormonal axis to preserve the circulation by reducing the body temperatures to marked hypothermia thereof. However, we have to exclude any underlying autoimmune endocrinopathy causing either hypothyroidism or hypoadrenalism thereof. We will follow and advice to continue thyroid management. We will obtain serial chemistries and supplement accordingly as needed. We will follow with you. Faye Manjarrez MD
--- NOTE | 2017-07-19 02:57 | CP.PCM.PN ---
Subjective - Date & Time of Evaluation Date of Evaluation: 07/19/17 Time of Evaluation: 02:56 - Subjective Subjective: Patient seen because she had nose bleed. It has stopped. Medical record was reviewed. This 87 year old woman is admitted for pedal edema, CHF, hypothermia,pneumonia , anemia. Has PMH of HTN,CHF,CAD, dementia,home oxygen dependent. Objective - Vital Signs/Intake and Output Vital Signs (last 24 hours): Temp Pulse Resp BP Pulse Ox 97.3 F L 85 18 125/62 95 07/19/17 00:30 07/19/17 02:00 07/19/17 00:30 07/19/17 00:30 07/19/17 00:30 Intake and Output: 07/18/17 07/19/17 18:59 06:59 Intake Total 0 120 Output Total 600 Balance 0 -480 - Medications Medications: Current Medications Amlodipine Besylate (Norvasc) 5 mg PO DAILY REPLACED BY [facility] Last Admin: 07/18/17 10:15 Dose: Not Given Furosemide (Lasix) 40 mg IV BID REPLACED BY [facility] Last Admin: 07/18/17 19:37 Dose: 40 mg Levalbuterol HCl (Xopenex) 0.63 mg IH TIDRESP REPLACED BY [facility] Last Admin: 07/18/17 20:40 Dose: Not Given Lisinopril (Zestril) 2.5 mg PO DAILY REPLACED BY [facility] Last Admin: 07/18/17 10:15 Dose: Not Given Metoprolol Succinate (Toprol Xl) 25 mg PO DAILY REPLACED BY [facility] Last Admin: 07/18/17 10:15 Dose: Not Given Ondansetron HCl (Zofran Inj) 4 mg IVP Q6H PRN PRN Reason: Nausea/Vomiting Last Admin: 07/17/17 21:12 Dose: 4 mg Pantoprazole Sodium (Protonix Ec Tab) 40 mg PO DAILY REPLACED BY [facility] Last Admin: 07/18/17 10:15 Dose: 40 mg - Labs Labs: 07/18/17 06:00 07/18/17 06:00 Most Recent Lab Values WBC 3.7 10^3/ul (4.5-11.0) L 07/18/17 06:00 RBC 3.32 10^6/uL (3.5-6.1) L 07/18/17 06:00 Hgb 7.9 g/dL (12.0-16.0) L 07/18/17 06:00 Hct 25.5 % (36.0-48.0) L 07/18/17 06:00 MCV 76.8 fl (80.0-105.0) L 07/18/17 06:00 MCH 23.8 pg (25.0-35.0) L 07/18/17 06:00 MCHC 31.0 g/dl (31.0-37.0) 07/18/17 06:00 RDW 18.7 % (11.5-14.5) H 07/18/17 06:00 Plt Count 128 10^3/uL (120.0-450.0) 07/18/17 06:00 Gran % 48.0 % (50.0-68.0) L 07/18/17 06:00 Lymph % (Auto) 37.7 % (22.0-35.0) H 07/18/17 06:00 Cowley % (Auto) 12.4 % (1.0-6.0) H 07/18/17 06:00 Eos % (Auto) 1.6 % (1.5-5.0) 07/18/17 06:00 Baso % (Auto) 0.3 % (0.0-3.0) 07/18/17 06:00 Gran # 1.78 (1.4-6.5) 07/18/17 06:00 Lymph # (Auto) 1.4 (1.2-3.4) 07/18/17 06:00 Cowley # (Auto) 0.5 (0.1-0.6) 07/18/17 06:00 Eos # (Auto) 0.1 (0.0-0.7) 07/18/17 06:00 Baso # (Auto) 0.01 K/mm3 (0.0-2.0) 07/18/17 06:00 Sodium 142 mmol/L (132-148) 07/18/17 06:00 Potassium 4.2 mmol/L (3.6-5.0) 07/18/17 06:00 Chloride 105 mmol/L (98-107) 07/18/17 06:00 Carbon Dioxide 29 mmol/L (21-33) 07/18/17 06:00 Anion Gap 12 (10-20) 07/18/17 06:00 BUN 22 mg/dL (7-21) H 07/18/17 06:00 Creatinine 1.0 mg/dl (0.7-1.2) 07/18/17 06:00 Est GFR ( Amer) > 60 07/18/17 06:00 Est GFR (Non-Af Amer) 52 07/18/17 06:00 Random Glucose 99 mg/dL (70-110) 07/18/17 06:00 Calcium 9.7 mg/dL (8.4-10.5) 07/18/17 06:00 Magnesium 2.2 mg/dL (1.7-2.2) 07/18/17 06:00 Total Bilirubin 0.8 mg/dL (0.2-1.3) 07/18/17 06:00 AST 43 U/L (14-36) H 07/18/17 06:00 ALT 75 U/L (7-56) H 07/18/17 06:00 Alkaline Phosphatase 204 U/L (38-126) H 07/18/17 06:00 NT-Pro-B Natriuret Pep 9730 pg/mL (0-450) H 07/17/17 13:10 Total Protein 6.7 g/dL (5.8-8.3) 07/18/17 06:00 Albumin 3.0 g/dL (3.0-4.8) 07/18/17 06:00 Globulin 3.8 gm/dL 07/18/17 06:00 Albumin/Globulin Ratio 0.8 (1.1-1.8) L 07/18/17 06:00 Blood Type A NEGATIVE 07/18/17 10:50 Antibody Screen Negative 07/18/17 10:50 Crossmatch See Detail 07/18/17 10:50 BBK History Checked Patient has bt 07/18/17 10:50 - Constitutional Appears: Well, No Acute Distress - Head Exam Head Exam: ATRAUMATIC, NORMAL INSPECTION, NORMOCEPHALIC - Eye Exam Eye Exam: Normal appearance - ENT Exam ENT Exam: Mucous Membranes Dry Additional comments: Dry nose. No active bleeding in nose noted. - Neck Exam Neck Exam: Normal Inspection - Respiratory Exam Respiratory Exam: NORMAL BREATHING PATTERN - Cardiovascular Exam Cardiovascular Exam: absent: JVD - GI/Abdominal Exam GI & Abdominal Exam: absent: Distended - Rectal Exam Rectal Exam: Deferred - Exam Additional comments: Deferred. - Back Exam Back Exam: NORMAL INSPECTION - Neurological Exam Neurological Exam: Alert, Awake, Oriented x3 - Psychiatric Exam Psychiatric exam: Normal Affect, Normal Mood - Skin Skin Exam: Normal Color Assessment and Plan - Assessment and Plan (Free Text) Assessment: Epistxis.-stopped. Dry nose. HTN. CHF. CAD. Dementia. Home oxygen dependent. Plan: Humidified oxygen. Continue present management as per PMD.
--- NOTE | 2017-07-19 04:04 | CON ---
DATE: This patient was seen and evaluated. REASON FOR CONSULTATION: Abnormal LFTs. HISTORY OF PRESENT ILLNESS: This 87-year-old patient with past history of coronary artery disease, status post PCI, chronic kidney disease, congestive heart failure, several episodes of hypothermic episodes, on home oxygen, was brought in by the family for swelling of the legs and shortness of breath. Patient was hypothermic also, it has improved. Patient was on home hospice, which she discontinued because patient improved. The patient has a history of large ventral hernia and emphysematous gastritis, probably caused because of the obstruction of the stomach into the hernial sac but patient does have several multiple ulcerations of the stomach. Patient refused any GI further workup. Patient has severe gastroparesis. Patient need to be only on pureed food, poorly compliant. PAST MEDICAL HISTORY: Other past medical history significant for history of colon cancer, status post colon resection done, history of hypothermia. Patient's temperature on admission was 93.5, patient slowly improved. FAMILY HISTORY: Noncontributory. REVIEW OF SYSTEMS: Positive as above. Other systems reviewed and negative. PHYSICAL EXAMINATION: GENERAL: Patient is lying on the bed, not in acute distress. VITAL SIGNS: Temperature is 97, pulse 79, blood pressure is 116/69, respirations 18. HEENT: Atraumatic, anicteric. NECK: Supple. HEART: S1, S2 heard. LUNGS: Bilateral air entry present. ABDOMEN: Soft. There is a ventral hernia, reducible, present. EXTREMITIES: No cyanosis, no clubbing. NEUROLOGIC: Alert and oriented. Moves all the extremities. LABORATORY DATA: Hemoglobin was 7.9, it was 8.6, hematocrit 25.5, WBC is 3.7, platelets 128. Chemistry: AST 43, ALT 75, alkaline phosphatase 204. DIAGNOSTIC DATA: Patient had ultrasound done that showed gallstones, common bile duct 8.7. IMPRESSION: This 87-year-old patient with multiple medical comorbidities admitted with shortness of breath and leg swelling, found to be hypothermic, congestive heart failure with bilateral pleural effusion, lung infiltrate. Patient has a history of coronary artery disease. Patient had several episodes of hypothermia, at this time admitted with the temperature of 93 and improved. History of emphysematous gastritis, multiple gastric ulcerations. Recommended to be on a pureed diet, not very compliant with that. Abnormal LFTs. Differential diagnosis include hepatic congestion. Patient also has a history of cholelithiasis. Other comorbidities include pulmonary hypertension, history of colon cancer, status post resection, gastric ulcerations. RECOMMENDATIONS: 1. Follow up of the LFTs. 2. Ultrasound scan of the abdomen. 3. Pureed diet. 4. Continue with the present management. 5. Endocrinological workup to further evaluate the hypothermia. The workup done in the past was not conclusive. I did discuss with Dr. Otero earlier today. Thank you very much for allowing us to participate in the care of the patient. Alayna Kang MD
[2017-07-19 07:07] LABS: BASO # 0.01 K/mm3 (0.0-2.0); BASO % 0.3 % (0.0-3.0); EOS % 0.8 % (1.5-5.0); GRAN # 1.73 (1.4-6.5); GRAN % 47.8 % (50.0-68.0); HEMOGLOBIN 8.9 g/dL (12.0-16.0); LYMPH # 1.4 (1.2-3.4); LYMPH % 38.4 % (22.0-35.0); MEAN CELL VOLUME 77.3 fl (80.0-105.0); MEAN CORPUSCULAR HEMOGLOBIN 24.4 pg (25.0-35.0); MEAN CORPUSCULAR HGB CONC 31.6 g/dl (31.0-37.0); MONO # 0.5 (0.1-0.6); MONO % 12.7 % (1.0-6.0); PLATELET COUNT 111 10^3/uL (120.0-450.0); RBC 3.65 10^6/uL (3.5-6.1); WHITE BLOOD COUNT 3.6 10^3/ul (4.5-11.0)
[2017-07-19 07:11] LABS: ALB/GLOB RATIO 0.8 (1.1-1.8); ALBUMIN 3.1 g/dL (3.0-4.8); ALT/SGPT 73 U/L (7-56); AST/SGOT 46 U/L (14-36); BLOOD UREA NITROGEN 20 mg/dL (7-21); GFR AFRICAN-AMERICAN > 60; GFR NON-AFRICAN AMERICAN 52
[2017-07-19 07:29] LABS: FREE T4 2.09 ng/dL (0.78-2.19); T4 11.6 ug/dL (5.5-11.0)
[2017-07-19] MEDS: Levalbuterol 0.63 MG/3 ML Inhal Soln UD IH SCH ×3 (07:54→22:35)
[2017-07-19] MEDS: Metoprolol Succinate 25 mg XL Tab PO SCH (09:17)
[2017-07-19] MEDS: Pantoprazole 40 mg EC Tab PO SCH (09:40)
--- NOTE | 2017-07-19 16:20 | PN ---
DATE: 07/19/2017 SUBJECTIVE: The patient has no complaints of any chest pain, shortness of breath or headaches. PHYSICAL EXAMINATION: VITAL SIGNS: Temperature is 98, pulse of 80, blood pressure 111/56, respirations 20. GENERAL: The patient is lying in bed, flat, comfortable. HEENT: No oral lesion. Anicteric sclerae. Moist mucosa. NECK: No JVD, adenopathy, or thyromegaly. CARDIOVASCULAR: S1 and S2, regular. No murmurs, rubs, or gallops. LUNGS: Clear to auscultation bilaterally. No wheeze, rales, or rhonchi. ABDOMEN: Bowel sounds are positive, soft, nontender and nondistended. EXTREMITIES: No cyanosis, clubbing or edema. LABORATORY DATA: Hemoglobin is 8.9. ASSESSMENT: 1. Acute anemia secondary to blood loss, improved. 2. Cardiomyopathy. 3. Dementia, probable Alzheimer's type. 4. Gastritis. 5. History of colon cancer, status post colectomy. PLAN: The patient is currently comfortable. She is on Lasix. She is going to continue with [facility] for hypertension. She is on metoprolol. The patient is on Zestril for hypertension. She is on a heart-healthy diet. I did speak to Dr. Kang regarding the case. The patient has episodes of hypothermia. Sreekanth Pratt MD
--- NOTE | 2017-07-19 16:41 | PN ---
DATE: 07/19/2017 LOCATION" The patient is in room 362, bed 2. REASON FOR CONSULTATION AND FOLLOWUP: CHF, pleural effusion, hypertension, dementia, coronary artery disease, hypothermia. SUBJECTIVE: The patient states her breathing is getting better. Denies any chest pain or palpitation. Swelling of the legs also decreasing. PHYSICAL EXAMINATION VITAL SIGNS: Blood pressure 111/56, respirations 18, pulse 86, temperature 98. HEENT: Head is normocephalic. Eyes: Pupils normal. Conjunctivae slightly pale. NECK: JVP low. Carotids equal. THORAX: AP diameter normal. LUNGS: Diminished breath sounds in the lung bases, few rales in the mid zones. CARDIOVASCULAR: S1 and S2. ABDOMEN: Soft and nontender. No organomegaly. EXTREMITIES: Edema on the leg with some changes of venous stasis as well. LABORATORY DATA: WBC 3.6, hemoglobin 8.9, hematocrit 28.2, platelets 111. Sodium 144, potassium 3.7. BUN 20, creatinine 1.0. Phosphorous 3.8, magnesium 2.0. AST 46, ALT 73, alkaline phosphatase 205. Total protein 6.9, albumin 3.1, globulin 3.8. Free T4 . Thyroxine 11.6, TSH 1.25. DIAGNOSES: Congestive heart failure, bilateral pleural effusion, infiltrate in the lungs, coronary artery disease, history of stent insertion, anemia, history of renal dysfunction, history of dementia, gastritis,hypertension. Echo on 01/19/2017, showed dilated left ventricle, left ventricular systolic function decreased with ejection fraction of 35%, mild left ventricular hypertrophy, moderate aortic regurgitation, moderate mitral regurgitation, [id number] tricuspid regurgitation, right ventricular systolic pressure 46 mmHg suggestive of mild pulmonary hypertension, hypothermia, anemia, leukopenia. PLAN: We will continue amlodipine 5 mg daily, Lasix 40 IV b.i.d., Protonix 40 daily, metoprolol succinate 25 mg daily, lisinopril 2.5 daily. We will follow. Heather Frank MD
--- NOTE | 2017-07-19 18:36 | PN ---
DATE: ENDOCRINOLOGY FOLLOWUP NOTE LOCATION: Room 362. SUBJECTIVE: This is an 87-year-old female admitted with congestive heart failure and is being followed closely for hemodynamic monitoring and ongoing cardiac management and has also been requested an endocrine evaluation for presenting here with marked hypothermia as noted thereof. Her latest temperatures today are now on 98 degrees with an initial presenting temperature of 93 degrees on admission. Her latest chemistry showed a BUN of 20, sodium 144, potassium 3.7, chloride 106, CO2 29, glucose 67 and creatinine 1. Her thyroid study showed a free T4 of 2.09 with a total T4 of 11.6 and a TSH of 1.25. This is really indicative of the so-called acute sick euthyroid syndrome as noted. Her serum cortisol level is 20.2. She also has elevated liver transaminases, which could be secondary to passive congestion from the underlying congestive heart failure as noted. So at this time, there is no indication for any kind of levothyroxine replacement therapy and should expect improvement of the thyroid studies as her clinical condition improves. The impaired circulation from the vascular compromise could be a big factor contributing to the initial presentation of hypothermia, which has improved accordingly there too. We will obtain serial chemistries and supplement accordingly as needed. We will follow. Faye Manjarrez MD : 07/19/2017 14:52:11
--- NOTE | 2017-07-20 04:44 | PN ---
DATE: SUBJECTIVE: This patient was seen and evaluated earlier today. Patient is tolerating the pureed diet. PHYSICAL EXAMINATION VITAL SIGNS: Temperature is 98, blood pressure 111/56, respirations 18. HEENT: Atraumatic, anicteric. NECK: Supple. HEART: S1 and S2 heard. LUNGS: Bilateral air entry present, reduced at the base. ABDOMEN: Soft, with ventral hernia reducible. EXTREMITIES: No cyanosis, no clubbing. LABORATORY DATA: Hemoglobin 8.9, hematocrit 28.2, WBC 6.3, platelets 111. Chemistries shows AST 46, ALT 73, alkaline phosphatase 207. IMPRESSION: This 87-year-old patient admitted with decompensated congestive heart failure, has bilateral pleural effusion, has a lung infiltrate, coronary artery disease. Patient does have a history of emphysematous gastritis, has multiple gastric ulcers, has a large ventral hernia. Patient was on hospice care before, improved, was taken off a few times, with multi-organ failure in the past. Patient has severe pulmonary hypertension, episodes of hypothermia, etiology is unclear. Would recommend at this point, continue the pureed diet, follow up of the liver function test, continue the proton pump inhibitors, conservative management. The patient has a history of a colon cancer in the past, had a colon resection. We will continue conservative management. Thank you very much for allowing us to participate in the care of the patient. Alayna Kang MD
[2017-07-20] MEDS: Levalbuterol 0.63 MG/3 ML Inhal Soln UD IH SCH ×3 (07:45→22:30)
--- NOTE | 2017-07-20 08:47 | HP ---
HISTORY OF PRESENT ILLNESS: Patient is 87 years old. She is known to me from multiple previous admissions. She was brought in by family because of increasing shortness of breath and because of increasing leg swelling. Patient states she has been compliant with medication. Complaining of decreased appetite, does not each much, only drinks soup most of the time. No hemoptysis, no hematemesis. Does complain of shortness of breath on minimal exertion. SOCIAL HISTORY: She is single, lives with her daughter. ALLERGIES: SHE IS NOT ALLERGIC TO ANY MEDICATIONS. MEDICATIONS: At home, she is on Protonix 40 daily, aspirin 81 daily, metoprolol 25 daily, amlodipine 5 mg daily. REVIEW OF SYSTEMS: Significant for shortness of breath and increasing leg swelling. PHYSICAL EXAMINATION: GENERAL: She is sleepy, but arousable. VITAL SIGNS: She has temperature of 93.5, pulse 67, respirations 18, blood pressure 109/50. LUNGS: Bilateral good air flow. No rhonchi or crackle. HEART: S1, S2 audible. ABDOMEN: Soft, nontender. No rebound. No guarding. NEUROLOGIC: She is sleepy, but arousable. EXTREMITIES: Bilateral leg +2 edema. LABORATORY DATA: WBC is 4.6, hemoglobin 8.6, hematocrit 27.2, platelets of 126. Chemistry: Sodium 139, potassium 4, chloride 103, CO2 27, BUN 22, creatinine 0.8, blood sugar of 98. AST 44, ALT 77, alkaline phosphatase 218. BNP 9730. X-ray of chest, bibasilar infiltrate and effusion seen. ASSESSMENT: 1. Hypothermia.etiology unclear. 2. Bilateral basal infiltrate. 3. Congestive heart failure. 4. History of gastritis. 5. History of gastric ulcer. 6. Deconditioning. 7. History of renal insufficiency. 8. History of cancer of colon, status post partial colectomy. 9. Mild dementia. PLAN: We will diurese the patient and empirically start on antibiotic. We will put the José Miguel Hugger to improve her hypothermia. We will monitor her electrolyte. Bilateral leg Doppler has been ordered. We will follow that. We will follow up patient. Rk Otero MD [facility] # [id number] JERRELL
[2017-07-20] MEDS: Pantoprazole 40 mg EC Tab PO SCH (10:04)
[2017-07-20] MEDS: Metoprolol Succinate 25 mg XL Tab PO SCH (10:05)
[2017-07-20 11:41] LABS: BASO # 0.01 K/mm3 (0.0-2.0); BASO % 0.2 % (0.0-3.0); EOS # 0.1 (0.0-0.7); EOS % 1.4 % (1.5-5.0); GRAN # 2.53 (1.4-6.5); GRAN % 52.2 % (50.0-68.0); HEMOGLOBIN 8.8 g/dL (12.0-16.0); LYMPH # 1.8 (1.2-3.4); LYMPH % 36.9 % (22.0-35.0); MEAN CELL VOLUME 78.6 fl (80.0-105.0); MEAN CORPUSCULAR HEMOGLOBIN 24.4 pg (25.0-35.0); MEAN CORPUSCULAR HGB CONC 31.1 g/dl (31.0-37.0); MONO # 0.5 (0.1-0.6); MONO % 9.3 % (1.0-6.0); RED CELL DISTRIBUTION WIDTH 18.3 % (11.5-14.5); WHITE BLOOD COUNT 4.9 10^3/ul (4.5-11.0)
--- NOTE | 2017-07-20 12:03 | PN ---
DATE: SUBJECTIVE: The patient is seen and examined. Awake, alert, oriented, communicative. Started to tolerate food. No nausea or vomiting. No diarrhea. No rectal bleeding. No hemoptysis. No hematemesis. PHYSICAL EXAMINATION: VITAL SIGNS: The patient is afebrile, pulse 82, respirations 20, blood pressure 118/54. LUNGS: Bilateral fair airflow. No rhonchi or crackle. HEART: S1 and S2 audible. ABDOMEN: Soft. Nontender. No rebound. No guarding. NEUROLOGIC: The patient is awake, alert, oriented, communicative. EXTREMITIES: Bilateral leg, +2 edema. LABORATORY EXAM: WBC is 3.6, hemoglobin 8.9, hematocrit 28, platelet of 111. Chemistry: Sodium 144, potassium 3.7, chloride 106, CO2 of 29, BUN 20, creatinine 1.0, blood sugar of 67, AST 46, ALT 73, alk phos is 205, thyroxine 11.6, TSH is 1.25, cortisol level is 20.2. ASSESSMENT: 1. Symptomatic anemia, multifactorial, nutritional versus gastritis. 2. Congestive heart failure. 3. Bilateral pleural effusion. 4. History of coronary artery disease. 5. History of gastritis. 6. Thrombocytopenia. 7. Deconditioning. 8. Bilateral leg edema. PLAN: Currently, the patient is on aspirin. She is on Lasix and amlodipine. I will discontinue amlodipine since her blood pressure is running low and she already has leg swelling. Continue her on Protonix and metoprolol. She is on lisinopril. I will discontinue her Protonix, start her on Pepcid. Monitor her platelet count. If she remains stable, possible discharge in the a.m. Rk Otero MD
[2017-07-20 12:10] LABS: PLATELET COUNT 104 10^3/uL (120.0-450.0)
[2017-07-20] MEDS ORDERED: POLYETHYLENE GLYCOL 3350 17 GM/Dose PACKET PO ONE (14:49)
--- NOTE | 2017-07-20 14:51 | PN ---
DATE: 07/20/2017 LOCATION: The patient in room 362, bed 2. REASON FOR CONSULTATION: Followup CHF, pleural effusion, hypertension, dementia, coronary artery disease, hypothermia. SUBJECTIVE: The patient's breathing is getting better. She is more comfortable. Denies any chest pain, palpitations. Edema of legs also decreasing. PHYSICAL EXAMINATION: VITAL SIGNS: Blood pressure is 118/54, respirations 20, pulse 82, temperature 97.4. HEENT: Head is normocephalic. Eyes: Pupils normal. Conjunctivae slightly pale. NECK: JVP low. Carotids equal. THORAX: AP diameter normal. CARDIOVASCULAR: S1 and S2. LUNGS: Diminished breath sounds on the lung bases. ABDOMEN: Soft, no tenderness, no organomegaly. EXTREMITIES: Edema of legs is getting less. She has also changes of venous stasis. LABORATORY DATA: WBC 3.6, hemoglobin 8.9, hematocrit 28.2, platelets 111. Sodium 144, potassium 3.7, BUN 20, creatinine 1.0. AST 46, ALT 73, alkaline phosphatase 205. Free T4 is 2.09, thyroxine 11.6, TSH 1.25. DIAGNOSES: Congestive heart failure, bilateral pleural effusion, infiltrate in the lungs, coronary artery disease, history of stent insertion, anemia, history of renal dysfunction, dementia, gastritis, hypertension. Echo on 01/19/2017 showed dilated left ventricle with systolic function decreased with ejection fraction of 35%, mild left ventricular hypertrophy, moderate aortic regurgitation, moderate mitral regurgitation, [id number] tricuspid regurgitation, right ventricular systolic pressure 46 mmHg suggestive of mild pulmonary hypertension, hypothermia improved, leukopenia. PLAN: We will repeat chest x-ray tomorrow to see the improvement of the pleural effusion and CHF changes. In the meantime, the patient on Lasix 40 IV b.i.d., lisinopril 2.5 daily, amlodipine 5 mg daily, Protonix 40 daily. We will add Ecotrin 81 mg p.o. daily. We will follow with you. Heather Frank MD
--- NOTE | 2017-07-20 18:08 | PN ---
DATE: ENDOCRINOLOGY FOLLOWUP NOTE LOCATION: Room 362. SUBJECTIVE: This is an 87-year-old female, admitted with congestive heart failure on the background of underlying cardiac vasculopathy and with concomitant significant hypothermia, which has since then improved clinically and hemodynamically as noted thereof. Her latest chemistry showed a BUN of 20, sodium 144, potassium 3.7, chloride 106, CO2 of 29, glucose 67 and creatinine 1.0. Her latest thyroid studies showed a T4 of 11.6 micrograms per deciliter with a TSH of 1.25 and a free T4 of 2.09 indicative of the so-called acute sick euthyroid syndrome, should improve accordingly as her clinical status improves thereof. Her serum cortisol level is 20.2 mcg/dL. So at this time, we will continue the present medical and cardiac management as ordered and we will obtain serial chemistries and supplement accordingly as needed. We will follow. Faye Manjarrez MD
--- NOTE | 2017-07-20 23:28 | CP.PCM.PN ---
Subjective - Date & Time of Evaluation Date of Evaluation: 07/20/17 Time of Evaluation: 23:21 - Subjective Subjective: Patient was seen because there was a strip which showed presence of runs of VTACH(13 beats), as per air sampling and monitoring, 15 minutes prior to that there was bradycardia with lowest rate of 32/min for about 10 seconds and in the morning shift, there were about. PVCs' 6-7/mn. Patient is asymptomatic. Denies chest pain, sob, nausea, sweating. Temp. was 93.4*F earlier and is on bear hugger for that now. Medical record was reviewed. This 87 year old woman was admitted for increasing sob and increasing leg swelling, hypothermia, CHF, bilateral basal infiltrate. Has PMH of CAD,S/P PCI, renal insufficiency, CHF, hypothermic episodes, ventral hernia, gastritis, gastroparesis, colon cancer, colon resection. Objective - Vital Signs/Intake and Output Vital Signs (last 24 hours): Temp Pulse Resp BP Pulse Ox 98.2 F 74 19 127/58 L 98 07/20/17 16:00 07/20/17 16:00 07/20/17 16:00 07/20/17 17:48 07/20/17 16:00 - Medications Medications: Current Medications Aspirin (Ecotrin) 81 mg PO DAILY [facility] Last Admin: 07/20/17 11:16 Dose: 81 mg Famotidine (Pepcid) 20 mg PO 1000,2200 [facility] Last Admin: 07/20/17 21:49 Dose: 20 mg Furosemide (Lasix) 40 mg IV BID [facility] Last Admin: 07/20/17 17:48 Dose: 40 mg Levalbuterol HCl (Xopenex) 0.63 mg IH TIDRESP [facility] Last Admin: 07/20/17 22:30 Dose: 0.63 mg Lisinopril (Zestril) 2.5 mg PO DAILY [facility] Last Admin: 07/20/17 10:05 Dose: Not Given Metoprolol Succinate (Toprol Xl) 25 mg PO DAILY [facility] Last Admin: 07/20/17 10:05 Dose: Not Given Ondansetron HCl (Zofran Inj) 4 mg IVP Q6H PRN PRN Reason: Nausea/Vomiting Last Admin: 07/17/17 21:12 Dose: 4 mg Polyethylene Glycol (Miralax) 17 gm PO DAILY [facility] - Labs Labs: 07/20/17 11:30 07/19/17 06:25 Most Recent Lab Values WBC 4.9 10^3/ul (4.5-11.0) D 07/20/17 11:30 RBC 3.60 10^6/uL (3.5-6.1) 07/20/17 11:30 Hgb 8.8 g/dL (12.0-16.0) L 07/20/17 11:30 Hct 28.3 % (36.0-48.0) L 07/20/17 11:30 MCV 78.6 fl (80.0-105.0) L 07/20/17 11:30 MCH 24.4 pg (25.0-35.0) L 07/20/17 11:30 MCHC 31.1 g/dl (31.0-37.0) 07/20/17 11:30 RDW 18.3 % (11.5-14.5) H 07/20/17 11:30 Plt Count 104 10^3/uL (120.0-450.0) L 07/20/17 11:30 Gran % 52.2 % (50.0-68.0) 07/20/17 11:30 Lymph % (Auto) 36.9 % (22.0-35.0) H 07/20/17 11:30 Harney % (Auto) 9.3 % (1.0-6.0) H 07/20/17 11:30 Eos % (Auto) 1.4 % (1.5-5.0) L 07/20/17 11:30 Baso % (Auto) 0.2 % (0.0-3.0) 07/20/17 11:30 Gran # 2.53 (1.4-6.5) 07/20/17 11:30 Lymph # (Auto) 1.8 (1.2-3.4) 07/20/17 11:30 Harney # (Auto) 0.5 (0.1-0.6) 07/20/17 11:30 Eos # (Auto) 0.1 (0.0-0.7) 07/20/17 11:30 Baso # (Auto) 0.01 K/mm3 (0.0-2.0) 07/20/17 11:30 Sodium 144 mmol/L (132-148) 07/19/17 06:25 Potassium 3.7 mmol/L (3.6-5.0) 07/19/17 06:25 Chloride 106 mmol/L (98-107) 07/19/17 06:25 Carbon Dioxide 29 mmol/L (21-33) 07/19/17 06:25 Anion Gap 14 (10-20) 07/19/17 06:25 BUN 20 mg/dL (7-21) 07/19/17 06:25 Creatinine 1.0 mg/dl (0.7-1.2) 07/19/17 06:25 Est GFR ( Amer) > 60 07/19/17 06:25 Est GFR (Non-Af Amer) 52 07/19/17 06:25 Random Glucose 67 mg/dL (70-110) L 07/19/17 06:25 Calcium 10.0 mg/dL (8.4-10.5) 07/19/17 06:25 Phosphorus 3.8 mg/dL (2.5-4.5) 07/19/17 06:25 Magnesium 2.0 mg/dL (1.7-2.2) 07/19/17 06:25 Total Bilirubin 1.1 mg/dL (0.2-1.3) 07/19/17 06:25 AST 46 U/L (14-36) H 07/19/17 06:25 ALT 73 U/L (7-56) H 07/19/17 06:25 Alkaline Phosphatase 205 U/L (38-126) H 07/19/17 06:25 NT-Pro-B Natriuret Pep 9730 pg/mL (0-450) H 07/17/17 13:10 Total Protein 6.9 g/dL (5.8-8.3) 07/19/17 06:25 Albumin 3.1 g/dL (3.0-4.8) 07/19/17 06:25 Globulin 3.8 gm/dL 07/19/17 06:25 Albumin/Globulin Ratio 0.8 (1.1-1.8) L 07/19/17 06:25 Free T4 2.09 ng/dL (0.78-2.19) 07/19/17 06:25 Thyroxine (T4) 11.6 ug/dL (5.5-11.0) H 07/19/17 06:25 TSH 3rd Generation 1.25 mIU/mL (0.46-4.68) 07/19/17 06:25 Cortisol AM Sample 20.2 ug/dL (4.46-22.7) 07/19/17 06:25 Blood Type A NEGATIVE 07/18/17 10:50 Antibody Screen Negative 07/18/17 10:50 Crossmatch See Detail 07/18/17 10:50 BBK History Checked Patient has bt 07/18/17 10:50 - Constitutional Appears: Non-toxic, No Acute Distress - Head Exam Head Exam: ATRAUMATIC, NORMAL INSPECTION, NORMOCEPHALIC - ENT Exam ENT Exam: Normal External Ear Exam - Neck Exam Neck Exam: Normal Inspection - Respiratory Exam Respiratory Exam: NORMAL BREATHING PATTERN - Cardiovascular Exam Cardiovascular Exam: absent: JVD - GI/Abdominal Exam GI & Abdominal Exam: absent: Distended - Rectal Exam Rectal Exam: Deferred - Exam Additional comments: Deferred. - Extremities Exam Extremities Exam: Pedal Edema - Back Exam Back Exam: NORMAL INSPECTION - Neurological Exam Neurological Exam: Alert, Awake, Oriented x3 - Psychiatric Exam Psychiatric exam: Normal Affect, Normal Mood - Skin Skin Exam: Normal Color Assessment and Plan - Assessment and Plan (Free Text) Assessment: Episode of Sinus bradycardia. Non sustained ventricular tachycardia. PVC's. Hypothermia. CHF. Bilateral infiltrate. History colon cancer. History colon resection. CAD. Anemia. History renal insufficiency. Plan: EKG-- -> NSR, LVH, Lateral wall minimal ischemic changes. BMP. BNP. Troponin Mag. Continue present management. May need cardiology consult.
[2017-07-21 00:35] LABS: BLOOD UREA NITROGEN 17 mg/dL (7-21); GFR AFRICAN-AMERICAN > 60; GFR NON-AFRICAN AMERICAN > 60
[2017-07-21 00:47] LABS: B-TYPE NATRIURETIC PEPTIDE 11400 pg/mL (0-450); TROPONIN I 0.07 ng/mL
[2017-07-21] MEDS: Potassium Chloride 40 mEq/30 ml LIQ UD PO SCH ×2 (02:28→04:19)
--- NOTE | 2017-07-21 06:20 | PN ---
DATE: SUBJECTIVE: This patient was seen and evaluated earlier today. Patient is more alert and tolerating the pureed diet. PHYSICAL EXAMINATION: VITAL SIGNS: Temperature is 98.2, blood pressure 127/58, pulse 74. HEENT: Atraumatic, anicteric. NECK: Supple. HEART: S1 and S2 heard. LUNGS: Bilateral air entry present. ABDOMEN: Ventral hernia present, reducible. EXTREMITIES: No cyanosis, no clubbing. LABORATORY DATA: Hemoglobin 8.8, hematocrit 28.3, WBC 4.9, platelets 104. Chemistry shows AST of 46, ALT of 73, alkaline phosphatase 205. IMPRESSION: This is an 87-year-old patient with history of large ventral hernia - status post reduction, status post emphysematous gastritis, multiple gastric ulcers. Patient has several hypoglycemic episodes. Etiology is not very clear. Patient is admitted with decompensated congestive heart failure, leg swelling. Patient also has elevated LFTs, history of gallstones. Common bile duct normal. The patient has a history of chronic constipation. We will continue the MiraLax. Patient is on aspirin. Patient is on Pepcid. We will continue that. Patient had an ultrasound. Followup of the LFTs. The likely cause of the patient's LFTs could be due to hepatic congestion. Patient has gallstone also. We will continue to closely follow up her care and suggest further management based on the clinical course. Alayna Kang MD : 07/21/2017 1:20:57
[2017-07-21] MEDS: Levalbuterol 0.63 MG/3 ML Inhal Soln UD IH SCH ×3 (08:14→20:00)
[2017-07-21] MEDS: Metoprolol Succinate 25 mg XL Tab PO SCH (09:38)
[2017-07-21] MEDS: POLYETHYLENE GLYCOL 3350 17 GM/Dose PACKET PO SCH (09:43)
--- NOTE | 2017-07-21 10:42 | RAD ---
HISTORY: Pleural Effusion. Infiltrate.To see improvement. COMPARISON: 07/17/2017 TECHNIQUE: Chest PA and lateral FINDINGS: LUNGS: There is a slight increase in the bilateral infiltrates and effusions PLEURA: No significant pleural effusion identified. No pneumothorax apparent. CARDIOVASCULAR: Normal. OSSEOUS STRUCTURES: No significant abnormalities. VISUALIZED UPPER ABDOMEN: Normal. OTHER FINDINGS: None. IMPRESSION: Slight increase in bilateral infiltrates and effusions
[2017-07-21] MEDS ORDERED: Potassium Chloride 20 mEq ER Tab PO ONE ×4 (11:51→17:00)
--- NOTE | 2017-07-21 16:50 | CP.PCM.PN ---
Subjective - Date & Time of Evaluation Date of Evaluation: 07/21/17 Time of Evaluation: 10:40 - Subjective Subjective: S&E at bedside, chart reviewed, patient family at bedside. Patient no N/V or abdominal pain but c/o constipation, no BM since Thursday as per family . Tolerating oral intake but no BM feel bloated. Had episode of Vtach last night. No c/o CP. Objective - Vital Signs/Intake and Output Vital Signs (last 24 hours): Temp Pulse Resp BP Pulse Ox 97.6 F 74 21 117/50 L 99 07/21/17 08:30 07/21/17 10:00 07/21/17 08:30 07/21/17 09:39 07/21/17 08:30 Intake and Output: 07/21/17 07/21/17 06:59 18:59 Intake Total 120 Output Total 950 Balance -830 - Medications Medications: Current Medications Aspirin (Ecotrin) 81 mg PO DAILY [facility] Last Admin: 07/21/17 09:39 Dose: 81 mg Carvedilol (Coreg) 3.125 mg PO BID [facility] Famotidine (Pepcid) 20 mg PO 1000,2200 [facility] Last Admin: 07/21/17 09:39 Dose: 20 mg Furosemide (Lasix) 40 mg IV BID [facility] Last Admin: 07/21/17 09:39 Dose: 40 mg Levalbuterol HCl (Xopenex) 0.63 mg IH TIDRESP [facility] Last Admin: 07/21/17 13:52 Dose: 0.63 mg Lisinopril (Zestril) 2.5 mg PO DAILY [facility] Last Admin: 07/21/17 09:38 Dose: 2.5 mg Ondansetron HCl (Zofran Inj) 4 mg IVP Q6H PRN PRN Reason: Nausea/Vomiting Last Admin: 07/17/17 21:12 Dose: 4 mg Polyethylene Glycol (Miralax) 17 gm PO DAILY [facility] Last Admin: 07/21/17 09:43 Dose: 17 gm Spironolactone (Aldactone) 25 mg PO DAILY [facility] - Labs Labs: 07/20/17 11:30 07/20/17 23:35 - Constitutional Appears: No Acute Distress - Head Exam Head Exam: NORMOCEPHALIC - Eye Exam Eye Exam: Normal appearance - ENT Exam ENT Exam: Mucous Membranes Moist - Respiratory Exam Respiratory Exam: NORMAL BREATHING PATTERN (no distress) - Cardiovascular Exam Cardiovascular Exam: +S1, +S2 - GI/Abdominal Exam GI & Abdominal Exam: Soft, Tenderness, Hypoactive Bowel Sounds (no rebound or guarding) - Extremities Exam Extremities Exam: Pedal Edema - Neurological Exam Neurological Exam: Alert, Awake, Oriented x3 (confused at times) - Skin Skin Exam: Dry, Warm Assessment and Plan - Assessment and Plan (Free Text) Assessment: ASSESSMENT: Abnormal LFT, secondary to hepatic congestion, elevated BNP/Decompensated CHF, also has h/o cholelithiasis, CBD normal Anemia Hypoglycemia H/O Emphysematic gastritis LE edema, doppler negative for DVT Hypokalemia, s/p replacement Chronic Consitpation PLAN: give dose of Lactulose continue Miralax hold for stools >2/day monitor H/H puree heart healthy diet monitor electrolytes and replace as needed continue Pepcid BID trend LFT Spoke to family at bedside. Seen and discussed w/ Dr. Kang.
--- NOTE | 2017-07-21 18:27 | PN ---
DATE: ENDOCRINOLOGY FOLLOWUP NOTE LOCATION: Room 362. SUBJECTIVE: This is an 87-year-old female admitted with congestive heart failure, currently being followed closely by Cardiology with ongoing hemodynamic monitoring and cardiac management as given. She also had mild hypothermia on admission and since then improved clinically on the Lasix. OBJECTIVE: VITAL SIGNS: Temperature is now 97 to 98 degrees. No fever. LABORATORY DATA: Her latest chemistry shows a BUN of 17. Sodium 142, potassium 3.3, chloride 99, CO2 of 34. Glucose 94. Creatinine 0.8. Her latest ProBNP is 11,400. The latest thyroid study shows a T4 of 11.6 with a free T4 of 2.09 and a TSH of 1.25, indicative of the so-called acute sick euthyroid syndrome. Her serum cortisol level is . So at this time, we will continue the present cardiac medical management as ordered. We will obtain serial chemistries and supplement accordingly as needed. We will follow with you. Faye Manjarrez MD
[2017-07-21] MEDS ORDERED: Potassium Chloride 20 mEq ER Tab PO SCH (18:30)
--- NOTE | 2017-07-21 19:25 | CARD ---
APPROVED REPORT EKG Measurement Heart [id number] [id number] <Conclusion> Normal sinus rhythm Left axis deviation Left ventricular hypertrophy with QRS widening T wave abnormality, consider lateral ischemia Prolonged QT Abnormal ECG
--- NOTE | 2017-07-21 23:42 | PN ---
DATE: SUBJECTIVE: The patient is an 87-year-old, seen and examined, sitting in bed, wants to walk, not eating that well. According to the nurse, she did not have bowel movements in spite of giving her lactulose and MiraLax. Oral intake is very poor. She does not like José Miguel Hugger. PHYSICAL EXAMINATION: VITAL SIGNS: She has temperature of 97.6, pulse 81, respirations 21, blood pressure 117/50. LUNGS: Bilateral good airflow. No rhonchi or crackles. HEART: S1 and S2 audible. ABDOMEN: Soft, nontender. No rebound. No guarding. NEUROLOGIC: The patient is awake and alert, able to communicate. LABORATORY DATA: Sodium 142, potassium 3.3, chloride 99, CO2 34, BUN 17, creatinine 0.8. Blood sugar of 109. ASSESSMENT: 1. Hyponatremia, etiology is still unclear. 2. Hypokalemia. 3. Congestive heart failure, on diuretics. 4. Constipation. 5. History of gastritis. 6. Acute on chronic anemia, status post blood transfusion. PLAN: We will supplement her potassium. Follow up on CBC and CMP in a.m. I will start her on Periactin. Follow up this patient in a.m. I request physical therapy evaluation and treatment. We will reevaluate and make disposition plan. The patient eventually wants to go home. Rk Otero MD
[2017-07-22 06:55] LABS: ALB/GLOB RATIO 0.7 (1.1-1.8); ALBUMIN 2.8 g/dL (3.0-4.8); ALT/SGPT 55 U/L (7-56); AST/SGOT 43 U/L (14-36); BASO # 0.02 K/mm3 (0.0-2.0); BASO % 0.5 % (0.0-3.0); BLOOD UREA NITROGEN 14 mg/dL (7-21); CALCIUM 9.8 mg/dL (8.4-10.5); EOS # 0.1 (0.0-0.7); EOS % 3.1 % (1.5-5.0); GFR AFRICAN-AMERICAN > 60; GFR NON-AFRICAN AMERICAN 52; GRAN # 1.84 (1.4-6.5); GRAN % 43.2 % (50.0-68.0); HEMOGLOBIN 8.7 g/dL (12.0-16.0); LYMPH # 1.7 (1.2-3.4); LYMPH % 39.8 % (22.0-35.0); MEAN CELL VOLUME 78.3 fl (80.0-105.0); MEAN CORPUSCULAR HEMOGLOBIN 24.2 pg (25.0-35.0); MEAN CORPUSCULAR HGB CONC 30.9 g/dl (31.0-37.0); MONO # 0.6 (0.1-0.6); MONO % 13.4 % (1.0-6.0); PLATELET COUNT 91 10^3/uL (120.0-450.0); RED CELL DISTRIBUTION WIDTH 19.2 % (11.5-14.5); WHITE BLOOD COUNT 4.3 10^3/ul (4.5-11.0)
--- NOTE | 2017-07-22 07:54 | PN ---
DATE: 07/21/2017 REASON FOR CONSULTATION AND FOLLOWUP: Congestive heart failure, pleural effusion, hypertension, dementia, coronary artery disease and hypothermia. SUBJECTIVE: The patient denies any chest pain, shortness of breath or any palpitation. Patient not in any apparent distress. PHYSICAL EXAMINATION: As follows: VITAL SIGNS: Temperature afebrile, heart rate 81, blood pressure 117/50. HEENT: PERRLA. Extraocular muscles intact. NECK: Supple. No carotid bruit or thyromegaly. CHEST: Clear to auscultation. HEART: S1, S2 regular. ABDOMEN: Soft. EXTREMITIES: Clubbing and cyanosis negative. LABORATORY DATA: Blood workup as follows: WBC 4.8, hemoglobin 8.8, hematocrit 28.3, platelet count 104. Chemistry shows sodium 142, potassium 3.3, chloride , carbon dioxide 13, anion gap of 17, BUN 18, creatinine 0.8. BNP [id number]. Telemetry shows 15 beats of VT reported, though it looks like aberrant conduction with paroxysmal AFib, [id number] variation. IMPRESSION: Hypokalemia, history of coronary artery disease, congestive heart failure, bilateral pleural effusion, infiltrates in the lung, coronary artery disease, history of stent in the past, anemia, renal insufficiency, dementia, gastritis, hypertension, last echocardiogram 01/19/2017 showed ejection fraction systolic function decreased at 35%, moderate aortic regurgitation, moderate mitral regurgitation, [id number] tricuspid regurgitation, right ventricular systolic pressure 46 suggestive of mild pulmonary hypertension. RECOMMENDATIONS: Continue diuretic supplement aggressively, potassium, continue Lasix and low dose beta-david, Coreg as blood pressure and heart rate is tolerated. Patient is on beta-david and metoprolol. Continue metoprolol. We will follow with you. Continue gentle diuretics. We will supplement potassium one at 4:00 p.m. 20 b.i.d. Since the patient has low ejection fraction, needs diuretics. We will put low dose of spironolactone 25 mg daily from tomorrow as heart failure therapy, and also we will discontinue metoprolol succinate and change to Coreg. Heather Ac MD [facility] # [id number]
[2017-07-22 07:58] VITALS: RESP 20; TEMP 97.7; O2SAT 93
[2017-07-22] MEDS: Levalbuterol 0.63 MG/3 ML Inhal Soln UD IH SCH (08:09)
[2017-07-22] MEDS: POLYETHYLENE GLYCOL 3350 17 GM/Dose PACKET PO SCH (09:47)
[2017-07-22 09:52] VITALS: BP 106/52
--- NOTE | 2017-07-22 11:39 | CP.PCM.PN ---
Subjective - Date & Time of Evaluation Date of Evaluation: 07/22/17 Time of Evaluation: 10:10 - Subjective Subjective: Seen and examined at the bedside earlier today, patient had bowel movement with relief denies nausea, vomiting, or abdominal pain. Tolerated breakfast. Objective - Vital Signs/Intake and Output Vital Signs (last 24 hours): Temp Pulse Resp BP Pulse Ox 97.7 F 68 20 106/52 L 93 L 07/22/17 07:57 07/22/17 09:44 07/22/17 07:57 07/22/17 09:48 07/22/17 07:57 Intake and Output: 07/22/17 07/22/17 06:59 18:59 Intake Total 120 Output Total 350 Balance -230 - Medications Medications: Current Medications Aspirin (Ecotrin) 81 mg PO DAILY [facility] Last Admin: 07/22/17 09:46 Dose: 81 mg Carvedilol (Coreg) 3.125 mg PO BID [facility] Last Admin: 07/22/17 09:44 Dose: Not Given Cyproheptadine HCl (Periactin) 4 mg PO BID [facility] Last Admin: 07/22/17 09:48 Dose: 4 mg Famotidine (Pepcid) 20 mg PO 1000,2200 [facility] Last Admin: 07/22/17 09:47 Dose: 20 mg Furosemide (Lasix) 40 mg IV BID [facility] Last Admin: 07/22/17 09:46 Dose: Not Given Levalbuterol HCl (Xopenex) 0.63 mg IH TIDRESP [facility] Last Admin: 07/22/17 08:09 Dose: 0.63 mg Lisinopril (Zestril) 2.5 mg PO DAILY [facility] Last Admin: 07/22/17 09:48 Dose: Not Given Ondansetron HCl (Zofran Inj) 4 mg IVP Q6H PRN PRN Reason: Nausea/Vomiting Last Admin: 07/17/17 21:12 Dose: 4 mg Polyethylene Glycol (Miralax) 17 gm PO DAILY [facility] Last Admin: 07/22/17 09:47 Dose: 17 gm - Labs Labs: 07/22/17 06:00 07/22/17 06:00 - Constitutional Appears: No Acute Distress - Head Exam Head Exam: NORMOCEPHALIC - Eye Exam Eye Exam: Normal appearance. absent: Scleral icterus - ENT Exam ENT Exam: Mucous Membranes Moist - Neck Exam Neck Exam: Normal Inspection - Respiratory Exam Respiratory Exam: NORMAL BREATHING PATTERN. absent: Respiratory Distress - Cardiovascular Exam Cardiovascular Exam: +S1, +S2 - GI/Abdominal Exam GI & Abdominal Exam: Soft, Normal Bowel Sounds. absent: Tenderness, Organomegaly, Rebound - Extremities Exam Extremities Exam: absent: Calf Tenderness - Neurological Exam Neurological Exam: Alert, Awake, Oriented x3 - Skin Skin Exam: Dry, Warm Assessment and Plan - Assessment and Plan (Free Text) Assessment: ASSESSMENT: Abnormal LFT, secondary to hepatic congestion, elevated BNP/Decompensated CHF, also has h/o cholelithiasis, CBD normal Anemia Hypoglycemia H/O Emphysematic gastritis LE edema, doppler negative for DVT Hypokalemia, s/p replacement Chronic Constipation PLAN: continue Miralax hold for stools >2/day monitor H/H puree heart healthy diet monitor electrolytes and replace as needed continue Pepcid BID trend LFT On Periactin for appetite Seen and discussed w/ Dr. Kang.
[2017-07-22 12:24] VITALS: PULSE 65
--- NOTE | 2017-07-22 13:55 | PN ---
DATE: REASON FOR DICTATION: Congestive heart failure, pleural effusion, hypertension, dementia, coronary artery disease and hypothermia. SUBJECTIVE: The patient denies any chest pain, shortness of breath, any palpitation, not in any apparent distress. OBJECTIVE: GENERAL: Not in any apparent distress, lying flat on the bed. VITAL SIGNS: Temperature afebrile, heart rate , blood pressure 99/53. HEENT: PERRLA. Extraocular muscles intact. NECK: Supple. No carotid bruit. No thyromegaly. CHEST: Clear to auscultation. HEART: S1 and S2 regular. ABDOMEN: Soft. EXTREMITIES: Clubbing and cyanosis, negative. LABORATORY DATA: Blood workup as follows; WBC 4.3, hemoglobin 8.7, hematocrit 28.2, platelet count 91. Chemistry shows sodium 145, potassium 4.9, chloride 102, carbon dioxide 30, anion gap of 9, BUN 14, creatinine 1, total protein 6.5, albumin 2.8, albumin and globulin ratio 0.7. IMPRESSION: Protein calorie malnutrition, mild to moderate, is not present on admission; hypokalemia; coronary artery disease; congestive heart failure; bilateral pleural effusion; possible lung infiltrate and pneumonia; history of stent in the past; anemia; renal insufficiency; dementia; gastritis; hypertension. Last echocardiogram on 01/19/2017 shows ejection fraction 35%. Moderate aortic regurgitation. Moderate mitral regurgitation. Mild to moderate tricuspid regurgitation. Right ventricular systolic pressure of 46 suggestive of mild congestive heart failure, 13 beats of wide complex tachycardia, possibly aberrant conduction. Possibly bursts of atrial fibrillation. Chronic anemia, status post packed red blood cells transfusion. stage 1 to 2 chronic kidney disease. RECOMMENDATIONS: Continue Coreg. Continue spironolactone. Continue aspirin. Continue Lasix twice a day. Continue low-dose lisinopril. Monitor electrolytes closely and supplement. Increase nutrition support as needed. The patient's potassium is 4.9 today. We will hold spironolactone today. Repeat the blood work in the morning. Discharge planning. Heather Ac MD
--- NOTE | 2017-07-22 16:02 | PN ---
DATE: ENDOCRINOLOGY FOLLOWUP NOTE SUBJECTIVE: Admitted here with congestive heart failure and has since then improved clinically hemodynamically as noted thereof. She is being discharged today on diuretic and cardiac medications as noted. Her latest chemistry showed a BUN of 14, sodium 144, potassium 4.9, chloride 102, CO2 of 38, glucose 70 and creatinine 1.0. Her thyroid studies showed a TSH of 1.25, but a T4 of 11.6 indicative of the so called sick euthyroid syndrome. Her hypothermia was only transient on admission because of the supervening hemodynamic compromise and as mentioned. She has since then improved and the latest temperatures are ranged from 97-98 degrees as noted. She will follow up with her medical and cardiology doctors for outpatient followup. Faye Manjarrez MD
--- NOTE | 2017-07-23 06:10 | DS ---
HISTORY OF PRESENT ILLNESS: The patient is 87-year-old, seen and examined, lying in bed, started to eat little better, ambulates with cane. No nausea or vomiting and did have bowel movement. PHYSICAL EXAMINATION: VITAL SIGNS: The patient is afebrile, pulse 65, respirations 18, blood pressure 106/52. LUNGS: Bilateral fair airflow. No rhonchi or crackle. HEART: S1 and S2 audible. ABDOMEN: Soft, nontender. No rebound. No guarding. NEUROLOGIC: The patient is awake and alert. Able to communicate. EXTREMITIES: Bilateral legs +2 edema. LABORATORY DATA: WBC is 4.3, hemoglobin 8.7, hematocrit 28.2, platelets of 91. Chemistry: Sodium 144, potassium 4.9, chloride 102, CO2 of 38, BUN 14, creatinine 1.0. Blood sugar of 70. ASSESSMENT: 1. Symptomatic anemia status post blood transfusion. 2. Congestive heart failure. 3. Mild renal insufficiency. 4. History of gastritis. 5. History of emphysematous gastritis. 6. Bilateral leg edema. Leg Doppler negative for deep venous thrombosis. PLAN: The patient is currently stable, wants to go home. We will discharge her on aspirin 81 daily. She is given Lasix 40 mg daily and will give Ceftin 250 b.i.d. for five days. Advised to put the [employer] stocking, and we will follow this patient as outpatient. She will be discharged home today. Rk Otero MD
--- NOTE | 2017-07-23 17:19 | PQF CHF ---
07/23/17 Dr. Frank, Acute CHF is documented. Please specify type, as listed below. Thank you. Clarification of your documentation is requested to better reflect the severity of illness and intensity of treatment of your patient. Indicators present [] Diagnosis of CHF and/or history of CHF [] BNP > 200 [] Imaging Finding of Pulmonary Edema /Pleural Effusions [] Fluid/Volume Overload [] Pitting edema [] Ejection Fraction < 40% (Indicative of Systolic Heart Failure) [] Ejection Fraction > 40% (Indicative of Diastolic Heart Failure) [] Dyspnea / Orthopenea / Paroxysmal Nocturnal Dyspnea [] Other: Location in the medical record that reflects the above clinical findings: [] Treatment Provided: [] PHYSICIAN'S RESPONSE Based on your medical judgment of the clinical indicators outlined above, are you treating this patient for a known or suspected: [] Acute CHF [] Systolic [] Diastolic [] Combined [] Chronic CHF [] Systolic [] Diastolic [] Combined [] Acute on Chronic CHF []Systolic [] Diastolic [] Combined [] CHF due hypertension [] Acute systolic []Chronic systolic [] Acute/ chronic systolic [] Other, please indicate: [] [] If Unable to Determine, please check the box, sign and date. Present On Admission (POA) Indicator: [] Present at the time of admission [] Not present at the time of admission [] Clinically Undetermined In responding to this query, please exercise your independent professional judgment. The fact that a question is asked does not imply that any particular answer is desired or expected. Thank you for your clarification on this documentation. If you have any questions please call:[ ] * Thank you, [ ] credit card control clerk JERRELL
--- NOTE | 2017-07-24 09:48 | PQF CHF ---
07/24/17 Dr. Frank, Acute CHF is documented. Please specify type, as listed below. (Previous form signed only.) Thank you. Clarification of your documentation is requested to better reflect the severity of illness and intensity of treatment of your patient. Indicators present [] Diagnosis of CHF and/or history of CHF [] BNP > 200 [] Imaging Finding of Pulmonary Edema /Pleural Effusions [] Fluid/Volume Overload [] Pitting edema [] Ejection Fraction < 40% (Indicative of Systolic Heart Failure) [] Ejection Fraction > 40% (Indicative of Diastolic Heart Failure) [] Dyspnea / Orthopenea / Paroxysmal Nocturnal Dyspnea [] Other: Location in the medical record that reflects the above clinical findings: [] Treatment Provided: [] PHYSICIAN'S RESPONSE Based on your medical judgment of the clinical indicators outlined above, are you treating this patient for a known or suspected: [] Acute CHF [] Systolic [] Diastolic [] Combined [] Chronic CHF [] Systolic [] Diastolic [] Combined [] Acute on Chronic CHF []Systolic [] Diastolic [] Combined [] CHF due hypertension [] Acute systolic []Chronic systolic [] Acute/ chronic systolic [] Other, please indicate: [] [] If Unable to Determine, please check the box, sign and date. Present On Admission (POA) Indicator: [] Present at the time of admission [] Not present at the time of admission [] Clinically Undetermine Acute on Chronic LV Systolic Failure Present on Admission. In responding to this query, please exercise your independent professional judgment. The fact that a question is asked does not imply that any particular answer is desired or expected. Thank you for your clarification on this documentation. If you have any questions please call:[ ] * Thank you, [ ] cops JERRELL
== END 2017-07-22 14:14 | disposition home or self-care (01) | DRG 544 ==
LOC: ED 12:06 → ERH 15:13 → 3RNO 17:10
PROVIDERS: ADMIT Internal Medicine; ATTEND Internal Medicine
PROC: 30233N1 Transfusion of Nonautologous Red Blood Cells into Peripheral Vein, Percutaneous Approach (ICD-10-PCS; principal; 2017-07-18)
DX: I13.0 Hypertensive heart and chronic kidney disease with heart failure and stage 1 through stage 4 chronic kidney disease, or unspecified chronic kidney disease (principal); J18.9 Pneumonia, unspecified organism; I50.9 Heart failure, unspecified; I42.9 Cardiomyopathy, unspecified; D62 Acute posthemorrhagic anemia; D69.6 Thrombocytopenia, unspecified; E87.1 Hypo-osmolality and hyponatremia; E87.6 Hypokalemia; I08.3 Combined rheumatic disorders of mitral, aortic and tricuspid valves; I47.2 Ventricular tachycardia; J44.0 Chronic obstructive pulmonary disease with (acute) lower respiratory infection; N18.2 Chronic kidney disease, stage 2 (mild); I27.20 Pulmonary hypertension, unspecified; E07.81 Sick-euthyroid syndrome; E16.2 Hypoglycemia, unspecified; E78.5 Hyperlipidemia, unspecified; G30.9 Alzheimer's disease, unspecified; F02.80 Dementia in other diseases classified elsewhere, unspecified severity, without behavioral disturbance, psychotic disturbance, mood disturbance, and anxiety; I25.10 Atherosclerotic heart disease of native coronary artery without angina pectoris; I44.7 Left bundle-branch block, unspecified; K29.70 Gastritis, unspecified, without bleeding; K31.84 Gastroparesis; K43.9 Ventral hernia without obstruction or gangrene; K59.09 Other constipation; K76.1 Chronic passive congestion of liver; K80.20 Calculus of gallbladder without cholecystitis without obstruction; M15.9 Polyosteoarthritis, unspecified; R04.0 Epistaxis; T68.XXXA Hypothermia, initial encounter; Z79.82 Long term (current) use of aspirin; Z85.038 Personal history of other malignant neoplasm of large intestine; Z87.11 Personal history of peptic ulcer disease; Z90.49 Acquired absence of other specified parts of digestive tract; Z91.19 Patient's noncompliance with other medical treatment and regimen; Z95.5 Presence of coronary angioplasty implant and graft; Z99.81 Dependence on supplemental oxygen; R40.2412 Glasgow coma scale score 13-15, at arrival to emergency department

== ENCOUNTER 2018-01-18 21:28 | Observation (INO) | payer MEDICARE, MEDICAID ==
--- NOTE | 2018-01-18 22:12 | EDPD ---
HPI Stroke - General Time Seen by Provider: 01/18/18 21:44 Historian: Patient, Family - History of Present Illness Narrative History of Present Illness (Free Text): 01/18/18 22:12 Fabian Downs is an 87 year old female, whose past medical history includes CAD with cardiac stent, renal insufficiency, CHF, pleural effusion, hypertension, dementia, gastritis, and partial colectomy for colon cancer, who presents to the Emergency department accompanied by daughter complaining of tongue numbness. Daughter states patient has been experiencing numbness to her tongue since this afternoon and patient reports associated difficulty speaking secondary to tongue numbness. Patient denies any fever, chills, chest pain, shortness of breath, abdominal pain, nausea, vomiting, headache, dizziness, vision changes, or any other complaints. Date:: 01/18/18 Time: 22:12 Onset:: Today Timing: Currently Symptomatic Context: Home Associated Symptoms: Dysarthria, Numbness (numbness to tongue) Exacerbated by: Nothing Relieved by: Nothing rTPA Inclusion/Exclusion - Refusal of Treatment Patient Refused Treatment: No - Inclusion Criteria for Altepase Patient is 18 years or Older: Yes The Clinical Diagnosis of Ischemic Stroke That is Causing a Potentially Disabling Neurological Deficit: No Time of Onset is Well Established to be Less Than 270 Minute Before Treatment Would Begin: No Risk/Benefit Discussed With Patient/Family Member Present: Yes - Exclusion Criteria for Altepase Uncontrolled Hypertension at Time of Treatment (Systolic BP above 185 or Diastolic BP above 110 mmHg): No Active Internal Bleeding: No Known Bleeding Diathesis Including but Not Limited to: Platelets Below 100,000/mm,PTT Above 40 sec After Heparin Use, Current Use of Oral Anitcoagulant With INR Greater Than 1.7 or PT Greater Than 15 secs: No Evidence of an Intracranial Hemorrhage: No Evidence of Major Acute Infarct With Signs Greater Than 1/3 MCA Territory: No Suspicion of Subarachnoid Hemorrhage on Pretreatment Evaluation Even if CT Head Negative For Hemorrhage: No - Warning to TPA With Conditions Following Conditions Weighed Against Anticipated Benefit: Yes Condition: Stroke Serevity Too Mild, Age Greater Than 75 years Past Medical History - Provider Review Nursing Documentation Reviewed: Yes - Infectious Disease Hx of Infectious Diseases: None - Tetanus Immunization Tetanus Immunization: Unknown - Cardiac Hx Cardiac Disorders: Yes (CAD) Hx Congestive Heart Failure: Yes Hx Hypertension: Yes - Pulmonary Hx Respiratory Disorders: No - Neurological Hx Neurological Disorder: Yes - HEENT Hx HEENT Disorder: No - Renal Hx Renal Disorder: No - Endocrine/Metabolic Hx Endocrine Disorders: No - Hematological/Oncological Hx Blood Disorders: Yes - Integumentary Hx Dermatological Disorder: No - Musculoskeletal/Rheumatological Hx Falls: Yes - Gastrointestinal Hx Gastrointestinal Disorders: Yes (Gastritis) - Genitourinary/Gynecological Hx Genitourinary Disorders: No - Psychiatric Hx Psychophysiologic Disorder: No Hx Emotional Abuse: No Hx Physical Abuse: No - Past Surgical History Past Surgical History: Non-Contributing - Surgical History Hx Cardiac Catheterization: Yes (february) Other/Comment: tumor removal from abdomen - Anesthesia Hx Anesthesia: Yes Hx Anesthesia Reactions: No Hx Malignant Hyperthermia: No - Suicidal Assessment Feels Threatened In Home Enviroment: No Family/Social History - Family/Social History Family History: Non-Contributory - Review Nursing documentation reviewed.: Yes Allergies/Home Meds Allergies/Adverse Reactions: Allergies No Known Allergies Allergy (Verified 01/18/18 22:15) Home Medications: Home Meds Medication Instructions Recorded Confirmed Metoprolol Succinate XL [Toprol XL] 1 tab PO DAILY 07/17/17 01/18/18 Pantoprazole [Protonix EC Tab] 1 tab PO DAILY 07/17/17 01/18/18 Lisinopril [Zestril] 10 mg PO DAILY 01/18/18 01/18/18 metOLazone [Zaroxolyn] 2.5 mg PO DAILY 01/18/18 01/18/18 Review of Systems - Physician Review All systems were reviewed & negative as marked: Yes - Review of Systems Constitutional: Normal. absent: Fevers Eyes: Normal ENT: Normal Respiratory: Normal. absent: SOB, Cough Cardiovascular: Normal. absent: Chest Pain Gastrointestinal: Normal. absent: Abdominal Pain, Nausea, Vomiting Genitourinary Female: Normal. absent: Dysuria, Frequency, Hematuria, Urine Output Changes Musculoskeletal: Normal Skin: Normal Neurological: Focal Weakness (+numbness to tongue) Endocrine: Normal Hemo/Lymphatic: Normal Psychiatric: Normal ED Stroke Physical Exam Vital Signs Reviewed: Yes Vital Signs Temp Pulse Resp BP Pulse Ox 01/18/18 22:04 98.2 F 63 18 165/67 H 100 Temperature: Afebrile Blood Pressure: Normal Pulse: Regular Respiratory Rate: Normal Appearance: Positive for: Well-Appearing, Non-Toxic, Comfortable Pain Distress: None Mental Status: Positive for: Alert and Oriented X 3 - Systems Exam Head: Present: Atraumatic, Normocephalic Pupils: Present: PERRL Extroacular Muscles: Present: EOMI Conjunctiva: Present: Normal Ears: Present: Normal, NORMAL TM, Normal Canal. No: Erythema, TM Bulging, TM Perf Mouth: Present: Moist Mucous Membranes. No: Normal Tounge (Decreased sensation to tongue) Pharnyx: Present: Normal. No: ERYTHEMA, EXUDATE, TONSILS ENLARGED, Peritonsilar Swelling, Uvular Deviation, Muffled/Hoarse Voice, Strider, Soft Palate/Uvular Edema Nose (External): Present: Atraumatic Nose (Internal): Present: Normal Inspection Neck: Present: Normal Range of Motion. No: Meningeal Signs, MIDLINE TENDERNESS, Paraspinal Tenderness Respiratory/Chest: Present: Clear to Auscultation, Good Air Exchange. No: Respiratory Distress, Accessory Muscle Use Cardiovascular: Present: Regular Rate and Rhythm, Normal S1, S2. No: Murmurs Abdomen: Present: Normal Bowel Sounds. No: Tenderness, Distention, Peritoneal Signs Genitourinary/Pelvic Exam: Present: NI. No: C, E Back: Present: Normal Inspection. No: CVA Tenderness, Midline Tenderness, Paraspinal Tenderness Upper Extremity: Present: Normal Inspection. No: Cyanosis, Edema Lower Extremity: Present: Normal Inspection. No: Edema Skin: Present: Warm, Dry, Normal Color. No: Rashes Lymphatic: Present: OX3, NI, NC Psychiatric: Present: Alert, Oriented x 3, Normal Insight, Normal Concentration Medical Decision Making ED Course and Treatment: 01/18/18 22:12 Impression: 87 year old female complaining of tongue numbness with some difficulty speaking. Plan: -- CT Head w/o contrast -- EKG -- Chest X-Ray -- Labs, lipid panel, troponin, blood type and screen -- Reassess and disposition Prior Visits: Notes and results from previous visits were reviewed. Progress Notes: 01/18/18 22:12 Pt seen on arrival to Emergency department, Code Stroke called. Pt taken to CT scan. 01/18/18 22:30 Radiology reviewed, Chest X-Ray shows no acute processes. CT Head Impression: 1. There is generalized parenchymal atrophy noted as demonstrated by symmetrical dilatation of ventricles and sulci. 2. Chronic periventricular and subcortical microvascular disease is seen. 3. No acute intracranial pathology. Electronically signed on Jan 22:29:37 EDT by: Vinayak Leonard M.D. Pt not a candidate for tPA due to lack of severity/improvement. 01/18/18 22:32 Reviewed EKG, NSR at 69 bpm. 1st degree AV block. LAD. Incomplete LBBB. Non- specific ST/T wave changes. 01/18/18 22:[address] Otero, who is aware and agrees with plan. Accepts pt in to her service. Pt will go to Telemetry observation for TIA. Requests Dr. Lipscomb on consult. 01/18/18 23:45 Calls were placed to Dr. Lipscomb's service. - Critical Care Critical Care Minutes: 30 minutes - Lab Interpretations I have reviewed the lab results: Yes - RAD Interpretation Chronometer Assembler: ED Physician, Radiologist - EKG Interpretation Interpreted by ED Physician: Yes Type: 12 lead EKG - Scribe Statement The provider has reviewed the documentation as recorded by the Scribmattie Winston All medical record entries made by the Peteribmattie were at my direction and personally dictated by me. I have reviewed the chart and agree that the record accurately reflects my personal performance of the history, physical exam, medical decision making, and the department course for this patient. I have also personally directed, reviewed, and agree with the discharge instructions and disposition. NIHSS Scale ([place]) Time Performed: 22:12 - How Severe is the Stoke Baseline Level of Consciousness: 0=Alert LOC to Questions: 0=Both comments correct LOC to commands: 0=Obeys both correctly Best Gaze: 0=Normal Visual: 0=No visual loss Facial: 0=Normal Motor Arm - Left: 0=No drift Motor Arm - Right: 0=No drift Motor Leg - Left: 0=No drift Motor Leg - Right: 0=No drift Limb Ataxia: 0=Absent Sensory: 1=Mild to moderate loss Best Language: 0=No aphasia Dysarthia: 0=Normal articulation Extinction & Inattention (Neglect): 0=Normal, no object Score: 1 Risk Level: Minor Stroke Risk Disposition/Present on Arrival - Present on Arrival Any Indicators Present on Arrival: No History of DVT/PE: No History of Uncontrolled Diabetes: No Urinary Catheter: No History Surgical Site Infection Following: None - Disposition Have Diagnosis and Disposition been Completed?: Yes Diagnosis: Transient ischemic attack Disposition: HOSPITALIZED Disposition Time: 00:46 Patient Plan: Observation Patient Problems: Current Active Problems Problem Status Onset Transient ischemic attack Acute Condition: STABLE
[2018-01-18 22:15] VITALS: BMI 25.0
[2018-01-18] MEDS ORDERED: Sodium Chloride 0.9% 1,000 ML IV SCH (22:15)
[2018-01-18 22:52] LABS: BASO # 0.01 K/mm3 (0.0-2.0); BASO % 0.2 % (0.0-3.0); EOS # 0.1 (0.0-0.7); EOS % 1.2 % (1.5-5.0); GRAN # 2.03 (1.4-6.5); GRAN % 48.2 % (50.0-68.0); HEMOGLOBIN 10.2 g/dL (12.0-16.0); LYMPH # 1.8 (1.2-3.4); LYMPH % 41.6 % (22.0-35.0); MEAN CELL VOLUME 88.7 fl (80.0-105.0); MEAN CORPUSCULAR HEMOGLOBIN 28.2 pg (25.0-35.0); MEAN CORPUSCULAR HGB CONC 31.8 g/dl (31.0-37.0); MEAN PLATELET VOLUME 12.7 fl (7.0-11.0); MONO # 0.4 (0.1-0.6); MONO % 8.8 % (1.0-6.0); RBC 3.62 10^6/uL (3.5-6.1); RED CELL DISTRIBUTION WIDTH 15.9 % (11.5-14.5); WHITE BLOOD COUNT 4.2 10^3/ul (4.5-11.0)
[2018-01-18 23:01] LABS: ALBUMIN 4.3 g/dL (3.0-4.8); CALCIUM 10.1 mg/dL (8.4-10.5); INR 0.96; PARTIAL THROMBOPLASTIN TIME 29.3 Seconds (25.1-36.5); PROTHROMBIN TIME 10.9 SECONDS (9.4-12.5)
[2018-01-18] MEDS: Dextrose 5%/0.45% NS 1,000 ML IV SCH (23:07)
[2018-01-18 23:15] LABS: TROPONIN I 0.02 ng/mL
--- NOTE | 2018-01-19 07:51 | CT ---
Date of service: 01/18/2018 PROCEDURE: CT HEAD WITHOUT CONTRAST. HISTORY: Code Stroke COMPARISON: 03/28/2017 TECHNIQUE: Axial computed tomography images were obtained through the head/brain without intravenous contrast. Radiation dose: Total exam DLP = 858 mGy-cm. This CT exam was performed using one or more of the following dose reduction techniques: Automated exposure control, adjustment of the mA and/or kV according to patient size, and/or use of iterative reconstruction technique. FINDINGS: HEMORRHAGE: No intracranial hemorrhage. BRAIN: No mass effect or edema. Mild atrophy. Mild chronic microvascular changes VENTRICLES: Unremarkable. No hydrocephalus. CALVARIUM: Unremarkable. PARANASAL SINUSES: Unremarkable as visualized. No significant inflammatory changes. MASTOID AIR CELLS: Unremarkable as visualized. No inflammatory changes. OTHER FINDINGS: The report concurs with the preliminary report IMPRESSION: No acute findings
--- NOTE | 2018-01-19 08:03 | RAD ---
Date of service: 01/18/2018 HISTORY: Code Stroke COMPARISON: 07/21/2017 FINDINGS: LUNGS: No active pulmonary disease. PLEURA: No significant pleural effusion identified, no pneumothorax apparent. CARDIOVASCULAR: Moderate cardiomegaly OSSEOUS STRUCTURES: No significant abnormalities. VISUALIZED UPPER ABDOMEN: Normal. OTHER FINDINGS: None. IMPRESSION: No active disease.
--- NOTE | 2018-01-19 09:42 | HP ---
HISTORY OF PRESENT ILLNESS: The patient is an 87 years old, who was brought in by family because of numbness of the tongue. She denies any shortness of breath. No chest pain. No other weakness. No fever. No cough. No hemoptysis. No hematemesis. Started slowly since morning. No other deficit, weakness or numbness is noted. PAST MEDICAL HISTORY: She has significant past medical history of; 1. Chronic anemia. 2. Gastritis. 3. Congestive heart failure. 4. COPD. ALLERGIES: SHE IS NOT ALLERGIC TO ANY MEDICATIONS. MEDICATIONS: At home, she is on Protonix 40 daily, aspirin 81 daily, metoprolol 25 daily, amlodipine 5 mg daily. SOCIAL HISTORY: She lives with her daughter. Denies smoking, drinking or alcohol use. REVIEW OF SYSTEMS: As per daughter she does not have good appetite and she does not ambulate with her and carry on her individual daily activities. PHYSICAL EXAMINATION: GENERAL: She is awake and alert, able to communicate. VITAL SIGNS: She is afebrile, pulse 63, respirations 18, blood pressure . LUNGS: Bilateral fair airflow. No rhonchi or crackle. HEART: S1, S2 audible. ABDOMEN: Soft, nontender. No rebound. No guarding. NEUROLOGICAL: Patient is awake and alert, able to communicate. Moves all four extremities. DIAGNOSTIC DATA: CT scan of the head is pending. X-ray chest is negative. ASSESSMENT: 1. Tongue numbness, etiology unclear yet. 2. Rule out cerebrovascular accident. 3. History of hypertension. 4. Mrc-[id number]-[id number] diabetes. 5. Congestive heart failure. 6. History of chronic obstructive pulmonary disease. 7. Gastritis. PLAN: We will keep patient n.p.o. to get swallowing evaluation in the a.m. Monitor electrolytes. Request for Physical Therapy evaluation. Neurology consult has been requested. Rk Otero MD
--- NOTE | 2018-01-19 11:26 | CARD ---
APPROVED REPORT Date of service: 01/18/2018 EKG Measurement Heart [id number] <Conclusion> Sinus rhythm with 1st degree AV block Left axis deviation Voltage criteria for left ventricular hypertrophy Prolonged QT Abnormal ECG
[2018-01-19] MEDS: Dextrose 5%/0.45% NS 1,000 ML IV SCH ×2 (15:40→21:14)
--- NOTE | 2018-01-19 16:03 | MRI ---
Date of service: 01/19/2018 PROCEDURE: MRI BRAIN WITHOUT CONTRAST HISTORY: tongue numbness COMPARISON: Noncontrast head CT from 01/18/2018 and MRI brain from 06/05/2016 TECHNIQUE: Multiplanar, multisequence MR images of the brain were obtained without intravenous contrast enhancement. FINDINGS: HEMORRHAGE: None DWI: No evidence of an acute or early subacute infarction. BRAIN PARENCHYMA: There are mild chronic microangiopathic changes. There is no mass, mass effect or abnormal extra-axial fluid collection. There is a stable curvilinear T1 hyperintense lesion along the splenium of the corpus callosum. VENTRICLES: The ventricles are normal in size, shape and configuration. CRANIUM: There is normal bone marrow signal pattern. This ORBITS: Grossly unremarkable. PARANASAL SINUSES/MASTOIDS: Mild mucosal thickening in the paranasal sinuses and trace mastoid effusions. VASCULAR SYSTEM: There are normal signal voids in the larger intracranial arteries. OTHER FINDINGS: None. IMPRESSION: No acute intracranial abnormality. Mild chronic microangiopathic changes. 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
--- NOTE | 2018-01-19 18:03 | CP.PCM.CON ---
History of Present Illness - History of Present Illness History of Present Illness: neurology consult dictated. MRI brain shows no new stroke, and lipoma is not in a location that would cause these symptoms. No further stroke workup needed. however: MRI neck to rule out compressive lymphadenopathy would be advisable. DR. mena Past Patient History - Infectious Disease Hx of Infectious Diseases: None - Tetanus Immunizations Tetanus Immunization: Unknown - Past Medical History & Family History Past Medical History?: Yes - Past Social History Smoking Status: Never Smoked - CARDIAC Hx Cardiac Disorders: Yes Hx Congestive Heart Failure: Yes Hx Hypertension: Yes - PULMONARY Hx Respiratory Disorders: No - NEUROLOGICAL Hx Neurological Disorder: Yes HX Cerebrovascular Accident: Yes Hx Dementia: Yes Hx Transient Ischemic Attacks (TIA): Yes - HEENT Hx HEENT Problems: No - RENAL Hx Chronic Kidney Disease: No - ENDOCRINE/METABOLIC Hx Endocrine Disorders: No - HEMATOLOGICAL/ONCOLOGICAL Hx Cancer: Yes (colon) - INTEGUMENTARY Hx Dermatological Problems: No - MUSCULOSKELETAL/RHEUMATOLOGICAL Hx Musculoskeletal Disorders: Yes Hx Falls: Yes - GASTROINTESTINAL Hx Gastrointestinal Disorders: No - GENITOURINARY/GYNECOLOGICAL Hx Genitourinary Disorders: No - PSYCHIATRIC Hx Psychophysiologic Disorder: No Hx Substance Use: No - SURGICAL HISTORY Hx Surgeries: No - ANESTHESIA Hx Anesthesia: Yes Hx Anesthesia Reactions: No Hx Malignant Hyperthermia: No Meds Allergies/Adverse Reactions: Allergies Allergy/AdvReac Type Severity Reaction Status Date / Time No Known Allergies Allergy Verified 01/18/18 22:15 - Medications Medications: Current Medications Dextrose/Sodium Chloride (Dextrose 5%/0.45% Ns 1000 Ml) 1,000 mls @ 60 mls/hr IV .[id number] [facility] Last Admin: 01/19/18 15:40 Dose: Not Given Pantoprazole Sodium (Protonix Inj) 40 mg IVP DAILY [facility] Last Admin: 01/19/18 10:29 Dose: 40 mg Results - Vital Signs Recent Vital Signs: Last Vital Signs Temp 97.2 F L 01/19/18 17:52 Pulse 68 01/19/18 17:52 Resp 18 01/19/18 17:52 BP 134/56 L 01/19/18 17:52 Pulse Ox 98 01/19/18 05:58 - Labs Result Diagrams: 01/18/18 22:38 01/18/18 22:38 Labs: Laboratory Results - last 24 hr 01/18/18 01/18/18 01/18/18 22:38 22:38 22:38 WBC 4.2 L RBC 3.62 Hgb 10.2 L Hct 32.1 L MCV 88.7 D MCH 28.2 MCHC 31.8 RDW 15.9 H Plt Count 120 MPV 12.7 H Gran % 48.2 L Lymph % (Auto) 41.6 H Baxter % (Auto) 8.8 H Eos % (Auto) 1.2 L Baso % (Auto) 0.2 Gran # 2.03 Lymph # (Auto) 1.8 Baxter # (Auto) 0.4 Eos # (Auto) 0.1 Baso # (Auto) 0.01 PT 10.9 INR 0.96 APTT 29.3 Sodium 142 Potassium 4.7 Chloride 102 Carbon Dioxide 32 Anion Gap 13 BUN 59 H Creatinine 1.5 H Est GFR ( Amer) 40 Est GFR (Non-Af Amer) 33 Random Glucose 110 Hemoglobin A1c Calcium 10.1 Total Bilirubin 0.4 AST 27 ALT 10 Alkaline Phosphatase 119 Troponin I 0.02 D Total Protein 8.8 H Albumin 4.3 Globulin 4.5 Albumin/Globulin Ratio 1.0 L Triglycerides 122 Cholesterol 229 H LDL Cholesterol Direct 128 HDL Cholesterol 58 Blood Type Antibody Screen BBK History Checked 01/18/18 01/18/18 22:38 23:16 WBC RBC Hgb Hct MCV MCH MCHC RDW Plt Count MPV Gran % Lymph % (Auto) Baxter % (Auto) Eos % (Auto) Baso % (Auto) Gran # Lymph # (Auto) Baxter # (Auto) Eos # (Auto) Baso # (Auto) PT INR APTT Sodium Potassium Chloride Carbon Dioxide Anion Gap BUN Creatinine Est GFR ( Amer) Est GFR (Non-Af Amer) Random Glucose Hemoglobin A1c 5.7 Calcium Total Bilirubin AST ALT Alkaline Phosphatase Troponin I Total Protein Albumin Globulin Albumin/Globulin Ratio Triglycerides Cholesterol LDL Cholesterol Direct HDL Cholesterol Blood Type A NEGATIVE Antibody Screen Negative BBK History Checked Patient has bt
[2018-01-20 00:05] VITALS: RESP 20
--- NOTE | 2018-01-20 04:47 | CON ---
DATE: 01/19/2018 NEUROLOGY CONSULT NOTE HISTORY OF PRESENT ILLNESS: Ms. Downs is an 87-year-old woman with past medical history of CAD with cardiac stenting, renal insufficiency, CHF, pleural effusion, hypertension, gastritis, dementia, partial colectomy, colon cancer, who presented to the emergency room last night, complaining of tongue numbness. There is no aphasia. There is no weakness. There is no dysarthria. There is no . This never happened before to this patient. Apparently, she has been experiencing acute tongue numbness since earlier in the day. Stroke code was not called. Patient denied any fever, chills, chest pain, shortness of breath, abdominal pain, nausea, vomiting, headache, dizziness or any other complaints. Please note, this was not a stroke code due to NIH low stroke scale and because of the time of onset of symptoms; NIH stroke scale was considered to be 0. PAST MEDICAL HISTORY: As above. PAST SURGICAL HISTORY: As above. FAMILY HISTORY AND SOCIAL HISTORY: There is no tobacco. No alcohol. No IVDA. Patient lives with family. ALLERGIES: NO KNOWN DRUG ALLERGIES. LABORATORY DATA: Head CT was done that was normal with normal muscle atrophy for age. No evidence of hemorrhage is noted. White count 4.2, hemoglobin 10.2, hematocrit 32.1, platelets 15.9. Chemistry: Sodium 142, potassium 4.7, BUN 69, creatinine 1.5. Triglycerides 122, cholesterol 229. IMPRESSION AND PLAN: This is an 87-year-old woman with several risk factors including coronary artery disease, hypertension, who may have had an acute stroke. She is not a TPA candidate due to time of onset and NIH stroke scale being low. However, we will get an MRI of the brain, if that is positive then we will resume stroke workup. Thank you for consulting Neurology. Maik Lipscomb MD
[2018-01-20 06:22] VITALS: O2SAT 96
[2018-01-20] MEDS: Dextrose 5%/0.45% NS 1,000 ML IV SCH (08:20)
--- NOTE | 2018-01-20 09:46 | CT ---
Date of service: 01/19/2018 PROCEDURE: CT NECK WITHOUT CONTRAST HISTORY: tongue numbness COMPARISON: None available. TECHNIQUE: CT of the neck without intravenous contrast. Coronal and sagittal reformats generated. Radiation dose: DLP 300 mGy-cm This CT exam was performed using one or more of the following dose reduction techniques: Automated exposure control, adjustment of the mA and/or kV according to patient size, and/or use of iterative reconstruction technique. FINDINGS: NASOPHARYNX: Unremarkable. SUPRAHYOID NECK: Unremarkable oropharynx, oral cavity, parapharyngeal space and retropharyngeal space. INFRAHYOID NECK: Unremarkable larynx, hypopharynx, and supraglottic space. Vocal cords intact. MASS: None. GLANDS: Parotid and submandibular glands unremarkable. Normal size thyroid gland, without nodule. LYMPH NODES: Normal. No lymphadenopathy. CERVICAL SPINE: No fracture or focal lesion. OTHER FINDINGS: The report concurs with the preliminary [facility] report IMPRESSION: Unremarkable non-contrast enhanced CT of the neck.
[2018-01-20 10:21] LABS: BASO # 0.01 K/mm3 (0.0-2.0); BASO % 0.3 % (0.0-3.0); EOS # 0.1 (0.0-0.7); EOS % 1.5 % (1.5-5.0); GRAN # 1.54 (1.4-6.5); GRAN % 39.3 % (50.0-68.0); HEMOGLOBIN 8.8 g/dL (12.0-16.0); LYMPH # 1.9 (1.2-3.4); LYMPH % 47.6 % (22.0-35.0); MEAN CELL VOLUME 87.5 fl (80.0-105.0); MEAN CORPUSCULAR HEMOGLOBIN 28.2 pg (25.0-35.0); MEAN CORPUSCULAR HGB CONC 32.2 g/dl (31.0-37.0); MEAN PLATELET VOLUME 12.1 fl (7.0-11.0); MONO # 0.4 (0.1-0.6); MONO % 11.3 % (1.0-6.0); RBC 3.12 10^6/uL (3.5-6.1); RED CELL DISTRIBUTION WIDTH 15.8 % (11.5-14.5); WHITE BLOOD COUNT 3.9 10^3/ul (4.5-11.0)
[2018-01-20 10:32] LABS: ALB/GLOB RATIO 0.9 (1.1-1.8); ALBUMIN 3.3 g/dL (3.0-4.8); CALCIUM 9.5 mg/dL (8.4-10.5); URIC ACID 9.7 mg/dL (2.5-6.2)
--- NOTE | 2018-01-20 10:34 | CT ---
Date of service: 01/19/2018 PROCEDURE: CT Chest without contrast HISTORY: TONGUE NUMBNESS COMPARISON: None available. TECHNIQUE: Contiguous axial images were obtained through the chest without intravenous contrast enhancement. Sagittal and coronal reconstructions were performed. Radiation dose (DLP): 298 mGy-cm. This CT exam was performed using one or more of the following dose reduction techniques: Automated exposure control, adjustment of the mA and/or kV according to patient size, and/or use of iterative reconstruction technique. FINDINGS: LUNGS: Clear lungs. Visualized airway clear MEDIASTINUM: Unremarkable thoracic aorta. No aneurysm. Moderate cardiomegaly. Coronary artery calcification. Main pulmonary artery unremarkable. No vascular congestion. No lymphadenopathy. PLEURA: No pleural fluid. No pneumothorax. BONES: No fracture. No destructive lesion. UPPER ABDOMEN: Grossly unremarkable. OTHER FINDINGS: None. IMPRESSION: Unremarkable non-contrast enhanced CT of the chest.
--- NOTE | 2018-01-20 10:39 | PN ---
DATE: 01/19/2018 SUBJECTIVE: The patient is 87 years old, who came to emergency room because of difficulty talking. She complained of numbness of the tongue. Denies any nausea or vomiting. Passed the swallowing eval. No nausea or vomiting. No diarrhea. PHYSICAL EXAMINATION: VITAL SIGNS: She is afebrile, pulse 79, respirations 18, blood pressure 114/47. LUNGS: Bilateral fair airflow. No rhonchi or crackle. HEART: S1 and S2 audible. ABDOMEN: Soft. Nontender. No rebound. No guarding. NEUROLOGICAL: The patient is awake and alert, able to communicate. EXTREMITIES: Bilateral upper and lower extremity: No focal deficit. LABORATORY EXAM: Hemoglobin A1c is 5.7. CT scan of the head is negative. X-ray chest is unremarkable. EKG shows sinus rhythm with first-degree AV block and left axis deviation. PLAN: We will order regular food. I will order for CT of the brain. If MRI is negative, the patient can be discharged later on today after she is seen by neurologist. Rk Otero MD
[2018-01-20 10:52] LABS: FREE T4 1.17 ng/dL (0.78-2.19)
[2018-01-20 12:09] VITALS: BP 153/61; PULSE 69; TEMP 97.1
--- NOTE | 2018-01-21 06:08 | DS ---
HISTORY OF PRESENT ILLNESS: The patient is an 87-year-old, who came in with numbness of the tongue. Denies any oral cavity issue. Denies any weakness or numbness in upper or lower extremities. Eating and tolerating. Speech therapist evaluated the patient. No swallowing issue. She is tolerating her food. PHYSICAL EXAMINATION: VITAL SIGNS: She is afebrile, pulse 92, respirations 20, blood pressure 134/63. LUNGS: Bilateral good airflow. No rhonchi or crackle. HEART: S1 and S2, audible. ABDOMEN: Soft and nontender. No rebound. No guarding. NEUROLOGIC: The patient is awake, alert, oriented, and communicative. LABORATORY DATA: WBC 3.9, hemoglobin 8.8, hematocrit 27.3, and platelet of 98. Chemistry: Sodium 139, potassium 3.9, chloride 105, CO2 of 28, BUN 33, creatinine 1.1, blood sugar of 91. LFTs are within normal limits. Had CT scan of the neck and the chest done that seems to be unremarkable. ASSESSMENT: 1. Tongue numbness. 2. Mild renal insufficiency. 3. History of hypertension. 4. Chronic anemia. 5. Gastritis. PLAN: The patient is clinically stable. Workup is negative. She will be discharged to home today. Rk Otero MD
== END 2018-01-20 12:53 | disposition home or self-care (01) ==
LOC: ED 21:28 → ERH 01-19 00:44 → 2RSO 01-19 04:15 → 2RNO 01-19 04:17
PROVIDERS: ADMIT Internal Medicine; ATTEND Internal Medicine
DX: R20.0 Anesthesia of skin (principal); I25.10 Atherosclerotic heart disease of native coronary artery without angina pectoris; I50.9 Heart failure, unspecified; I11.0 Hypertensive heart disease with heart failure; F03.90 Unspecified dementia, unspecified severity, without behavioral disturbance, psychotic disturbance, mood disturbance, and anxiety; E11.9 Type 2 diabetes mellitus without complications; J44.9 Chronic obstructive pulmonary disease, unspecified; D64.9 Anemia, unspecified; K29.70 Gastritis, unspecified, without bleeding; N28.9 Disorder of kidney and ureter, unspecified; Z85.038 Personal history of other malignant neoplasm of large intestine; Z86.73 Personal history of transient ischemic attack (TIA), and cerebral infarction without residual deficits; Z79.84 Long term (current) use of oral hypoglycemic drugs; Z95.5 Presence of coronary angioplasty implant and graft
CPT/HCPCS: 36415; 70450; 70490; 70551; 71045; 71250; 80053; 80061; 82948; 83036; 83735; 84100; 84439; 84443; 84484; 84550; 85025; 85610; 85730; 86850; 86900; 92610; 93005; 97116; 97162; 99285; C9113; G0378; G8978; G8979; G8996; G8997; G8998; J7030; J7042